=== PATIENT | female | born 1980 | race Caucasian/White ===

== ENCOUNTER 2019-07-30 16:52 | Emergency (ER) | payer OTHER ==
[2019-07-30 17:37] LABS: Absolute Lymphocytes (CBC) 3.1 K/uL (0.7-4.9); Basophils % 0.4 % (0-1.3); Hematocrit 35.2 % (36.0-45.0); Lymphocytes % 35.2 % (15.3-44.8); MPV 8.1 fL (7.6-11.3); RBC Red Blood Cell Count 4.26 M/uL (3.86-4.86)
[2019-07-30 17:54] LABS: Urine Blood TRACE (NEG); Urine Glucose 2+ (NEG); Urine Protein 2+ (NEG); Urine pH 5.5 (5.0-7.0)
[2019-07-30 17:55] LABS: ALT/SGPT 33 U/L (12-78); AST/SGOT 18 U/L (15-37); Albumin 3.7 g/dL (3.4-5.0); Alkaline Phosphatase 77 U/L (45-117); BUN Blood Urea Nitrogen 13 mg/dL (7-18); Bicarbonate 23 mmol/L (21-32); Bilirubin Direct < 0.1 mg/dL (0-0.2); Bilirubin Total 0.3 mg/dL (0.2-1.0); Glucose Level 399 mg/dL (74-106); Lipase 158 U/L (73-393); Potassium 3.6 mmol/L (3.5-5.1); Protein, Total 7.9 g/dL (6.4-8.2); Sodium Level 132 mmol/L (136-145)
[2019-07-30 18:00] LABS: Urine Bacteria <20 /HPF (<20); Urine Culture Reflex Order NOT NEEDED; Urine RBC NONE SEEN /HPF (NONE SEEN)
[2019-07-30] MEDS ORDERED: INSULIN -REGULAR HUMAN 50 UNIT/0.5 ML ML ONE (18:39)
[2019-07-30] MEDS ORDERED: NA CHLORIDE 0.9% 1,000 ML ONE (18:40)
--- NOTE | 2019-07-30 20:05 | EDPHYS ---
Physician Documentation [facility] Name: Lana Solo Age: 38 yrs Sex: Female : 1980 Arrival Date: 07/30/2019 Time: 16:58 Bed 5 Private MD: ED Physician Kings Alba HPI: 07/30 17:15 This 38 yrs old Female presents to ER via Ambulatory with complaints of High cp Blood Sugar. 17:15 The patient or guardian reports hyperglycemia. cp 17:15 Onset: The symptoms/episode began/occurred gradually, and became worse yesterday. cp Associated signs and symptoms: Pertinent negatives: chest pain. Current symptoms: In the emergency department the patient's symptoms are unchanged from the initial presentation. Patient reports her PCP told her to go to ED for evaluation due to elevated blood sugar that was over 600 yesterday. Patient admits to stopping metformin medication due to decrease of appetite and nausea/vomiting. Patient reports she is not taking any medications for diabetes for past 2-3 weeks. Historical: - Allergies: 17:02 No Known Allergies; aa5 - PMHx: 17:02 Diabetes - NIDDM; Hypertension; Thyroid problem; Polycystic Kidney; Rheumatoid aa5 Arthritis; Psoriatric arthritis; - PSHx: 17:02 ; ankle; aa5 - Immunization history:: Adult Immunizations up to date. - Ebola Screening: : No symptoms or risks identified at this time. - Social history:: Smoking status: Patient/guardian denies using tobacco, Patient/guardian denies using alcohol, street drugs. ROS: 17:20 Constitutional: Negative for body aches, chills, fever, poor PO intake. cp 17:20 Eyes: Negative for injury, pain, redness, and discharge. cp 17:20 ENT: Negative for drainage from ear(s), ear pain, sore throat, difficulty swallowing, difficulty handling secretions. 17:20 Cardiovascular: Negative for chest pain, edema, palpitations. 17:20 Respiratory: Negative for cough, shortness of breath, wheezing. 17:20 Abdomen/GI: Negative for abdominal pain, nausea, vomiting, and diarrhea, constipation, black/tarry stool, rectal bleeding. 17:20 Back: Negative for pain at rest, pain with movement. 17:20 : Negative for urinary symptoms, vaginal bleeding, vaginal discharge. 17:20 Skin: Negative for cellulitis, rash. 17:20 Neuro: Negative for altered mental status, dizziness, headache, numbness, syncope, weakness. 17:20 All other systems are negative. Exam: 17:25 Constitutional: The patient appears in no acute distress, alert, awake, cp non-diaphoretic, non-toxic, well developed, well nourished, obese. 17:25 Head/Face: Normocephalic, atraumatic. cp 17:25 Eyes: Periorbital structures: appear normal, Pupils: equal, round, and reactive to light and accomodation, Extraocular movements: intact throughout, Conjunctiva: normal, no exudate, no injection, Sclera: no appreciated abnormality, Lids and lashes: appear normal, bilaterally. 17:25 ENT: External ear(s): are unremarkable, Nose: is normal, Mouth: Lips: moist, Oral mucosa: pink and intact, moist, Posterior pharynx: is normal, airway is patent, no erythema, no exudate. 17:25 Neck: ROM/movement: is normal, is supple, without pain, no range of motions limitations, no nuchal rigidity. 17:25 Chest/axilla: Inspection: normal, Palpation: is normal, no crepitus, no tenderness. 17:25 Cardiovascular: Rate: tachycardic, Rhythm: regular, Edema: is not appreciated, JVD: is not appreciated. 17:25 Respiratory: the patient does not display signs of respiratory distress, Respirations: normal, no use of accessory muscles, no retractions, no splinting, no tachypnea, labored breathing, is not present, Breath sounds: are clear throughout, no decreased breath sounds, no stridor, no wheezing. 17:25 Abdomen/GI: Inspection: abdomen appears normal, Bowel sounds: active, all quadrants, Palpation: abdomen is soft and non-tender, in all quadrants. 17:25 Back: pain, is absent, ROM is normal. 17:25 Skin: no rash present. 17:25 Neuro: Orientation: to person, place \T\ time. Mentation: is normal, Cerebellar function: is grossly normal, Motor: moves all fours, strength is normal, Sensation: is normal, Gait: is steady. Vital Signs: 17:01 BP 160 / 97; Pulse 110; Resp 18 S; Temp 98.5(O); Pulse Ox 97% on R/A; Weight 98.88 kg aa5 (R); Height 5 ft. 3 in. (160.02 cm) (R); 18:17 BP 146 / 78; Pulse 113; Resp 17; Temp 98.4; Pulse Ox 98% on R/A; Pain 0/10; ch 19:15 BP 143 / 77; Pulse 104; Resp 17 S; Temp 98.5(O); Pulse Ox 100% on R/A; Pain 0/10; cc3 20:10 BP 139 / 75; Pulse 101; Resp 18 S; Pulse Ox 100% on R/A; Pain 0/10; cc3 17:01 Body Mass Index 38.62 (98.88 kg, 160.02 cm) aa5 MDM: 17:[address] [facility] 07/30 17:15 Order name: Basic Metabolic Panel; Complete Time: 18:26 07/30 18:26 Interpretation: Normal except: NA 132; GLUC 399; GFR 53. 07/30 17:15 Order name: CBC with Diff; Complete Time: 17:52 07/30 17:52 Interpretation: Normal except: HGB 11.9; HCT 35.2. 07/30 17:15 Order name: Creatinine for Radiology; Complete Time: 18:26 07/30 17:15 Order name: Hepatic Function; Complete Time: 18:26 07/30 19:20 Interpretation: Normal except: GLOB 4.2; A/G 0.9. 07/30 17:15 Order name: Lipase; Complete Time: 18:26 07/30 17:15 Order name: Urine Microscopic Only; Complete Time: 18:26 07/30 17:02 Order name: Accucheck Blood Glucose; Complete Time: 17:19 cp 07/30 17:15 Order name: IV Saline Lock; Complete Time: 18:16 07/30 17:15 Order name: Labs collected and sent; Complete Time: 18:16 cp 07/30 17:15 Order name: Urine Dipstick-Ancillary (obtain specimen); Complete Time: 18:16 cp 07/30 17:46 Order name: Urine Dipstick--Ancillary (enter results); Complete Time: 18:26 ia 07/30 17:46 Order name: Urine --Ancillary (enter results); Complete Time: 18:26 ms 07/30 19:20 Order name: Accucheck Blood Glucose; Complete Time: 19:38 cp Administered Medications: 18:40 Drug: NS 0.9% 1000 ml Route: IV; Rate: 1 bolus; Site: right forearm; 19:40 Follow up: Response: No adverse reaction; IV Status: Completed infusion; IV Intake: cc3 1000ml 18:45 Drug: Insulin Regular Human 10 units {Co-Signature: osmar1 (Aide Mayfield RN).} Route: IVP; Site: right forearm; 19:37 Follow up: Response: No adverse reaction; Blood sugar is lowered cc3 Point of Care Testing: Blood Glucose: 17:01 Blood Glucose: 405 mg/dL; ss 19:37 Blood Glucose: 242 mg/dL; cc3 Ranges: Critical Glucose Levels:Adult <50 mg/dl or >400 mg/dl <40 mg/dl or >180 mg/dl Disposition: 07/30/19 20:04 Discharged to Home. Impression: Diabetes mellitus due to underlying condition with hyperglycemia. - Condition is Stable. - Discharge Instructions: Form - Daily Diabetes Record, Blood Glucose Monitoring, Adult, Diabetes Mellitus and Food. - Prescriptions for Metformin 500 mg Oral Tablet - take 1 tablet by ORAL route 2 times per day Then take 1 tablet with morning meals AND evening meals; 60 tablet. - Medication Reconciliation Form, Thank You Letter, Antibiotic Education, Prescription Opioid Use form. - Follow up: Private Physician; When: 1 - 2 days; Reason: Recheck today's complaints. - Problem is chronic. - Symptoms have improved. Addendum: 08/01/2019 08:40 Co-signature as Attending Physician, Kings Alba MD I agree with the assessment and c weiss plan of care. Signatures: Dispatcher [employer] Sharita Brock RN Kings Nayak ch, MD MD cha Calderon, Audri, RN RN aa5 Kings Vera PA PA cp Cordel, Charlene cc3 Aide Mayfield RN lp1 Corrections: (The following items were deleted from the chart) 07/30 20:24 20:04 07/30/2019 20:04 Discharged to Home. Impression: Diabetes mellitus due to cc3 underlying condition with hyperglycemia. Condition is Stable. Forms are Medication Reconciliation Form, Thank You Letter, Antibiotic Education, Prescription Opioid Use. Follow up: Private Physician; When: 1 - 2 days; Reason: Recheck today's complaints. Problem is chronic. Symptoms have improved. cp
--- NOTE | 2019-07-30 20:05 | ER ---
Nurse's Notes [facility] [place], [place] Name: Lana Solo Age: 38 yrs Sex: Female : 1980 Arrival Date: 07/30/2019 Time: 16:58 Bed 5 Private MD: Diagnosis: Diabetes mellitus due to underlying condition with hyperglycemia Presentation: 07/30 17:00 Presenting complaint: Patient states: "my doctor said that my sugar was 600 yesterday aa5 and today I checked it and it was 474 but I haven't been taking the metformin for the last 2 or 3 weeks because I found out it was giving me stomach problems for the last 2 years". Pt denies nausea/vomiting, denies any symptoms. Pt reports she also has not been taking her antihypertensive medication. 17:00 Transition of care: patient was not received from another setting of care. Onset of aa5 symptoms was July 2019. Risk Assessment: Do you want to hurt yourself or someone else? Patient reports no desire to harm self or others. Initial Sepsis Screen: Does the patient meet any 2 criteria? HR > 90 bpm. Does the patient have a suspected source of infection? No. Patient's initial sepsis screen is negative. Care prior to arrival: None. 17:00 Method Of Arrival: Ambulatory aa5 17:00 Acuity: BRODY 3 aa5 Triage Assessment: 19:15 General: Appears in no apparent distress. comfortable, Behavior is calm, cooperative, cc3 appropriate for age. Historical: - Allergies: 17:02 No Known Allergies; aa5 - PMHx: 17:02 Diabetes - NIDDM; Hypertension; Thyroid problem; Polycystic Kidney; Rheumatoid aa5 Arthritis; Psoriatric arthritis; - PSHx: 17:02 ; ankle; aa5 - Immunization history:: Adult Immunizations up to date. - Ebola Screening: : No symptoms or risks identified at this time. - Social history:: Smoking status: Patient/guardian denies using tobacco, Patient/guardian denies using alcohol, street drugs. Screenin:15 Abuse screen: Denies threats or abuse. Denies injuries from another. Nutritional ch screening: No deficits noted. Tuberculosis screening: No symptoms or risk factors identified. Fall Risk None identified. Assessment: 17:15 Reassessment: Patient appears in no apparent distress at this time. Patient and/or ch family updated on plan of care and expected duration. Pain level reassessed. Patient is alert, oriented x 3, equal unlabored respirations, skin warm/dry/pink. Pain: Denies pain. Neuro: No deficits noted. Level of Consciousness is awake, alert, obeys commands, Oriented to person, place, time, situation, Senior Underwriting Assistant are equal bilaterally. Cardiovascular: No deficits noted. Respiratory: Airway is patent Respiratory effort is even, unlabored. GI: Abdomen is round obese, Bowel sounds present X 4 quads. Derm: Skin is pink, warm \\T\\ dry. 19:15 Reassessment: Patient appears in no apparent distress at this time. Patient and/or cc3 family updated on plan of care and expected duration. Pain level reassessed. Patient is alert, oriented x 3, equal unlabored respirations, skin warm/dry/pink. Received this female patient from morning shift as a case of hyperglycemia, with IV cannula gauge 20 at the right ACV with ongoing IVF bolus of NS infusing well Patient denies pain at this time. Patient states feeling better. Patient states symptoms have improved. General: Appears in no apparent distress. comfortable, Behavior is calm, cooperative, appropriate for age. Pain: Denies pain. Neuro: Level of Consciousness is awake, alert, obeys commands, Oriented to person, place, time, situation, Appropriate for age. Cardiovascular: Denies chest pain, Heart tones S1 S2 present Capillary refill < 3 seconds in bilateral fingers Patient's skin is warm and dry. Respiratory: Airway is patent Respiratory effort is even, unlabored, Respiratory pattern is regular, symmetrical. GI: Abdomen is round obese. : No signs and/or symptoms were reported regarding the genitourinary system. EENT: No signs and/or symptoms were reported regarding the EENT system. Derm: Skin is intact, is healthy with good turgor, Skin is pink, warm \\T\\ dry. normal. Musculoskeletal: Circulation, motion, and sensation intact. Range of motion: intact in all extremities. 20:25 Reassessment: Patient appears in no apparent distress at this time. Patient and/or cc3 family updated on plan of care and expected duration. Pain level reassessed. Patient is alert, oriented x 3, equal unlabored respirations, skin warm/dry/pink. PA Page discharged the patient home with prescription given. IV cannula removed and patient left ER vitally stable and ambulatory with her family. No valuables left in the patient's room. Patient denies pain at this time. Patient states feeling better. Patient states symptoms have improved. Vital Signs: 17:01 BP 160 / 97; Pulse 110; Resp 18 S; Temp 98.5(O); Pulse Ox 97% on R/A; Weight 98.88 kg aa5 (R); Height 5 ft. 3 in. (160.02 cm) (R); 18:17 BP 146 / 78; Pulse 113; Resp 17; Temp 98.4; Pulse Ox 98% on R/A; Pain 0/10; ch 19:15 BP 143 / 77; Pulse 104; Resp 17 S; Temp 98.5(O); Pulse Ox 100% on R/A; Pain 0/10; cc3 20:10 BP 139 / 75; Pulse 101; Resp 18 S; Pulse Ox 100% on R/A; Pain 0/10; cc3 17:01 Body Mass Index 38.62 (98.88 kg, 160.02 cm) aa5 ED Course: 16:58 Patient arrived in ED. mr 17:00 Arm band placed on Patient placed in an exam room, on a stretcher. aa5 17:01 Kings Vera PA is PHCP. cp 17:01 Kings Alba MD is Attending Physician. cp 17:15 Patient has correct armband on for positive identification. Placed in gown. Bed in low ch position. Call light in reach. Side rails up X 1. Pulse ox on. NIBP on. 17:20 Sharita Garcia, TANIA is Primary Nurse. ch 17:20 Triage completed. aa5 17:30 No apparent distress. Resting quietly. ch 17:30 No provider procedures requiring assistance completed. Inserted saline lock: 20 gauge ch in right forearm, using aseptic technique. Blood collected. 19:04 Primary Nurse role handed off by Sharita Garcia, TANIA 19:06 Alma Rosa Sumner is Primary Nurse. cc3 20:24 IV discontinued, intact, bleeding controlled, No redness/swelling at site. Pressure cc3 dressing applied. Administered Medications: 18:40 Drug: NS 0.9% 1000 ml Route: IV; Rate: 1 bolus; Site: right forearm; ch 19:40 Follow up: Response: No adverse reaction; IV Status: Completed infusion; IV Intake: cc3 1000ml 18:45 Drug: Insulin Regular Human 10 units {Co-Signature: lp1 (Aide Mayfield RN).} Route: IVP; Site: right forearm; 19:37 Follow up: Response: No adverse reaction; Blood sugar is lowered cc3 Point of Care Testing: Blood Glucose: 17:01 Blood Glucose: 405 mg/dL; ss 19:37 Blood Glucose: 242 mg/dL; cc3 Ranges: Intake: 19:40 IV: 1000ml; Total: 1000ml. cc3 Outcome: 20:04 Discharge ordered by MD. cp 20:24 Patient left the ED. cc3 20:24 Discharged to home ambulatory, with family. cc3 20:24 Condition: stable 20:24 Discharge instructions given to patient, Instructed on discharge instructions, follow up and referral plans. medication usage, Demonstrated understanding of instructions, follow-up care, medications, Prescriptions given X 1. Signatures: Sharita Garcia, RN TANIA June Clare DavisSamantha, RN RN aa5 Zuleyka Egan RN RN ss Page, Corey, Alma Rosa Kong cp cc3 Aide Mayfield RN lp1
[2019-07-30 20:30] VITALS: BP 146/78; TEMP 98.4; O2SAT 98
== END 2019-07-30 20:24 | disposition home or self-care (01) ==
LOC: ER 16:52
DX: E11.65 Type 2 diabetes mellitus with hyperglycemia (principal)
CPT/HCPCS: 96361; 85025; 80048; 36415; 81025; 82962 ×2; 80076; 83690; 96374; 99284; J7030; 81003; 81015

== ENCOUNTER 2020-11-23 18:11 | Emergency (ER) | payer OTHER ==
--- OUTSIDE RECORDS SUMMARY | 2020-11-23 18:13 | XMS REPORT | Summary of Care ---
:1980 Author Organization [facility] Address [address] [place] [id number] Care Team Providers Name Role Phone Pcp, Does Not Have A Primary Care Provider Reason for Referral Radiology Services (Routine) Status Reason Specialty Diagnoses / Referred By Referred To Procedures Contact Contact Authorized Diagnostic Diagnoses Mammogram abnormal Yovany Parknda Radiology Procedures BI ULTRASOUND BREAST COMPLETE LEFT R, CANDY BAR ATTENDANT [address] [id number] Reason for Visit Radiology Services (Routine) Status Reason Specialty Diagnoses / Referred By Referred To Procedures Contact Contact Authorized Diagnostic Diagnoses Mammogram abnormal Park, Yovanynda Radiology Procedures BI ULTRASOUND BREAST COMPLETE LEFT R, CANDY BAR ATTENDANT [address] [id number] Encounter Details Date Type Department Care Team Description 10/02/2020 Hospital Encounter [facility] [place] Angy led (RAD EXAM [facility] R, CANDY BAR ATTENDANT CANCELLED PER Ultrasound [address] [facility] RADIOLOGIST) [address] [place] [id number] [phone] Allergies No Known Allergiesdocumented as of this encounter (statuses as of 10/03/2020) Medications Medication Sig Dispensed Refills Start Date End Date Status insulin degludec inject 50 Units 0 Active (TRESIBA U-100 INSULIN under the skin. SC) icosapent ethyL Take 1 g by 0 Ac tive (VASCEPA) 1 gram capsule mouth daily. sulfaSALAzine 500 mg Take 500 mg by 0 Active tablet mouth 4 (four) times daily. allopurinoL 100 mg Take 100 mg by 0 Active tablet mouth daily. atorvastatin 40 mg Take 40 mg by 0 Active tablet mouth at bedtime. insulin aspart RAPID inject 8 Units 0 Active (NOVOLOG U-100 INSULIN under the skin 3 ASPART) 100 unit/mL (three) times injection daily with meals. OMEPRAZOLE ORAL Take 40 mg by 0 Active mouth 2 (two) times daily. MELOXICAM Take 15 mg by 0 Active ORALIndications: as mouth. needed Indications: as needed levothyroxine 200 mcg Take 200 mcg by 0 Active Cap mouth. traZODone 50 mg tablet Take 50 mg by 0 Active mouth at bedtime. losartan-hydrochlorothia Take 1 tablet by 0 Active zide 100-12.5 mg per mouth daily. tablet documented as of this encounter (statuses as of 10/03/2020) Active Problems Problem Noted Date Anxiety in , antepartum 03/16/2018 Maternal rheumatoid arthritis complicating 0 03/16/2018 Psoriasis 03/16/2018 documented as of this encounter (statuses as of 10/03/2020) Resolved Problems Problem Noted Date Resolved Date 39 weeks gestation of 10/06/2018 06/20/20 20 Intrauterine growth restriction (IUGR) affecting care of 03/201806/20/2020 mother, third trimester, single gestation Liveborn by 10/06/2018 06/20/2020 38 weeks gestation of 09/30/2018 06/20/20 20 Obesity affecting in third trimester 09/30/2018 06/20/2020 33 weeks gestation of 08/26/2018 06/20/20 20 Obesity (BMI 30-39.9) 08/26/2018 06/20/2020 Anemia affecting 03/17/2018 06/20/2020 AMA (advanced maternal age) multigravida 35+ 03/16/2018 06/20/2020 Hypertension in , pre-existing, antepartum 03/16/20 18 06/20/2020 Hypothyroid in , antepartum 03/16/2018 Diabetes mellitus complicating , antepartum 018 06/20/2020 Overview: a1c 8.3 Depression affecting 03/16/2018 0 Tobacco smoking affecting 03/16/201806/02 Obesity affecting 10/02/2016 06/20/2020 Well woman exam 04/02/2016 03/16/2018 Morbid obesity 04/02/2016 03/16/2018 Contraceptive management 04/02/2016 03/16/2018 Type 2 diabetes mellitus without complication 04/02/2016 03/16/2018 Essential hypertension, benign 04/02/2016 8 Tobacco use disorder 04/02/2016 03/16/2018 Hypothyroidism 04/02/2016 03/16/2018 documented as of this encounter (statuses as of 10/03/2020) Immunizations Name Administration Dates Next Due TDAP 07/03/2017 documented as of this encounter Social History Tobacco Use Types Packs/Day Years Used Date Heavy Tobacco Smoker Cigarettes 0.5 15 Started : 03/16/1998 Smokeless Tobacco: Never Used Comments: 1 pack every 3 days Alcohol Use Drinks/Week oz/Week Comments No 0 Standard drinks or equivalent 0.0 Sex Assigned at Date Recorded Not on file COVID-19 Exposure Response Date Recorded In the last month, have you been in contact with No / Unsure 10/02/2020 10:54 AM CAR GREASER someone who was confirmed or suspected to have Coronavirus / COVID-19? documented as of this encounter Last Filed Vital Signs Not on filedocumented in this encounter Plan of Treatment Name Type Priority Associated Diagnoses Order S chedule BI ULTRASOUND BREAST IMAGING Routine Mammogram abnormal O NCE for 1 Occurrences COMPLETE LEFT starting 10/02 until 0 Health Maintenance Due Date Last Done Comments PNEUMOCOCCAL 0-64 YEARS 1988 COMBINED SERIES (1 of 1 - PPSV23) EYE EXAM 1992 FOOT EXAM 2000 INFLUENZA VACCINE (#1) 2020 PAP SMEAR 03/16/2021 03/16/2018, 04/02/2016, 08/11/2005, Additional history exists CREATININE (SERUM) 06/20/2021 10/10/2018, 08/26/2018, Postp oned from 06/07/2018, Additional 9 (Alternative history exists Guidelines) Depression Screening 06/20/2021 06/20/2020, 06/20/2020 HgA1C 06/20/2021 03/16/2018 Postponed from 09/16/2018 ([place] Guidelines) LDL-C 06/20/2021 Postponed from 1992 ([place]te [place] Guidelines) URINE MICROALBUMIN 06/20/2021 Postponed fro m 1992 ([place]te [place] Guidelines) DTaP,Tdap,and Td Vaccines 07/03/2027 07/03/2017 (2 - Td) documented as of this encounter Results Not on filedocumented in this encounter Visit Diagnoses Diagnosis Mammogram abnormal Abnormal mammogram, unspecified documented in this encounter Insurance Payer Benefit Plan / Subscriber ID Effective Dates Phone Addre ss Type Group MEDICARE MEDICARE PART [id number] 2016-Rachel [phone] Medicare A & B t 2 [id number] [place] [address] [facility] MEDICAID OF [id number] 2016-Rachel [phone] Medicaid [place] t 0 [id number] [place] [address] documented as of this encounter Advance Directives Name Relationship Healthcare Agent Communication Relationship Shantelle Solo Mother Health Care Agent Sharita Arnold Friend [facility] [phone] Agent (Mobile)
--- OUTSIDE RECORDS SUMMARY | 2020-11-23 18:13 | XMS REPORT | Continuity of Care Document ---
:1980 Author Organization [facility] t Address [address] [place] [address] Care Team Providers Name Role Phone Luanne Comer Attending Clinician Problems This patient has no known problems. Allergies, Adverse Reactions, Alerts This patient has no known allergies or adverse reactions. Medications This patient has no known medications. Procedures This patient has no known procedures. Encounters Start End Encounter Admission Attending Care Care Encounter Source Date/Time Date/Time Type Type Clinicians Facility Department ID 2020-10-02 2020-10-02 [facility] [id number] 10:57:08 23:59:00 Encounter Beverly Hinkle [id number] [place] [id number] [place] [id number] 2020-08-16 2020-08-16 Telephone [facility] [id number] 00:00:00 00:00:00 Beverly Stroud REGISTERED SAFETY ENGINEER [id number] [employer] [id number] MATERNAL [id number] & CHILD [address] [place] [address] Results This patient has no known results.
[2020-11-23 19:28] LABS: Urine Blood 2+ (NEG); Urine Glucose TRACE (NEG); Urine Protein 3+ (NEG); Urine Specific Gravity >1.030 (1.005-1.030); Urine pH 5.5 (5.0-7.0)
[2020-11-23] MEDS ORDERED: ONDANSETRON 4 MG/2 ML VIAL ONE (21:15)
[2020-11-23] MEDS ORDERED: MORPHINE 4 MG/ML SYR ONE (21:15)
[2020-11-23] MEDS ORDERED: NA CHLORIDE 0.9% 1,000 ML ONE ×2 (21:15→22:31)
[2020-11-23 21:16] LABS: Basophils % 1.3 % (0-1.3); Hematocrit 36.8 % (36.0-45.0); Lymphocytes % 37.7 % (15.3-44.8); MPV 8.8 fL (7.6-11.3); RBC Red Blood Cell Count 4.69 M/uL (3.86-4.86)
[2020-11-23] MEDS ORDERED: FAMOTIDINE 20 MG/2 ML VIAL IV ONE (21:16)
[2020-11-23 21:39] LABS: ALT/SGPT 39 U/L (12-78); Albumin 3.2 g/dL (3.4-5.0); Alkaline Phosphatase 78 U/L (45-117); BUN Blood Urea Nitrogen 15 mg/dL (7-18); Bicarbonate 25 mmol/L (21-32); Bilirubin Direct < 0.1 mg/dL (0-0.2); Bilirubin Total 0.2 mg/dL (0.2-1.0); Glucose Level 249 mg/dL (74-106); Lipase 173 U/L (73-393); Protein, Total 7.6 g/dL (6.4-8.2); Sodium Level 135 mmol/L (136-145)
[2020-11-23 21:48] LABS: AST/SGOT 25 U/L (15-37); Potassium 3.7 mmol/L (3.5-5.1)
[2020-11-23] MEDS ORDERED: PROMETHAZINE INJ 25 MG/ML AMP ONE (22:32)
--- NOTE | 2020-11-24 00:07 | ER ---
Nurse's Notes [facility] Name: Lana Solo Age: 39 yrs Sex: Female : 1980 Arrival Date: 11/23/2020 Time: 18:12 Bed 19 Private MD: Diagnosis: Upper abdominal pain, unspecified Presentation: 11/23 18:33 Chief complaint: Patient states: RUQ pain sometimes radiating to the back since ca1 yesterday morning. Reports nausea. Denies fever. Coronavirus screen: Client denies travel out of the [place] in the last 14 days. nausea, Client presents with at least one sign or symptom that may indicate coronavirus-19. Standard/surgical mask placed on the client. Provider contacted for isolation considerations. Ebola Screen: Patient negative for fever greater than or equal to 101.5 degrees Fahrenheit, and additional compatible Ebola Virus Disease symptoms Patient denies exposure to infectious person. Patient denies travel to an Ebola-affected area in the 21 days before illness onset. No symptoms or risks identified at this time. Initial Sepsis Screen: Does the patient meet any 2 criteria? No. Patient's initial sepsis screen is negative. Does the patient have a suspected source of infection? No. Patient's initial sepsis screen is negative. Risk Assessment: Do you want to hurt yourself or someone else? Patient reports no desire to harm self or others. Onset of symptoms was November 23, 2020. 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 - Social history:: Smoking status: Patient reports the use of cigarette tobacco products, smokes one-half pack cigarettes per day. Screenin:08 Abuse screen: Denies threats or abuse. Denies injuries from another. Nutritional mg2 screening: No deficits noted. Tuberculosis screening: No symptoms or risk factors identified. Fall Risk IV access (20 points). Assessment: 21:07 General: Appears in no apparent distress. comfortable, Behavior is calm, cooperative. mg2 Pain: Complains of pain in right upper quadrant Pain radiates to back Pain currently is 8 out of 10 on a pain scale. Neuro: Level of Consciousness is awake, alert, obeys commands, Oriented to person, place, time, situation. Cardiovascular: Capillary refill < 3 seconds Patient's skin is warm and dry. Respiratory: Airway is patent Respiratory effort is even, unlabored, Respiratory pattern is regular, symmetrical. GI: Bowel sounds present X 4 quads. Abd is soft Reports upper abdominal pain, nausea. : No signs and/or symptoms were reported regarding the genitourinary system. EENT: No signs and/or symptoms were reported regarding the EENT system. Derm: Skin is intact, is healthy with good turgor, Skin is pink, warm \T\ dry. normal. Musculoskeletal: Circulation, motion, and sensation intact. Capillary refill < 3 seconds. 23:00 Reassessment: Patient appears in no apparent distress at this time. Patient and/or mg2 family updated on plan of care and expected duration. Pain level reassessed. Patient is alert, oriented x 3, equal unlabored respirations, skin warm/dry/pink. 11/24 00:12 Reassessment: Patient denies pain at this time. Patient states feeling better. Patient mg2 states symptoms have improved. Vital Signs: 11/23 18:33 BP 161 / 101; Pulse 109; Resp 15 S; Temp 97.6(TE); Pulse Ox 99% on R/A; Weight 101.6 kg ca1 (R); Height 5 ft. 3 in. (160.02 cm) (R); Pain 8/10; 21:08 Pulse 91; Resp 18; Pulse Ox 96% on R/A; mg2 21:10 BP 153 / 93; mg2 11/24 00:03 Pulse 90; Resp 18; Pulse Ox 99% on R/A; Pain 0/10; mg2 00:12 BP 145 / 87; mg2 11/23 18:33 Body Mass Index 39.68 (101.60 kg, 160.02 cm) ca1 ED Course: 11/23 18:12 Patient arrived in ED. as 18:34 Triage completed. ca1 18:35 Arm band placed on right wrist. ca1 20:31 Elton Redding MD is Attending Physician. mh7 20:33 Gardose, Adria, RN is Primary Nurse. mg2 21:00 Inserted saline lock: 20 gauge in right forearm, using aseptic technique. Blood mg2 collected. 21:08 Patient has correct armband on for positive identification. mg2 21:08 No provider procedures requiring assistance completed. mg2 22:20 CT Abd/Pelvis - IV Contrast Only In Process Unspecified. EDMS 11/24 00:12 IV discontinued, intact, bleeding controlled, No redness/swelling at site. Pressure mg2 dressing applied. Administered Medications: 11/23 21:05 Drug: Zofran (Ondansetron) 4 mg Route: IVP; Site: right forearm; mg2 11/24 00:11 Follow up: Response: No adverse reaction mg2 11/23 21:05 Drug: Pepcid 20 mg Route: IVP; Site: right forearm; mg2 11/24 00:11 Follow up: Response: No adverse reaction mg2 11/23 21:06 Drug: NS 0.9% 1000 ml Route: IV; Rate: 1000 ml; Site: right forearm; mg2 11/24 00:12 Follow up: Response: No adverse reaction; IV Status: Completed infusion; IV Intake: mg2 1000ml 11/23 21:06 Drug: morphine 4 mg Route: IVP; Site: right forearm; mg2 11/24 00:11 Follow up: Response: No adverse reaction mg2 11/23 22:33 Drug: NS 0.9% 1000 ml Route: IV; Rate: 1000 ml; Site: right forearm; mg2 11/24 00:11 Follow up: Response: No adverse reaction; IV Status: Completed infusion; IV Intake: mg2 1000ml 11/23 22:33 Drug: Phenergan 12.5 mg Route: IVP; Site: right forearm; mg2 11/24 00:10 Follow up: Response: No adverse reaction mg2 Intake: 00:11 IV: 1000ml; Total: 1000ml. mg2 00:12 IV: 1000ml; Total: 2000ml. mg2 Outcome: 00:07 Discharge ordered by MD. ramsay 00:12 Discharged to home ambulatory. mg2 00:12 Condition: stable 00:12 Discharge instructions given to patient, Instructed on discharge instructions, follow up and referral plans. medication usage, Demonstrated understanding of instructions, follow-up care, medications, Prescriptions given X 3. 00:16 Patient left the ED. mg2 Signatures: Dispatcher [employer] [facility] CurtisAnna Michele, RN RN mg2 Jody Song RN RN ca1 Elton Redding MD MD mh7 Corrections: (The following items were deleted from the chart) 11/23 18:35 18:33 Chief complaint: Patient states: RUQ pain since yesterday morning. Reports ca1 nausea. Denies fever ca1
--- NOTE | 2020-11-24 00:08 | EDPHYS ---
Physician Documentation [facility] Name: Lana Solo Age: 39 yrs Sex: Female : 1980 Arrival Date: 11/23/2020 Time: 18:12 Bed 19 Private MD: ED Physician Elton Redding HPI: 11/23 20:58 This 39 yrs old Female presents to ER via Ambulatory with complaints of mh7 Abdominal Pain. 20:58 The patient presents with abdominal pain in the right upper quadrant. Onset: The mh7 symptoms/episode began/occurred yesterday. The symptoms radiate to back. Associated signs and symptoms: Pertinent positives: nausea, Pertinent negatives: anorexia, blood in stools, chest pain, constipation, diarrhea, dysuria, fever, headache, hematuria, palpitations, shortness of breath, vaginal discharge, vomiting, vomiting blood. The symptoms are described as intermittent, vague, waxing/waning. Modifying factors: The symptoms are alleviated by nothing, the symptoms are aggravated by nothing. Severity of pain: At its worst the pain was moderate yesterday, in the emergency department the pain is unchanged. 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 - Social history:: Smoking status: Patient reports the use of cigarette tobacco products, smokes one-half pack cigarettes per day. ROS: 20:58 Constitutional: Negative for fever, chills, and weight loss, Eyes: Negative for injury, mh7 pain, redness, and discharge, ENT: Negative for injury, pain, and discharge, Neck: Negative for injury, pain, and swelling, Cardiovascular: Negative for chest pain, palpitations, and edema, Respiratory: Negative for shortness of breath, cough, wheezing, and pleuritic chest pain, : Negative for injury, bleeding, discharge, and swelling, MS/Extremity: Negative for injury and deformity, Skin: Negative for injury, rash, and discoloration, Neuro: Negative for headache, weakness, numbness, tingling, and seizure, Psych: Negative for depression, anxiety, suicide ideation, homicidal ideation, and hallucinations, Allergy/Immunology: Negative for hives, rash, and allergies, Endocrine: Negative for neck swelling, polydipsia, polyuria, polyphagia, and marked weight changes, Hematologic/Lymphatic: Negative for swollen nodes, abnormal bleeding, and unusual bruising. Exam: 20:58 Constitutional: This is a well developed, well nourished patient who is awake, alert, mh7 and in no acute distress. Head/Face: Normocephalic, atraumatic. Eyes: Pupils equal round and reactive to light, extra-ocular motions intact. Lids and lashes normal. Conjunctiva and sclera are non-icteric and not injected. Cornea within normal limits. Periorbital areas with no swelling, redness, or edema. Neck: Trachea midline, no thyromegaly or masses palpated, and no cervical lymphadenopathy. Supple, full range of motion without nuchal rigidity, or vertebral point tenderness. No Meningismus. Chest/axilla: Normal chest wall appearance and motion. Nontender with no deformity. No lesions are appreciated. Cardiovascular: Regular rate and rhythm with a normal S1 and S2. No gallops, murmurs, or rubs. Normal PMI, no JVD. No pulse deficits. Respiratory: Lungs have equal breath sounds bilaterally, clear to auscultation and percussion. No rales, rhonchi or wheezes noted. No increased work of breathing, no retractions or nasal flaring. 20:58 Back: No spinal tenderness. No costovertebral tenderness. Full range of motion. Skin: Warm, dry with normal turgor. Normal color with no rashes, no lesions, and no evidence of cellulitis. MS/ Extremity: Pulses equal, no cyanosis. Neurovascular intact. Full, normal range of motion. Neuro: Awake and alert, GCS 15, oriented to person, place, time, and situation. Cranial nerves II-XII grossly intact. Motor strength 5/5 in all extremities. Sensory grossly intact. Cerebellar exam normal. Normal gait. Psych: Awake, alert, with orientation to person, place and time. Behavior, mood, and affect are within normal limits. 20:58 Abdomen/GI: Inspection: abdomen appears normal, obese Bowel sounds: normal, in all quadrants, Palpation: moderate abdominal tenderness, in the epigastric area and right upper quadrant, Rectal exam: the exam is deferred, because of patient request, Indicators: McBurney's point is not tender, Prasad's sign is negative, Rovsing's sign is negative, Obturator sign is negative, Psoas sign is negative, Liver: no appreciated palpable abnormalities, Hernia: not appreciated. Vital Signs: 18:33 BP 161 / 101; Pulse 109; Resp 15 S; Temp 97.6(TE); Pulse Ox 99% on R/A; Weight 101.6 kg ca1 (R); Height 5 ft. 3 in. (160.02 cm) (R); Pain 8/10; 21:08 Pulse 91; Resp 18; Pulse Ox 96% on R/A; mg2 21:10 BP 153 / 93; mg2 11/24 00:03 Pulse 90; Resp 18; Pulse Ox 99% on R/A; Pain 0/10; mg2 00:12 BP 145 / 87; mg2 11/23 18:33 Body Mass Index 39.68 (101.60 kg, 160.02 cm) ca1 MDM: 00:04 Differential diagnosis: appendicitis, bowel obstruction, cholecystitis, Cholelithiasis, mh7 diverticulitis, gastritis, gastroesophageal reflux disease, non-specific abd pain, pancreatitis, Peptic Ulcer Disease, urinary tract infection. Data reviewed: vital signs, nurses notes, lab test result(s), amylase and lipase, CBC, electrolytes, urinalysis, EKG, radiologic studies, CT scan. Data interpreted: Pulse oximetry: on room air is 99 %. Interpretation: normal. Counseling: I had a detailed discussion with the patient and/or guardian regarding: the historical points, exam findings, and any diagnostic results supporting the discharge/admit diagnosis, the presence of at least one elevated blood pressure reading (>120/80) during this emergency department visit, lab results, radiology results, the need for outpatient follow up, to return to the emergency department if symptoms worsen or persist or if there are any questions or concerns that arise at home. Response to treatment: the patient's symptoms have resolved after treatment, the patient's blood pressure is in an acceptable range, mental status has returned to baseline, the patient no longer shows bradycardia, the patient is not short of breath, the patient is not tachycardic, the patient's pain is gone, the patient's temperature has normalized. 00:[address] [facility] 11/23 19:08 Order name: Urine --Ancillary (enter results); Complete Time: 20:51 tt3 11/23 19:08 Order name: Urine Dipstick--Ancillary (enter results) tt3 11/23 20:34 Order name: Basic Metabolic Panel [facility] 11/23 20:34 Order name: CBC with Diff [facility] 11/23 20:34 Order name: Hepatic Function [facility] 11/23 20:34 Order name: Lipase [facility] 11/23 20:34 Order name: Basic Metabolic Panel; Complete Time: 21:59 EDMS 11/23 20:34 Order name: CBC with Automated Diff; Complete Time: 21:32 EDMS 11/23 20:35 Order name: Liver (Hepatic) Function; Complete Time: 21:59 EDMS 11/23 20:35 Order name: Lipase; Complete Time: 21:59 EDMS 11/23 21:19 Order name: CT Abd/Pelvis - IV Contrast Only [facility] 11/23 21:25 Order name: Troponin (emerg Dept Use Only); Complete Time: 22:57 [facility] 11/23 19:08 Order name: Urine Dipstick-Ancillary (obtain specimen); Complete Time: 19:08 3 11/23 19:08 Order name: Urine Test (obtain specimen); Complete Time: 19:08 [facility] 11/23 20:34 Order name: IV Saline Lock; Complete Time: 21:06 [facility] 11/23 20:34 Order name: Labs collected and sent; Complete Time: 21:06 [facility] 11/23 20:51 Order name: EKG - Nurse/Tech; Complete Time: 21:19 [facility] Administered Medications: 11/23 21:05 Drug: Zofran (Ondansetron) 4 mg Route: IVP; Site: right forearm; mg2 11/24 00:11 Follow up: Response: No adverse reaction [facility] 11/23 21:05 Drug: Pepcid 20 mg Route: IVP; Site: right forearm; mg2 11/24 00:11 Follow up: Response: No adverse reaction [facility] 11/23 21:06 Drug: NS 0.9% 1000 ml Route: IV; Rate: 1000 ml; Site: right forearm; mg2 11/24 00:12 Follow up: Response: No adverse reaction; IV Status: Completed infusion; IV Intake: mg2 1000ml 11/23 21:06 Drug: morphine 4 mg Route: IVP; Site: right forearm; mg2 11/24 00:11 Follow up: Response: No adverse reaction mg2 11/23 22:33 Drug: NS 0.9% 1000 ml Route: IV; Rate: 1000 ml; Site: right forearm; mg2 11/24 00:11 Follow up: Response: No adverse reaction; IV Status: Completed infusion; IV Intake: mg2 1000ml 11/23 22:33 Drug: Phenergan 12.5 mg Route: IVP; Site: right forearm; mg2 11/24 00:10 Follow up: Response: No adverse reaction mg2 Disposition: 11/24/20 00:07 Discharged to Home. Impression: Upper abdominal pain, unspecified. - Condition is Stable. - Discharge Instructions: Abdominal Pain, Adult, [id number], Nausea, Adult, [id number]. - Prescriptions for Zofran ODT 4 mg Oral tablet,disintegrating - place 1 tablet by TRANSLINGUAL route every 8 hours As needed; 10 tablet. Bentyl 20 mg Oral Tablet - take 1 tablet by ORAL route every 6 hours As needed; 20 tablet. Pepcid 20 mg Oral Tablet - take 1 tablet by ORAL route every 12 hours for 5 days; 10 tablet. - Medication Reconciliation Form, Thank You Letter, Antibiotic Education, Prescription Opioid Use form. - Follow up: Private Physician; When: 1 - 2 days; Reason: Worsening of condition, Recheck today's complaints, Continuance of care, Re-evaluation by your physician. - Problem is new. - Symptoms have improved. Signatures: Dispatcher [employer] EDOK Adria Ferrari RN RN mg2 Jody Song RN RN ca1 Elton Redding MD MD 7 Rosa, Farooq tt3 Corrections: (The following items were deleted from the chart) 00:16 00:07 11/24/2020 00:07 Discharged to Home. Impression: Upper abdominal pain, mg2 unspecified. Condition is Stable. Forms are Medication Reconciliation Form, Thank You Letter, Antibiotic Education, Prescription Opioid Use. Follow up: Private Physician; When: 1 - 2 days; Reason: Worsening of condition, Recheck today's complaints, Continuance of care, Re-evaluation by your physician. Problem is new. Symptoms have improved. 7
[2020-11-24 01:31] VITALS: TEMP 97.6
[2020-11-24 01:34] VITALS: O2SAT 99
[2020-11-24 01:35] VITALS: BP 145/87
--- NOTE | 2020-11-24 21:07 | RAD REPORT ---
EXAM DESCRIPTION: CT - Abdomen Pelvis W Contrast - 11/24/2020 7:15 am CLINICAL HISTORY: ABD PAIN COMPARISON: None Available. TECHNIQUE: CT of the abdomen and pelvis performed following IV administration of iodinated contras t. FINDINGS: Lung Bases: The visualized lung bases are clear. Right lower lobe calcified granuloma. Bones: Multilevel degenerative endplate spondylosis and facet arthropathy. Mild bilateral hip joint s pace narrowing and marginal osteophytosis. Abdomen: Liver: Hepatomegaly and diffusely decreased hepatic density. Gallbladder: No calcified gallstones. Spleen, Pancreas, and Adrenal Glands: The spleen, pancreas, and adrenal glands are unremarkable. Kidneys: No hydronephrosis or obstructing calculus. Extensive cystic change in the kidneys bilate rally. No obstructing calculus or hydronephrosis. Vasculature: Aortoiliac atherosclerosis. IVC is unremarkable. The portal vein is patent. The proxim al visceral and renal arteries are patent. Stomach: The stomach and duodenum have normal course. Other: No free intraperitoneal air. No free fluid or lymphadenopathy. Tiny fat-containing umbilic al hernia. Pelvis: Bladder: Urinary bladder is unremarkable. Bowel: No dilated loops of large or small bowel. Appendix: Normal appendix. Pelvis: Uterus is not enlarged. IMPRESSION: 1. No acute inflammatory or obstructive process identified. 2. Hepatomegaly and hepatic steatosis. 3. Polycystic kidney disease. This exam was performed according to our departmental dose-optimization program, which includes autom ated exposure control, adjustment of the mA and/or kV according to patient size and/or use of iterati ve reconstruction technique. Electronically signed by: Chase Tse 11/23/2020 10:31 PM INVENTORY ASSISTANT Due to temporary technical issues with the PACS/Fluency reporting system, reports are being signed by the in house radiologists without review as a courtesy to insure prompt reporting. The interpreting radiologist is fully responsible for the content of the report.
== END 2020-11-24 00:16 | disposition home or self-care (01) ==
LOC: ER 18:11
DX: R10.11 Right upper quadrant pain (principal); I10 Essential (primary) hypertension; F17.210 Nicotine dependence, cigarettes, uncomplicated
CPT/HCPCS: 96361; 85025; 80048; 36415; 81025; 80076; 81003; 84484; 83690; 74177; 96375; 96374; 99284; Q9967; J2550; J7030 ×2; J2405; 93005

== ENCOUNTER 2021-01-13 18:52 | Emergency (ER) | payer OTHER ==
--- OUTSIDE RECORDS SUMMARY | 2021-01-13 18:54 | XMS REPORT | Continuity of Care Document ---
:[address] [facility] t Address [address] [place] [address] Care Team Providers Name Role Phone Princess CANCINO Attending Clinician Doctor Unassigned, Name Attending Clinician Unavailable Luanne Comer Attending Clinician Problems This patient has no known problems. Allergies, Adverse Reactions, Alerts This patient has no known allergies or adverse reactions. Medications This patient has no known medications. Procedures This patient has no known procedures. Encounters Start End Encounter Admission Attending Care Care Encounter Source Date/Time Date/Time Type Type Clinicians Facility Department ID 2021-01-11 2021-01-11 Emergency [facility] [id number] 13:03:00 14:33:00 Mickey Hinkle [id number] [place] [id number] [place] [id number] 2021-01-11 2021-01-11 Orders Doctor MARTINE [id number] 00:00:00 00:00:00 Only UnassCEFERINO he [id number] [place] [facility] [id number] 2020-10-02 2020-10-02 [facility] [id number] 10:57:08 23:59:00 Encounter Beverly Hinkle [id number] [place] [id number] [place] [id number] 2020-08-16 2020-08-16 [place] [facility] [id number] 00:00:00 00:00:00 Margaritamorrisvinay Stroud THREADING 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
--- NOTE | 2021-01-13 19:23 | ER ---
Nurse's Notes [facility] Name: Lana Solo Age: 40 yrs Sex: Female : 1980 Arrival Date: 01/13/2021 Time: 18:58 Bed Waiting Private MD: Diagnosis: Laceration without foreign body of right forearm Presentation: 01/13 19:09 Chief complaint: Patient states: Laceration to R FA was sutured Thursday at [place]. ll1 States one suture came out and the wound is starting to open up. No drainage. Crushed by truck [place] Thursday. Coronavirus screen: Client denies travel out of the [place] in the last 14 days. At this time, the client does not indicate any symptoms associated with coronavirus-19. Ebola Screen: Patient denies travel to an Ebola-affected area in the 21 days before illness onset. Initial Sepsis Screen: Does the patient meet any 2 criteria? No. Patient's initial sepsis screen is negative. Does the patient have a suspected source of infection? Yes: Skin breakdown/wound. Risk Assessment: Do you want to hurt yourself or someone else? Patient reports no desire to harm self or others. Onset of symptoms was January 11, 2021. 19:09 Method Of Arrival: Ambulatory ll1 19:09 Acuity: BRODY 4 ll1 Triage Assessment: 19:16 General: Appears uncomfortable, Behavior is calm, cooperative, appropriate for age. ll1 Pain: Complains of pain in R FA Quality of pain is described as aching. Neuro: No deficits noted. Cardiovascular: No deficits noted. Respiratory: No deficits noted. Derm: 1 suture popped open. Slight dehiscence. 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 - Social history:: Smoking status: Patient reports the use of cigarette tobacco products, smokes one-half pack cigarettes per day. Screenin:21 Abuse screen: Denies threats or abuse. Nutritional screening: No deficits noted. ll1 Tuberculosis screening: No symptoms or risk factors identified. Fall Risk None identified. Total Arriola Fall Scale indicates No Risk (0-24 pts). Vital Signs: 19:09 BP 161 / 91; Pulse 100; Resp 18; Temp 98.0; Pulse Ox 99% ; Weight 97.07 kg; Height 5 ll1 ft. 3 in. (160.02 cm); Pain 7/10; 19:09 Body Mass Index 37.91 (97.07 kg, 160.02 cm) ll1 ED Course: 18:58 Patient arrived in ED. mr 19:12 Triage completed. ll1 19:15 Arm band placed on. ll1 19:21 No provider procedures requiring assistance completed. Patient did not have IV access ll1 during this emergency room visit. 19:22 Karla Adam [facility]-C is [facility] kb 19:22 Raymond Sykes MD is Attending Physician. kb 19:22 Patient has correct armband on for positive identification. Bed in low position. Call ll1 light in reach. Side rails up X 1. Cardiac monitoring not applicable on this patient. 19:47 Maximo Gao, RN is Primary Nurse. jb4 Administered Medications: No medications were administered Outcome: 19:22 Discharged to home ambulatory. ll1 19:22 Condition: stable 19:22 Discharge instructions given to patient, Instructed on discharge instructions, follow up and referral plans. Demonstrated understanding of instructions, follow-up care, wound care. 19:22 Discharge ordered by MD. kb 20:02 Patient left the ED. ll1 Signatures: Karla Adam FNP-C FNP-Luther Clare June mr Maximo Gao, RN RN jb4 Vidal Cespedes RN RN ll1
--- NOTE | 2021-01-13 19:23 | EDPHYS ---
Physician Documentation [facility] Name: Lana Solo Age: 40 yrs Sex: Female : 1980 Arrival Date: 01/13/2021 Time: 18:58 Bed Waiting Private MD: ED Physician Raymond Sykes HPI: 01/13 19:39 This 40 yrs old Female presents to ER via Ambulatory with complaints of Wound kb Recheck. 19:39 Patient presents to ED for recheck of: laceration. The affected area is on the dorsal kb aspect of right forearm. Previous treatment: The patient was initially treated 4 day(s) ago, the care was rendered at another emergency department, [facility], Treatment type: The patient's original treatment included sutures. Progress: The patient reports sutures came undone and now laceration is opening back up. The patient has not experienced similar symptoms in the past. The patient has not recently seen a physician. [employer]: 19:22 LMP N/A - control method ll1 Historical: - Allergies: 19:14 Simponi; ll1 19:14 Bydureon; ll1 19:14 Metformin HCl; ll1 - PMHx: 19:14 Diabetes - NIDDM; Hypertension; polycystic kidney; Psoriatric arthritis; Rheumatoid ll1 Arthritis; Thyroid problem; - PSHx: 19:14 ; ankle; ll1 - Immunization history:: Flu vaccine is not up to date. - Social history:: Smoking status: Patient reports the use of cigarette tobacco products, smokes one-half pack cigarettes per day. ROS: 19:37 Constitutional: Negative for fever, chills, and weight loss, MS/Extremity: Negative for kb injury and deformity, Neuro: Negative for headache, weakness, numbness, tingling, and seizure. 19:37 Skin: Positive for laceration(s), of the dorsal aspect of right forearm. Exam: 19:38 Constitutional: This is a well developed, well nourished patient who is awake, alert, kb and in no acute distress. Head/Face: Normocephalic, atraumatic. MS/ Extremity: Pulses equal, no cyanosis. Neurovascular intact. Full, normal range of motion. Neuro: Awake and alert, GCS 15, oriented to person, place, time, and situation. Cranial nerves II-XII grossly intact. Moves all extremities. Sensory grossly intact. Cerebellar exam normal. Normal gait. 19:38 Respiratory: the patient does not display signs of respiratory distress, Respirations: normal. 19:38 Skin: Wound recheck: Suture laceration closure: no drainage, no erythema, no swelling, mild dehiscence. Vital Signs: 19:09 BP 161 / 91; Pulse 100; Resp 18; Temp 98.0; Pulse Ox 99% ; Weight 97.07 kg; Height 5 ll1 ft. 3 in. (160.02 cm); Pain 7/10; 19:09 Body Mass Index 37.91 (97.07 kg, 160.02 cm) ll1 MDM: 19:22 Patient medically screened. kb 19:23 Data reviewed: vital signs, nurses notes. Data interpreted: Pulse oximetry: on room air kb is 99 %. Interpretation: normal. Counseling: I had a detailed discussion with the patient and/or guardian regarding: the historical points, exam findings, and any diagnostic results supporting the discharge/admit diagnosis, the need for outpatient follow up, a family practitioner, to return to the emergency department if symptoms worsen or persist or if there are any questions or concerns that arise at home. ED course: steristrips placed across laceration to keep wound approximated. Administered Medications: No medications were administered Disposition: 01/14 05:28 Co-signature as Attending Physician, Raymond Sykes MD I agree with the assessment and tw4 plan of care. Disposition: 01/13/21 19:22 Discharged to Home. Impression: Laceration without foreign body of right forearm. - Condition is Stable. - Discharge Instructions: Nonsutured Laceration Care, Laceration Care, Adult, [id number]. - Medication Reconciliation Form, Thank You Letter, Antibiotic Education, Prescription Opioid Use form. - Follow up: Emergency Department; When: As needed; Reason: Worsening of condition. Follow up: Private Physician; When: 2 - 3 days; Reason: Recheck today's complaints, Continuance of care, Re-evaluation by your physician. Signatures: Karla Adam, Raymond Altman MD MD 4 Vidal Cespedes RN RN ll1 Corrections: (The following items were deleted from the chart) 01/13 20:02 19:22 01/13/2021 19:22 Discharged to Home. Impression: Laceration without foreign body ll1 of right forearm. Condition is Stable. Forms are Medication Reconciliation Form, Thank You Letter, Antibiotic Education, Prescription Opioid Use. Follow up: Emergency Department; When: As needed; Reason: Worsening of condition. Follow up: Private Physician; When: 2 - 3 days; Reason: Recheck today's complaints, Continuance of care, Re-evaluation by your physician. kb
[2021-01-14 16:20] VITALS: BP 161/91; TEMP 98; O2SAT 99
== END 2021-01-13 20:02 | disposition home or self-care (01) ==
LOC: ER 18:52
DX: S51.811D Laceration without foreign body of right forearm, subsequent encounter (principal); F17.210 Nicotine dependence, cigarettes, uncomplicated; Z88.8 Allergy status to other drugs, medicaments and biological substances
CPT/HCPCS: 99281

== ENCOUNTER 2022-07-29 21:36 | Emergency (ER) | payer OTHER ==
--- OUTSIDE RECORDS SUMMARY | 2022-07-29 21:44 | XMS REPORT | Continuity of Care Document ---
:1980 Author Organization [facility] t Address [address] [place] [address] Care Team Providers Name Role Phone Saba Huff Primary Care Physician RONEN MOLINA Attending Clinician Unavailable Hadley Matute DO Attending Clinician Mickey Arevalo Attending Clinician Doctor Unassigned, [place] Attending Clinician Unavailable Beverly Comer Attending Clinician BEVERLY PARK Attending Clinician Unavailable Payers Payer Name Policy Type Policy Number Effective Date Expiration Date Eulogio thompson MEDICARE PART A [id number] 2016 \T\ B 00:00:00 MEDICAID [facility] [id number] 2016 00:00:00 [employer] MEDICARE [id number] 2021 ADVANTAGE HMO 00:00:00 Problems Condition Condition Condition Status Onset Resolution Last Treating Co mments Source Name Details Category Date Date Treatment Clinician Date Lateral Lateral Disease Active [facility] epicondyli epicondyli 8-30 He alth tis of tis of 00:00: right right 00 elbow elbow 39 weeks 39 weeks Disease Active 2017-11 Unive rs gestation gestation 2-05 ity of of of 00:00: [place] 00 Medi lasha Branch Intrauteri Intrauteri Disease Active 2017-11 U nivers ne growth ne growth 2-05 it[place] of restrictio [place] (IUGR[place] (IUGR) 00 Medica l affecting affecting Bran ch care of care of mother, mother, third third trimester, trimester, single single gestation gestation Liveborn Liveborn Disease Active 2017-11 Un[facility] rs by by 2-05 [place] [facility] [place] 38 weeks 38 weeks Disease Active 2017-11 Unive rs gestation gestation 1-29 ity of of of 00:00: [place] 00 [facility] Obesity Obesity Disease Active 2017-11 Univers affecting affecting 1-29 [place] in third in third 00 Medica l trimester trimester Bran ch 33 weeks 33 weeks Disease Active 2017-11 Unive rs gestation gestation 0-25 ity of of of 00:00: [place] 00 [facility] Obesity Obesity Disease Active 2017-11 Univers (BMI (BMI 0-25 ity of 30-39.9) 30-39.9) 00:00: [place] 00 [facility] Anemia Anemia Disease Active Univers affecting affecting 5-16 [place] of [place] [facility] Anxiety in Anxiety in Disease Active U nivers , , 5-15 it y of antepartum antepartum 00:[place] [facility] AMA AMA Disease Active Univers (advanced (advanced 5-15 ity of maternal maternal 00:00: [place] age) age) 00 Medical multigravi multigravi Br anch da 35+ da 35+ Hypertensi Hypertensi Disease Active U nivers on in on in 5-15 ity of , , 00:[place] pre-existi pre-existi 00 Ct dical ng, ng, Branch antepartum antepartum Hypothyroi Hypothyroi Disease Active U nivers d in d in 5-15 ity of , , 00:[place] antepartum antepartum 00 Ct dical Branch Diabetes Diabetes Disease Active Overview: Un [facility] mellitus mellitus 5-15 a1c 8.3 ity o f complicati complicati 00:00: [place] ng ng 00 Medical , , Br anch antepartum antepartum Anxiety in Anxiety in Disease Active U nivers , , 5-15 it y of antepartum antepartum 00:[place] Depression Depression Disease Active U nivers affecting affecting 5-15 [place] of [place] [facility] Tobacco Tobacco Disease Active Univers smoking smoking 5-15 ity of affecting affecting 00:[place] [facility] Maternal Maternal Disease Active Unive rs rheumatoid rheumatoid 5-15 it y of arthritis arthritis 00:[place] complic[place] complicati 00 Me dical ng ng Branch Psoriasis Psoriasis Disease Active Uni vers 5-15 ity of 00:00: [place] [facility] Obesity Obesity Disease Active 2015-11 Univers affecting affecting 2-01 [place] of [place] [facility] Allergies, Adverse Reactions, Alerts Allergy Allergy Status Severity Reaction(s) Onset Inactive Treating Comm ents Source Name Type Date Date Clinician Exenatid Propensi Active Unknown - Uni vers e ty to See comments 3-12 ity of Microsph adverse 00:00: [place] eres reaction 00 Medical Branch Metformi Propensi Active Unknown - Uni vers n ty to See comments 3-12 ity of adverse 00:00: [place] reaction 00 [facility] Branch Golimuma Propensi Active Unknown - Uni vers b ty to See comments 3-12 ity of adverse 00:00: [place] reaction 00 [facility] GOLIMUMA DRUG Active Unknown-Cmnt 0 Un mercy B INGREDI 3-12 ity of 00:00: [place] 00 Medical Branch EXENATID DRUG Active Unknown-Cmnt 0 Un mercy E INGREDI 3-12 ity of MICROSPH 00:00: [place] ERES 00 Medical Branch METFORMI DRUG Active Unknown-Cmnt 0 Un [facility] N INGREDI 3-12 ity of 00:00: [place] 00 Medical [place] NO KNOWN Drug Active Univers ALLERGIE Class ity of S [facility] [place] [facility] Social History Social Habit Start Date Stop Date Quantity Comments Source History of tobacco Cigarette Smoker [facility] use Exposure to Not sure [facility] SARS-CoV-2 (event) Cigarettes smoked 2021-01-11 2021-01-11 Univers ity of current (pack per 00:00:00 00:00:00 [facility] ed) - Reported Branch Cigarette 2021-01-11 2021-01-11 University of pack-years 00:00:00 00:00:00 [facility] [place] [facility] Tobacco use and 2021-01-11 2021-01-11 Never used Universit y of exposure 00:00:00 00:00:00 [facility] [place] [facility] Alcohol intake 2021-01-11 2021-01-11 Current University of 00:00:00 00:00:00 non-drinker of [facility] alcohol Branch (finding) Tobacco Comment 2018-10-06 2018-10-06 1 pack every 3 Unive rsity of 00:00:00 00:00:00 days [facility] [place] [facility] Sex Assigned At [birth year] [facility] y of 00:00:00 00:00:00 [facility] [place] [facility] Smoking Status Start Date Stop Date Source Smokes tobacco daily 2021-07-01 00[facility]00:00 [facility] Heavy tobacco smoker 2021-01-11 00:00:00 Univers ity of [facility] [place] [facility] Medications Ordered Filled Start Stop Current Ordering Indication Dosage Frequency Signature Comments Components Source Medication Medication Date Date Medication? Clinician (SIG) Name Name dionisio 2020-11- No [id number] 2{tbl} Q6H Take 2 UT en-codeine 0-12 10-18 9107 tablets by He aida (Tylenol w/ 00:00: 04:59 mouth Codeine #3) 00 :00 every 6 300-30 MG (six) tablet hours if needed for severe pain for up to 5 days. insulin Yes 8U Inject 8 UT aspart 8-30 Units Health (NovoLOG) 14:09: under the 100 UNIT/ML 32 skin. injection sulfaSALAzi Yes 500mg Take 500 U T ne 8-30 mg by Health (Azulfidine 14:09: mouth. ) 500 MG 32 tablet insulin Yes 8U Inject 8 UT aspart 8-30 Units Health (NovoLOG) 14:09: under the 100 UNIT/ML 32 skin. injection sulfaSALAzi Yes 500mg Take 500 U T ne 8-30 mg by Health (Azulfidine 14:09: mouth. ) 500 MG 32 tablet allopurinol Yes 100mg Take 100 U T (Zyloprim) 8-30 mg by Health 100 MG 14:09: mouth. tablet 31 atorvastati 1-0 Yes 40mg Take 40 mg UT n (Lipitor) 8-30 by mouth. Hea lth 40 MG 14:09: tablet 31 esomeprazol 1-0 Yes 40mg Take 40 mg UT e (NexIUM) 8-30 by mouth. Heal th [address] 14:09: capsule 31 allopurinol 2020-0 Yes 100mg Take 100 U T (Zyloprim) 8-30 mg by Health 100 MG 14:09: mouth. tablet 31 atorvastati 1-0 Yes 40mg Take 40 mg UT n (Lipitor) 8-30 by mouth. Hea lth 40 MG 14:09: tablet 31 esomeprazol 1-0 Yes 40mg Take 40 mg UT e (NexIUM) 8-30 by mouth. Heal th [address] 14:09: capsule 31 insulin 2020-0 Yes 8U Inject 8 UT aspart 8-30 Units Health (NovoLOG) 09:09: under the 100 UNIT/ML 32 skin. injection sulfaSALAzi 2020-0 Yes 500mg Take 500 U T ne 8-30 mg by Health (Azulfidine 09:09: mouth. ) 500 MG 32 tablet insulin 2020-0 Yes 8U Inject 8 UT aspart 8-30 Units Health (NovoLOG) 09:09: under the 100 UNIT/ML 32 skin. injection sulfaSALAzi 1-0 Yes 500mg Take 500 U T ne 8-30 mg by Health (Azulfidine 09:09: mouth. ) 500 MG 32 tablet allopurinol 2020-0 Yes 100mg Take 100 U T (Zyloprim) 8-30 mg by Health 100 MG 09:09: mouth. tablet 31 atorvastati 1-0 Yes 40mg Take 40 mg UT n (Lipitor) 8-30 by mouth. Hea lth 40 MG 09:09: tablet 31 esomeprazol 1-0 Yes 40mg Take 40 mg UT e (NexIUM) 8-30 by mouth. Heal th [address] 09:09: capsule 31 allopurinol 2021-0 Yes 100mg Take 100 U T (Zyloprim) 8-30 mg by Health 100 MG 09:09: mouth. tablet 31 atorvastati 2021-0 Yes 40mg Take 40 mg UT n (Lipitor) 8-30 by mouth. Hea lth 40 MG 09:09: tablet 31 esomeprazol 2020-0 Yes 40mg Take 40 mg UT e (NexIUM) 8-30 by mouth. Heal th [address] 09:09: capsule 31 acetaminoph 2020- No [id number] 2{tbl} Q6H Take 2 UT en-codeine 07-01 9107 tablets by Yann alth (Tylenol w/ 00:00: 04:59 mouth Codeine #3) 00 :00 every 6 300-30 MG (six) tablet hours if needed for severe pain for up to 5 days. acetaminoph 2020- No [id number] 2{tbl} Q6H Take 2 UT en-codeine 07-01 9107 tablets by Yann alth (Tylenol w/ 00:00: 04:59 mouth Codeine #3) 00 :00 every 6 300-30 MG (six) tablet hours if needed for severe pain for up to 5 days. Tremfya 100 2020-0 Yes UT MG/ML 7-12 Health solution 00:00: pen-injecto 00 r Tremfya 100 2020-0 Yes UT MG/ML 7-12 Health solution 00:00: pen-injecto 00 r Tremfya 100 2020-0 Yes UT MG/ML 7-12 Health solution 00:00: pen-injecto 00 r Tremfya 100 2020-0 Yes UT MG/ML 7-12 Health solution 00:00: pen-injecto 00 r Soliqua 2020-0 Yes UT 100-33 6-21 Health UNT-MCG/ML 00:00: solution 00 pen-injecto r Soliqua 2020-0 Yes UT 100-33 6-21 Health UNT-MCG/ML 00:00: solution 00 pen-injecto r Soliqua 2020-0 Yes UT 100-33 6-21 Health UNT-MCG/ML 00:00: solution 00 pen-injecto r Soliqua 2020-0 Yes UT 100-33 6-21 Health UNT-MCG/ML 00:00: solution 00 pen-injecto r buPROPion 2020-0 Yes 150mg Take 150 UT XL 4-01 mg by Health (Wellbutrin 00:00: mouth 1 XL) 150 MG 00 (one) time 24 hr each day tablet in the morning. buPROPion 2020-0 Yes 150mg Take 150 UT XL 4-01 mg by Health (Wellbutrin 00:00: mouth 1 XL) 150 MG 00 (one) time 24 hr each day tablet in the morning. buPROPion 2020-0 Yes 150mg Take 150 UT XL 4-01 mg by Health (Wellbutrin 00:00: mouth 1 XL) 150 MG 00 (one) time 24 hr each day tablet in the morning. buPROPion 2020-0 Yes 150mg Take 150 UT XL 4-01 mg by Health (Wellbutrin 00:00: mouth 1 XL) 150 MG 00 (one) time 24 hr each day tablet in the morning. Vascepa 1 g 0 Yes UT capsule 3-29 Health 00:00: 00 Droplet Pen 2020-0 Yes [facility] [place] 32G 3-29 Health X 4 MM misc 00:00: 00 levothyroxi 2020-0 Yes UT ne 3-29 Health (Synthroid, 00:00: Levoxyl) 00 200 MCG tablet losartan 0 Yes UT (Cozaar) 3-29 Health 100 MG 00:00: tablet 00 Vascepa 1 g 0 Yes UT capsule 3-29 Health 00:00: 00 Droplet Pen 2020-0 Yes [facility] [place] 32G 3-29 Health X 4 MM misc 00:00: 00 levothyroxi 2020-0 Yes UT ne 3-29 Health (Synthroid, 00:00: Levoxyl) 00 200 MCG tablet losartan 0 Yes UT (Cozaar) 3-29 Health 100 MG 00:00: tablet 00 Vascepa 1 g 0 Yes UT capsule 3-29 Health 00:00: 00 Droplet Pen 2020-0 Yes [facility] [place] 32G 3-29 Health X 4 MM misc 00:00: 00 levothyroxi 2020-0 Yes UT ne 3-29 Health (Synthroid, 00:00: Levoxyl) 00 200 MCG tablet losartan 0 Yes UT (Cozaar) 3-29 Health 100 MG 00:00: tablet 00 Vascepa 1 g 0 Yes UT capsule 3-29 Health 00:00: 00 Droplet Pen Yes [facility] [place] 32G 01-28 Health X 4 MM misc 00:00: 00 levothyroxi Yes UT ne 01-28 Health (Synthroid, 00:00: Levoxyl) 00 200 MCG tablet losartan Yes UT (Cozaar) 01-28 Health 100 MG 00:00: tablet 00 ibuprofen 2020- No 600mg 600 mg, Uni vers (IBU) 01-11 Oral, ity of tablet 600 20:30: 19:29 ONCE, 1 Liban as mg 00 :00 dose, Fri Medical 01/11/21 at Branch 1430, [place] HYDROcodone 2020- No 2{tbl} 2 tablet, Univers -acetaminop 01-11 Oral, ity of hen (NORCO 20:15: 19:29 ONCE, 1 Liban as 5) 5-325 mg 00 :00 dose, Fri Med ical tablet 2 01/11/[address] [facility] h tablet 1415, [place] ibuprofen Yes [id number] 600mg Take 1 Univers (IBU) 600 01-11 [id number] tablet by ity of mg tablet 00:00: mouth [place] 00 every 6 Medical (six) Branch hours as needed for Pain (scale 4-6). ibuprofen Yes [id number] 600mg Take 1 Univers (IBU) 600 -12 [id number] tablet by ity of mg tablet 00:00: mouth [place] 00 every 6 Medical (six) Branch hours as needed for Pain (scale 4-6). cephALEXin 2020- No [id number] 500mg Take 1 Univers (KEFLEX) 01-11 [id number] capsule by it y of 500 mg 00:00: 04:59 mouth 4 [place] capsule 00 :00 (four) Medical times Branch daily for 7 days. traMADoL 50 2020- No [id number] 50mg Take 1 Uni vers mg tablet 01-11 tablet by ity of 00:00: 04:59 mouth [place] 00 :00 every 6 Medical (six) Branch hours as needed for Pain (scale 7-10) for up to 7 days. Indication s: acute pain methocarbam 2019-11 Yes [id number] 500mg Take 1 Univers oL 2-08 tablet by ity of (ROBAXIN) 00:00: mouth [place] 500 mg 00 every 6 Medical tablet (six) Branch hours as needed (MUSCLE SPASM). naproxen 2020- Yes [id number] 550mg Take 1 U nivers sodium 550 2-08 tablet by ity of mg tablet 00:00: mouth 2 [place] 00 (two) Medical times Branch daily with meals. methocarbam 2020- Yes [id number] 500mg Take 1 Univers oL 2-08 tablet by ity of (ROBAXIN) 00:00: mouth [place] 500 mg 00 every 6 Medical tablet (six) Branch hours as needed (MUSCLE SPASM). naproxen 2019-11 Yes [id number] 550mg Take 1 U nivers sodium 550 2-08 tablet by ity of mg tablet 00:00: mouth 2 [place] 00 (two) Medical times Branch daily with meals. methocarbam 2019-11 Yes [id number] 500mg Take 1 Univers oL 2-08 tablet by ity of (ROBAXIN) 00:00: mouth [place] 500 mg 00 every 6 Medical tablet (six) Branch hours as needed (MUSCLE SPASM). naproxen 2019-11 Yes [id number] 550mg Take 1 U nivers sodium 550 2-08 tablet by ity of mg tablet 00:00: mouth 2 00 (two) Medical times Branch daily with meals. leflunomide 2019-11 Yes 10mg QD Take 10 mg UT (Arava) 10 0-21 by mouth 1 Hea lth MG tablet 00:00: (one) time 00 each day. leflunomide 2019-11 Yes 10mg QD Take 10 mg UT (Arava) 10 0-21 by mouth 1 Hea lth MG tablet 00:00: (one) time 00 each day. leflunomide 2019-11 Yes 10mg QD Take 10 mg UT (Arava) 10 0-21 by mouth 1 Hea lth MG tablet 00:00: (one) time 00 each day. leflunomide 2019- Yes 10mg QD Take 10 mg UT (Arava) 10 0-21 by mouth 1 Hea lth MG tablet 00:00: (one) time 00 each day. Accu-Chek 2019- Yes Q.[id number] 3 (three) UT Guide test 0-02 [id number] times a Health strip 00:00: 3D day. 00 Accu-Chek 2020-1 Yes Q.74352507 3 (three) UT Guide test 0- [id number] times a Health strip 00:00: 3D day. 00 Accu-Chek 2020-1 Yes Q.25983862 3 (three) UT Guide test 0- [id number] times a Health strip 00:00: 3D day. 00 Accu-Chek 2020-1 Yes Q.74012443 3 (three) UT Guide test 0- [id number] times a Health strip 00:00: 3D day. 00 montelukast 2019- 2020- No 10mg Take 10 mg Univers 10 mg 8- 08-19 by mouth. ity of tablet 19:23: 00:00 [place] 30 :00 [facility] montelukast 2019- 2020- No 10mg Take 10 mg Univers 10 mg - 08-19 by mouth. ity of tablet 19:23: 00:00 [place] 30 :00 [facility] montelukast 2019-2019- No 10mg Take 10 mg Univers 10 mg -20 06-19 by mouth. ity of tablet 19:23: 00:00 [place] 30 :00 [facility] esomeprazol 2019- 2020- No 40mg Take 40 mg Univers e (NEXIUM) 8- 08-19 by mouth ity of 40 mg 19:23: 00:00 daily with [place] capsule 18 :00 breakfast. [facility] esomeprazol 2019- 2020- No 40mg Take 40 mg Univers e (NEXIUM) 8- 08-19 by mouth ity of 40 mg 19:23: 00:00 daily with [place] capsule 18 :00 breakfast. [facility] esomeprazol 2020- No 40mg Take 40 mg Univers e (NEXIUM) 8- 08-19 by mouth ity of 40 mg 19:23: 00:00 daily with [place] capsule 18 :00 breakfast. [facility] buPROPion 2019-0 2020- No 300mg Take 300 Un mercy (WELLBUTRIN 8- 08-19 mg by ity of ) 100 mg 19:23: 00:00 mouth [place] tablet 15 :00 daily. [facility] buPROPion 2019-0 2020- No 300mg Take 300 Un mercy (WELLBUTRIN 8-19 08-19 mg by ity of ) 100 mg 19:23: 00:00 mouth [place] tablet 15 :00 daily. Medical Branch buPROPion 2020-0 2020- No 300mg Take 300 Un mercy (WELLBUTRIN 8-19 08-19 mg by ity of ) 100 mg 19:23: 00:00 mouth [place] tablet 15 :00 daily. Medical Branch traZODone 2020-0 Yes 50mg Take 50 mg Un mercy 50 mg 8-19 by mouth ity of tablet 19:11: at [place] 04 bedtime. Medical Branch losartan-hy 2020-0 Yes 1{tbl} Take 1 Un mercy drochloroth 8-19 tablet by ity of iazide 19:11: mouth [place] 100-12.5 mg 04 daily. Medica l per tablet Branch insulin 2019-0 Yes 50U inject 50 Unive rs degludec 8-19 Units ity of (TRESIBA 19:11: under the [place] U-100 04 skin. Medical INSULIN SC) Branch icosapent 2019-0 Yes 1g Take 1 g Univ ers ethyL 8-19 by mouth ity of (VASCEPA) 1 19:11: daily. [place] gram 04 Medical capsule Branch sulfaSALAzi 2019-0 Yes 500mg Take 500 U nivers ne 500 mg 8-19 mg by ity of tablet 19:11: mouth 4 [place] 04 (four) Medical times Branch daily. allopurinoL 2020-0 Yes 100mg Take 100 U nivers 100 mg 8-19 mg by ity of tablet 19:11: mouth [place] 04 daily. Medical Branch atorvastati 2019-0 Yes 40mg Take 40 mg Univers n 40 mg 8-19 by mouth ity of tablet 19:11: at [place] 04 bedtime. Medical Branch insulin 2020-0 Yes 8U inject 8 Univer s aspart 8-19 Units ity of RAPID 19:11: under the [place] (NOVOLOG 04 skin 3 Medical U-100 (three) Branch INSULIN times ASPART) 100 daily with unit/mL meals. injection OMEPRAZOLE 2020-0 Yes 40mg Take 40 mg U nivers ORAL 8-19 by mouth 2 ity of 19:11: (two) [place] 04 times Medical daily. Branch MELOXICAM 2019-0 Yes 15mg Take 15 mg Un mercy ORAL 8-19 by mouth. ity of 19:11: Indication [place] 04 s: as Medical needed Branch levothyroxi 2020-0 Yes 200ug Take 200 U nivers ne 200 mcg 8-19 mcg by ity of Cap 19:11: mouth. 04 Medical Branch traZODone 2020-0 Yes 50mg Take 50 mg Un mercy 50 mg 8-19 by mouth ity of tablet 19:11: at [place] 04 bedtime. Medical Branch losartan-hy 2020-0 Yes 1{tbl} Take 1 Un mercy drochloroth 8-19 tablet by ity of iazide 19:11: mouth [place] 100-12.5 mg 04 daily. Medica l per tablet Branch insulin 2020-0 Yes 50U inject 50 Unive rs degludec 8-19 Units ity of (TRESIBA 19:11: under the [place] U-100 04 skin. Medical INSULIN SC) Branch icosapent 2020-0 Yes 1g Take 1 g Univ ers ethyL 8-19 by mouth ity of (VASCEPA) 1 19:11: daily. [place] gram 04 Medical capsule Branch sulfaSALAzi 2020-0 Yes 500mg Take 500 U nivers ne 500 mg 8-19 mg by ity of tablet 19:11: mouth 4 [place] 04 (four) Medical times Branch daily. allopurinoL 2020-0 Yes 100mg Take 100 U nivers 100 mg 8-19 mg by ity of tablet 19:11: mouth [place] 04 daily. Medical Branch atorvastati 2020-0 Yes 40mg Take 40 mg Univers n 40 mg 8-19 by mouth ity of tablet 19:11: at [place] 04 bedtime. Medical Branch insulin 2020-0 Yes 8U inject 8 Univer s aspart 8-19 Units ity of RAPID 19:11: under the [place] (NOVOLOG 04 skin 3 Medical U-100 (three) Branch INSULIN times ASPART) 100 daily with unit/mL meals. injection OMEPRAZOLE 2020-0 Yes 40mg Take 40 mg U nivers ORAL 8-19 by mouth 2 ity of 19:11: (two) [place] 04 times Medical daily. Branch MELOXICAM 2020-0 Yes 15mg Take 15 mg Un mercy ORAL 8-19 by mouth. ity of 19:11: Indication s: as Medical needed Branch levothyroxi 2020-0 Yes 200ug Take 200 U nivers ne 200 mcg 8-19 mcg by ity of Cap 19:11: mouth. Medical Branch traZODone 2020-0 Yes 50mg Take 50 mg Un mercy 50 mg 8-19 by mouth ity of tablet 19:11: at [place] [address] bedtime. Medical Branch losartan-hy 2020-0 Yes 1{tbl} Take 1 Un mercy drochloroth 8-19 tablet by ity of iazide 19:11: mouth [place] 100-12.5 mg 04 daily. Medica l per tablet Branch insulin 2019-0 Yes 50U inject 50 Unive rs degludec 8-19 Units ity of (TRESIBA 19:11: under the [place] U-100 04 skin. Medical INSULIN SC) Branch icosapent 2020-0 Yes 1g Take 1 g Univ ers ethyL 8-19 by mouth ity of (VASCEPA) 1 19:11: daily. [place] gram 04 Medical capsule Branch sulfaSALAzi 2019-0 Yes 500mg Take 500 U nivers ne 500 mg 8-19 mg by ity of tablet 19:11: mouth 4 (four) Medical times Branch daily. allopurinoL 2020-0 Yes 100mg Take 100 U nivers 100 mg 8-19 mg by ity of tablet 19:11: mouth [place] 04 daily. Medical Branch atorvastati 2019-0 Yes 40mg Take 40 mg Univers n 40 mg 8-19 by mouth ity of tablet 19:11: at [place] [address] bedtime. Medical Branch insulin 2019-0 Yes 8U inject 8 Univer s aspart 8-19 Units ity of RAPID 19:11: under the [place] (NOVOLOG 04 skin 3 Medical U-100 (three) Branch INSULIN times ASPART) 100 daily with unit/mL meals. injection OMEPRAZOLE 2020-0 Yes 40mg Take 40 mg U nivers ORAL 8-19 by mouth 2 ity of 19:11: (two) [place] 04 times Medical daily. Branch MELOXICAM 2020-0 Yes 15mg Take 15 mg Un mercy ORAL 8-19 by mouth. ity of 19:11: Indication 04 s: as Medical needed Branch levothyroxi 2020-0 Yes 200ug Take 200 U nivers ne 200 mcg 8-19 mcg by ity of Cap 19:11: mouth. Medical Branch traZODone 2020-0 Yes 50mg Take 50 mg Un mercy 50 mg 8-19 by mouth ity of tablet 19:11: at [place] 04 bedtime. Medical Branch losartan-hy 2020-0 Yes 1{tbl} Take 1 Un mercy drochloroth 8-19 tablet by ity of iazide 19:11: mouth [place] 100-12.5 mg 04 daily. Medica l per tablet Branch insulin 2020-0 Yes 50U inject 50 Unive rs degludec 8-19 Units ity of (TRESIBA 19:11: under the [place] U-100 04 skin. Medical INSULIN SC) Branch icosapent 2020-0 Yes 1g Take 1 g Univ ers ethyL 8-19 by mouth ity of (VASCEPA) 1 19:11: daily. [place] gram 04 Medical capsule Branch sulfaSALAzi 2020-0 Yes 500mg Take 500 U nivers ne 500 mg 8-19 mg by ity of tablet 19:11: mouth 4 [place] 04 (four) Medical times Branch daily. allopurinoL 2020-0 Yes 100mg Take 100 U nivers 100 mg 8-19 mg by ity of tablet 19:11: mouth [place] 04 daily. Medical Branch atorvastati 2020-0 Yes 40mg Take 40 mg Univers n 40 mg 8-19 by mouth ity of tablet 19:11: at [place] 04 bedtime. Medical Branch insulin 2020-0 Yes 8U inject 8 Univer s aspart 8-19 Units ity of RAPID 19:11: under the [place] (NOVOLOG 04 skin 3 Medical U-100 (three) Branch INSULIN times ASPART) 100 daily with unit/mL meals. injection OMEPRAZOLE 2020-0 Yes 40mg Take 40 mg U nivers ORAL 8-19 by mouth 2 ity of 19:11: (two) [place] 04 times Medical daily. Branch MELOXICAM 2020-0 Yes 15mg Take 15 mg Un mercy ORAL 8-19 by mouth. ity of 19:11: Indication 04 s: as Medical needed Branch levothyroxi 2020-0 Yes 200ug Take 200 U nivers ne 200 mcg 8-19 mcg by ity of Cap 19:11: mouth. 04 Medical Branch traZODone 2020-0 Yes 50mg Take 50 mg Un mercy 50 mg 8-19 by mouth ity of tablet 19:11: at [place] [address] bedtime. Medical Branch losartan-hy 2020-0 Yes 1{tbl} Take 1 Un mercy drochloroth 8-19 tablet by ity of iazide 19:11: mouth [place] 100-12.5 mg 04 daily. Medica l per tablet Branch insulin 2020-0 Yes 50U inject 50 Unive rs degludec 8-19 Units ity of (TRESIBA 19:11: under the [place] U-100 04 skin. Medical INSULIN SC) Branch icosapent 2020-0 Yes 1g Take 1 g Univ ers ethyL 8-19 by mouth ity of (VASCEPA) 1 19:11: daily. [place] gram 04 Medical capsule Branch sulfaSALAzi 2019-0 Yes 500mg Take 500 U nivers ne 500 mg 8-19 mg by ity of tablet 19:11: mouth 4 [place] 04 (four) Medical times Branch daily. allopurinoL 2020-0 Yes 100mg Take 100 U nivers 100 mg 8-19 mg by ity of tablet 19:11: mouth [place] 04 daily. Medical Branch atorvastati 2019-0 Yes 40mg Take 40 mg Univers n 40 mg 8-19 by mouth ity of tablet 19:11: at [place] [address] bedtime. Medical Branch insulin 2019-0 Yes 8U inject 8 Univer s aspart 8-19 Units ity of RAPID 19:11: under the [place] (NOVOLOG 04 skin 3 Medical U-100 (three) Branch INSULIN times ASPART) 100 daily with unit/mL meals. injection OMEPRAZOLE 2019-0 Yes 40mg Take 40 mg U nivers ORAL 8-19 by mouth 2 ity of 19:11: (two) [place] 04 times Medical daily. Branch MELOXICAM 2019-0 Yes 15mg Take 15 mg Un mercy ORAL 8-19 by mouth. ity of 19:11: Indication 04 s: as Medical needed Branch levothyroxi 2019-0 Yes 200ug Take 200 U nivers ne 200 mcg 8-19 mcg by ity of Cap 19:11: mouth. Medical Branch traZODone 2019-0 Yes 50mg Take 50 mg Un mercy 50 mg 8-19 by mouth ity of tablet 19:11: at [place] 04 bedtime. Medical Branch losartan-hy 2019-0 Yes 1{tbl} Take 1 Un mercy drochloroth 8-19 tablet by ity of iazide 19:11: mouth [place] 100-12.5 mg 04 daily. Medica l per tablet Branch insulin 2020-0 Yes 50U inject 50 Unive rs degludec 8-19 Units ity of (TRESIBA 19:11: under the [place] U-100 04 skin. Medical INSULIN SC) Branch icosapent 2020-0 Yes 1g Take 1 g Univ ers ethyL 8-19 by mouth ity of (VASCEPA) 1 19:11: daily. [place] gram 04 Medical capsule Branch sulfaSALAzi 2020-0 Yes 500mg Take 500 U nivers ne 500 mg 8-19 mg by ity of tablet 19:11: mouth 4 [place] 04 (four) Medical times Branch daily. allopurinoL 2020-0 Yes 100mg Take 100 [facility] 100 mg 8-19 mg by ity of tablet 19:11: mouth [place] 04 daily. Medical Branch atorvastati 2020-0 Yes 40mg Take 40 mg [facility] 40 mg 8-19 by mouth ity of tablet 19:11: at [place] 04 bedtime. Medical Branch insulin 2020-0 Yes 8U inject 8 [facility] aspart 8-19 Units ity of RAPID 19:11: under the [place] (NOVOLOG 04 skin 3 Medical U-100 (three) Branch INSULIN times ASPART) 100 daily with unit/mL meals. injection OMEPRAZOLE 2020-0 Yes 40mg Take 40 mg [facility] ORAL 8-19 by mouth 2 ity of 19:11: (two) [place] 04 times Medical daily. Branch MELOXICAM 2020-0 Yes 15mg Take 15 mg [facility] ORAL 8-19 by mouth. ity of 19:11: Indication 04 s: as Medical needed Branch levothyroxi 2020-0 Yes 200ug Take 200 [facility] ne 200 mcg 8-19 mcg by ity of Cap 19:11: mouth. [place] 04 Medical Branch traZODone 2020-0 Yes 50mg Take 50 mg [facility] 50 mg 8-19 by mouth ity of tablet 19:11: at [place] 04 bedtime. Medical Branch losartan-hy 2020-0 Yes 1{tbl} Take 1 [facility] drochloroth 8-19 tablet by ity of iazide 19:11: mouth [place] 100-12.5 mg 04 daily. Medica l per tablet Branch insulin 2020-0 Yes 50U inject 50 [facility] rs degludec 8-19 Units ity of (TRESIBA 19:11: under the [place] U-100 04 skin. Medical INSULIN SC) Branch icosapent 2020-0 Yes 1g Take 1 g [facility] ethyL 8-19 by mouth ity of (VASCEPA) 1 19:11: daily. [place] gram 04 Medical capsule Branch sulfaSALAzi 2020-0 Yes 500mg Take 500 [facility] ne 500 mg 8-19 mg by ity of tablet 19:11: mouth 4 [place] 04 (four) Medical times Branch daily. allopurinoL 2020-0 Yes 100mg Take 100 [facility] 100 mg 8-19 mg by ity of tablet 19:11: mouth [place] 04 daily. Medical Branch atorvastati 2020-0 Yes 40mg Take 40 mg [facility] 40 mg 8-19 by mouth ity of tablet 19:11: at [place] 04 bedtime. Medical Branch insulin 2020-0 Yes 8U inject 8 [facility] aspart 8-19 Units ity of RAPID 19:11: under the [place] (NOVOLOG 04 skin 3 Medical U-100 (three) Branch INSULIN times ASPART) 100 daily with unit/mL meals. injection OMEPRAZOLE 2020-0 Yes 40mg Take 40 mg [facility] ORAL 8-19 by mouth 2 ity of 19:11: (two) [place] 04 times Medical daily. Branch MELOXICAM 2020-0 Yes 15mg Take 15 mg [facility] ORAL 8-19 by mouth. ity of 19:11: Indication s: as Medical needed Branch levothyroxi 2020-0 Yes 200ug Take 200 [facility] ne 200 mcg 8-19 mcg by ity of Cap 19:11: mouth. Medical Branch traZODone 2020-0 Yes 50mg Take 50 mg [facility] 50 mg 8-19 by mouth ity of tablet 19:11: at [place] 04 bedtime. Medical Branch losartan-hy 2020-0 Yes 1{tbl} Take 1 [facility] drochloroth 8-19 tablet by ity of iazide 19:11: mouth [place] 100-12.5 mg 04 daily. Medica l per tablet Branch insulin 2020-0 Yes 50U inject 50 [facility] rs degludec 8-19 Units ity of (TRESIBA 19:11: under the [place] U-100 04 skin. Medical INSULIN SC) Branch icosapent 2020-0 Yes 1g Take 1 g [facility] ethyL 8-19 by mouth ity of (VASCEPA) 1 19:11: daily. [place] gram 04 Medical capsule Branch sulfaSALAzi 2020-0 Yes 500mg Take 500 [facility] ne 500 mg 8-19 mg by ity of tablet 19:11: mouth 4 [place] 04 (four) Medical times Branch daily. allopurinoL 2020-0 Yes 100mg Take 100 [facility] 100 mg 8-19 mg by ity of tablet 19:11: mouth [place] 04 daily. Medical Branch atorvastati 2020-0 Yes 40mg Take 40 mg [facility] 40 mg 8-19 by mouth ity of tablet 19:11: at [place] [address] bedtime. Medical Branch insulin 2019-0 Yes 8U inject 8 [facility] aspart 8-19 Units ity of RAPID 19:11: under the [place] (NOVOLOG 04 skin 3 Medical U-100 (three) Branch INSULIN times ASPART) 100 daily with unit/mL meals. injection OMEPRAZOLE 2019-0 Yes 40mg Take 40 mg [facility] ORAL 8-19 by mouth 2 ity of 19:11: (two) [place] 04 times Medical daily. Branch MELOXICAM 2019-0 Yes 15mg Take 15 mg [facility] ORAL 8-19 by mouth. ity of 19:11: Indication s: as Medical needed Branch levothyroxi 2019-0 Yes 200ug Take 200 [facility] ne 200 mcg 8-19 mcg by ity of Cap 19:11: mouth. Medical Branch traZODone 2019-0 Yes 50mg Take 50 mg [facility] 50 mg 8-19 by mouth ity of tablet 19:11: at [place] [address] bedtime. Medical Branch losartan-hy 2019-0 Yes 1{tbl} Take 1 [facility] drochloroth 8-19 tablet by ity of iazide 19:11: mouth [place] 100-12.5 mg 04 daily. Medica l per tablet Branch insulin 2019-0 Yes 50U inject 50 [facility] rs degludec 8-19 Units ity of (TRESIBA 19:11: under the [place] U-100 04 skin. Medical INSULIN SC) Branch icosapent 2019-0 Yes 1g Take 1 g [facility] ethyL 8-19 by mouth ity of (VASCEPA) 1 19:11: daily. [place] gram 04 Medical capsule Branch sulfaSALAzi 2020-0 Yes 500mg Take 500 [facility] ne 500 mg 8-19 mg by ity of tablet 19:11: mouth 4 [place] 04 (four) Medical times Branch daily. allopurinoL 2020-0 Yes 100mg Take 100 [facility] 100 mg 8-19 mg by ity of tablet 19:11: mouth [place] 04 daily. Medical Branch atorvastati 2020-0 Yes 40mg Take 40 mg [facility] 40 mg 8-19 by mouth ity of tablet 19:11: at [place] [address] bedtime. Medical Branch insulin 2020-0 Yes 8U inject 8 [facility] aspart 8-19 Units ity of RAPID 19:11: under the [place] (NOVOLOG 04 skin 3 Medical U-100 (three) Branch INSULIN times ASPART) 100 daily with unit/mL meals. injection OMEPRAZOLE 2020-0 Yes 40mg Take 40 mg [facility] ORAL 8-19 by mouth 2 ity of 19:11: (two) [place] [id number] times Medical daily. Branch MELOXICAM 2019-0 Yes 15mg Take 15 mg [facility] ORAL 8-19 by mouth. ity of 19:11: Indication s: as Medical needed Branch levothyroxi 2020-0 Yes 200ug Take 200 [facility] ne 200 mcg 8-19 mcg by ity of Cap 19:11: mouth. [place] [facility] traZODone 2019-0 Yes 50mg Take 50 mg [facility] 50 mg 8-19 by mouth ity of tablet 19:11: at [place] [address] bedtime. Medical Branch losartan-hy 2020-0 Yes 1{tbl} Take 1 [facility] drochloroth 8-19 tablet by ity of iazide 19:11: mouth [place] 100-12.5 mg 04 daily. Medica l per tablet Branch insulin 2020-0 Yes 50U inject 50 [facility] rs degludec 8-19 Units ity of (TRESIBA 19:11: under the [place] U-100 04 skin. Medical INSULIN SC) Branch icosapent 2020-0 Yes 1g Take 1 g [facility] ethyL 8-19 by mouth ity of (VASCEPA) 1 19:11: daily. [place] gram 04 Medical capsule Branch sulfaSALAzi 2020-0 Yes 500mg Take 500 [facility] ne 500 mg 8-19 mg by ity of tablet 19:11: mouth 4 [place] 04 (four) Medical times Branch daily. allopurinoL 2020-0 Yes 100mg Take 100 [facility] 100 mg 8-19 mg by ity of tablet 19:11: mouth [place] 04 daily. Medical Branch atorvastati 2020-0 Yes 40mg Take 40 mg [facility] 40 mg 8-19 by mouth ity of tablet 19:11: at [place] 04 bedtime. Medical Branch insulin 2020-0 Yes 8U inject 8 [facility] aspart 8-19 Units ity of RAPID 19:11: under the [place] (NOVOLOG 04 skin 3 Medical U-100 (three) Branch INSULIN times ASPART) 100 daily with unit/mL meals. injection OMEPRAZOLE 2020-0 Yes 40mg Take 40 mg [facility] ORAL 8-19 by mouth 2 ity of 19:11: (two) [place] 04 times Medical daily. Branch MELOXICAM 2019-0 Yes 15mg Take 15 mg [facility] ORAL 8-19 by mouth. ity of 19:11: Indication s: as Medical needed Branch levothyroxi 2019-0 Yes 200ug Take 200 [facility] ne 200 mcg 8-19 mcg by ity of Cap 19:11: mouth. Medical Branch traZODone 2019-0 Yes 50mg Take 50 mg [facility] 50 mg 8-19 by mouth ity of tablet 19:11: at [place] [address] bedtime. Medical Branch losartan-hy 2019-0 Yes 1{tbl} Take 1 [facility] drochloroth 8-19 tablet by ity of iazide 19:11: mouth [place] 100-12.5 mg 04 daily. Medica l per tablet Branch insulin 2019-0 Yes 50U inject 50 [facility] rs degludec 8-19 Units ity of (TRESIBA 19:11: under the [place] U-100 04 skin. Medical INSULIN SC) Branch icosapent 2019-0 Yes 1g Take 1 g [facility] ethyL 8-19 by mouth ity of (VASCEPA) 1 19:11: daily. [place] gram 04 Medical capsule Branch sulfaSALAzi 2019-0 Yes 500mg Take 500 [facility] n[facility] ne 500 mg 8-19 mg by ity of tablet 19:11: mouth 4 04 (four) Medical times Branch daily. allopurinoL 2020-0 Yes 100mg Take 100 [facility] 100 mg 8-19 mg by ity of tablet 19:11: mouth [place] 04 daily. Medical Branch atorvastati 2020-0 Yes 40mg Take 40 mg [facility] 40 mg 8-19 by mouth ity of tablet 19:11: at [place] 04 bedtime. Medical Branch insulin 2020-0 Yes 8U inject 8 [facility] aspart 8-19 Units ity of RAPID 19:11: under the [place] (NOVOLOG 04 skin 3 Medical U-100 (three) Branch INSULIN times ASPART) 100 daily with unit/mL meals. injection OMEPRAZOLE 2020-0 Yes 40mg Take 40 mg [facility] ORAL 8-19 by mouth 2 ity of 19:11: (two) [place] 04 times Medical daily. Branch MELOXICAM 2020-0 Yes 15mg Take 15 mg [facility] ORAL 8-19 by mouth. ity of 19:11: Indication 04 s: as Medical needed Branch levothyroxi 2020-0 Yes 200ug Take 200 [facility] n[facility] ne 200 mcg 8-19 mcg by ity of Cap 19:11: mouth. Medical Branch traZODone 2020-0 Yes 50mg Take 50 mg [facility] 50 mg 8-19 by mouth ity of tablet 19:11: at [place] 04 bedtime. Medical Branch losartan-hy 2020-0 Yes 1{tbl} Take 1 [facility] drochloroth 8-19 tablet by ity of iazide 19:11: mouth [place] 100-12.5 mg 04 daily. Medica l per tablet Branch insulin 2019-0 Yes 50U inject 50 [facility] rs degludec 8-19 Units ity of (TRESIBA 19:11: under the [place] U-100 04 skin. Medical INSULIN SC) Branch icosapent 2020-0 Yes 1g Take 1 g [facility] ethyL 8-19 by mouth ity of (VASCEPA) 1 19:11: daily. [place] gram 04 Medical capsule Branch sulfaSALAzi 2020-0 Yes 500mg Take 500 [facility] n[facility] ne 500 mg 8-19 mg by ity of tablet 19:11: mouth 4 [place] 04 (four) Medical times Branch daily. allopurinoL 2020-0 Yes 100mg Take 100 [facility] 100 mg 8-19 mg by ity of tablet 19:11: mouth [place] 04 daily. Medical Branch atorvastati 2020-0 Yes 40mg Take 40 mg [facility] 40 mg 8-19 by mouth ity of tablet 19:11: at [place] 04 bedtime. Medical Branch insulin 2020-0 Yes 8U inject 8 [facility] aspart 8-19 Units ity of RAPID 19:11: under the [place] (NOVOLOG 04 skin 3 Medical U-100 (three) Branch INSULIN times ASPART) 100 daily with unit/mL meals. injection OMEPRAZOLE 2020-0 Yes 40mg Take 40 mg [facility] ORAL 8-19 by mouth 2 ity of 19:11: (two) [place] 04 times Medical daily. Branch MELOXICAM 2020-0 Yes 15mg Take 15 mg [facility] ORAL 8-19 by mouth. ity of 19:11: Indication 04 s: as Medical needed Branch levothyroxi 2020-0 Yes 200ug Take 200 [facility] ne 200 mcg 8-19 mcg by ity of Cap 19:11: mouth. Medical Branch traZODone 2020-0 Yes 50mg Take 50 mg [facility] 50 mg 8-19 by mouth ity of tablet 19:11: at [place] 04 bedtime. Medical Branch losartan-hy 2020-0 Yes 1{tbl} Take 1 [facility] drochloroth 8-19 tablet by ity of iazide 19:11: mouth [place] 100-12.5 mg 04 daily. Medica l per tablet Branch insulin 2020-0 Yes 50U inject 50 [facility] rs degludec 8-19 Units ity of (TRESIBA 19:11: under the [place] U-100 04 skin. Medical INSULIN SC) Branch icosapent 2020-0 Yes 1g Take 1 g [facility] ethyL 8-19 by mouth ity of (VASCEPA) 1 19:11: daily. [place] gram 04 Medical capsule Branch sulfaSALAzi 2020-0 Yes 500mg Take 500 U n[facility] ne 500 mg 8-19 mg by ity of tablet 19:11: mouth 4 [place] 04 (four) Medical times Branch daily. allopurinoL 2020-0 Yes 100mg Take 100 [facility] 100 mg 8-19 mg by ity of tablet 19:11: mouth [place] 04 daily. Medical Branch atorvastati 2020-0 Yes 40mg Take 40 mg [facility] 40 mg 8-19 by mouth ity of tablet 19:11: at [place] 04 bedtime. Medical Branch insulin 2020-0 Yes 8U inject 8 [facility] aspart 8-19 Units ity of RAPID 19:11: under the [place] (NOVOLOG 04 skin 3 Medical U-100 (three) Branch INSULIN times ASPART) 100 daily with unit/mL meals. injection OMEPRAZOLE 2020-0 Yes 40mg Take 40 mg [facility] ORAL 8-19 by mouth 2 ity of 19:11: (two) [place] 04 times Medical daily. Branch MELOXICAM 2020-0 Yes 15mg Take 15 mg [facility] ORAL 8-19 by mouth. ity of 19:11: Indication [place] 04 s: as Medical needed Branch levothyroxi 2020-0 Yes 200ug Take 200 U n[facility] ne 200 mcg 8-19 mcg by ity of Cap 19:11: mouth. Medical Branch traZODone 2020-0 Yes 50mg Take 50 mg [facility] 50 mg 8-19 by mouth ity of tablet 19:11: at [place] 04 bedtime. Medical Branch losartan-hy 2020-0 Yes 1{tbl} Take 1 [facility] drochloroth 8-19 tablet by ity of iazide 19:11: mouth [place] 100-12.5 mg 04 daily. Medica l per tablet Branch insulin 2020-0 Yes 50U inject 50 [facility] rs degludec 8-19 Units ity of (TRESIBA 19:11: under the [place] U-100 04 skin. Medical INSULIN SC) Branch icosapent 2020-0 Yes 1g Take 1 g [facility] ethyL 8-19 by mouth ity of (VASCEPA) 1 19:11: daily. [place] gram 04 Medical capsule Branch sulfaSALAzi 2020-0 Yes 500mg Take 500 U [facility] ne 500 mg 8-19 mg by ity of tablet 19:11: mouth 4 [place] 04 (four) Medical times Branch daily. allopurinoL 2020-0 Yes 100mg Take 100 [facility] 100 mg 8-19 mg by ity of tablet 19:11: mouth [place] 04 daily. Medical Branch atorvastati 2020-0 Yes 40mg Take 40 mg [facility] 40 mg 8-19 by mouth ity of tablet 19:11: at [place] 04 bedtime. Medical Branch insulin 2020-0 Yes 8U inject 8 [facility] aspart 8-19 Units ity of RAPID 19:11: under the [place] (NOVOLOG 04 skin 3 Medical U-100 (three) Branch INSULIN times ASPART) 100 daily with unit/mL meals. injection OMEPRAZOLE 2020-0 Yes 40mg Take 40 mg [facility] ORAL 8-19 by mouth 2 ity of 19:11: (two) [place] 04 times Medical daily. Branch MELOXICAM 2020-0 Yes 15mg Take 15 mg [facility] ORAL 8-19 by mouth. ity of 19:11: Indication 04 s: as Medical needed Branch levothyroxi 2020-0 Yes 200ug Take 200 U n[facility] ne 200 mcg 8-19 mcg by ity of Cap 19:11: mouth. 04 Medical Branch traZODone 2020-0 Yes 50mg Take 50 mg [facility] 50 mg 8-19 by mouth ity of tablet 19:11: at [place] 04 bedtime. Medical Branch losartan-hy 2020-0 Yes 1{tbl} Take 1 [facility] drochloroth 8-19 tablet by ity of iazide 19:11: mouth [place] 100-12.5 mg 04 daily. Medica l per tablet Branch insulin 2020-0 Yes 50U inject 50 [facility] rs degludec 8-19 Units ity of (TRESIBA 19:11: under the [place] U-100 04 skin. Medical INSULIN SC) Branch icosapent 2020-0 Yes 1g Take 1 g [facility] ers ethyL 8-19 by mouth ity of (VASCEPA) 1 19:11: daily. [place] gram 04 Medical capsule Branch sulfaSALAzi 2020-0 Yes 500mg Take 500 U [facility] ne 500 mg 8-19 mg by ity of tablet 19:11: mouth 4 [place] 04 (four) Medical times Branch daily. allopurinoL 2020-0 Yes 100mg Take 100 [facility] 100 mg 8-19 mg by ity of tablet 19:11: mouth [place] 04 daily. Medical Branch atorvastati 2020-0 Yes 40mg Take 40 mg [facility] 40 mg 8-19 by mouth ity of tablet 19:11: at [place] 04 bedtime. Medical Branch insulin 2020-0 Yes 8U inject 8 [facility] aspart 8-19 Units ity of RAPID 19:11: under the [place] (NOVOLOG 04 skin 3 Medical U-100 (three) Branch INSULIN times ASPART) 100 daily with unit/mL meals. injection OMEPRAZOLE 2020-0 Yes 40mg Take 40 mg [facility] ORAL 8-19 by mouth 2 ity of 19:11: (two) [place] 04 times Medical daily. Branch MELOXICAM 2020-0 Yes 15mg Take 15 mg [facility] ORAL 8-19 by mouth. ity of 19:11: Indication 04 s: as Medical needed Branch levothyroxi 2020-0 Yes 200ug Take 200 U n[facility] ne 200 mcg 8-19 mcg by ity of Cap 19:11: mouth. 04 Medical Branch traZODone 2020-0 Yes 50mg Take 50 mg [facility] 50 mg 8-19 by mouth ity of tablet 19:11: at [place] 04 bedtime. Medical Branch losartan-hy 2020-0 Yes 1{tbl} Take 1 [facility] drochloroth 8-19 tablet by ity of iazide 19:11: mouth [place] 100-12.5 mg 04 daily. Medica l per tablet Branch insulin 2019-0 Yes 50U inject 50 [facility] rs degludec 8-19 Units ity of (TRESIBA 19:11: under the [place] U-100 04 skin. Medical INSULIN SC) Branch icosapent 2019-0 Yes 1g Take 1 g [facility] ers ethyL 8-19 by mouth ity of (VASCEPA) 1 19:11: daily. [place] gram 04 Medical capsule Branch sulfaSALAzi 2019-0 Yes 500mg Take 500 U n[facility] ne 500 mg 8-19 mg by ity of tablet 19:11: mouth 4 [place] 04 (four) Medical times Branch daily. allopurinoL 2020-0 Yes 100mg Take 100 [facility] 100 mg 8-19 mg by ity of tablet 19:11: mouth [place] 04 daily. Medical Branch atorvastati 2019-0 Yes 40mg Take 40 mg [facility] 40 mg 8-19 by mouth ity of tablet 19:11: at [place] 04 bedtime. Medical Branch insulin 2020-0 Yes 8U inject 8 [facility] aspart 8-19 Units ity of RAPID 19:11: under the [place] (NOVOLOG 04 skin 3 Medical U-100 (three) Branch INSULIN times ASPART) 100 daily with unit/mL meals. injection OMEPRAZOLE 2020-0 Yes 40mg Take 40 mg [facility] ORAL 8-19 by mouth 2 ity of 19:11: (two) [place] 04 times Medical daily. Branch MELOXICAM 2019-0 Yes 15mg Take 15 mg [facility] ORAL 8-19 by mouth. ity of 19:11: Indication s: as Medical needed Branch levothyroxi 2019-0 Yes 200ug Take 200 [facility] n[facility] ne 200 mcg 8-19 mcg by ity of Cap 19:11: mouth. Medical Branch traZODone 2020-0 Yes 50mg Take 50 mg [facility] 50 mg 8-19 by mouth ity of tablet 19:11: at [place] 04 bedtime. Medical Branch losartan-hy 2020-0 Yes 1{tbl} Take 1 [facility] drochloroth 8-19 tablet by ity of iazide 19:11: mouth [place] 100-12.5 mg 04 daily. Medica l per tablet Branch insulin 2019-0 Yes 50U inject 50 Un[facility] rs degludec 8-19 Units ity of (TRESIBA 19:11: under the [place] U-100 04 skin. Medical INSULIN SC) Branch icosapent 2020-0 Yes 1g Take 1 g [facility] ers ethyL 8-19 by mouth ity of (VASCEPA) 1 19:11: daily. [place] gram 04 Medical capsule Branch sulfaSALAzi 2019-0 Yes 500mg Take 500 U n[facility] ne 500 mg 8-19 mg by ity of tablet 19:11: mouth 4 04 (four) Medical times Branch daily. allopurinoL 2020-0 Yes 100mg Take 100 [facility] 100 mg 8-19 mg by ity of tablet 19:11: mouth [place] 04 daily. Medical Branch atorvastati 2019-0 Yes 40mg Take 40 mg [facility] 40 mg 8-19 by mouth ity of tablet 19:11: at [place] 04 bedtime. Medical Branch insulin 2020-0 Yes 8U inject 8 [facility] aspart 8-19 Units ity of RAPID 19:11: under the [place] (NOVOLOG 04 skin 3 Medical U-100 (three) Branch INSULIN times ASPART) 100 daily with unit/mL meals. injection OMEPRAZOLE 2020-0 Yes 40mg Take 40 mg [facility] ORAL 8-19 by mouth 2 ity of 19:11: (two) [place] 04 times Medical daily. Branch MELOXICAM 2020-0 Yes 15mg Take 15 mg [facility] ORAL 8-19 by mouth. ity of 19:11: Indication 04 s: as Medical needed Branch levothyroxi 2020-0 Yes 200ug Take 200 U n[facility] ne 200 mcg 8-19 mcg by ity of Cap 19:11: mouth. Medical Branch traZODone 2020-0 Yes 50mg Take 50 mg [facility] 50 mg 8-19 by mouth ity of tablet 19:11: at [place] 04 bedtime. Medical Branch losartan-hy 2019-0 Yes 1{tbl} Take 1 [facility] drochloroth 8-19 tablet by ity of iazide 19:11: mouth [place] 100-12.5 mg 04 daily. Medica l per tablet Branch insulin 2019-0 Yes 50U inject 50 Un[facility] rs degludec 8-19 Units ity of (TRESIBA 19:11: under the [place] U-100 04 skin. Medical INSULIN SC) Branch icosapent 2019-0 Yes 1g Take 1 g [facility] ers ethyL 8-19 by mouth ity of (VASCEPA) 1 19:11: daily. [place] gram 04 Medical capsule Branch sulfaSALAzi Yes 500mg Take 500 [facility] n[facility] ne 500 mg 8-19 mg by ity of tablet 19:11: mouth 4 [place] 04 (four) Medical times Branch daily. allopurinoL 2019-0 Yes 100mg Take 100 [facility] 100 mg 8-19 mg by ity of tablet 19:11: mouth [place] 04 daily. Medical Branch atorvastati Yes 40mg Take 40 mg [facility] 40 mg 8-19 by mouth ity of tablet 19:11: at [place] 04 bedtime. Medical Branch insulin 0 Yes 8U inject 8 [facility] aspart 8-19 Units ity of RAPID 19:11: under the [place] (NOVOLOG 04 skin 3 Medical U-100 (three) Branch INSULIN times ASPART) 100 daily with unit/mL meals. injection OMEPRAZOLE 2019- Yes 40mg Take 40 mg [facility] ORAL 8-19 by mouth 2 ity of 19:11: (two) [place] 04 times Medical daily. Branch MELOXICAM Yes 15mg Take 15 mg [facility] ORAL 8-19 by mouth. ity of 19:11: Indication 04 s: as Medical needed Branch levothyroxi Yes 200ug Take 200 U n[facility] ne 200 mcg 8-19 mcg by ity of Cap 19:11: mouth. 04 Medical Branch buPROPion 2017-11 Yes 300mg Take 300 Uni vers (WELLBUTRIN 2-09 mg by ity of ) 100 mg 22:35: mouth [place] tablet 30 daily. Medical Branch esomeprazol 2017-11 Yes 40mg Take 40 mg [facility] e (NEXIUM) 2-09 by mouth ity o f 40 mg 22:35: daily with [place] capsule 30 breakfast. Medica l Branch montelukast 2017-11 Yes 10mg Take 10 mg [facility] 10 mg 2-09 by mouth. ity of tablet 22:35: [place] 30 Medical Branch amLODIPine 2017-11 Yes 10mg Take 1 [facility] rs 10 mg 2-07 tablet by ity of tablet 00:00: mouth [place] 00 daily. Medical Branch indapamide 2017-11 Yes 2.5mg Take 1 [facility] ers 2.5 mg 2-07 tablet by ity of tablet 00:00: mouth [place] 00 daily. Medical Branch HYDROcodone 2017-11 Yes 1{tbl} Take 1 [facility] -acetaminop 2-07 tablet by ity of hen (NORCO) 00:00: mouth [place] 10-325 mg 00 every 6 Medical tablet (six) Branch hours as needed for Pain (scale 1-3), Pain (scale 4-6) or Pain (scale 7-10). promethazin 2017-11 Yes 12.5mg Take 10 mL [facility] e 6.25 mg/5 2- by mouth ity of mL solution 00:00: every 4 [place] as 00 (four) Medical hours as Branch needed for Nausea and Vomiting (N/V). amLODIPine 2017-11- No 10mg Take 1 [facility] ers 10 mg -05 09- tablet by ity of tablet 00:00: 00:00 mouth [place] 00 :00 daily. Medical Branch indapamide 2017-11 2020- No 2.5mg Take 1 [facility] 2.5 mg -05 09-19 tablet by ity of tablet 00:00: 00:00 mouth [place] 00 :00 daily. Medical Branch HYDROcodone 2017-11 2020- No 1{tbl} Take 1 [facility] -acetaminop 2-05 09-19 tablet by it y of hen (NORCO) 00:00: 00:00 mouth [place] 10-325 mg 00 :00 every 6 Medical tablet (six) Branch hours as needed for Pain (scale 1-3), Pain (scale 4-6) or Pain (scale 7-10). promethazin 2017-11- No 12.5mg Take 10 mL [facility] 6.25 mg/5 2-05 09-19 by mouth ity of mL solution 00:00: 00:00 every 4 [place] 00 :00 (four) Medical hours as Branch needed for Nausea and Vomiting (N/V). amLODIPine 2017-11 2020- No 10mg Take 1 [facility] ers 10 mg 12-09 tablet by ity of tablet 00:00: 00:00 mouth [place] 00 :00 daily. Medical Branch indapamide 2017-11 2020- No 2.5mg Take 1 [facility] 2.5 mg 12-09 tablet by ity of tablet 00:00: 00:00 mouth [place] 00 :00 daily. Medical Branch HYDROcodone 2017-11- No 1{tbl} Take 1 [facility] -acetaminop 12-09 tablet by it y of hen (NORCO) 00:00: 00:00 mouth [place] 10-325 mg 00 :00 every 6 Medical tablet (six) Branch hours as needed for Pain (scale 1-3), Pain (scale 4-6) or Pain (scale 7-10). promethazin 2017-11- No 12.5mg Take 10 mL [facility] e 6.25 mg/5 12-09 by mouth ity of mL solution 00:00: 00:00 every 4 [place] 00 :00 (four) Medical hours as Branch needed for Nausea and Vomiting (N/V). amLODIPine 2017-11- No 10mg Take 1 [facility] ers 10 mg 12-09 tablet by ity of tablet 00:00: 00:00 mouth [place] 00 :00 daily. Medical Branch indapamide 2017-11 2020- No 2.5mg Take 1 [facility] 2.5 mg 12-09 tablet by ity of tablet 00:00: 00:00 mouth [place] 00 :00 daily. Medical Branch HYDROcodone 2017-11- No 1{tbl} Take 1 [facility] -acetaminop 12-09 tablet by it y of hen (NORCO) 00:00: 00:00 mouth [place] 10-325 mg 00 :00 every 6 Medical tablet (six) Branch hours as needed for Pain (scale 1-3), Pain (scale 4-6) or Pain (scale 7-10). promethazin 2017-11- No 12.5mg Take 10 mL [facility] 6.25 mg/5 12-09 by mouth ity of mL solution 00:00: 00:00 every 4 [place] 00 :00 (four) Medical hours as Branch needed for Nausea and Vomiting (N/V). Syringe, Yes [id number] Use as [facility] Disposable, 03-25 directed ity of Syrg 00:00: [place] 00 Medical Branch Syringe, 2019- No [id number] Use as [facility] Disposable, 03-25 directed ity of Syrg 00:00: 00:00 [place] 00 :00 Medical Branch Syringe, 2019- No [id number] Use as [facility] Disposable, 03-25 directed ity of Syrg 00:00: 00:00 [place] 00 :00 Medical Branch Syringe, 2019- No [id number] Use as [facility] Disposable, 03-25 directed ity of Syrg 00:00: 00:00 [place] 00 :00 Medical Branch ferrous Yes [id number] 325mg Take 1 [facility] sulfate 325 5-16 tablet by ity of mg (65 mg 00:00: mouth 2 [place] iron) 00 (two) Medical tablet times Branch daily. ascorbic Yes [id number] 500mg Take 1 [facility] acid, 5-16 tablet by it[facility] of vitamin C, 00:00: mouth 3 [place] 500 mg 00 (three) Medical tablet times Branch daily. ferrous 2020- No [id number] 325mg Take 1 [facility] sulfate 325 -17 06-19 tablet by it y of mg (65 mg 00:00: 00:00 mouth 2 [place] iron) 00 :00 (two) Medical tablet times Branch daily. ascorbic 2020- No [id number] 500mg Take 1 [facility] acid, 5-16 08-19 tablet by ity of vitamin C, 00:00: 00:00 mouth 3 [place] 500 mg 00 :00 (three) Medical tablet times Branch daily. ferrous 2020- No [id number] 325mg Take 1 [facility] sulfate 325 5-16 -19 tablet by it y of mg (65 mg 00:00: 00:00 mouth 2 [place] iron) 00 :00 (two) Medical tablet times Branch daily. ascorbic 2020- No [id number] 500mg Take 1 [facility] acid, -17 06-19 tablet by ity of vitamin C, 00:00: 00:00 mouth 3 [place] as 500 mg 00 :00 (three) Medical tablet times Branch daily. ferrous 2019- No [id number] 325mg Take 1 [facility] sulfate 325 03-17- tablet by it y of mg (65 mg 00:00: 00:00 mouth 2 [place] iron) 00 :00 (two) Medical tablet times Branch daily. ascorbic 2019- No [id number] 500mg Take 1 [facility] acid, 03-17- tablet by ity of vitamin C, 00:00: 00:00 mouth 3 [place] as 500 mg 00 :00 (three) Medical tablet times Branch daily. PNV 67-iron Yes [id number] 1{each} Take 1 Univers ps-folate 5-15 Each by ity of no.1-dha 00:00: mouth [place] (VITAFOL 00 daily. Medical ULTRA) 29 Branch mg iron- 1 mg-200 mg Cap PNV 67-iron 2019- No [id number] 1{each} Take 1 Univers ps-folate 5-15 08-19 Each by ity of no.1-dha 00:00: 00:00 mouth [place] (VITAFOL 00 :00 daily. Medical ULTRA) 29 Branch mg iron- 1 mg-200 mg Cap PNV 67-iron 2020- No [id number] 1{each} Take 1 Univers ps-folate 5-15 08-19 Each by ity of no.1-dha 00:00: 00:00 mouth [place] (VITAFOL 00 :00 daily. Medical ULTRA) 29 Branch mg iron- 1 mg-200 mg Cap PNV 67-iron 2020- No [id number] 1{each} Take 1 Univers ps-folate 5-15 08-19 Each by ity of no.1-dha 00:00: 00:00 mouth [place] (VITAFOL 00 :00 daily. Medical ULTRA) 29 Branch mg iron- 1 mg-200 mg Cap Yes 1{tbl} Take 1 Unive rs multivitami 5-08 tablet by ity of n ( 00:00: mouth [place] VITAMIN) 00 daily. Medical tablet Branch 2020- No 1{tbl} Take 1 Univ ers multivitami 5-08 08-19 tablet by it y of n ( 00:00: 00:[place] VITAMIN[place] 00 :00 daily. Medical tablet Branch 2020- No 1{tbl} Take 1 Univ ers multivitami -06 09-19 tablet by it y of n ( 00:00: 00:[place] VITAMIN[place] 00 :00 daily. Medical tablet Branch 2020- No 1{tbl} Take 1 Univ ers multivitami -06 09- tablet by it y of n ( 00:00: 00:00 [place] VITAMIN) 00 :00 daily. Medical tablet Branch hydrocortis Yes Apply to Un mercy one - affected ity of (HYTONE) 00:00: area(s) 2 [place] 2.5 % cream 00 (two) Medical times Branch daily. hydrocortis 2020- No Apply to U nivers one -15 06- affected ity of (HYTONE) 00:00: 00:00 area(s) 2 [place] as 2.5 % cream 00 :00 (two) Medical times Branch daily. hydrocortis 2020- No Apply to U nivers one -15 06- affected ity of (HYTONE) 00:00: 00:00 area(s) 2 [place] as 2.5 % cream 00 :00 (two) Medical times Branch daily. hydrocortis 2020- No Apply to U nivers one -15 06- affected ity of (HYTONE) 00:00: 00:00 area(s) 2 [place] 2.5 % cream 00 :00 (two) Medical times Branch daily. diphenhydrA Yes 25mg Take 1 Univ ers MINE 5-10 capsule by ity of (BENADRYL) 00:00: mouth [place] 25 mg 00 every 6 Medical capsule (six) Branch hours as needed for Allergies. diphenhydrA 2020- No 25mg Take 1 Uni vers MINE 5-10 08-19 capsule by ity of (BENADRYL) 00:00: 00:00 mouth [place] 25 mg 00 :00 every 6 Medical capsule (six) Branch hours as needed for Allergies. diphenhydrA 2016-0 2020- No 25mg Take 1 Uni vers MINE 03-11 capsule by ity of (BENADRYL) 00:00: 00:00 mouth [place] 25 mg 00 :00 every 6 Medical capsule (six) Branch hours as needed for Allergies. diphenhydrA 2020- No 25mg Take 1 Uni vers MINE 03-11 capsule by ity of (BENADRYL) 00:00: 00:00 mouth [place] 25 mg 00 :00 every 6 Medical capsule (six) Branch hours as needed for Allergies. Immunizations Ordered Filled Immunization Date Status Comments [facility] e Immunization Name Name [facility] 2017-07-03 Completed University of 00:00:00 [facility] 2017-07-03 Completed University of 00:00:00 [facility] 2017-07-03 Completed University of 00:00:00 [facility] 2017-07-03 Completed University of 00:00:00 [facility] 2017-07-03 Completed University of 00:00:00 [facility] 2017-07-03 Completed University of 00:00:00 [facility] 2017-07-03 Completed University of 00:00:00 [facility] 2017-07-03 Completed University of 00:00:00 [facility] 2017-07-03 Completed University of 00:00:00 [facility] 2017-07-03 Completed University of 00:00:00 [facility] 2017-07-03 Completed University of 00:00:00 [facility] 2017-07-03 Completed University of 00:00:00 [facility] 2017-07-03 Completed University of 00:00:00 [facility] 2017-07-03 Completed University of 00:00:00 [facility] 2017-07-03 Completed University of 00:00:00 [facility] 2017-07-03 Completed University of 00:00:00 [facility] [place] [facility] Vital Signs Vital Name Observation Time Observation Value Comments Source Body height 2021-07-01 14:00:00 [facility] Body weight 2021-07-01 14:00:00 [facility]338 [facility] BMI 2021-07-01 14:00:00 38.79 [facility] Sy[facility] blood 2021-01-11 19:00:00 141 mm[Hg] Univer sity of pressure [place] [facility] Diastolic blood 2021-01-11 19:00:00 102 mm[Hg] Unive rsity of pressure [place] [facility] Heart rate 2021-01-11 19:00:00 135 /min [facility]i [facility] [place] [facility] Body temperature 2021-01-11 19:00:00 36.83 Nina Univ ersity [facility] [place] [facility] Respiratory rate 2021-01-11 19:00:00 18 /min Univ ers[facility] [place] [facility] Body weight 2021-01-11 19:00:00 103.42 kg [facility] [place] [facility] BMI 2021-01-11 19:00:00 40.39 kg/m2 [facility] [place] [facility] Oxygen saturation in 2021-01-11 19:00:00 97 /min University of Arterial blood by [facility] lasha Pulse oximetry Branch Systolic blood 2021-01-11 19:00:00 141 mm[Hg] Univer sity of pressure [place] [facility] Diastolic blood 2021-01-11 19:00:00 102 mm[Hg] Unive rsity of pressure [place] [facility] Heart rate 2021-01-11 19:00:00 135 /min [facility] [place] [facility] Body temperature 2021-01-11 19:00:00 36.83 Nina [facility] [place] [facility] Respiratory rate 2021-01-11 19:00:00 18 /min [facility] [place] [facility] Body weight 2021-01-11 19:00:00 103.42 kg [facility] [place] [facility] BMI 2021-01-11 19:00:00 40.39 kg/m2 [facility] [place] [facility] Oxygen saturation in 2021-01-11 19:00:00 97 /min University of Arterial blood by [facility] lasha Pulse oximetry Branch Systolic blood 2020-06-20 18:51:00 119 mm[Hg] Univer sity of pressure [place] [facility] Diastolic blood 2020-06-20 18:51:00 72 mm[Hg] Unive rsity of pressure [place] [facility] Heart rate 2020-06-20 18:51:00 82 /min [facility] [place] [facility] Body temperature 2020-06-20 18:51:00 36.56 Nina [facility] [place] [facility] Respiratory rate 2020-06-20 18:51:00 16 /min [facility] Body height 2020-06-20 18:51:00 160 cm [facility] Body weight 2020-06-20 18:51:00 103.103 kg [facility] BMI 2020-06-20 18:51:00 40.26 kg/m2 [facility] Procedures Procedure Date / Time Performed Performing Clinician Sour e XR ELBOW 3+ VIEWS 2021-07-01 14:22:25 Ronen Molina [facility] RIGHT XR FOREARM 2 VW RIGHT 2021-01-11 19:30:53 [facility] NOTICE OF PRIVACY 2021-01-11 18:48:50 Doctor Unassigned, No [facility] PRACTICES [facility] Medical [place] CONSENT/REFUSAL FOR 2021-01-11 18:48:41 [facility] Medical Branch TREATMENT BI AXILLARY ULTRASOUND 2020-08-07 15:09:04 [place] [facility] Branch BI DIAGNOSTIC 2020-08-07 14:52:13 [place] [facility] MAMMOGRAM BILATERAL Medical Bran ch ASSIGNMENT OF BENEFITS 2020-08-07 13:53:47 Doctor Unassigned, No [facility] EXTERNAL PROVIDER 2020-07-13 05:01:00 Doctor Unassigned, No [facility] RECORDS [facility] Medical [place] ASSIGNMENT OF BENEFITS 2020-06-20 18:34:58 Doctor Unassigned, No [facility] Encounters Start End Encounter Admission Attending Care Care Encounter Source Date/Time Date/Time Type Type Clinicians Facility Department ID 2021-09-01 Emergency [facility] [id number] Univers 05:37:10 ity of [facility] [place] [facility] 2021-08-31 Emergency [facility] [id number] Univers 10:03:46 ity of [facility] [place] [facility] 2021-08-26 Outpatient RONEN MOLINA [facility] [id number] [place] 11:49:08 Health 2021-07-19 Outpatient RONEN MOLINA [facility] [id number] [place] 16:54:19 Health 2021-07-01 Outpatient [facility] [id number] [place] 09:13:23 Health 2021-08-26 2021-08-26 Office Ronen Molina [facility] [id number] [place] 10:48:54 11:49:39 Visit ORTHO AND [id number] Health SP[place] [id number] MEDICAL [id number] EXETER 2 2021-08-13 2021-08-13 Orders Ronen Molina [facility] [id number] [id number] [place] 00:00:00 00:00:[address] [id number] Health [id number] [id number] 3 2021-07-01 2021-07-01 Office Ronen Molina [facility] [id number] [place] 08:53:31 09:50:49 Visit ORTHO AND [id number] Health SPINE [id number] MEDICAL [id number] EXETER 2 2021-01-21 2021-01-21 Patient Giovani [facility] [id number] Univers 00:00:00 00:00:00 Outreach Hadley [facility] [id number] i ty of [facility] [id number] [facility] [place] [facility] [id number] Ct dical 388 Branch 2021-01-11 2021-01-11 Emergency [facility] 1.2.840.114 [id number] 13:03:00 14:33:00 Mickey Hinkle [id number] [place] 4.2.7.2.686 [place] [id number] [facility] 2021-01-11 2021-01-11 Emergency [facility] [id number] [facility] 13:03:00 14:33:00 Mickey Hinkle [id number] i ty of [place] 4.2.7.2.686 [facility] s [place] [id number] [facility] 084 Branch 2021-01-11 2021-01-11 Orders Doctor FARLEY 1.2.840.114 [id number] Univers 00:00:00 00:00:00 Only Unassigned, CEFERINO [id number] ity of [place] [place] [facility] 4.2.7.2.686 [facility] [id number] [facility] 009 Branch 2021-01-11 2021-01-11 Orders Doctor MARTINE 1.2.840.114 [id number] 00:00:00 00:00:00 Only Unassigned, CEFERINO 350.1.13.10 [place] [facility] 4.2.7.2.686 [id number] 2020-10-02 2020-10-02 [facility] 1.2.840.114 [id number] [facility] 10:57:08 23:59:00 Encounter Beverly Hinkle [id number] ity of [place] 4.2.7.2.686 [facility] [id number] [facility] 806 Branch 2020-10-02 2020-10-02 [facility] 1.2.840.114 [id number] 10:57:08 23:59:00 Encounter Beverly Hinkle [id number] [place] 4.2.7.2.686 [place] [id number] 2020-10-02 2020-10-02 Outpatient Luanne PARK [facility] [id number] Univers 00:00:00 00:00:00 BEVERLY mikayla o [facility] 2020-10-02 2020-10-02 Outpatient Luanne PARK [facility] [id number] Univers 00:00:00 00:00:00 BEVERLY degroot o [facility] 2020-09-18 2020-09-18 Outpatient Luanne PARK [facility] [id number] Univers 00:00:00 00:00:00 BEVERLY [id number] mikayla o [facility] 2020-09-18 2020-09-18 Outpatient Luanne PARK [facility] [id number] Univers 00:00:00 00:00:00 BEVERLY degroot o [facility] 2020-09-05 2020-09-05 Outpatient Luanne PARK [facility] [id number] Univers 00:00:00 00:00:00 BEVERLY mikayla o [facility] 2020-08-21 2020-08-21 [facility] [id number] Univers 08:00:00 08:00:00 BEVERLY ity o f [facility] [place] [facility] 2020-08-16 2020-08-16 [facility] [id number] Univers 00:00:00 00:00:00 Beverly Luanne 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 [id number] [place] as MATERNAL [id number] Med ical & CHILD [address] [place] [address] 2020-08-16 2020-08-[address] [facility] [id number] 00:00:00 00:00:00 [place] Luanne INDUSTRIAL MAINTENANCE MECHANIC [id number] REGIONAL [id number] MATERNAL [id number] & CHILD [address] [place] [address] 2020-08-07 2020-08-07 [facility] 1.2.840.114 [id number] Univers 09:13:49 23:59:00 Encounter [place] Luanne Manan [id number] ity of [place] 4.2.7.2.686 [place] [id number] [facility] 800 [place] 2020-08-07 2020-08-07 [facility] 1.2.840.114 [id number] Univers 08:57:24 09:12:00 Encounter Beverly Hinkle [id number] ity of [place] 4.2.7.2.686 [place] [id number] [facility] 806 [place] 2020-08-07 2020-08-07 Outpatient [facility] [id number] Univers 09:00:00 09:00:00 TAHIRANDJeanette ity o f [facility] [place] [facility] 2020-08-07 2020-08-07 Outpatient [facility] [id number] Univers 00:00:00 00:00:00 TAHIRANDA ity o f [facility] [place] [facility] 2020-08-07 2020-08-07 Orders Doctor FARLEY 1.2.840.114 [id number] Univers 00:00:00 00:00:00 Only Unassigned, CEFERINO [id number] ity of [place] [facility] 4.2.7.2.686 [place] as [id number] [address] 2020-08-07 2020-08-07 [facility] [id number] Univers 00:00:00 00:00:00 Rosmorrisnda R INDUSTRIAL MAINTENANCE MECHANIC [id number] ity of REGIONAL [id number] [place] MATERNAL [id number] [facility] & CHILD [address] [place] [address] 2020-07-13 2020-07-13 Orders Doctor MARTINE 1.2.840.114 [id number] Univers 00:00:00 00:00:00 Only Unassigned, CEFERINO 350.1.13.10 ity of [place] [facility] 4.2.7.2.686 [place] [id number] [address] 2020-06-22 2020-06-[address] [facility] [id number] Univers 00:00:00 00:00:00 Tahiranda R INDUSTRIAL MAINTENANCE MECHANIC [id number] ity of REGIONAL [id number] [place] MATERNAL [id number] [address] 2020-06-20 2020-06-20 [facility] 1.2.840.114 [id number] Univers 13:37:39 14:55:54 Visit Margaritajuan f R 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 [id number] [place] MATERNAL [id number] [address] 2020-06-20 2020-06-20 Outpatient [facility] [id number] Univers 13:15:00 13:15:00 BEVERLY [id number] ity o f [facility] 2020-06-20 2020-06-20 [facility] [id number] Univers 13:15:00 13:15:00 BEVERLY degroot o f [facility] 2020-06-20 2020-06-20 Orders Doctor FARLEY 1.2.840.114 [id number] Univers 00:00:00 00:00:00 Only Unassigned, CEFERINO 350.1.13.10 ity of [place] [facility] [id number] [place] [id number] [address] 2020-06-18 2020-06-18 Outpatient R DEAN [facility] [id number] Univers 13:30:00 13:30:00 MARGARITAJUAN F [id number] ity o f [facility] 2020-06-18 2020-06-18 Outpatient R DEAN [facility] [id number] Univers 13:30:00 13:30:00 MARGARITAJUAN F ity o girish [facility] Results Test Test Test Results Result Source Description Time Comments Comments XR elbow 2021-06- Interpretation: Multiple [place] [facility] views right 30 radiographic views are 14:39:31 within normal limits for the patients stated age. There are no signs of fracture, dislocation, or articular injury. The alignment and joint spaces are within normal limits. No signs of a bony lesion or soft tissue swelling. ? XR elbow 2021-06- Interpretation: Multiple [place] [facility] views right 30 radiographic views are 14:39:31 within normal limits for the patients stated age. There are no signs of fracture, dislocation, or articular injury. The alignment and joint spaces are within normal limits. No signs of a bony lesion or soft tissue swelling. ? XR FOREARM 2 VW 2020-12- Forearm soft tissue University of RIGHT 12 contusion. No acute bony [facility] 19:33:31 abnormality is present. B ranch EXAM: XR FOREARM 2 VW RIGHT HISTORY: eval for fracture COMPARISON: None FINDINGS: Imaging of the forearm demonstrates marked swelling over the mid to distalforearm, most notable along the dorsally and laterally. Alignment of theelbow and wrist is anatomic. No radiopaque foreign body, fracture orerosion is seen. [facility], Radiant Results Inft User - 01/11/2021 1:34 PM CSTEXAM:XR FOREARM 2 VW RIGHTHISTORY:eval for fracture COMPARISON:NoneFINDINGS: Imaging of the forearm demonstrates marked swelling over the mid to distalforearm, most notable along the dorsally and laterally. Alignment of theelbow and wrist is anatomic. No radiopaque foreign body, fracture orerosion is seen.IMPRESSIONForearm soft tissue contusion.No acute bony abnormality is present. BI DIAGNOSTIC 2020-08- Examination:BI DIAGNOSTIC University of MAMMOGRAM 06 MAMMOGRAM BILATERAL [place] [facility] BILATERAL 15:54:22 History:Patient is 39 year Branch old and is seen for: ?Left axillary mass. Computer-aided detection (CAD) utilized. Comparisons : None available Findings:The breasts are almost entirely fatty. LeftThere is no evidence of suspicious masses, calcifications, or other abnormal findings in the left breast. RightThere is no evidence of suspicious masses, calcifications, or other abnormal findings in the right breast. Impression:No signs of malignancy. However, we will need to proceed with ultrasound study because of c/o palpable mass in Left axillary region. Recommendation:Ultrasound - LeftAnnual mammographic follow-up - Right BI-RADS Category: Left: 0 - Incomplete: Needs Additional Imaging EvaluationRight: 1 - NegativeOverall: 0 - Incomplete: Needs Additional Imaging Evaluation BI AXILLARY 2020-08- HISTORY: Palpable mass in University of ULTRASOUND LEFT 06 left axilla. TECHNIQUE: [facility] 15:12:17 Left axillary region was [place] evaluated inradial/antiradial/sagitt al/coronal planes both by the technologist and byme. Female technologist was present in the room during all imagingevaluations. FINDINGS: A discrete hypoechoic oval-shaped mass approximately 5.8 x 1.5 cmsize mass confirmed. Mass is slightly hypoechoic relative to surroundingsubcutaneous tissue but appears to be well encapsulated and showed noappreciable vascularity. CONCLUSIONS: 5.8 cm mass in the left axillary region with features ofbenign lipoma. ACR classification: Category II. [facility], Radiant Results Inft User - 08/07/2020 10:13 AM CDTHISTORY: Palpable mass in left axilla.TECHNIQUE: Left axillary region was evaluated inradial/antiradial/sagitt al/coronal planes both by the technologist and byme. Female technologist was present in the room during all imagingevaluations.FINDING S: A discrete hypoechoic oval-shaped mass approximately 5.8 x 1.5 cmsize mass confirmed. Mass is slightly hypoechoic relative to surroundingsubcutaneous tissue but appears to be well encapsulated and showed noappreciable vascularity.CONCLUSIONS: 5.8 cm mass in the left axillary region with features ofbenign lipoma.ACR classification: Category II.
[2022-07-29] MEDS ORDERED: HYDROMORPHONE HCL 1 MG/ML INJ ONE (22:55)
[2022-07-29] MEDS ORDERED: AMPICILLIN/SULBACTAM 3GM/VIAL ONE (22:55)
[2022-07-29] MEDS ORDERED: ONDANSETRON 4 MG/2 ML VIAL ONE (22:56)
[2022-07-29] MEDS ORDERED: NA CHLORIDE 0.9% 100 ML ONE (22:56)
--- NOTE | 2022-07-29 23:05 | ER ---
Nurse's Notes [facility] Name: Lana Solo Age: 41 yrs Sex: Female : 1980 Arrival Date: 07/29/2022 Time: 21:39 Bed 19 Private MD: Diagnosis: Dental caries, unspecified;DENTAL ABSCESS Presentation: 07/29 21:52 Chief complaint: Chief complaint: Severe right lower molar pain that radiates to right hb neck, right ear, and right sided of head. Pt reports she sent to dentist today for extractions, were unable to do procedure due to high blood pressure so they sent to clinic, pt was given unknown medication to bring down blood pressure and referred to oral surgeon. Coronavirus screen: At this time, the client does not indicate any symptoms associated with coronavirus-19. Ebola Screen: No symptoms or risks identified at this time. Risk Assessment: Do you want to hurt yourself or someone else? Patient reports no desire to harm self or others. Onset of symptoms was July 29, 2022. 21:52 Method Of Arrival: Ambulatory hb 21:52 Acuity: BRODY 3 hb 07/30 00:11 Initial Sepsis Screen: Does the patient meet any 2 criteria? No. Patient's initial kl sepsis screen is negative. Does the patient have a suspected source of infection? Yes: Other: tooth ache. 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 - Social history:: Smoking status: Patient reports the use of cigarette tobacco products, smokes one-half pack cigarettes per day. Screenin:50 Abuse screen: Denies threats or abuse. Nutritional screening: No deficits noted. Tuberculosis screening: No symptoms or risk factors identified. Fall Risk None identified. Assessment: 22:45 General: Appears in no apparent distress. comfortable, Behavior is calm, cooperative. kl Pain: Complains of pain in jaw Pain currently is 8 out of 10 on a pain scale. Neuro: No deficits noted. Cardiovascular: No deficits noted. Respiratory: No deficits noted. GI: No deficits noted. : No deficits noted. EENT: Reports tooth pain. Vital Signs: 21:52 BP 198 / 111; Pulse 82; Resp 16; Temp 98.1; Pulse Ox 100% on R/A; Weight 99.79 kg; hb Height 5 ft. 3 in. (160.02 cm); Pain 10/10; 23:00 BP 135 / 78; Pulse 80; Resp 16; Pulse Ox 99% ; kl 23:30 BP 148 / 80; Pulse 72; Pulse Ox 98% on R/A; kl 23:58 BP 152 / 82; Pulse 80; Resp 18; Pulse Ox 99% on R/A; kl 21:52 Body Mass Index 38.97 (99.79 kg, 160.02 cm) hb ED Course: 21:39 Patient arrived in ED. bp1 21:57 Triage completed. hb 21:57 Arm band placed on. hb 22:05 Uli Carpio MD is Attending Physician. sp3 22:50 Inserted saline lock: 20 gauge in right forearm, using aseptic technique. kl 07/30 00:11 No provider procedures requiring assistance completed. IV discontinued, intact, kl bleeding controlled, No redness/swelling at site. Pressure dressing applied. 00:12 Patient has correct armband on for positive identification. kl Administered Medications: 07/29 23:06 Drug: Dilaudid (HYDROmorphone) 1 mg Route: IVP; Site: right forearm; kl 23:06 Drug: Zofran (Ondansetron) 4 mg Route: IVP; Site: right forearm; kl 23:55 Follow up: Response: No adverse reaction; Marked relief of symptoms kl 23:56 Follow up: Response: No adverse reaction; Marked relief of symptoms kl 23:07 Drug: Unasyn (ampicillin-sulbactam) 3 grams Route: IVPB; Infused Over: 30 mins; Site: right forearm; 23:55 Follow up: IV Status: Completed infusion; IV Intake: 100ml kl Medication: 07/30 00:12 VIS not applicable for this client. kl Intake: 07/29 23:55 IV: 100ml; Total: 100ml. Outcome: 23:04 Discharge ordered by . sp3 07/30 00:11 Discharged to home ambulatory. kl Condition: stable Discharge instructions given to patient, Instructed on discharge instructions, follow up and referral plans. medication usage, Demonstrated understanding of instructions, follow-up care, medications, Prescriptions given X 1. 00:12 Patient left the ED. kl Signatures: Nettie Cespedes RN RN kl Baxter, Heather, RN RN hb Pania[place], Brittany bp1 Patel, Setul, MD MD sp3
--- NOTE | 2022-07-29 23:05 | EDPHYS ---
Physician Documentation [facility] Name: Lana Solo Age: 41 yrs Sex: Female : 1980 Arrival Date: 07/29/2022 Time: 21:39 Bed 19 Private MD: ED Physician Uil Carpio HPI: 07/29 22:59 This 41 yrs old Female presents to ER via Ambulatory with complaints of High Blood sp3 Pressure, Wound Infection. 22:59 41-year-old female with a history of hypertension, diabetes presents with left jaw pain sp3 secondary to dental abscess. Patient is seen 2 different dentists in the last when she saw was not able to extract her teeth secondary to high blood pressure. Initial blood pressure was elevated here in the ED but has subsequently resolved. Patient has been on amoxicillin and clindamycin which have not significantly altered her infectious course. I she has been on 800 mg of ibuprofen which has mildly helped. Currently she is here for pain control and further guidance on dental care. Review of systems is negative for headache, neck pain, fever, chest pain, shortness of breath, back pain, rash, any other symptoms at this time.. 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 - Social history:: Smoking status: Patient reports the use of cigarette tobacco products, smokes one-half pack cigarettes per day. ROS: 23:00 Constitutional: Negative for fever, chills, and weight loss, Eyes: Negative for injury, sp3 pain, redness, and discharge, Neck: Negative for injury, pain, and swelling, Cardiovascular: Negative for chest pain, palpitations, and edema, Respiratory: Negative for shortness of breath, cough, wheezing, and pleuritic chest pain, Abdomen/GI: Negative for abdominal pain, nausea, vomiting, diarrhea, and constipation, Back: Negative for injury and pain, MS/Extremity: Negative for injury and deformity, Skin: Negative for injury, rash, and discoloration, Neuro: Negative for headache, weakness, numbness, tingling, and seizure, Psych: Negative for depression, anxiety, suicide ideation, homicidal ideation, and hallucinations, Allergy/Immunology: Negative for hives, rash, and allergies, Endocrine: Negative for neck swelling, polydipsia, polyuria, polyphagia, and marked weight changes, Hematologic/Lymphatic: Negative for swollen nodes, abnormal bleeding, and unusual bruising. 23:00 All other systems are negative. Exam: 23:00 Constitutional: This is a well developed, well nourished patient who is awake, alert, sp3 and in no acute distress. Head/Face: Normocephalic, atraumatic. Eyes: Pupils equal round and reactive to light, extra-ocular motions intact. Lids and lashes normal. Conjunctiva and sclera are non-icteric and not injected. Cornea within normal limits. Periorbital areas with no swelling, redness, or edema. Chest/axilla: Normal chest wall appearance and motion. Nontender with no deformity. No lesions are appreciated. Cardiovascular: Regular rate and rhythm with a normal S1 and S2. No gallops, murmurs, or rubs. Normal PMI, no JVD. No pulse deficits. Respiratory: Lungs have equal breath sounds bilaterally, clear to auscultation and percussion. No rales, rhonchi or wheezes noted. No increased work of breathing, no retractions or nasal flaring. Abdomen/GI: Soft, non-tender, with normal bowel sounds. No distension or tympany. No guarding or rebound. No evidence of tenderness throughout. MS/ Extremity: Pulses equal, no cyanosis. Neurovascular intact. Full, normal range of motion. Neuro: Awake and alert, GCS 15, oriented to person, place, time, and situation. Cranial nerves II-XII grossly intact. Motor strength 5/5 in all extremities. Sensory grossly intact. Cerebellar exam normal. Normal gait. Psych: Awake, alert, with orientation to person, place and time. Behavior, mood, and affect are within normal limits. 23:00 ENT: Patient has dental pain on the lower right mandibular molars. Gums are inflamed. No purulence noted.. Vital Signs: 21:52 BP 198 / 111; Pulse 82; Resp 16; Temp 98.1; Pulse Ox 100% on R/A; Weight 99.79 kg; hb Height 5 ft. 3 in. (160.02 cm); Pain 10/10; 23:00 BP 135 / 78; Pulse 80; Resp 16; Pulse Ox 99% ; kl 23:30 BP 148 / 80; Pulse 72; Pulse Ox 98% on R/A; kl 23:58 BP 152 / 82; Pulse 80; Resp 18; Pulse Ox 99% on R/A; kl 21:52 Body Mass Index 38.97 (99.79 kg, 160.02 cm) hb MDM: 22:33 Patient medically screened. sp3 23:02 Data reviewed: vital signs, nurses notes. ED course: Pressure has resolved on its own sp3 and is currently 150/90. Will administer Dilaudid and Zofran IV along with Unasyn 3 g 1 dose. Patient will be discharged on Augmentin with return follow-up to oral surgery and dentistry as per her existing relationships. There are no signs of sepsis, DKA, or any other critical findings at this time.. 07/29 22:34 Order name: IV Saline Lock; Complete Time: 22:49 sp3 Administered Medications: 23:06 Drug: Dilaudid (HYDROmorphone) 1 mg Route: IVP; Site: right forearm; kl 23:06 Drug: Zofran (Ondansetron) 4 mg Route: IVP; Site: right forearm; kl 23:55 Follow up: Response: No adverse reaction; Marked relief of symptoms kl 23:56 Follow up: Response: No adverse reaction; Marked relief of symptoms kl 23:07 Drug: Unasyn (ampicillin-sulbactam) 3 grams Route: IVPB; Infused Over: 30 mins; Site: right forearm; 23:55 Follow up: IV Status: Completed infusion; IV Intake: 100ml kl Disposition Summary: 07/29/22 23:04 Discharge Ordered Location: Home sp3 Condition: Stable sp3 Diagnosis - Dental caries, unspecified sp3 - DENTAL ABSCESS sp3 Followup: sp3 - With: Private Physician - When: Upon discharge from the Emergency Department - Reason: Recheck today's complaints Discharge Instructions: - Discharge Summary Sheet sp3 - Dental Caries, Adult sp3 Forms: - Medication Reconciliation Form sp3 - Thank You Letter sp3 - Antibiotic Education sp3 - Prescription Opioid Use sp3 Prescriptions: - Augmentin 875-125 mg Oral Tablet - take 1 tablet by ORAL route every 12 hours for 10 days; 20 tablet; Refills: 0, sp3 Product Selection Permitted Signatures: Nettie Cespedes RN RN kl Baxter, Heather, RN RN Uli Dixon MD MD sp3
[2022-08-01 03:13] VITALS: TEMP 98.1
[2022-08-01 03:16] VITALS: BP 152/82; O2SAT 99
== END 2022-07-30 00:12 | disposition home or self-care (01) ==
LOC: ER 21:36
DX: K04.7 Periapical abscess without sinus (principal); K02.9 Dental caries, unspecified; I10 Essential (primary) hypertension; F17.210 Nicotine dependence, cigarettes, uncomplicated; Z88.8 Allergy status to other drugs, medicaments and biological substances
CPT/HCPCS: 96365; 96375; 99283; J1170; J0295; J2405

== ENCOUNTER 2022-09-28 19:08 | Emergency (ER) | payer OTHER ==
--- OUTSIDE RECORDS SUMMARY | 2022-09-28 19:15 | XMS REPORT | Continuity of Care Document ---
:1980 Author Organization [facility] t Address [address] [place] [address] Care Team Providers Name Role Phone Saba Huff Primary Care Physician RONEN MOLINA Attending Clinician Unavailable Hadley Matute DO Attending Clinician Mickey Arevalo Attending Clinician Doctor Unassigned, [place] Attending Clinician Unavailable Beverly Comer Attending Clinician BEVERLY MORAN Attending Clinician Unavailable Payers Payer Name Policy Type Policy Number Effective Date Expiration Date Eulogio thompson MEDICARE PART A [id number] 2016 \T\ B 00:00:00 [facility] [id number] 2016 00:00:00 [employer] MEDICARE [id number] 2021 ADVANTAGE HMO 00:00:00 Problems Condition Condition [...] gestation 1-29 ity of of of 00:00: [place] 00 [facility] Obesity Obesity Disease Active 2017-11 Univers affecting affecting 1-29 [place] in third in third 00 Medica l trimester trimester Bran ch 33 weeks 33 weeks Disease Active 2017-11 Unive rs gestation gestation 0-25 ity of of of 00:00: [place] [address] [facility] Obesity Obesity Disease Active 2017-11 Univers (BMI (BMI 0-25 ity of 30-39.9) 30-39.9) 00:00: [place] 00 [facility] Anemia Anemia Disease Active Univers affecting affecting 5-16 [place] of [place] [facility] Anxiety in Anxiety in Disease Active U nivers , , 5-15 it y of ante[place] [facility] AMA AMA Disease Active Univers (advanced (advanced 5-15 ity of maternal maternal 00:00: [place] age) age) 00 Medical multigravi multigravi Br anch da 35+ da 35+ Hypertensi Hypertensi Disease Active U nivers on in on in 5-15 ity of , , [place] pre-existi pre-existi 00 Pr dical ng, ng, Branch antepartum antepartum Hypothyroi Hypothyroi Disease Active U nivers d in d in 5-15 [place] of , , [place] antepartum antepartum 00 Pr dical Branch Diabetes Diabetes Disease Active Overview: [...] affecting 5-15 [place] of 00[place] [facility] Tobacco Tobacco Disease Active Univers smoking smoking 5-15 ity of affecting affecting 00:[place] 00 [place] Branch Maternal Maternal Disease Active Unive rs rheumatoid rheumatoid 5-15 it y of arthritis arthritis 00:[place] complic[place] complicati 00 Me dical ng ng Branch Psoriasis Psoriasis Disease Active Uni vers 5-15 ity of 00:00: [place] [facility] Obesity Obesity Disease Active 2015-11 Univers affecting affecting 2-01 [place] of [place] [facility] Allergies, Adverse Reactions, Alerts Allergy Allergy Status [...] ity of adverse 00:00: [place] reaction 00 [facility] Branch Golimuma Propensi Active Unknown - Uni vers b ty to See comments 3-12 ity of adverse 00:00: [place] reaction 00 [facility] GOLIMUMA DRUG Active Unknown-Cmnt 0 Un mercy B INGREDI 3-12 ity of 00:00: [place] 00 Medical Branch EXENATID DRUG Active Unknown-Cmnt 0 Un mercy E INGREDI 3-12 ity of MICROSPH 00:00: [place] ERES 00 Medical Branch METFORMI DRUG Active Unknown-Cmnt 0 Un mercy N INGREDI 3-12 ity of 00:00: [place] 00 Medical Mcdonald NO KNOWN Drug Active Univers ALLERGIE Class ity of S [facility] Social History Social Habit Start Date Stop Date Quantity Comments Source History of tobacco Cigarette Smoker [facility] use Exposure to Not sure [facility] SARS-CoV-2 (event) Cigarettes smoked 2021-01-11 2021-01-11 Univers ity of current (pack per 00:00:00 00:00:00 [facility] ed) - Reported Branch Cigarette 2021-01-11 2021-01-11 University of pack-years 00:00:00 00:00:00 [facility] Tobacco use and 2021-01-11 2021-01-11 Never used Universit y of exposure 00:00:00 00:00:00 [facility] Alcohol intake 2021-01-11 2021-01-11 Current University of 00:00:00 00:00:00 non-drinker of [facility] alcohol Branch (finding) Tobacco Comment 2018-10-06 2018-10-06 1 pack every 3 Unive rsity of 00:00:00 00:00:00 days [facility] Sex Ass[birth year] At [birth year] [facility] y of 00:00:00 00:00:00 [facility] Smoking Status Start Date Stop Date Source Smokes tobacco daily 2021-07-01 00:00:00 [facility] Heavy tobacco smoker 2021-01-11 00:00:00 Univers ity of [facility] Medications Ordered Filled Start Stop Current Ordering Indication Dosage Frequency Signature Comments Components Source Medication Medication Date Date Medication? Clinician (SIG) Name Name dionisio 2020-11- No [id number] 2{tbl} Q6H Take 2 UT en-codeine 0-12 [...] DR 09:09: capsule 31 acetaminoph 2020- No [id number] 2{tbl} Q6H Take 2 UT en-codeine 07-01 9107 tablets by Yann alth (Tylenol w/ 00:00: 04:59 mouth Codeine #3) 00 :00 every 6 300-30 MG (six) tablet hours if needed for severe pain for up to 5 days. acetaminoph 2020- No [id number] 2{tbl} Q6H Take 2 [facility] en-codeine 07-01 [...] 00:00: 00 Droplet Pen 2020-0 Yes [facility] [place] 32G 3-29 Health X 4 MM misc 00:00: 00 levothyroxi 2020-0 Yes UT ne 3-29 Health (Synthroid, 00:00: Levoxyl) 00 200 MCG tablet losartan 0 Yes UT (Cozaar) 3-29 Health 100 MG 00:00: tablet 00 Vascepa 1 g 0 Yes UT capsule 3-29 Health 00:00: 00 Droplet Pen 2020-0 Yes [facility] [place] 32G 3-29 Health X 4 MM misc 00:00: 00 levothyroxi 2020-0 Yes UT ne 3-29 Health (Synthroid, 00:00: Levoxyl) 00 200 MCG tablet losartan 0 Yes UT (Cozaar) 3-29 Health 100 MG 00:00: tablet 00 Vascepa 1 g 0 Yes UT capsule 3-29 Health 00:00: 00 Droplet Pen 2020-0 Yes [facility] [place] 32G 3-29 Health X 4 MM misc 00:00: 00 levothyroxi 2020-0 Yes UT ne 3-29 Health (Synthroid, 00:00: Levoxyl) 00 200 MCG tablet losartan 0 Yes UT (Cozaar) 3-29 Health 100 MG 00:00: tablet 00 Vascepa 1 g 0 Yes UT capsule 3-29 Health 00:00: 00 Droplet Pen Yes [facility] [place] 32G 01-28 Health X 4 MM misc [...] Fri Med ical tablet 2 01/11/21 at [facility] h tablet 1415, ADINA ibuprofen Yes [id number] 600mg Take 1 Univers (IBU) 600 01-11 [id number] tablet by ity of mg tablet 00:00: mouth [place] 00 every 6 Medical (six) Branch hours as needed for Pain (scale 4-6). ibuprofen Yes [id number] 600mg Take 1 Univers (IBU) 600 -12 [id number] tablet by ity of mg tablet 00:00: mouth [place] 00 every 6 Medical (six) Branch hours as needed for Pain (scale 4-6). cephALEXin 2020- No [id number] 500mg Take 1 Univers (KEFLEX) 01-11 [id number] capsule by it y of 500 mg [...] Indication s: acute pain methocarbam 2019-11 Yes [id number] 500mg Take 1 Univers oL 2-08 tablet by ity of (ROBAXIN) 00:00: mouth [place] 500 mg 00 every 6 Medical tablet (six) Branch hours as needed (MUSCLE SPASM). naproxen 2020- Yes [id number] 550mg Take 1 U nivers sodium 550 2-08 tablet by ity of mg tablet 00:00: mouth 2 [place] 00 (two) Medical times Branch daily with meals. methocarbam 2020- Yes [id number] 500mg Take 1 Univers oL 2-08 tablet by ity of (ROBAXIN) 00:00: mouth [place] 500 mg 00 every 6 Medical tablet (six) Branch hours as needed (MUSCLE SPASM). naproxen 2019-11 Yes [id number] 550mg Take 1 U nivers sodium 550 2-08 tablet by ity of mg tablet 00:00: mouth 2 [place] 00 (two) Medical times Branch daily with meals. methocarbam 2019-11 Yes [id number] 500mg Take 1 Univers oL 2-08 tablet by ity of (ROBAXIN) 00:00: mouth [place] 500 mg 00 every 6 Medical tablet (six) Branch hours as needed (MUSCLE SPASM). naproxen 2019-11 Yes [id number] 550mg Take 1 U nivers sodium 550 [...] time 00 each day. Accu-Chek 2019- Yes Q.17134587 3 (three) [facility] test 0-02 [id number] times a Health strip 00:00: 3D day. 00 Accu-Chek 2020-1 Yes Q.72337149 3 (three) [facility] test 0- [id number] times a Health strip 00:00: 3D day. 00 Accu-Chek 2020-1 Yes Q.65094662 3 (three) [facility] test 0- [id number] times a Health strip 00:00: 3D day. 00 Accu-Chek 2020-1 Yes Q.77035018 3 (three) [facility] test 0- [id number] times a Health strip 00:00: 3D day. 00 montelukast 2019- 2020- No 10mg Take 10 mg Univers 10 mg 8- 08-19 by mouth. ity of tablet 19:23: 00:00 [place] 30 :00 [facility] montelukast 2019- 2020- No 10mg Take 10 mg Univers 10 mg - 08-19 by mouth. ity of tablet 19:23: 00:00 [place] 30 :00 [facility] montelukast 2019-2019- No 10mg Take 10 mg Univers 10 mg -20 06-19 by mouth. ity of tablet 19:23: 00:00 [place] 30 :00 [facility] esomeprazol 2019- 2020- No 40mg Take 40 mg Univers e (NEXIUM) 8- 08-19 by mouth ity of 40 mg 19:23: 00:00 daily with [place] capsule 18 :00 breakfast. [facility] esomeprazol 2019- 2020- No 40mg Take 40 mg Univers e (NEXIUM) 8- 08-19 by mouth ity of 40 mg 19:23: 00:00 daily with [place] capsule 18 :00 breakfast. [facility] esomeprazol 2020- No 40mg Take 40 mg Univers e (NEXIUM) 8- 08-19 by mouth ity of 40 mg 19:23: 00:00 daily with [place] capsule 18 :00 breakfast. [facility] buPROPion 2019-0 2020- No 300mg Take 300 Un mercy (WELLBUTRIN 8- 08-19 mg by ity of ) 100 mg 19:23: 00:00 mouth [place] tablet 15 :00 daily. [facility] buPROPion 2019-0 2020- No 300mg Take 300 [...] by mouth ity of tablet 19:11: at [place] 04 bedtime. Medical Branch insulin 2020-0 Yes [...] by mouth ity of tablet 19:11: at [place] [address] bedtime. Medical Branch losartan-hy 2020-0 Yes 1{tbl} [...] by mouth ity of tablet 19:11: at [place] [address] bedtime. Medical Branch insulin 2019-0 Yes 8U [...] by mouth ity of tablet 19:11: at [place] 04 bedtime. Medical Branch losartan-hy 2020-0 Yes [...] by mouth ity of tablet 19:11: at [place] 04 bedtime. Medical Branch insulin 2020-0 Yes 8U inject 8 Univer s aspart 8-19 Units ity of RAPID 19:11: under the [place] (NOVOLOG 04 skin 3 Medical U-100 (three) [...] by mouth ity of tablet 19:11: at [place] [address] bedtime. Medical Branch losartan-hy 2020-0 Yes 1{tbl} [...] by mouth ity of tablet 19:11: at [place] [address] bedtime. Medical Branch insulin 2019-0 Yes 8U [...] by mouth ity of tablet 19:11: at [place] 04 bedtime. Medical Branch losartan-hy 2019-0 Yes [...] by mouth ity of tablet 19:11: at [place] 04 bedtime. Medical Branch insulin 2020-0 Yes [...] by mouth ity of tablet 19:11: at [place] [address] bedtime. Medical Branch insulin 2019-0 Yes 8U inject 8 Univer s aspart 8-19 Units ity of RAPID 19:11: under the [place] (NOVOLOG 04 skin 3 Medical U-100 (three) Branch INSULIN times ASPART) 100 daily with unit/mL meals. injection OMEPRAZOLE 2019-0 Yes 40mg Take 40 mg U nivers ORAL 8-19 by mouth 2 ity of 19:11: (two) [place] 04 times Medical daily. Branch MELOXICAM 2019-0 [...] by mouth ity of tablet 19:11: at [place] [address] bedtime. Medical Branch losartan-hy 2019-0 Yes 1{tbl} [...] by ity of tablet 19:11: mouth 4 [place] 04 (four) Medical times Branch daily. allopurinoL 2020-0 Yes 100mg Take 100 U nivers 100 mg 8-19 mg by ity of tablet 19:11: mouth [place] 04 daily. Medical Branch atorvastati 2020-0 Yes 40mg Take 40 mg Univers n 40 mg 8-19 by mouth ity of tablet 19:11: at [place] [address] bedtime. Medical Branch insulin 2020-0 Yes 8U inject 8 Univer s aspart 8-19 Units ity of RAPID 19:11: under the [place] (NOVOLOG 04 skin 3 Medical U-100 (three) Branch INSULIN times ASPART) 100 daily with unit/mL meals. injection OMEPRAZOLE 2020-0 Yes 40mg Take 40 mg U nivers ORAL 8-19 by mouth 2 ity of 19:11: (two) [place] [address] times Medical daily. Branch MELOXICAM 2019-0 Yes 15mg Take 15 mg Un mercy ORAL 8-19 by mouth. ity of 19:11: Indication s: as Medical needed Branch levothyroxi 2020-0 Yes 200ug Take 200 U nivers ne 200 mcg 8-19 mcg by ity of Cap 19:11: mouth. [place] Medical Branch traZODone 2019-0 Yes 50mg Take 50 mg Un mercy 50 mg 8-19 by mouth ity of tablet 19:11: at [place] [address] bedtime. Medical Branch losartan-hy 2020-0 Yes 1{tbl} [...] by ity of tablet 19:11: mouth 4 [place] 04 (four) Medical times Branch daily. allopurinoL 2020-0 Yes 100mg Take 100 U nivers 100 mg 8-19 mg by ity of tablet 19:11: mouth [place] 04 daily. Medical Branch atorvastati 2020-0 Yes 40mg Take 40 mg Univers n 40 mg 8-19 by mouth ity of tablet 19:11: at [place] 04 bedtime. Medical Branch insulin 2020-0 Yes [...] by mouth ity of tablet 19:11: at [place] [address] bedtime. Medical Branch losartan-hy 2019-0 Yes 1{tbl} [...] by mouth ity of tablet 19:11: at [place] 04 bedtime. Medical Branch insulin 2020-0 Yes [...] by mouth ity of tablet 19:11: at [place] 04 bedtime. Medical Branch losartan-hy 2020-0 Yes [...] by mouth ity of tablet 19:11: at [place] 04 bedtime. Medical Branch losartan-hy 2020-0 Yes [...] by mouth ity of tablet 19:11: at [place] 04 bedtime. Medical Branch insulin 2020-0 Yes [...] by mouth ity of tablet 19:11: at [place] 04 bedtime. Medical Branch losartan-hy 2020-0 Yes [...] by mouth ity of tablet 19:11: at [place] 04 bedtime. Medical Branch insulin 2020-0 Yes 8U inject 8 Univer s aspart 8-19 Units ity of RAPID 19:11: under the [place] (NOVOLOG 04 skin 3 Medical U-100 (three) [...] for Nausea and Vomiting (N/V). Syringe, Yes [id number] Use as Un mercy Disposable, 03-25 directed ity of Syrg 00:00: [place] 00 Medical Branch Syringe, 2019- No [id number] Use as U nivers Disposable, 03-25 directed ity of Syrg 00:00: 00:00 [place] 00 :00 Medical Branch Syringe, 2019- No [id number] Use as U nivers Disposable, 03-25 directed ity of Syrg 00:00: 00:00 [place] 00 :00 Medical Branch Syringe, 2019- No [id number] Use as U nivers Disposable, 03-25 directed ity of Syrg 00:00: 00:00 [place] 00 :00 Medical Branch ferrous Yes [id number] 325mg Take 1 Un mercy sulfate 325 5-16 tablet by ity of mg (65 mg 00:00: mouth 2 [place] iron) 00 (two) Medical tablet times Branch daily. ascorbic Yes [id number] 500mg Take 1 U nivers acid, 5-16 tablet by ity of vitamin C, 00:00: mouth 3 [place] 500 mg 00 (three) Medical tablet times Branch daily. ferrous 2020- No [id number] 325mg Take 1 U nivers sulfate 325 -17 06-19 tablet by it y of mg (65 mg 00:00: 00:00 mouth 2 [place] iron) 00 :00 (two) Medical tablet times Branch daily. ascorbic 2020- No [id number] 500mg Take 1 Univers acid, 5-16 08-19 tablet by ity of vitamin C, 00:00: 00:00 mouth 3 [place] 500 mg 00 :00 (three) Medical tablet times Branch daily. ferrous 2020- No [id number] 325mg Take 1 U nivers sulfate 325 5-16 -19 tablet by it y of mg (65 mg 00:00: 00:00 [place] 2 [place] iron) 00 :00 (two) Medical tablet times Branch daily. ascorbic 2020- No [id number] 500mg Take 1 Univers acid, -17 06-19 tablet by ity of vitamin C, 00:00: 00:00 mouth 3 [place] 500 mg 00 :00 (three) Medical tablet times Branch daily. ferrous 2019- No [id number] 325mg Take 1 U nivers sulfate 325 03-17- tablet by it y of mg (65 mg 00:00: 00:00 mouth 2 [place] iron) 00 :00 (two) Medical tablet times Branch daily. ascorbic 2019- No [id number] 500mg Take 1 Univers acid, 03-17- tablet by ity of vitamin C, 00:00: 00:00 mouth 3 [place] 500 mg 00 :00 (three) Medical tablet times Branch daily. PNV 67-iron Yes [id number] 1{each} Take 1 Univers ps-folate 5-15 Each by ity of no.1-dha 00:00: mouth [place] (VITAFOL 00 daily. Medical ULTRA) 29 Branch mg iron- 1 mg-200 mg Cap PNV 67-iron 2019- No [id number] 1{each} Take 1 Univers ps-folate 5-15 08-19 Each by ity of no.1-dha 00:00: 00:00 mouth [place] (VITAFOL 00 :00 daily. Medical ULTRA) 29 Branch mg iron- 1 mg-200 mg Cap PNV 67-iron 2020- No [id number] 1{each} Take 1 Univers ps-folate 5-15 08-19 Each by ity of no.1-dha 00:00: 00:00 mouth [place] (VITAFOL 00 :00 daily. Medical ULTRA) 29 Branch mg iron- 1 mg-200 mg Cap PNV 67-iron 2020- No [id number] 1{each} Take 1 Univers ps-folate 5-15 08-19 [...] Immunizations Ordered Filled Immunization Date Status Comments [facility] e Immunization Name Name [facility] 2017-07-03 Completed University of 00:00:00 [facility] [place] [facility] 2017-07-03 Completed University of 00:00:00 [facility] [place] [facility] 2017-07-03 Completed University of 00:00:00 [facility] [place] [facility] 2017-07-03 Completed University of 00:00:00 [facility] [place] [facility] 2017-07-03 Completed University of 00:00:00 [facility] [place] [facility] 2017-07-03 Completed University of 00:00:00 [facility] [place] [facility] 2017-07-03 Completed University of 00:00:00 [facility] [place] [facility] 2017-07-03 Completed University of 00:00:00 [facility] [place] [facility] 2017-07-03 Completed University of 00:00:00 [facility] [place] [facility] 2017-07-03 Completed University of 00:00:00 [facility] [place] [facility] 2017-07-03 Completed University of 00:00:00 [facility] [place] [facility] 2017-07-03 Completed University of 00:00:00 [facility] [place] [facility] 2017-07-03 Completed University of 00:00:00 [facility] [place] [facility] 2017-07-03 Completed University of 00:00:00 [facility] [place] [facility] 2017-07-03 Completed University of 00:00:00 [facility] [place] [facility] 2017-07-03 Completed University of 00:00:00 [facility] Vital Signs Vital Name Observation Time Observation Value Comments Source Body height 2021-07-01 14:00:00 [facility] 2021-07-01 14:00:00 [facility]338 [facility] BMI 2021-07-01 14:00:00 [facility] 2021-01-11 19:00:00 141 mm[Hg] [...] 2021-01-11 19:00:00 40.39 kg/m2 Universi ty of [place] [facility] Oxygen saturation in 2021-01-11 19:00:00 97 /min University of Arterial blood by [facility] lasha Pulse oximetry Branch Systolic blood 2021-01-11 19:00:00 141 mm[Hg] Univer sity of pressure [place] [facility] Diastolic blood 2021-01-11 19:00:00 102 mm[Hg] Unive rsity of pressure [place] [facility] Heart rate 2021-01-11 19:00:00 135 /min [facility]i ty [facility] [place] [facility] Body temperature 2021-01-11 19:00:00 36.83 Nina Univ ersity of [place] [facility] Respiratory rate 2021-01-11 19:00:00 18 /min Univ ersity of [place] [facility] Body weight 2021-01-11 19:00:00 103.42 kg Universi ty of [place] [facility] BMI 2021-01-11 19:00:00 40.39 kg/m2 Universi ty of [place] [facility] Oxygen saturation in 2021-01-11 19:00:00 97 /min University of Arterial blood by [facility] lasha Pulse oximetry Branch Systolic blood 2020-06-20 18:51:00 119 mm[Hg] Univer sity of pressure [place] [facility] Diastolic blood 2020-06-20 18:51:00 72 mm[Hg] Unive rsity of pressure [place] [facility] Heart rate 2020-06-20 18:51:00 82 /min Universi ty of [place] [facility] Body temperature 2020-06-20 18:51:00 36.56 Nina Univ ersity of [place] [facility] Respiratory rate 2020-06-20 18:51:00 16 /min [facility] Body height 2020-06-20 18:51:00 160 cm [facility] Body weight 2020-06-20 18:51:00 103.103 kg [facility] BMI 2020-06-20 18:51:00 40.26 kg/m2 [facility] Procedures Procedure Date / Time Performed Performing Clinician Sour e XR ELBOW 3+ VIEWS 2021-07-01 14:22:[address] [facility] [place] [place] RIGHT XR FOREARM 2 VW RIGHT 2021-01-11 19:30:53 Mickey Sánchez [facility] NOTICE OF PRIVACY 2021-01-11 18:48:50 Doctor Unassigned, No [facility] PRACTICES [facility] Medical [place]cdonald CONSENT/REFUSAL FOR 2021-01-11 18:48:41 [facility] Medical Branch TREATMENT BI AXILLARY ULTRASOUND 2020-08-07 15:09:04 [facility] BI DIAGNOSTIC 2020-08-07 14:52:13 Beverly Moran [facility] MAMMOGRAM BILATERAL Medical Bran ch ASSIGNMENT OF BENEFITS 2020-08-07 13:53:47 Doctor Unassigned, No [facility] EXTERNAL PROVIDER 2020-07-13 05:01:00 Doctor Unassigned, No [facility] RECORDS [facility] Medical [place] ASSIGNMENT OF BENEFITS 2020-06-20 18:34:58 Doctor Unassigned, No [facility] Encounters Start End Encounter Admission Attending Care Care Encounter Source Date/Time Date/Time Type Type Clinicians Facility Department ID 2021-09-01 Emergency [facility] [id number] Univers 05:37:10 ity of [facility] 2021-08-31 Emergency [facility] [id number] Univers 10:03:46 ity of [facility] 2021-08-26 Outpatient RONEN MOLINA [facility] [id number] [place] 11:49:08 Health 2021-07-19 Outpatient RONEN MOLINA [facility] [id number] [place] 16:54:19 Health 2021-07-01 Outpatient [facility] [id number] [place] 09:13:23 Health 2021-08-26 2021-08-26 Office Ronen Molina [facility] [id number] [place] 10:48:54 11:49:39 Visit ORTHO AND [id number] Health [place] [id number] MEDICAL [id number] [place] 2 2021-08-13 2021-08-13 Orders Ronen Molina [facility] 6400 1.2.840.114 [id number] [place] 00:00:00 00:00:[address] [id number] Health [id number] [id number] 2021-07-01 2021-07-01 Office Ronen Molina [facility] 1.2.840.114 [id number] [place] 08:53:31 09:50:49 Visit ORTHO AND [id number] Health SP[place] [id number] MEDICAL [id number] [place] 2 2021-01-21 2021-01-21 Patient Giovani [facility] [id number] Univers 00:00:00 00:00:00 Outreach [place] [facility] [id number] i ty of [facility] [id number] [facility] [id number] Pr dical 388 Branch 2021-01-11 2021-01-11 Emergency [facility] [id number] 13:03:00 14:33:00 Mickey Hinkle [id number] [place] [id number] [place] [id number] [employer] 2021-01-11 2021-01-11 Emergency [facility] [place] 1.2.840.114 [id number] [facility] 13:03:00 14:33:00 Mickey Hinkle [id number] i ty of [place] [id number] [facility] s [place] [id number] [facility] 084 Branch 2021-01-11 2021-01-11 Orders Doctor FARLEY 1.2.840.114 [id number] Univers 00:00:00 00:00:00 Only Unassigned, CEFERINO [id number] ity of [place] [facility] 4.2.7.2.686 [place] [id number] [facility] 009 Branch 2021-01-11 2021-01-11 Orders Doctor MARTINE 1.2.840.114 [id number] 00:00:00 00:00:00 Only Unassigned, CEFERINO [id number] [place] [id number] [id number] 2020-10-02 2020-10-02 [facility] 1.2.840.114 [id number] [facility] 10:57:08 23:59:00 Encounter Beverly Hinkle [id number] ity of [place] [id number] [facility] [place] [facility] [id number] [facility] 806 Mcdonald 2020-10-02 2020-10-02 [facility] 1.2.840.114 [id number] 10:57:08 23:59:00 Encounter Beverly Hinkle [id number] [place] [id number] [place] [id number] 2020-10-02 2020-10-02 Outpatient R [facility] [id number] Univers 00:00:00 00:00:00 BEVERLY garcia [facility] 2020-09-18 2020-09-18 Outpatient R [facility] [id number] Univers 00:00:00 00:00:00 BEVERLY garcia [facility] 2020-08-16 2020-08-16 Telephone [facility] [id number] Univers 00:00:00 00:00:00 Yovanynda R FIRESETTER [id number] ity of REGIONAL [id number] [place] MATERNAL [id number] Med ical & CHILD [address] [place] [address] 2020-08-16 2020-08-16 Telephone [facility] [id number] 00:00:00 00:00:00 Roshunda R FIRESETTER [id number] REGIONAL [id number] MATERNAL [id number] & CHILD 107 [facility] 2020-08-07 2020-08-07 [facility] 1.2.840.114 [id number] Univers 09:13:49 23:59:00 Encounter Beverly Hinkle [id number] ity of [place] [id number] [facility] [phone] [facility] [address] 2020-08-07 2020-08-07 [facility] [id number] Univers 08:57:24 09:12:00 Encounter Beverly Hinkle [id number] ity of [place] [id number] [facility] [id number] [facility] [address] 2020-08-07 2020-08-07 Outpatient R [facility] [id number] Univers 00:00:00 00:00:00 BEVERLY lopezy o f [facility] 2020-08-07 2020-08-07 Orders Doctor MARTINE [id number] Univers 00:00:00 00:00:00 Only Unassigned, CEFERINO [id number] [facility]y of [place] [facility] [id number] Lib[place] as [phone] [facility] [address] 2020-08-07 2020-08-07 Telephone [facility] [id number] Univers 00:00:00 00:00:00 Beverly Stroud FIRESETTER [id number] ity of [facility] [id number] [place] as MATERNAL [id number] Med ical & CHILD 107 [facility] 2020-07-13 2020-07-13 Orders Doctor MARTINE [id number] Univers 00:00:00 00:00:00 Only Unassigned, CEFERINO [id number] [facility] [place] [facility] [id number] Liban as [phone] [facility] [address] 2020-06-22 2020-06-22 Telephone [facility] [id number] Univers 00:00:00 00:00:00 Beverly Stroud FIRESETTER [id number] ity of [facility] [id number] [place] as MATERNAL [id number] [address] 2020-06-20 2020-06-20 Office Dean RIPIO [id number] Univers 13:37:39 14:55:54 Visit Beverly Stroud FIRESETTER [id number] ity of [facility] [id number] [place] as MATERNAL [id number] [address] 2020-06-20 2020-06-20 Outpatient R [facility] [id number] Univers 13:15:00 13:15:00 BEVERLY degroot o girish [facility] 2020-06-20 2020-06-20 Orders Doctor MARTINE [id number] Univers 00:00:00 00:00:00 Only Unassigned, CEFERINO [id number] ity of [place] [facility] [id number] Liban as [phone] [address] 2020-06-18 2020-06-18 [facility] [id number] Univers 13:30:00 13:30:00 BEVERLY degroot o girish [facility] Results Test Test Test Results Result Source Description Time Comments Comments XR elbow 2021-06- Interpretation: Multiple [facility] views right 30 radiographic views are 14:39:31 within normal limits for the patients stated age. There are no signs of fracture, dislocation, or articular injury. The alignment and joint spaces are within normal limits. No signs of a bony lesion or soft tissue swelling. ? XR elbow 2021-06- Interpretation: Multiple [facility] views right 30 radiographic views are 14:39:31 within normal limits for the patients stated age. There are no signs of fracture, dislocation, or articular injury. The alignment and joint spaces are within normal limits. No signs of a bony lesion or soft tissue swelling. ? XR FOREARM 2 VW 2020-12- Forearm soft tissue University of RIGHT 12 contusion. No acute bony [facility] 19:33:31 abnormality is present. [facility] EXAM: XR FOREARM 2 VW RIGHT HISTORY: eval for fracture COMPARISON: None FINDINGS: Imaging of the forearm demonstrates marked swelling over the mid to distalforearm, most notable along the dorsally and laterally. Alignment of theelbow and wrist is anatomic. No radiopaque foreign body, fracture orerosion is seen. [facility], Radiant Results Inft User - 01/11/2021 1:34 PM CSTEXAM:XR FOREARM 2 VW RIGHTHISTORY:eval for fracture COMPARISON:NoneFINDINGS: Imaging of the forearm demonstrates marked swelling over the mid to distalforearm, most notable along the dorsally and laterally. Alignment of theelbow and wrist is anatomic. No radiopaque foreign body, fracture orerosion is seen.IMPRESSIONForearm soft tissue contusion.No acute bony abnormality is present. DIAGNOSTIC 2020-08- Examination: DIAGNOSTIC [place] of MAMMOGRAM 06 MAMMOGRAM BILATERAL [facility] BILATERAL 15:54:22 History:Patient is 39 year Branch [...] 0 - Incomplete: Needs Additional Imaging Evaluation AXILLARY 2020-08- HISTORY: Palpable mass in University of ULTRASOUND LEFT 06 left axilla. TECHNIQUE: [facility] 15:12:17 Left axillary region was Branch evaluated [...]
[2022-09-28 20:05] LABS: Urine Blood 2+ (Negative); Urine Glucose 2+ (Negative); Urine Protein 3+ (Negative); Urine Specific Gravity 1.025 (1.005-1.030)
[2022-09-28 20:16] LABS: Urine Specific Gravity/Preg 1.025 (1.005-1.030)
[2022-09-28] MEDS ORDERED: NA CHLORIDE 0.9% 1,000 ML ONE (20:22)
[2022-09-28] MEDS ORDERED: MORPHINE 4 MG/ML SYR ONE (20:22)
[2022-09-28] MEDS ORDERED: ONDANSETRON 4 MG/2 ML VIAL ONE (20:22)
--- NOTE | 2022-09-28 20:46 | RAD REPORT ---
EXAM DESCRIPTION: CT - Stone Protocol - 09/28/2022 8:30 pm CLINICAL HISTORY: Abdominal pain. Right flank pain COMPARISON: 2020 TECHNIQUE: Computed axial tomography of the abdomen pelvis was obtained without oral or IV contrast. Lack of IV and oral contrast limits evaluation of solid organs, appendix, bowel, and vessels. Aj l reformatted images were obtained and reviewed. All CT scans are performed using dose optimization technique as appropriate and may include automated exposure control or mA/KV adjustment according to patient size. FINDINGS: Polycystic kidneys. No evidence of a significant bleed within a cyst. No hydronephrosis. Multiple, tiny renal calculi. A ureteral calculus is not seen. No bladder calculus. Hepatomegaly. Spleen, pancreas and adrenals grossly normal. There is no evidence of diverticulitis. The appendix appears normal No adnexal mass. Small to moderate umbilical hernia Calcified right lower lobe granuloma IMPRESSION: Polycystic kidneys Tiny nonobstructing renal calculi Hepatomegaly
[2022-09-28 21:09] LABS: Absolute Lymphocytes (CBC) 2.6 K/uL (0.7-4.9); Lymphocytes % 29.4 % (15.3-44.8); MCV 80.1 fL (80-100); MPV 7.8 fL (7.6-11.3); RBC Red Blood Cell Count 4.49 M/uL (3.86-4.86)
[2022-09-28 21:19] LABS: Albumin 3.2 g/dL (3.4-5.0); Bilirubin Total 0.2 mg/dL (0.2-1.0); Protein, Total 7.8 g/dL (6.4-8.2)
[2022-09-28 21:21] LABS: Potassium 3.5 mmol/L (3.5-5.1)
--- NOTE | 2022-09-28 22:04 | ER ---
Nurse's Notes [facility] Name: Lana Solo Age: 41 yrs Sex: Female : 1980 Arrival Date: 09/28/2022 Time: 19:12 Bed 11 Private MD: Diagnosis: Flank Pain Presentation: 09/28 19:31 Chief complaint: Patient states: right flank pain with associated nausea since last kb3 night. Reports urinary frequency. Denies dysuria,fever. Coronavirus screen: Vaccine status: Patient reports receiving the 2nd dose of the covid vaccine. Client denies travel out of the [place] in the last 14 days. Ebola Screen: Patient negative for fever greater than or equal to 101.5 degrees Fahrenheit, and additional compatible Ebola Virus Disease symptoms Patient denies exposure to infectious person. Patient denies travel to an Ebola-affected area in the 21 days before illness onset. Initial Sepsis Screen: Does the patient meet any 2 criteria? No. Patient's initial sepsis screen is negative. Does the patient have a suspected source of infection? No. Patient's initial sepsis screen is negative. Risk Assessment: Do you want to hurt yourself or someone else? Patient reports no desire to harm self or others. Onset of symptoms was September 27, 2022. 19:31 Method Of Arrival: Ambulatory kb3 19:31 Acuity: BRODY 3 kb3 Triage Assessment: 19:32 General: Appears in no apparent distress. Behavior is calm, cooperative. Pain: kb3 Complains of pain in right low back Pain does not radiate. Pain currently is 10 out of 10 on a pain scale. Quality of pain is described as sharp, Pain began 1 day ago. GI: Reports nausea. 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 - Social history:: Smoking status: Patient reports the use of cigarette tobacco products, smokes one-half pack cigarettes per day. Screenin:26 Abuse screen: Denies threats or abuse. Denies injuries from another. Nutritional hb screening: No deficits noted. Tuberculosis screening: No symptoms or risk factors identified. Fall Risk None identified. Assessment: 20:26 General: Appears in no apparent distress. Behavior is calm, cooperative. Neuro: Level hb of Consciousness is awake, alert, obeys commands, Oriented to person, place, time, situation. Cardiovascular: Patient's skin is warm and dry. Respiratory: Respiratory effort is even, unlabored, Respiratory pattern is regular, symmetrical. GI: Reports nausea. : No signs and/or symptoms were reported regarding the genitourinary system. EENT: No signs and/or symptoms were reported regarding the EENT system. Derm: Skin is pink, warm \T\ dry. Musculoskeletal: Reports low back pain. 22:02 Reassessment: Patient appears in no apparent distress at this time. Patient and/or hb family updated on plan of care and expected duration. Pain level reassessed. Patient is alert, oriented x 3, equal unlabored respirations, skin warm/dry/pink. Vital Signs: 19:31 BP 156 / 91; Pulse 101; Resp 20; Temp 99.5; Pulse Ox 99% ; Weight 94.35 kg; Height 5 kb3 ft. 3 in. (160.02 cm); Pain 10/10; 22:20 BP 151 / 88; Pulse 89; Resp 15; Pulse Ox 99% on R/A; hb 19:31 Body Mass Index 36.85 (94.35 kg, 160.02 cm) kb3 ED Course: 19:12 Patient arrived in ED. jl7 19:19 James Redmond PA is PHCP. jmm 19:19 Deandre Zuniga MD is Attending Physician. jmm 19:32 Triage completed. kb3 19:33 Arm band placed on right wrist. kb3 20:02 Asia Cowart, RN is Primary Nurse. hb 20:20 Asia Cowart RN is Primary Nurse. hb 20:26 Patient has correct armband on for positive identification. hb 20:32 Stone Protocol In Process Unspecified. EDMS 20:40 Inserted saline lock: 22 gauge in right antecubital area, using aseptic technique. hb Blood collected. 22:04 Kacie Horne MD is Referral Physician. jmm 22:20 No provider procedures requiring assistance completed. IV discontinued, intact, hb bleeding controlled, No redness/swelling at site. Administered Medications: 20:42 Drug: NS 0.9% 1000 ml Route: IV; Rate: 1 bolus; Site: right antecubital; hb 22:00 Follow up: Response: No adverse reaction; IV Status: Completed infusion; IV Intake: hb 1000ml 20:42 Drug: Zofran (Ondansetron) 4 mg Route: IVP; Site: right antecubital; hb 21:22 Follow up: Response: No adverse reaction hb 20:42 Drug: morphine 4 mg Route: IVP; Infused Over: 4 mins; Site: right antecubital; hb 21:22 Follow up: Response: No adverse reaction hb Medication: 20:27 VIS not applicable for this client. hb Intake: 22:00 IV: 1000ml; Total: 1000ml. hb Outcome: 22:04 Discharge ordered by . [facility] 22:20 Patient left the ED. hb Signatures: Dispatcher [employer] EDMS James Redmond PA PA jmm Baxter, Heather, RN RN hb Karo Heard RN RN jl7 Marissa Cary, RN RN kb3
--- NOTE | 2022-09-28 22:05 | EDPHYS ---
Physician Documentation [facility] Name: Lana Solo Age: 41 yrs Sex: Female : 1980 Arrival Date: 09/28/2022 Time: 19:12 Bed 11 Private MD: ED Physician Deandre Zuniga HPI: 09/28 19:35 This 41 yrs old Female presents to ER via Ambulatory with complaints of General jmm Weakness, Low Back Pain, Nausea. 19:35 The symptoms are located in the right flank. The pain radiates. Onset: The jmm symptoms/episode began/occurred gradually, 2 day(s) ago. Modifying factors: The patient symptoms are alleviated by nothing, the patient symptoms are aggravated by. This is a 41-year-old female with history of diabetes mellitus, hypertension, polycystic kidneys psoriatic arthritis the presents emerged from with complaints of flank pain possibly 2 days ago along with some nausea. Patient states not vomiting or having diarrhea. Denies fever, denies sore throat. Denies cough.. 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 - Social history:: Smoking status: Patient reports the use of cigarette tobacco products, smokes one-half pack cigarettes per day. ROS: 19:35 Cardiovascular: Negative for chest pain, palpitations, and edema, Respiratory: Negative jmm for shortness of breath, cough, wheezing, and pleuritic chest pain. 19:35 Constitutional: Positive for body aches. 19:35 Abdomen/GI: Positive for abdominal pain. 19:35 All other systems are negative. Exam: 19:35 Constitutional: This is a well developed, well nourished patient who is awake, alert, jmm and in no acute distress. Head/Face: atraumatic. Eyes: EOMI, no conjunctival erythema appreciated ENT: Moist Mucus Membranes Neck: Trachea midline, Supple Chest/axilla: Normal chest wall appearance and motion. Cardiovascular: Regular rate and rhythm. No edema appreciated Respiratory: Normal respirations, no respiratory distress appreciated 19:35 Skin: General appearance color normal MS/ Extremity: Moves all extremities, no obvious deformities appreciated, no edema noted to the lower extremities Neuro: Awake and alert Psych: Behavior is normal, Mood is normal, Patient is cooperative and pleasant 19:35 Abdomen/GI: Inspection: abdomen appears normal, Bowel sounds: normal. 19:35 Back: CVA tenderness, that is moderate, is noted on the right. Vital Signs: 19:31 BP 156 / 91; Pulse 101; Resp 20; Temp 99.5; Pulse Ox 99% ; Weight 94.35 kg; Height 5 kb3 ft. 3 in. (160.02 cm); Pain 10/10; 22:20 BP 151 / 88; Pulse 89; Resp 15; Pulse Ox 99% on R/A; hb 19:31 Body Mass Index 36.85 (94.35 kg, 160.02 cm) kb3 MDM: 19:35 Patient medically [facility]. [facility] 22:03 Data reviewed: vital signs, nurses notes. Counseling: I had a detailed discussion with alex the patient and/or guardian regarding: the historical points, exam findings, and any diagnostic results supporting the discharge/admit diagnosis, radiology results, the need for outpatient follow up, to return to the emergency department if symptoms worsen or persist or if there are any questions or concerns that arise at home. 09/28 19:35 Order name: CBC with Diff; Complete Time: 21:13 [facility] 09/28 19:35 Order name: CMP; Complete Time: 21:24 [facility] 09/28 19:35 Order name: Lipase; Complete Time: 21:24 [facility] 09/28 20:05 Order name: Urine Dipstick-Ancillary; Complete Time: 20:05 [facility]AR 09/28 20:09 Order name: Test Urine - POC; Complete Time: 20:20 09/28 19:35 Order name: IV Saline Lock; Complete Time: 20:42 [facility] 09/28 19:35 Order name: Labs collected and sent; Complete Time: 20:42 [facility] 09/28 19:36 Order name: Urine Dipstick-Ancillary (obtain specimen); Complete Time: 20:05 [facility] 09/28 20:09 Order name: Stone Protocol; Complete Time: 21:05 EDMS Administered Medications: 20:42 Drug: NS 0.9% 1000 ml Route: IV; Rate: 1 bolus; Site: right antecubital; hb 22:00 Follow up: Response: No adverse reaction; IV Status: Completed infusion; IV Intake: hb 1000ml 20:42 Drug: Zofran (Ondansetron) 4 mg Route: IVP; Site: right antecubital; hb 21:22 Follow up: Response: No adverse reaction hb 20:42 Drug: morphine 4 mg Route: IVP; Infused Over: 4 mins; Site: right antecubital; hb 21:22 Follow up: Response: No adverse reaction hb Disposition: 22:42 Co-signature as Attending Physician, Deandre Zuniga MD I agree with the assessment and rt plan of care. Disposition Summary: 09/28/22 22:04 Discharge Ordered Location: [facility] Condition: Stable [facility] Diagnosis - Flank Pain [facility]up: [facility] - With: Kacie Horne MD - When: 2 - 3 days - Reason: Recheck today's complaints, Continuance of care, Re-evaluation by your physician Discharge Instructions: - Discharge Summary Sheet [facility] - Flank Pain, Adult [facility] Forms: - Medication Reconciliation Form [facility] - Thank You Letter [facility] - Antibiotic Education [facility] - Prescription Opioid Use [facility] Prescriptions: - orphenadrine citrate 100 mg Oral Tablet Sustained Release - take 1 tablet by ORAL route 2 times per day As needed; 20 tablet; Refills: 0, [facility] Product Selection Permitted - ondansetron 4 mg Oral tablet,disintegrating - take 1 tablet by ORAL route every 4-6 hours As needed; 20 tablet; Refills: 0, [facility] Product Selection Permitted Signatures: Dispatcher [employer] EDMS James Redmond PA PA Asia Sierra RN RN Marissa Rose RN RN kb3 Deandre Zuniga MD MD rt
[2022-09-28 22:53] VITALS: TEMP 99.5; O2SAT 99
[2022-09-28 22:54] VITALS: BP 151/88
== END 2022-09-28 22:20 | disposition home or self-care (01) ==
LOC: ER 19:08
DX: R10.9 Unspecified abdominal pain (principal); R11.0 Nausea; I10 Essential (primary) hypertension; F17.210 Nicotine dependence, cigarettes, uncomplicated; Z88.8 Allergy status to other drugs, medicaments and biological substances
CPT/HCPCS: 96361; 85025; 36415; 81025; 81003; 83690; 80053; 76377; 74176; 96375; 96374; 99284; J7030; J2405

== ENCOUNTER 2022-09-30 20:39 | Emergency (ER) | payer OTHER ==
--- OUTSIDE RECORDS SUMMARY | 2022-09-30 20:46 | XMS REPORT | Continuity of Care Document ---
:1980 Author Organization [facility] t Address [address] [place] [address] Care Team Providers Name Role Phone Saba Huff Primary Care Physician RONEN MOLINA Attending Clinician Unavailable Hadley Matute DO Attending Clinician Mickey Arevalo Attending Clinician Doctor Unassigned, [place] Attending Clinician Unavailable Beverly Comer Attending Clinician BEVERLY MORAN Attending Clinician Unavailable Payers Payer Name Policy Type Policy Number Effective Date Expiration Date Eulogio thompson MEDICARE PART A [id number] 2016 \T\ B 00:00:00 MEDICAID [facility] [id number] 2016 00:00:00 [employer] MEDICARE [id number] 2021 ADVANTAGE HMO 00:00:00 Problems Condition Condition [...] gestation 1-29 ity of of of 00:00: [place] 00 [facility] Obesity Obesity Disease Active 2017-11 Univers affecting affecting 1-29 [place] in third in third 00 Medica l trimester trimester Bran ch 33 weeks 33 weeks Disease Active 2017-11 Unive rs gestation gestation 0-25 ity of of of 00:00: [place] 00 [facility] Obesity Obesity Disease Active 2017-11 Univers (BMI (BMI 0-25 ity of 30-39.9) 30-39.9) 00:00: [place] 00 [facility] Anemia Anemia Disease Active Univers affecting affecting 5-16 [place] of [place] [facility] Anxiety in Anxiety in Disease Active U nivers , , 5-15 it [place] of ante[place] [facility] AMA AMA Disease Active Univers (advanced (advanced 5-15 ity of maternal maternal 00:00: [place] age) age) 00 Medical multigravi multigravi Br anch da 35+ da 35+ Hypertensi Hypertensi Disease Active U nivers on in on in 5-15 ity of , , [place] pre-existi pre-existi 00 Nv dical ng, ng, Branch antepartum antepartum Hypothyroi Hypothyroi Disease Active U nivers d in d in 5-15 ity of , , [place] antepartum antepartum 00 Nv dical Branch Diabetes Diabetes Disease Active Overview: [...] affecting 5-15 [place] of [place] [facility] Tobacco Tobacco Disease Active Univers smoking smoking 5-15 ity of affecting affecting [place] Branch Maternal Maternal Disease Active Unive rs rheumatoid rheumatoid 5-15 it y of arthritis arthritis 00:[place] complic[place] complicati 00 Me dical ng ng Branch Psoriasis Psoriasis Disease Active Uni vers 5-15 ity of 00:00: [place] [facility] Obesity Obesity Disease Active 2015-11 Univers affecting affecting 2-01 [place] of [place] [facility] Allergies, Adverse Reactions, Alerts Allergy Allergy Status [...] ity of adverse 00:00: [place] reaction 00 [facility] Branch Golimuma Propensi Active Unknown - Uni vers b ty to See comments 3-12 ity of adverse 00:00: [place] reaction 00 [facility] GOLIMUMA DRUG Active Unknown-Cmnt 0 Un mercy B INGREDI 3-12 ity of 00:00: [place] 00 Medical Branch EXENATID DRUG Active Unknown-Cmnt 0 Un mercy E INGREDI 3-12 ity of MICROSPH 00:00: [place] ERES 00 Medical Branch METFORMI DRUG Active Unknown-Cmnt 0 Un mercy N INGREDI 3-12 ity of 00:00: [place] 00 Medical [place] NO KNOWN Drug Active Univers ALLERGIE Class ity of S [facility] Social History Social Habit Start Date Stop Date Quantity Comments Source History of tobacco Cigarette Smoker [facility] use Exposure to Not sure [facility] SARS-CoV-2 (event) Cigarettes smoked 2021-01-11 2021-01-11 Univers ity of current (pack per 00:00:00 00:00:00 [facility] ed) - Reported Branch Cigarette 2021-01-11 2021-01-11 University of pack-years 00:00:00 00:00:00 [facility] Tobacco use and 2021-01-11 2021-01-11 Never used Universit y of exposure 00:00:00 00:00:00 [facility] Alcohol intake 2021-01-11 2021-01-11 Current University of 00:00:00 00:00:00 non-drinker of [facility] alcohol Branch (finding) Tobacco Comment 2018-10-06 2018-10-06 1 pack every 3 Unive rsity of 00:00:00 00:00:00 days [facility] Sex Ass[birth year] At [birth year] [facility] y of 00:00:00 00:00:00 [facility] Smoking Status Start Date Stop Date Source Smokes tobacco daily 2021-07-01 00:00:00 [facility] Heavy tobacco smoker 2021-01-11 00:00:00 Univers ity of [facility] Medications Ordered Filled Start Stop Current Ordering Indication Dosage Frequency Signature Comments Components Source Medication Medication Date Date Medication? Clinician (SIG) Name Name dionisio 2020-11- No [id number] 2{tbl} Q6H Take 2 [facility] en-codeine 0-12 [...] DR 09:09: capsule 31 acetaminoph 2020- No [id number] 2{tbl} Q6H Take 2 UT en-codeine 07-01 9107 tablets by Yann alth (Tylenol w/ 00:00: 04:59 mouth Codeine #3) 00 :00 every 6 300-30 MG (six) tablet hours if needed for severe pain for up to 5 days. acetaminoph 2020- No [id number] 2{tbl} Q6H Take 2 [facility] en-codeine 07-01 [...] 00:00: 00 Droplet Pen 2020-0 Yes [facility] [place] 32G 3-29 Health X 4 MM misc 00:00: 00 levothyroxi 2020-0 Yes UT ne 3-29 Health (Synthroid, 00:00: Levoxyl) 00 200 MCG tablet losartan 0 Yes UT (Cozaar) 3-29 Health 100 MG 00:00: tablet 00 Vascepa 1 g 0 Yes UT capsule 3-29 Health 00:00: 00 Droplet Pen 2020-0 Yes [facility] [place] 32G 3-29 Health X 4 MM misc 00:00: 00 levothyroxi 2020-0 Yes UT ne 3-29 Health (Synthroid, 00:00: Levoxyl) 00 200 MCG tablet losartan 0 Yes UT (Cozaar) 3-29 Health 100 MG 00:00: tablet 00 Vascepa 1 g 0 Yes UT capsule 3-29 Health 00:00: 00 Droplet Pen 2020-0 Yes [facility] [place] 32G 3-29 Health X 4 MM misc 00:00: 00 levothyroxi 2020-0 Yes UT ne 3-29 Health (Synthroid, 00:00: Levoxyl) 00 200 MCG tablet losartan 0 Yes UT (Cozaar) 3-29 Health 100 MG 00:00: tablet 00 Vascepa 1 g 0 Yes UT capsule 3-29 Health 00:00: 00 Droplet Pen Yes [facility] [place] 32G 01-28 Health X 4 MM misc [...] Center h tablet 1415, ADINA ibuprofen Yes [id number] 600mg Take 1 Univers (IBU) 600 01-11 [id number] tablet by ity of mg tablet 00:00: mouth [place] 00 every 6 Medical (six) Branch hours as needed for Pain (scale 4-6). ibuprofen Yes [id number] 600mg Take 1 Univers (IBU) 600 -12 [id number] tablet by ity of mg tablet 00:00: mouth [place] 00 every 6 Medical (six) Branch hours as needed for Pain (scale 4-6). cephALEXin 2020- No [id number] 500mg Take 1 Univers (KEFLEX) 01-11 [id number] capsule by it y of 500 mg [...] Indication s: acute pain methocarbam 2019-11 Yes [id number] 500mg Take 1 Univers oL 2-08 tablet by ity of (ROBAXIN) 00:00: mouth [place] 500 mg 00 every 6 Medical tablet (six) Branch hours as needed (MUSCLE SPASM). naproxen 2020- Yes [id number] 550mg Take 1 U nivers sodium 550 2-08 tablet by ity of mg tablet 00:00: mouth 2 [place] 00 (two) Medical times Branch daily with meals. methocarbam 2020- Yes [id number] 500mg Take 1 Univers oL 2-08 tablet by ity of (ROBAXIN) 00:00: mouth [place] 500 mg 00 every 6 Medical tablet (six) Branch hours as needed (MUSCLE SPASM). naproxen 2019-11 Yes [id number] 550mg Take 1 U nivers sodium 550 2-08 tablet by ity of mg tablet 00:00: mouth 2 [place] 00 (two) Medical times Branch daily with meals. methocarbam 2019-11 Yes [id number] 500mg Take 1 Univers oL 2-08 tablet by ity of (ROBAXIN) 00:00: mouth [place] 500 mg 00 every 6 Medical tablet (six) Branch hours as needed (MUSCLE SPASM). naproxen 2019-11 Yes [id number] 550mg Take 1 U nivers sodium 550 [...] time 00 each day. Accu-Chek 2019- Yes Q.92474040 3 (three) [facility] test 0-02 [id number] times a Health strip 00:00: 3D day. 00 Accu-Chek 2020-1 Yes Q.26894909 3 (three) [facility] test 0- [id number] times a Health strip 00:00: 3D day. 00 Accu-Chek 2020-1 Yes Q.03572395 3 (three) [facility] test 0- [id number] times a Health strip 00:00: 3D day. 00 Accu-Chek 2020-1 Yes Q.55531312 3 (three) [facility] test 0- [id number] times a Health strip 00:00: 3D day. 00 montelukast 2019- 2020- No 10mg Take 10 mg Univers 10 mg 8- 08-19 by mouth. ity of tablet 19:23: 00:00 [place] 30 :00 [facility] montelukast 2019- 2020- No 10mg Take 10 mg Univers 10 mg - 08-19 by mouth. ity of tablet 19:23: 00:00 [place] 30 :00 [facility] montelukast 2019-2019- No 10mg Take 10 mg Univers 10 mg -20 06-19 by mouth. ity of tablet 19:23: 00:00 [place] 30 :00 [facility] esomeprazol 2019- 2020- No 40mg Take 40 mg Univers e (NEXIUM) 8- 08-19 by mouth ity of 40 mg 19:23: 00:00 daily with [place] capsule 18 :00 breakfast. [facility] esomeprazol 2019- 2020- No 40mg Take 40 mg Univers e (NEXIUM) 8- 08-19 by mouth ity of 40 mg 19:23: 00:00 daily with [place] capsule 18 :00 breakfast. [facility] esomeprazol 2020- No 40mg Take 40 mg Univers e (NEXIUM) 8- 08-19 by mouth ity of 40 mg 19:23: 00:00 daily with [place] capsule 18 :00 breakfast. [facility] buPROPion 2019-0 2020- No 300mg Take 300 Un mercy (WELLBUTRIN 8- 08-19 mg by ity of ) 100 mg 19:23: 00:00 mouth [place] tablet 15 :00 daily. [facility] buPROPion 2019-0 2020- No 300mg Take 300 [...] by mouth ity of tablet 19:11: at [place] 04 bedtime. Medical Branch insulin 2020-0 Yes [...] by mouth ity of tablet 19:11: at [place] [address] bedtime. Medical Branch losartan-hy 2020-0 Yes 1{tbl} [...] by mouth ity of tablet 19:11: at [place] [address] bedtime. Medical Branch insulin 2019-0 Yes 8U [...] by mouth ity of tablet 19:11: at [place] 04 bedtime. Medical Branch losartan-hy 2020-0 Yes [...] by mouth ity of tablet 19:11: at [place] 04 bedtime. Medical Branch insulin 2020-0 Yes 8U inject 8 Univer s aspart 8-19 Units ity of RAPID 19:11: under the [place] (NOVOLOG 04 skin 3 Medical U-100 (three) [...] by mouth ity of tablet 19:11: at [place] [address] bedtime. Medical Branch losartan-hy 2020-0 Yes 1{tbl} [...] by mouth ity of tablet 19:11: at [place] [address] bedtime. Medical Branch insulin 2019-0 Yes 8U [...] by mouth ity of tablet 19:11: at [place] 04 bedtime. Medical Branch losartan-hy 2019-0 Yes [...] by mouth ity of tablet 19:11: at [place] 04 bedtime. Medical Branch insulin 2020-0 Yes [...] by mouth ity of tablet 19:11: at [place] [address] bedtime. Medical Branch insulin 2019-0 Yes 8U inject 8 Univer s aspart 8-19 Units ity of RAPID 19:11: under the [place] (NOVOLOG 04 skin 3 Medical U-100 (three) Branch INSULIN times ASPART) 100 daily with unit/mL meals. injection OMEPRAZOLE 2019-0 Yes 40mg Take 40 mg U nivers ORAL 8-19 by mouth 2 ity of 19:11: (two) [place] 04 times Medical daily. Branch MELOXICAM 2019-0 [...] by mouth ity of tablet 19:11: at [place] [address] bedtime. Medical Branch losartan-hy 2019-0 Yes 1{tbl} [...] by ity of tablet 19:11: mouth 4 [place] 04 (four) Medical times Branch daily. allopurinoL 2020-0 Yes 100mg Take 100 U nivers 100 mg 8-19 mg by ity of tablet 19:11: mouth [place] 04 daily. Medical Branch atorvastati 2020-0 Yes 40mg Take 40 mg Univers n 40 mg 8-19 by mouth ity of tablet 19:11: at [place] [address] bedtime. Medical Branch insulin 2020-0 Yes 8U inject 8 Univer s aspart 8-19 Units ity of RAPID 19:11: under the [place] (NOVOLOG 04 skin 3 Medical U-100 (three) Branch INSULIN times ASPART) 100 daily with unit/mL meals. injection OMEPRAZOLE 2020-0 Yes 40mg Take 40 mg U nivers ORAL 8-19 by mouth 2 ity of 19:11: (two) [place] [address] times Medical daily. Branch MELOXICAM 2019-0 Yes 15mg Take 15 mg Un mercy ORAL 8-19 by mouth. ity of 19:11: Indication s: as Medical needed Branch levothyroxi 2020-0 Yes 200ug Take 200 U nivers ne 200 mcg 8-19 mcg by ity of Cap 19:11: mouth. [place] Medical Branch traZODone 2019-0 Yes 50mg Take 50 mg Un mercy 50 mg 8-19 by mouth ity of tablet 19:11: at [place] [address] bedtime. Medical Branch losartan-hy 2020-0 Yes 1{tbl} [...] by ity of tablet 19:11: mouth 4 [place] 04 (four) Medical times Branch daily. allopurinoL 2020-0 Yes 100mg Take 100 U nivers 100 mg 8-19 mg by ity of tablet 19:11: mouth [place] 04 daily. Medical Branch atorvastati 2020-0 Yes 40mg Take 40 mg Univers n 40 mg 8-19 by mouth ity of tablet 19:11: at [place] 04 bedtime. Medical Branch insulin 2020-0 Yes [...] by mouth ity of tablet 19:11: at [place] [address] bedtime. Medical Branch losartan-hy 2019-0 Yes 1{tbl} [...] by mouth ity of tablet 19:11: at [place] 04 bedtime. Medical Branch insulin 2020-0 Yes [...] by mouth ity of tablet 19:11: at [place] 04 bedtime. Medical Branch losartan-hy 2020-0 Yes [...] by mouth ity of tablet 19:11: at [place] 04 bedtime. Medical Branch losartan-hy 2020-0 Yes [...] by mouth ity of tablet 19:11: at [place] 04 bedtime. Medical Branch insulin 2020-0 Yes [...] by mouth ity of tablet 19:11: at [place] 04 bedtime. Medical Branch losartan-hy 2020-0 Yes [...] by mouth ity of tablet 19:11: at [place] 04 bedtime. Medical Branch insulin 2020-0 Yes 8U inject 8 Univer s aspart 8-19 Units ity of RAPID 19:11: under the [place] (NOVOLOG 04 skin 3 Medical U-100 (three) [...] for Nausea and Vomiting (N/V). Syringe, Yes [id number] Use as Un mercy Disposable, 03-25 directed ity of Syrg 00:00: [place] 00 Medical Branch Syringe, 2019- No [id number] Use as U nivers Disposable, 03-25 directed ity of Syrg 00:00: 00:00 [place] 00 :00 Medical Branch Syringe, 2019- No [id number] Use as U nivers Disposable, 03-25 directed ity of Syrg 00:00: 00:00 [place] 00 :00 Medical Branch Syringe, 2019- No [id number] Use as U nivers Disposable, 03-25 directed ity of Syrg 00:00: 00:00 [place] 00 :00 Medical Branch ferrous Yes [id number] 325mg Take 1 Un mercy sulfate 325 5-16 tablet by ity of mg (65 mg 00:00: mouth 2 [place] iron) 00 (two) Medical tablet times Branch daily. ascorbic Yes [id number] 500mg Take 1 U nivers acid, 5-16 tablet by ity of vitamin C, 00:00: mouth 3 [place] 500 mg 00 (three) Medical tablet times Branch daily. ferrous 2020- No [id number] 325mg Take 1 U nivers sulfate 325 -17 06-19 tablet by it y of mg (65 mg 00:00: 00:00 mouth 2 [place] iron) 00 :00 (two) Medical tablet times Branch daily. ascorbic 2020- No [id number] 500mg Take 1 Univers acid, 5-16 08-19 tablet by ity of vitamin C, 00:00: 00:00 mouth 3 [place] 500 mg 00 :00 (three) Medical tablet times Branch daily. ferrous 2020- No [id number] 325mg Take 1 U nivers sulfate 325 5-16 -19 tablet by it y of mg (65 mg 00:00: 00:00 [place] 2 [place] iron) 00 :00 (two) Medical tablet times Branch daily. ascorbic 2020- No [id number] 500mg Take 1 Univers acid, -17 06-19 tablet by ity of vitamin C, 00:00: 00:00 mouth 3 [place] 500 mg 00 :00 (three) Medical tablet times Branch daily. ferrous 2019- No [id number] 325mg Take 1 U nivers sulfate 325 03-17- tablet by it y of mg (65 mg 00:00: 00:00 mouth 2 [place] iron) 00 :00 (two) Medical tablet times Branch daily. ascorbic 2019- No [id number] 500mg Take 1 Univers acid, 03-17- tablet by ity of vitamin C, 00:00: 00:00 mouth 3 [place] 500 mg 00 :00 (three) Medical tablet times Branch daily. PNV 67-iron Yes [id number] 1{each} Take 1 Univers ps-folate 5-15 Each by ity of no.1-dha 00:00: mouth [place] (VITAFOL 00 daily. Medical ULTRA) 29 Branch mg iron- 1 mg-200 mg Cap PNV 67-iron 2019- No [id number] 1{each} Take 1 Univers ps-folate 5-15 08-19 Each by ity of no.1-dha 00:00: 00:00 mouth [place] (VITAFOL 00 :00 daily. Medical ULTRA) 29 Branch mg iron- 1 mg-200 mg Cap PNV 67-iron 2020- No [id number] 1{each} Take 1 Univers ps-folate 5-15 08-19 Each by ity of no.1-dha 00:00: 00:00 mouth [place] (VITAFOL 00 :00 daily. Medical ULTRA) 29 Branch mg iron- 1 mg-200 mg Cap PNV 67-iron 2020- No [id number] 1{each} Take 1 Univers ps-folate 5-15 08-19 [...] Immunizations Ordered Filled Immunization Date Status Comments [facility] Immunization Name Name [facility] 2017-07-03 Completed University of 00:00:00 [facility] 2017-07-03 Completed University of 00:00:00 [facility] 2017-07-03 Completed University of 00:00:00 [facility] 2017-07-03 Completed University of 00:00:00 [facility] 2017-07-03 Completed University of 00:00:00 [facility] 2017-07-03 Completed University of 00:00:00 [facility] 2017-07-03 Completed University of 00:00:00 [facility] 2017-07-03 Completed University of 00:00:00 [facility] 2017-07-03 Completed University of 00:00:00 [facility] 2017-07-03 Completed University of 00:00:00 [facility] 2017-07-03 Completed University of 00:00:00 [facility] 2017-07-03 Completed University of 00:00:00 [facility] 2017-07-03 Completed University of 00:00:00 [facility] 2017-07-03 Completed University of 00:00:00 [facility] 2017-07-03 Completed University of 00:00:00 [facility] 2017-07-03 Completed University of 00:00:00 [facility] Vital Signs Vital Name Observation Time Observation Value Comments Source Body height 2021-07-01 14:00:00 [facility] weight 2021-07-01 14:00:00 [facility]338 [facility] 2021-07-01 14:00[facility] 2021-01-11 19:00:00 141 [...] 2021-01-11 19:00:00 40.39 kg/m2 Universi ty of [place] [facility] Oxygen saturation in 2021-01-11 19:00:00 97 /min University of Arterial blood by [facility] lasha Pulse oximetry Branch Systolic blood 2021-01-11 19:00:00 141 mm[Hg] Univer sity of pressure [place] [facility] Diastolic blood 2021-01-11 19:00:00 102 mm[Hg] Unive rsity of pressure [place] [facility] Heart rate 2021-01-11 19:00:00 135 /min Universi ty of [place] [facility] Body temperature 2021-01-11 19:00:00 36.83 Nina Univ ersity of [place] [facility] Respiratory rate 2021-01-11 19:00:00 18 /min Univ ersity of [place] [facility] Body weight 2021-01-11 19:00:00 103.42 kg Universi ty of [place] [facility] BMI 2021-01-11 19:00:00 40.39 kg/m2 Universi ty of [place] [facility] Oxygen saturation in 2021-01-11 19:00:00 97 /min University of Arterial blood by [facility] lasha Pulse oximetry Branch Systolic blood 2020-06-20 18:51:00 119 mm[Hg] Univer sity of pressure [place] [facility] Diastolic blood 2020-06-20 18:51:00 72 mm[Hg] Unive rsity of pressure [place] [facility] Heart rate 2020-06-20 18:51:00 82 /min Universi ty of [place] [facility] Body temperature 2020-06-20 18:51:00 36.56 Nina Univ ersity of [place] [facility] Respiratory rate 2020-06-20 18:51:00 16 /min [facility] Body height 2020-06-20 18:51:00 160 cm [facility] Body weight 2020-06-20 18:51:00 103.103 kg [facility] BMI 2020-06-20 18:51:00 40.26 kg/m2 [facility] Procedures Procedure Date / Time Performed Performing Clinician Sour e XR ELBOW 3+ VIEWS 2021-07-01 14:22:25 Ronen Molian [facility] RIGHT XR FOREARM 2 VW RIGHT 2021-01-11 19:30:53 Mickey Sánchez [facility] NOTICE OF PRIVACY 2021-01-11 18:48:50 Doctor Unassigned, No [facility] PRACTICES [facility] [place] CONSENT/REFUSAL FOR 2021-01-11 18:48:41 [facility]igned, [facility] Branch TREATMENT BI AXILLARY ULTRASOUND 2020-08-07 15:09:04 [facility] BI DIAGNOSTIC 2020-08-07 14:52:13 Beverly Moran [facility] MAMMOGRAM BILATERAL Medical Bran ch ASSIGNMENT OF BENEFITS 2020-08-07 13:53:47 Doctor Unassigned, No [facility] EXTERNAL PROVIDER 2020-07-13 05:01:00 Doctor Unassigned, No [facility] RECORDS [facility] [place] ASSIGNMENT OF BENEFITS 2020-06-20 18:34:58 Doctor Unassigned, No [facility] Encounters Start End Encounter Admission Attending Care Care Encounter Source Date/Time Date/Time Type Type Clinicians Facility Department ID 2021-09-01 Emergency [facility] [id number] Univers 05:37:10 ity of [facility] 2021-08-31 Emergency [facility] [id number] Univers 10:03:46 ity of [facility] 2021-08-26 Outpatient RONEN MOLINA [facility] [id number] [place] 11:49:08 Health 2021-07-19 Outpatient RONEN MOLINA [facility] [id number] [place] 16:54:19 Health 2021-07-01 Outpatient [facility] [id number] [place] 09:13:23 Health 2021-08-26 2021-08-[address] [facility] [id number] [place] 10:48:54 11:49:39 Visit ORTHO AND [id number] Health SP[place] [id number] MEDICAL [id number] [place] 2 2021-08-13 2021-08-13 Orders Ronen Molnia [facility] 6400 [id number] [place] 00:00:00 00:00:[address] [id number] Health [id number] [id number] 2021-07-01 2021-07-[address] [facility] [id number] [place] 08:53:31 09:50:49 Visit ORTHO AND [id number] Health SPINE [id number] MEDICAL [id number] [place] 2 2021-01-21 2021-01-21 Patient Giovani [facility] [id number] Univers 00:00:00 00:00:00 Outreach Hadley [facility] [id number] i ty of [facility] [id number] [facility] [id number] Nv dical 388 Branch 2021-01-11 2021-01-[address] [facility] [id number] 13:03:00 14:33:00 Mickey Hinkle [id number] [place] [id number] [place] [id number] [facility] 2021-01-11 2021-01-[address] [facility] [id number] [facility] [place] 13:03:00 14:33:00 Mickey Hinkle [id number] i ty of [place] 4.2.7.2.686 [facility] s [place] [id number] [facility] 084 Branch 2021-01-11 2021-01-11 Orders Doctor FARLEY [id number] Univers 00:00:00 00:00:00 Only Unassigned, CEFERINO [id number] ity of [place] [facility] [id number] [place] [id number] [facility] 009 Branch 2021-01-11 2021-01-11 Orders Doctor MARTINE 1.2.840.114 [id number] 00:00:00 00:00:00 Only Unassigned, CEFERINO [id number] [place] [facility] 4.2.7.2.686 [id number] 2020-10-02 2020-10-02 [facility] [id number] [facility] [place] 10:57:08 23:59:00 Encounter Beverly Hinkle [id number] ity of [place] [id number] [facility] [id number] [facility] 806 [place] 2020-10-02 2020-10-02 [facility] [id number] 10:57:08 23:59:00 Encounter Beverly Hinkle [id number] [place] [id number] [place] [id number] 2020-10-02 2020-10-02 Outpatient R [facility] [id number] Univers 00:00:00 00:00:00 BEVERLY garcia [facility] 2020-09-18 2020-09-18 Outpatient R [facility] [id number] Univers 00:00:00 00:00:00 BEVERLY garcia [facility] 2020-08-16 2020-08-16 Telephone [facility] [id number] Univers 00:00:00 00:00:00 Yovanynda R MILL WORKER [id number] ity of REGIONAL [id number] [place] MATERNAL [id number] Med ical & CHILD [address] [place] [address] 2020-08-16 2020-08-16 Telephone [facility] [id number] 00:00:00 00:00:00 Roshunda R MILL WORKER [id number] REGIONAL [id number] MATERNAL [id number] & CHILD 107 [facility] 2020-08-07 2020-08-07 [facility] [id number] Univers 09:13:49 23:59:00 Encounter Beverly Hinkle [id number] ity of [place] [id number] [facility] [id number] [facility] [address] [place] 2020-08-07 2020-08-07 [facility] [id number] Univers 08:57:24 09:12:00 Encounter Beverly Hinkle [id number] ity of [place] [id number] [facility] [id number] [facility] [address] [place] 2020-08-07 2020-08-07 Outpatient R [facility] [id number] Univers 00:00:00 00:00:00 BEVERLY lopezy o f [facility] 2020-08-07 2020-08-07 Orders Doctor MARTINE 1.2.840.114 [id number] Univers 00:00:00 00:00:00 Only Unassigned, CEFERINO [id number] ity of [facility] [id number] Lib[place] as [phone] [facility] [address] 2020-08-07 2020-08-07 Telephone [facility] [id number] Univers 00:00:00 00:00:00 Beverly Stroud MILL WORKER [id number] ity of [facility] [id number] [place] as MATERNAL [phone] Med ical & CHILD 107 [facility] 2020-07-13 2020-07-13 Orders Doctor MARTINE [id number] Univers 00:00:00 00:00:00 Only Unassigned, CEFERINO [id number] ity of [facility] [id number] Liban as [phone] [facility] [address] 2020-06-22 2020-06-22 Telephone [facility] [id number] Univers 00:00:00 00:00:00 Beverly Stroud MILL WORKER [id number] ity of [facility] [id number] Liban as MATERNAL [phone] [address] 2020-06-20 2020-06-20 Office Dean MIPIO [id number] Univers 13:37:39 14:55:54 Visit Beverly Stroud MILL WORKER [id number] ity of [facility] [id number] Liban as MATERNAL [phone] [address] 2020-06-20 2020-06-20 Outpatient R DEAN [facility] [id number] Univers 13:15:00 13:15:00 BEVERLY degroot o girish [facility] 2020-06-20 2020-06-20 Orders Doctor MARTINE [id number] Univers 00:00:00 00:00:00 Only Unassigned, CEFERINO [id number] ity of [facility] [id number] Liban as [phone] [address] 2020-06-18 2020-06-18 [facility] [id number] Univers 13:30:00 13:30:00 BEVERLY degroot o girish [facility] Results Test Test Test Results Result Source Description Time Comments Comments XR elbow 2021-06- Interpretation: Multiple [facility] views right 30 radiographic views are 14:39:31 within normal limits for the patients stated age. There are no signs of fracture, dislocation, or articular injury. The alignment and joint spaces are within normal limits. No signs of a bony lesion or soft tissue swelling. ? XR elbow 2021-06- Interpretation: Multiple [facility] views right 30 radiographic views are 14:39:31 within normal limits for the patients stated age. There are no signs of fracture, dislocation, or articular injury. The alignment and joint spaces are within normal limits. No signs of a bony lesion or soft tissue swelling. ? XR FOREARM 2 VW 2020-12- Forearm soft tissue [facility] of RIGHT 12 contusion. No acute bony [facility] 19:33:31 abnormality is present. B ranch EXAM: [...] abnormality is present. DIAGNOSTIC 2020-08- Examination: DIAGNOSTIC [place] of MAMMOGRAM 06 MAMMOGRAM BILATERAL [facility] BILATERAL 15:54:22 History:Patient is 39 year Branch [...] of ULTRASOUND LEFT 06 left axilla. TECHNIQUE: [facility] 15:12:17 Left axillary region was Branch evaluated [...]
[2022-09-30 22:23] LABS: Urine Blood 1+ (Negative); Urine Glucose 2+ (Negative); Urine Protein 3+ (Negative); Urine Specific Gravity 1.025 (1.005-1.030)
[2022-09-30 22:24] LABS: Urine Specific Gravity/Preg 1.025 (1.005-1.030)
[2022-09-30] MEDS ORDERED: ONDANSETRON 4 MG/2 ML VIAL ONE (22:59)
[2022-09-30] MEDS ORDERED: MORPHINE 4 MG/ML SYR ONE (22:59)
--- NOTE | 2022-09-30 23:09 | RAD REPORT ---
EXAM DESCRIPTION: RAD - Chest Single View - 09/30/2022 10:59 pm CLINICAL HISTORY: COUGH Chest pain. COMPARISON: No comparisons FINDINGS: Portable technique limits examination quality. The lungs are grossly clear. The heart is normal in size. No displaced fractures. IMPRESSION: No acute intrathoracic process suspected.
[2022-09-30 23:40] LABS: Absolute Lymphocytes (CBC) 2.9 K/uL (0.7-4.9); Hematocrit 35.1 % (36.0-45.0); Lymphocytes % 36.2 % (15.3-44.8); MCV 80.5 fL (80-100); MPV 7.6 fL (7.6-11.3); RBC Red Blood Cell Count 4.36 M/uL (3.86-4.86)
[2022-09-30 23:49] LABS: Bilirubin Total 0.3 mg/dL (0.2-1.0); Potassium 3.7 mmol/L (3.5-5.1); Protein, Total 7.9 g/dL (6.4-8.2)
[2022-10-01] MEDS ORDERED: KETOROLAC 30 MG/ML INJ ONE (00:31)
[2022-10-01 00:36] LABS: SARS-COV-2 RT PCR NEGATIVE (NEGATIVE)
--- NOTE | 2022-10-01 02:35 | EDPHYS ---
Physician Documentation [facility] Name: Lana Solo Age: 41 yrs Sex: Female : 1980 Arrival Date: 09/30/2022 Time: 20:40 Bed 8 Private MD: ED Physician Kings Alba HPI: 09/30 22:30 This 41 yrs old Female presents to ER via Ambulatory with complaints of Flank Pain, cp Nausea. 22:30 The patient complains of pain in the right flank. The pain radiates to the right side cp of abdomen. Onset: The symptoms/episode began/occurred 3 day(s) ago. Associated signs and symptoms: Pertinent negatives: diarrhea, dysuria, fever, headache, hematuria, pain radiating to the lower extremities, vomiting. Severity of pain: in the emergency department the pain is actually worse moderately. The patient has been recently seen at the [facility] Emergency Department, this week, for similar complaints labs were performed, CT scan was performed. 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 - Social history:: Smoking status: Patient reports the use of cigarette tobacco products, smokes one-half pack cigarettes per day. ROS: 22:35 Constitutional: Negative for body aches, chills, fever, poor PO intake. cp 22:35 Eyes: Negative for injury, pain, redness, and discharge. cp 22:35 ENT: Negative for drainage from ear(s), ear pain, sore throat, difficulty swallowing, difficulty handling secretions. 22:35 Cardiovascular: Positive for chest pain, of the right lower lateral and posterior chest, Negative for palpitations. 22:35 Respiratory: Positive for shortness of breath, Negative for cough, wheezing. 22:35 Abdomen/GI: Negative for vomiting, diarrhea, constipation, black/tarry stool, rectal bleeding. 22:35 Back: Positive for flank pain, on the right, Negative for injury or acute deformity, decreased range of motion. 22:35 : Positive for right flank pain, Negative for hematuria. 22:35 Skin: Negative for rash. 22:35 Neuro: Negative for altered mental status, headache, numbness, tingling, weakness. 22:35 All other systems are negative. Exam: 22:40 Constitutional: The patient appears in no acute distress, alert, awake, cp non-diaphoretic, non-toxic, well developed, well nourished, uncomfortable. 22:40 Head/Face: Normocephalic, atraumatic. cp 22:40 Eyes: Periorbital structures: appear normal, Conjunctiva: normal, no exudate, no injection, Sclera: no appreciated abnormality, Lids and lashes: appear normal, bilaterally. 22:40 ENT: External ear(s): are unremarkable, Nose: is normal, Mouth: Lips: moist, Oral mucosa: moist, Posterior pharynx: Airway: no evidence of obstruction, patent. 22:40 Neck: ROM/movement: is normal, is supple, without pain, no range of motions limitations, no nuchal rigidity. 22:40 Chest/axilla: Inspection: normal, Palpation: crepitus, is not appreciated, tenderness, that is moderate, of the right lower posterior and lateral chest wall, that partially reproduces the patient's complaints. 22:40 Cardiovascular: Rate: normal, Rhythm: regular, Edema: is not appreciated, JVD: is not appreciated. 22:40 Respiratory: the patient does not display signs of respiratory distress, Respirations: normal, no use of accessory muscles, no retractions, labored breathing, is not present, Breath sounds: are clear throughout, no decreased breath sounds, no stridor, no wheezing. 22:40 Abdomen/GI: Inspection: abdomen appears normal, Bowel sounds: active, all quadrants, Palpation: soft, in all quadrants, moderate abdominal tenderness, in the posterior aspect of right lateral abdomen, anterior aspect of right lateral abdomen and right upper quadrant, rebound tenderness, is not appreciated, involuntary guarding, is not appreciated. 22:40 Skin: cellulitis, is not appreciated, no rash present. 22:40 Neuro: Orientation: to person, place \T\ time. Mentation: appropriate for stated age, Motor: moves all fours, strength is normal, Sensation: is normal, Gait: is steady, at a normal pace, without difficulty. Vital Signs: 21:33 BP 161 / 92; Pulse 98; Resp 18; Temp 98.9; Pulse Ox 97% on R/A; Weight 94.8 kg; Height tw5 5 ft. 3 in. (160.02 cm); Pain 10/10; 22:26 BP 157 / 100; Pulse 94; Resp 18 S; Pulse Ox 100% on R/A; as6 23:23 BP 151 / 85; Pulse 98; Resp 18 S; Pulse Ox 99% on R/A; as6 10/01 00:32 BP 155 / 82; Pulse 89; Resp 16 S; Pulse Ox 98% on R/A; as6 02:01 BP 142 / 84; Pulse 88; Resp 16 S; Temp 98.8(O); Pulse Ox 97% on R/A; as6 02:51 BP 134 / 70; Pulse 86; Resp 18 S; Pulse Ox 99% on R/A; as6 09/30 21:33 Body Mass Index 37.02 (94.80 kg, 160.02 cm) tw5 MDM: 09/30 21:39 Patient medically screened. cp 23:00 Differential diagnosis: nephrolithiasis, pyelonephritis, UTI, pulmonary embolism, cp sepsis, musculoskeletal pain. 10/01 02:34 Data reviewed: vital signs, nurses notes, lab test result(s), radiologic studies, CT cp scan, plain films. 02:34 Test interpretation: by ED physician or midlevel provider: plain radiologic studies. cp Counseling: I had a detailed discussion with the patient and/or guardian regarding: the historical points, exam findings, and any diagnostic results supporting the discharge/admit diagnosis, lab results, radiology results, the need for outpatient follow up, a family practitioner, to return to the emergency department if symptoms worsen or persist or if there are any questions or concerns that arise at home. Response to treatment: the patient's symptoms have markedly improved after treatment, VSS. Pain improved with meds. Will discharge to home with RX for oral antibiotics and to continue to monitor symptoms. 09/30 22:22 Order name: Urine --Ancillary (enter results) mw2 09/30 22:23 Order name: Urine Dipstick-Ancillary; Complete Time: 22:45 EDMS 09/30 22:25 Order name: Urine --Ancillary; Complete Time: 22:45 EDMS 09/30 22:36 Order name: CBC with Diff; Complete Time: 23:49 09/30 23:49 Interpretation: Normal except: HGB 11.5; HCT 35.1; MCH 26.4. 09/30 22:36 Order name: CMP; Complete Time: 01:39 10/01 01:40 Interpretation: Normal except: NA 133; GLUC 250; GFR 66; ALB 3.0; GLOB 4.9; A/G 0.6. 09/30 22:36 Order name: Lipase; Complete Time: 01:39 09/30 22:45 Order name: XRAY Chest (1 view); Complete Time: 23:16 09/30 23:17 Interpretation: Report review. 09/30 22:45 Order name: D-Dimer; Complete Time: 23:49 09/30 22:47 Order name: COVID-19/FLU A+B; Complete Time: 01:39 09/30 23:52 Order name: CT Chest For PE Angio 09/30 23:52 Order name: CT Abd/Pelvis - IV Contrast Only 10/01 02:41 Order name: Urine Microscopic Only 10/01 02:41 Order name: Urine Culture 09/30 22:23 Order name: Urine Test (obtain specimen); Complete Time: 22:23 [facility] 09/30 22:23 Order name: Urine Dipstick-Ancillary (obtain specimen); Complete Time: 22:23 [facility] 09/30 22:36 Order name: IV Saline Lock; Complete Time: 23:22 09/30 22:36 Order name: Labs collected and sent; Complete Time: 23:22 10/01 02:34 Order name: PO challenge; Complete Time: 02:41 cp Administered Medications: 09/30 23:22 Drug: morphine 4 mg Route: IVP; Infused Over: 4 mins; Site: left antecubital; as6 10/01 02:52 Follow up: Response: No adverse reaction as6 09/30 23:22 Drug: Zofran (Ondansetron) 4 mg Route: IVP; Site: left antecubital; as6 10/01 02:52 Follow up: Response: No adverse reaction as6 00:32 Drug: Ketorolac 15 mg Route: IVP; Site: left antecubital; as6 02:52 Follow up: Response: No adverse reaction as6 02:45 Drug: Rocephin (cefTRIAXone) 1 grams Route: IV; Rate: calculated rate; Site: left as6 antecubital; 02:52 Follow up: Response: No adverse reaction; IV Status: Completed infusion; IV Intake: [id number] Disposition Summary: 10/01/22 02:35 Discharge Ordered Location: Home cp Problem: new cp Symptoms: have improved cp Condition: Stable cp Diagnosis - Pyelonephritis acute - right cp Followup: cp - With: Private Physician - When: 2 - 3 days - Reason: Recheck today's complaints Discharge Instructions: - Discharge Summary Sheet cp - Pyelonephritis, Adult cp Forms: - Medication Reconciliation Form cp - Thank You Letter cp - Antibiotic Education cp - Prescription Opioid Use cp Prescriptions: - Ibuprofen 800 mg Oral Tablet - take 1 tablet by ORAL route every 8 hours As needed take with food; 30 tablet; cp Refills: 0, Product Selection Permitted - Zofran 4 mg Oral Tablet - take 1 tablet by ORAL route every 12 hours As needed; 20 tablet; Refills: 0, cp Product Selection Permitted - cefpodoxime 200 mg Oral Tablet - take 1 tablet by ORAL route every 12 hours for 10 days with food; 20 tablet; cp Refills: 0, Product Selection Permitted Addendum: 10/05/2022 07:50 Co-signature as Attending Physician, Kings Alba MD I agree with the assessment and c weiss plan of care. Signatures: Dispatcher [employer] Kings Rose MD MD cha Page, Corey, PA PA Eleazar Franco mw2 Ana Lilia Stallworth tw5 Jordan Graff RN RN as6 Corrections: (The following items were deleted from the chart) 10/01 23:01 09/30 22:30 The patient has been recently seen at the [facility] cp Emergency Department, this week, for similar complaints labs were performed, CT scan was performed, the patient was told to return for a recheck, cp
--- NOTE | 2022-10-01 02:35 | ER ---
Nurse's Notes [facility] Name: Lana Solo Age: 41 yrs Sex: Female : 1980 Arrival Date: 09/30/2022 Time: 20:40 Bed 8 Private MD: Diagnosis: Pyelonephritis acute-right Presentation: 09/30 21:33 Chief complaint: Patient states: "I have been feeling this side pain since Thursday tw5 morning. I came her on Thursday but they didn't find nothing. I have polycystic kidney disorder, but I am also concerned it may be an appendicitis. The pain has only gotten worse.". Coronavirus screen: Vaccine status: Patient reports receiving the 2nd dose of the covid vaccine. Moderna. Ebola Screen: Patient negative for fever greater than or equal to 101.5 degrees Fahrenheit, and additional compatible Ebola Virus Disease symptoms Patient denies exposure to infectious person. Patient denies travel to an Ebola-affected area in the 21 days before illness onset. Initial Sepsis Screen: Does the patient meet any 2 criteria? No. Patient's initial sepsis screen is negative. Does the patient have a suspected source of infection? Yes: Acute abdominal pain. Risk Assessment: Do you want to hurt yourself or someone else? Patient reports no desire to harm self or others. Onset of symptoms is unknown. 21:33 Method Of Arrival: Ambulatory tw5 21:33 Acuity: BRODY 3 tw5 Triage Assessment: 21:34 General: Appears uncomfortable, obese, Behavior is calm, cooperative, appropriate for tw5 age. Pain: Complains of pain in posterior aspect of right lateral abdomen and right lower quadrant Pain currently is 10 out of 10 on a pain scale. GI: Reports nausea. 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 - Social history:: Smoking status: Patient reports the use of cigarette tobacco products, smokes one-half pack cigarettes per day. Screenin:35 Abuse screen: Denies threats or abuse. Denies injuries from another. Nutritional tw5 screening: No deficits noted. Tuberculosis screening: No symptoms or risk factors identified. Fall Risk None identified. Assessment: 22:26 General: Appears uncomfortable, Behavior is calm, cooperative. Pain: Complains of pain as6 in right lower quadrant and posterior aspect of right lateral abdomen Quality of pain is described as crampy, dull, stabbing. Neuro: Level of Consciousness is awake, alert, obeys commands. Respiratory: Respiratory effort is even, unlabored. GI: Reports lower abdominal pain, nausea, vomiting. 23:23 GI: Pt is actively vomiting undigested food. as6 10/01 00:33 Reassessment: Patient and/or family updated on plan of care and expected duration. Pain as6 level reassessed. Patient is alert, oriented x 3, equal unlabored respirations, skin warm/dry/pink. Patient states feeling better. 02:01 Reassessment: Patient appears in no apparent distress at this time. Patient states as6 symptoms have improved. Vital Signs: 09/30 21:33 BP 161 / 92; Pulse 98; Resp 18; Temp 98.9; Pulse Ox 97% on R/A; Weight 94.8 kg; Height tw5 5 ft. 3 in. (160.02 cm); Pain 10/10; 22:26 BP 157 / 100; Pulse 94; Resp 18 S; Pulse Ox 100% on R/A; as6 23:23 BP 151 / 85; Pulse 98; Resp 18 S; Pulse Ox 99% on R/A; as6 10/01 00:32 BP 155 / 82; Pulse 89; Resp 16 S; Pulse Ox 98% on R/A; as6 02:01 BP 142 / 84; Pulse 88; Resp 16 S; Temp 98.8(O); Pulse Ox 97% on R/A; as6 02:51 BP 134 / 70; Pulse 86; Resp 18 S; Pulse Ox 99% on R/A; as6 09/30 21:33 Body Mass Index 37.02 (94.80 kg, 160.02 cm) tw5 ED Course: 09/30 20:40 Patient arrived in ED. ja2 21:05 Kings Vera PA is PHCP. cp 21:05 Kings Alba MD is Attending Physician. cp 21:34 Triage completed. tw5 21:34 Arm band placed on. tw5 21:57 Jordan Graff, RN is Primary Nurse. as6 22:27 Placed in gown. Bed in low position. Call light in reach. Side rails up X 1. as6 22:30 Urine --Ancillary (enter results) Sent. aa9 23:01 XRAY Chest (1 view) In Process Unspecified. EDMS 23:20 Inserted saline lock: 20 gauge in left antecubital area, using aseptic technique. Blood as6 collected. 23:22 COVID-19/FLU A+B Sent. as6 23:22 D-Dimer Sent. as6 23:22 CBC with Diff Sent. as6 23:22 CMP Sent. as6 23:22 Lipase Sent. as6 10/01 00:32 CT Chest For PE Angio In Process Unspecified. EDMS 00:32 CT Abd/Pelvis - IV Contrast Only In Process Unspecified. EDMS 02:51 No provider procedures requiring assistance completed. IV discontinued, intact, as6 bleeding controlled, No redness/swelling at site. Pressure dressing applied. Administered Medications: 09/30 23:22 Drug: morphine 4 mg Route: IVP; Infused Over: 4 mins; Site: left antecubital; as6 10/01 02:52 Follow up: Response: No adverse reaction as6 09/30 23:22 Drug: Zofran (Ondansetron) 4 mg Route: IVP; Site: left antecubital; as6 10/01 02:52 Follow up: Response: No adverse reaction as6 00:32 Drug: Ketorolac 15 mg Route: IVP; Site: left antecubital; as6 02:52 Follow up: Response: No adverse reaction as6 02:45 Drug: Rocephin (cefTRIAXone) 1 grams Route: IV; Rate: calculated rate; Site: left as6 antecubital; 02:52 Follow up: Response: No adverse reaction; IV Status: Completed infusion; IV Intake: [id number] Medication: 02:01 VIS not applicable for this client. as6 Intake: 02:52 IV: 50ml; Total: 50ml. as6 Outcome: 02:35 Discharge ordered by MD. cp 02:51 Discharged to home ambulatory. as6 02:51 Condition: stable 02:51 Discharge instructions given to patient, Instructed on discharge instructions, follow up and referral plans. medication usage, Demonstrated understanding of instructions, follow-up care, medications, Prescriptions given X 3. 02:54 Patient left the ED. as6 Signatures: Dispatcher [employer] EDMS Kings Vera PA PA cp Alexander, Jessica ja2 Wood, Tiffany tw5 Jordan Graff RN RN as6 Leonor Brown RN RN aa9
[2022-10-01] MEDS ORDERED: NA CHLORIDE 0.9% 50 ML IV ONE (02:42)
[2022-10-01] MEDS ORDERED: CEFTRIAXONE 1000 MG/VIAL ONE (02:42)
[2022-10-01 03:03] VITALS: TEMP 98.8
[2022-10-01 03:04] VITALS: BP 134/70; O2SAT 99
[2022-10-01 03:54] LABS: Urine Mucus Slight /HPF (None Seen); Urine RBC 21-50 /HPF (None Seen)
--- NOTE | 2022-10-01 14:37 | RAD REPORT ---
EXAM DESCRIPTION: CT - Chest For Pe Angio - 10/01/2022 6:45 am CLINICAL HISTORY: 41 years Female right lateral chest/flank pain COMPARISON: None TECHNIQUE: Images were obtained in axial, sagittal, and coronal planes. Intravenous contrast was adm inistered. 3-D MIP imaging was performed. This exam was performed according to our departmental dose-optimization program which includes use of Automated Exposure Control, adjustment of the mA and/or kV according to patient size and/or use of iterative reconstruction technique. FINDINGS: No filling defects pulmonary arteries bilaterally. No aortic dissection or dilatation. No right heart strain. No pericardial or pleural effusions bilaterally. No adenopathy. 7 mm calcified nodule peripheral right lower lobe likely granuloma. Mild airspace attenuation medial right lower lobe likely atelectatic change. No abnormal airspace opacity on left. No pneumothorax. No acute osseous abnormality. Multiple renal cysts superior right kidney. IMPRESSION: No evidence for pulmonary embolus. No aortic dissection or dilatation. Suspected atelect atic change right lower lobe. No definite infiltrates seen. Electronically signed by: Tavia Saucedo MD 10/01/2022 1:16 AM CONSTRUCTION ENGINEER Due to temporary technical issues with the PACS/Fluency reporting system, reports are being signed by the in house radiologists without review as a courtesy to insure prompt reporting. The interpreting radiologist is fully responsible for the content of the report.
--- NOTE | 2022-10-01 15:00 | RAD REPORT ---
EXAM DESCRIPTION: CT - Abdomen Pelvis W Contrast - 10/01/2022 6:44 am CLINICAL HISTORY: ABD PAIN COMPARISON: None Available. TECHNIQUE: CT of the abdomen and pelvis performed following IV administration of iodinated contras t. FINDINGS: Lung Bases: The visualized lung bases are clear. Right lower lobe calcified granuloma. Bones: Multilevel degenerative endplate spondylosis and facet arthropathy. Mild bilateral hip joint s pace narrowing and marginal osteophytosis. Abdomen: Liver: Hepatomegaly and diffusely decreased hepatic density. Gallbladder: No calcified gallstones. Spleen, Pancreas, and Adrenal Glands: The spleen, pancreas, and adrenal glands are unremarkable. Kidneys: No hydronephrosis or obstructing calculus. Extensive cystic change in the kidneys bilate rally. No obstructing calculus or hydronephrosis. Vasculature: Aortoiliac atherosclerosis. IVC is unremarkable. The portal vein is patent. The proxim al visceral and renal arteries are patent. Stomach: The stomach and duodenum have normal course. Other: No free intraperitoneal air. No free fluid or lymphadenopathy. Tiny fat-containing umbilic al hernia. Pelvis: Bladder: Urinary bladder is unremarkable. Bowel: No dilated loops of large or small bowel. Appendix: Normal appendix. Pelvis: Uterus is not enlarged. IMPRESSION: 1. No acute inflammatory or obstructive process identified. 2. Hepatomegaly and hepatic steatosis. 3. Polycystic kidney disease. This exam was performed according to our departmental dose-optimization program, which includes autom ated exposure control, adjustment of the mA and/or kV according to patient size and/or use of iterati ve reconstruction technique. Electronically signed by: Chase Tse 11/23/2020 10:31 PM RESEARCH AND DEVELOPMENT SPECIALIST Due to temporary technical issues with the PACS/Fluency reporting system, reports are being signed by the in house radiologists without review as a courtesy to insure prompt reporting. The interpreting radiologist is fully responsible for the content of the report.
== END 2022-10-01 02:54 | disposition home or self-care (01) ==
LOC: ER 20:39
DX: N10 Acute pyelonephritis (principal); F17.210 Nicotine dependence, cigarettes, uncomplicated; Z20.822 Contact with and (suspected) exposure to COVID-19
CPT/HCPCS: 87088; 85025; 87086; 36415; 81025; 85379; 81003; 81015; 83690; 80053; 0240U; 71275; 74177; 71045; 96375; 96374; 99284; Q9967; J2405

== ENCOUNTER 2023-08-09 15:31 | Emergency (ER) | payer OTHER ==
--- OUTSIDE RECORDS SUMMARY | 2023-08-09 15:37 | XMS REPORT | Continuity of Care Document ---
:1980 Author Organization [facility] t Address [address] [place] [address] Care Team Providers Name Role Phone Balaji Alexis Lee Primary Care Physician [phone] RONEN MOLINA Attending Clinician Unavailable JARET JAVIER Attending Clinician Unavailable JARET JAVIER Attending Clinician Unavailable JOSE NARANJO Attending Clinician Unavailable Jose Naranjo MD Attending Clinician RADIOLOGY Attending Clinician Unavailable Radiology Attending Clinician Unavailable 2, [facility] Attending Clinician Unavailable Doctor Unassigned, [place] Attending Clinician Unavailable Hadley Matute DO Attending Clinician Mickey Arevalo Attending Clinician Beverly Comer Attending Clinician BEVERLY MORAN Attending Clinician Unavailable JARET JAVIER Admitting Clinician Unavailable Payers Payer Name Policy Type Policy Number Effective Date Expiration Date S [facility] MEDICARE [id number] 2021 ADVANTAGE HMO 00:00:00 MEDICARE PART A [id number] 2016 \\T\\ B 00:00:00 MEDICAID OF [place] [id number] 2016 00:00:00 KATY ZUNIGA PLS [id number] 2021 HMO 00:00:00 Problems Condition Condition Condition Status Onset Resolution Last Treating Co mments Source Name Details Category Date Date Treatment Clinician Date Menorrhagi Menorrhagi Disease Active U naomi [place] with a with 9- [place] irregular [place] [facility] Abnormal Abnormal Disease Active Unive rs thyroid thyroid 07-28 ity of function function 00:00: [place] test test 00 Medical Branch Medial Medial Disease Active UT epicondyli epicondyli 5-08 He alth tis of tis of 00:00: left elbow left elbow 00 Lateral Lateral Disease Active UT epicondyli epicondyli 8-30 He alth tis of tis of 00:00: right right 00 elbow elbow 39 weeks 39 weeks Disease Active 2017-11 Unive rs gestation gestation 2-05 ity of of of 00:00: [place] 00 [facility] Intrauteri Intrauteri Disease Active 2017-11 U naomi ne growth ne growth 2-05 ity of restrictio restrictio [place] (IUGR) n (IUGR) 00 Medica l affecting affecting Bran ch care of care of mother, mother, third third trimester, trimester, single single gestation gestation Liveborn Liveborn Disease Active 2017-11 Unive rs by by 2-05 [place] of 00:[place] 00 [facility] 38 weeks 38 weeks Disease Active 2017-11 Unive rs gestation gestation 1-29 ity of of of 00:00: [place] 00 [facility] Obesity Obesity Disease Active 2017-11 Univers affecting affecting 1-29 it[place] of 00:[place] in third in third 00 Medica l trimester trimester Bran ch 33 weeks 33 weeks Disease Active 2017-11 Unive rs gestation gestation 0-25 ity of of of 00:00: [place] 00 [facility] Obesity Obesity Disease Active 2017-11 Univers (BMI (BMI 0-25 ity of 30-39.9) 30-39.9) 00:00: [place] 00 Medical Branch Anemia Anemia Disease Active Univers affecting affecting 5-16 it[place] of 00:[place] Anxiety in Anxiety in Disease Active U nivers , , 5-15 it y of antepartum antepartum 00:00[place] AMA AMA Disease Active Univers (advanced (advanced 5-15 ity of maternal maternal 00:00: [place] age) age) 00 Medical multigravi multigravi Br anch da 35+ da 35+ Hypertensi Hypertensi Disease Active U nivers on in on in 5-15 ity of , , 00:[place] pre-existi pre-existi 00 Pr jenni leon, Branch antepartum antepartum Hypothyroi Hypothyroi Disease Active [...] affecting 5-15 ity of 00:[place] [facility] Tobacco Tobacco Disease Active Univers smoking smoking 5-15 it[place] of affecting affecting 00:[place] [facility] Maternal Maternal Disease Active Unive rs rheumatoid rheumatoid 5-15 it y of arthritis arthritis 00:00[place] complic[place] complicati 00 Pr dical ng ng Branch Psoriasis Psoriasis Disease Active Uni vers 5-15 ity of 00:00: [place] [facility] Branch Obesity Obesity Disease Active 2015-11 Univers affecting affecting 2-01 ity of 00:[place] [facility] [place] Smoker Smoker Disease Active Univers 6-01 ity of 00:00: [place] 00 Medical Branch Allergies, Adverse Reactions, Alerts Allergy Allergy Status Severity Reaction(s) Onset Inactive Treating Comm ents Source Name Type Date Date Clinician Exenatid Propensi Active Unknown - Uni vers e ty to See comments 3-12 ity of Microsph adverse 00:00: [place] eres reaction 00 Medical s Branch Metformi Propensi Active Unknown - Uni vers n ty to See comments 3-12 ity of adverse 00:00: [place] reaction 00 Medical s Branch Golimuma Propensi Active Unknown - Uni vers b ty to See comments 3-12 ity of adverse 00:00: [place] reaction 00 Medical s Branch GOLIMUMA DRUG Active Unknown-Cmnt Un mercy B INGREDI 3-12 ity of 00:00: [place] 00 Medical Branch EXENATID DRUG Active Unknown-Cmnt Un mercy E INGREDI 3-12 ity of MICROSPH 00:00: [place] ERES 00 Medical Branch METFORMI DRUG Active Unknown-Cmnt Un [facility] N INGREDI 3-12 ity of 00:00: [place] 00 Medical Branch NO KNOWN Drug Active Univers ALLERGIE Class ity of S [facility] Social History Social Habit Start Date Stop Date Quantity Comments Source History of tobacco 1998-03-16 Cigarette Smoker University of use 00:00:00 [facility] Gender identity Universit y of [facility] Sexual orientation Univer sity of [facility] Alcohol intake 2023-08-08 2023-08-08 Current University of 00:00:00 00:00:00 non-drinker of [facility] alcohol Branch (finding) Cigarettes smoked 2023-06-22 2023-06-22 Univers ity of current (pack per 00:00:00 00:00:00 [facility] ) - Reported Branch Cigarette 2023-06-22 2023-06-22 University of pack-years 00:00:00 00:00:00 [facility] Tobacco use and 2023-06-22 2023-06-22 Smokeless Universit y of exposure 00:00:00 00:00:00 tobacco non-user [facility] Tobacco Comment 2023-06-22 2023-06-22 1 pack every 3 Unive rsity of 00:00:00 00:00:00 days [facility] Exposure to 2023-02-27 2023-03-09 Not sure [facility] SARS-CoV-2 (event) 00:00:00 10:44:00 History of Social 2020-06-20 2020-06-20 Univers ity of function 00:00:00 00:00:00 [facility] Sex [birth year] Universit y of 00:00:00 00:00:00 [facility] Smoking Status Start Date Stop Date Source Smokes tobacco daily 2023-06-22 00:00:00 Univers ity [facility] Heavy tobacco smoker 2018-10-06 00:00:00 Univers ity [facility] Medications Ordered Filled Start Stop Current Ordering Indication Dosage Frequency Signature Comments Components Source Medication Medication Date Date Medication? Clinician (SIG) Name Name iopamidol 2022-11 No [id number] 90mL 90 mL, Univers (ISOVUE 0- 10-07 Intravenou ity o f 370-500 mL) 11:30: 11:30 s, ONCE, 1 [place] injection 00 :00 dose, On Medica l 90 mL Sat Branch 08/08/23 at 0630, Routine morpHINE (2022-11- No 4mg 4 mg, Slow Univers mg/mL) 0-07 10-07 IV Push, ity of injection 4 11:15: 11:28 ONCE, 1 [place] mg 00 :00 dose, On Medical Sat Branch 08/08/23 at 0615, STAT ondansetron 2022-11- No 4mg 4 mg, Slow Univers (ZOFRAN 0-07 10-07 IV Push, ity of (PF)) 10:00: 10:04 ONCE, 1 [place] injection 4 00 :00 dose, On Medi lasha mg Sat Branch 08/08/23 at 0500, ADINA morpHINE (4 2022-11- No 4mg 4 mg, Slow Univers mg/mL) 0-07 10-07 IV Push, ity of injection 4 10:00: 10:04 ONCE, 1 [place] mg 00 :00 dose, On Medical Sat Branch 08/08/23 at 0500, STAT ketorolac 2022-11 Yes [id number] 10mg Take 1 U nivers 10 mg 0-07 tablet by ity of tablet 00:00: mouth [place] 00 every 6 Medical (six) Branch hours as needed for Pain (scale 7-10). dicyclomine 2022-11 Yes [id number] 20mg Take 1 Univers 20 mg 0-07 tablet by ity of tablet 00:00: mouth [place] 00 every 6 Medical (six) Branch hours as needed for Abdominal pain. ondansetron 2022-11 Yes [id number] 4mg Take 1 Univers (ZOFRAN) 4 0-07 tablet by ity of mg tablet 00:00: mouth [place] 00 every 8 Medical (eight) Branch hours as needed for Nausea and Vomiting (N/V). MOUNJARO 5 Yes INJECT Unive rs mg/0.5 mL 9-11 5MG/0.5 ML ity of PnIj 00:00: [facility] 00 ONCE A Medical WEEK 30 Branch DAYS MOUNJARO 5 Yes INJECT Unive rs mg/0.5 mL 9-11 5MG/0.5 ML ity of PnIj 00:00: [facility] 00 ONCE A Medical WEEK 30 Branch DAYS MOUNJARO 5 Yes INJECT Unive rs mg/0.5 mL 9-11 5MG/0.5 ML ity of PnIj 00:00: [facility] 00 ONCE A Medical WEEK 30 Branch DAYS MOUNJARO 5 0 Yes INJECT Unive rs mg/0.5 mL 9-11 5MG/0.5 ML ity of PnIj 00:00: [facility] 00 ONCE A Medical WEEK 30 Branch DAYS traZODone 0 2022- No 50mg Take 50 mg U nivers 50 mg 06-22 by mouth ity of tablet 15:30: 00:00 at [place] 45 :00 bedtime. Medical Branch traZODone 0 2022- No 50mg Take 50 mg U nivers 50 mg 06-22 by mouth ity of tablet 15:30: 00:00 at [place] 45 :00 bedtime. Medical Branch MELOXICAM 2022-0 2022- No 15mg Take 15 mg U nivers ORAL 06-22 by mouth. ity of 15:30: 00:00 Indication [place] 27 :00 s: as Medical needed Branch MELOXICAM 2022-0 2022- No 15mg Take 15 mg U nivers ORAL 06-22 by mouth. ity of 15:30: 00:00 Indication [place] 27 :00 s: as Medical needed Branch losartan-hy 2022- No 1{tbl} Take 1 U nivers drochloroth 06-22 tablet by it y of iazide 15:30: 00:00 mouth [place] 100-12.5 mg 24 :00 daily. Medica l per tablet Branch losartan-hy 2022- No 1{tbl} Take 1 U nivers drochloroth 06-22 tablet by it y of iazide 15:30: 00:00 mouth [place] 100-12.5 mg 24 :00 daily. Medica l per tablet Branch acetaminoph 2020-11- No [id number] 2{tbl} Q6H Take 2 UT en-codeine 0-12 18 9107 tablets by He alth (Tylenol w/ 00:00: 04:59 mouth Codeine [...] 100 MG 14:09: mouth. tablet 31 atorvastati 0 Yes 40mg Take 40 mg UT n (Lipitor) 8-30 by mouth. Hea lth 40 MG 14:09: tablet 31 esomeprazol Yes 40mg Take 40 mg UT e (NexIUM) 8-30 by mouth. Heal th [address] 14:09: capsule 31 allopurinol 2021-0 Yes 100mg Take [...] mouth. ) 500 MG 32 tablet allopurinol 1-0 Yes 100mg Take 100 U T (Zyloprim) [...] lth 40 MG 09:09: tablet 31 esomeprazol 2021-0 Yes 40mg Take 40 mg UT e (NexIUM) 8-30 by mouth. Heal th [address] 09:09: capsule 31 allopurinol 2021-0 Yes 100mg Take 100 U T (Zyloprim) 8-30 mg by Health 100 MG 09:09: mouth. tablet 31 atorvastati 2021-0 Yes 40mg Take 40 mg UT n (Lipitor) 8-30 by mouth. Hea lth 40 MG 09:09: tablet 31 esomeprazol 2021-0 Yes 40mg Take 40 mg UT e (NexIUM) 8-30 by mouth. Heal th [address] 09:09: capsule 31 allopurinol 2021-0 Yes 100mg Take 100 U T (Zyloprim) 8-30 mg by Health 100 MG 09:09: mouth. tablet 31 atorvastati 2021-0 Yes 40mg Take 40 mg UT n (Lipitor) 8-30 by mouth. Hea lth 40 MG 09:09: tablet 31 esomeprazol 2021-0 Yes 40mg Take 40 mg UT e (NexIUM) 8-30 by mouth. Heal th [address] 09:09: capsule 31 acetaminoph 2020-0 2020- No [id number] 2{tbl} Q6H Take 2 UT en-codeine 07-01 9107 tablets by Yann parra (Tylenol w/ 00:00: 04:59 mouth Codeine #3) 00 :00 every 6 300-30 MG (six) tablet hours if needed for severe pain for up to 5 days. acetaminoph 2020-0 2020- No [id number] 2{tbl} Q6H Take 2 UT en-codeine 8-07-07 9107 tablets by Yann parra (Tylenol w/ 00:00: 04:59 mouth Codeine #3) [...] UNT-MCG/ML 00:00: solution 00 pen-injecto r Soliqua 1-0 Yes UT 100-33 6-21 Health UNT-MCG/ML 00:00: [...] hr each day tablet in the morning. levothyroxi 2020-0 Yes UT ne 3-29 Health (Synthroid, 00:00: Levoxyl) 00 200 MCG tablet losartan 0 Yes UT (Cozaar) 3-29 Health 100 MG 00:00: tablet 00 Vascepa 1 g 0 Yes UT capsule 3-29 Health 00:00: 00 Droplet Pen 2020-0 Yes [facility] [place] 32G 3-29 Health X 4 MM misc 00:00: 00 levothyroxi 2020-0 Yes UT ne 3-29 Health (Synthroid, 00:00: Levoxyl) 00 200 MCG tablet losartan 2020-0 Yes UT (Cozaar) 3-29 Health 100 MG 00:00: tablet 00 Vascepa 1 g 2020-0 Yes UT capsule 3-29 Health 00:00: 00 Droplet Pen 2020-0 Yes [facility] [place] 32G 3-29 Health X 4 MM misc 00:00: 00 levothyroxi 2020-0 Yes UT ne 3-29 Health (Synthroid, 00:00: Levoxyl) 00 200 MCG tablet losartan 2020-0 Yes UT (Cozaar) 3-29 Health 100 MG 00:00: tablet 00 Vascepa 1 g 2020-0 Yes UT capsule 3-29 Health 00:00: 00 Droplet Pen 2020-0 Yes [facility] [place] 32G 3-29 Health X 4 MM misc 00:00: 00 levothyroxi 2020-0 Yes UT ne 3-29 Health (Synthroid, 00:00: Levoxyl) 00 200 MCG tablet losartan 2020-0 Yes UT (Cozaar) 3-29 Health 100 MG 00:00: tablet 00 Vascepa 1 g 0 Yes UT capsule 3-29 Health 00:00: 00 Droplet Pen 2020-0 Yes [facility] [place] 32G 3-29 Health X 4 MM misc 00:00: 00 levothyroxi 2020-0 Yes UT ne 3-29 Health (Synthroid, 00:00: Levoxyl) 00 200 MCG tablet losartan 0 Yes UT (Cozaar) 3-29 Health 100 MG 00:00: tablet 00 Vascepa 1 g 0 Yes UT capsule 3-29 Health 00:00: 00 Droplet Pen 0 Yes [facility] [place] 32G 3-29 Health X 4 MM misc 00:00: 00 levothyroxi 0 Yes UT ne 3-29 Health (Synthroid, 00:00: Levoxyl) 00 200 MCG tablet losartan 0 Yes UT (Cozaar) 3-29 Health 100 MG 00:00: tablet 00 Vascepa 1 g Yes UT capsule 3- Health 00:00: 00 Droplet Pen 0 Yes [facility] [place] 32G 3-29 Health X 4 MM misc 00:00: 00 ibuprofen 2020-0 2020- No 600mg 600 mg, Uni vers (IBU) 01-11 Oral, ity of tablet 600 20:30: 19:29 ONCE, 1 [place] mg 00 :00 dose, Fri Medical 01/11/21 at Branch 1430, ADINA HYDROcodone 0 2020- No 2{tbl} 2 tablet, Univers -acetaminop 01-11 Oral, ity of hen (NORCO 20:15: 19:29 ONCE, 1 [place] as 5) 5-325 mg 00 :00 dose, Fri Med ical tablet 2 01/11/21 at [facility] h tablet 1415, ADINA ibuprofen 2020-0 Yes [id number] 600mg Take 1 Univers (IBU) 600 - [id number] tablet by ity of mg tablet 00:00: mouth [place] 00 every 6 Medical (six) Branch hours as needed for Pain (scale 4-6). ibuprofen 0 Yes [id number] 600mg Take 1 Univers (IBU) 600 - [id number] tablet by ity of mg tablet 00:00: mouth [place] 00 every 6 Medical (six) Branch hours as needed for Pain (scale 4-6). ibuprofen 2020-0 Yes [id number] 600mg Take 1 Univers (IBU) 600 3-12 [id number] tablet by ity of mg tablet 00:00: mouth [place] 00 every 6 Medical (six) Branch hours as needed for Pain (scale 4-6). ibuprofen 2020-0 Yes [id number] 600mg Take 1 Univers (IBU) 600 3-12 [id number] tablet by ity of mg tablet 00:00: mouth [place] 00 every 6 Medical (six) Branch hours as needed for Pain (scale 4-6). ibuprofen 2020-0 Yes [id number] 600mg Take 1 Univers (IBU) 600 3-12 [id number] tablet by ity of mg tablet 00:00: mouth [place] 00 every 6 Medical (six) Branch hours as needed for Pain (scale 4-6). ibuprofen 2020-0 Yes [id number] 600mg Take 1 Univers (IBU) 600 3-12 [id number] tablet by ity of mg tablet 00:00: mouth [place] 00 every 6 Medical (six) Branch hours as needed for Pain (scale 4-6). ibuprofen 2020-0 Yes [id number] 600mg Take 1 Univers (IBU) 600 3-12 [id number] tablet by ity of mg tablet 00:00: mouth [place] 00 every 6 Medical (six) Branch hours as needed for Pain (scale 4-6). ibuprofen 2020-0 Yes [id number] 600mg Take 1 Univers (IBU) 600 3-12 [id number] tablet by ity of mg tablet 00:00: mouth [place] 00 every 6 Medical (six) Branch hours as needed for Pain (scale 4-6). ibuprofen 2020-0 Yes [id number] 600mg Take 1 Univers (IBU) 600 3-12 [id number] tablet by ity of mg tablet 00:00: mouth [place] 00 every 6 Medical (six) Branch hours as needed for Pain (scale 4-6). ibuprofen 2020-0 Yes [id number] 600mg Take 1 Univers (IBU) 600 3-12 [id number] tablet by ity of mg tablet 00:00: mouth [place] 00 every 6 Medical (six) Branch hours as needed for Pain (scale 4-6). ibuprofen 2020-0 Yes [id number] 600mg Take 1 Univers (IBU) 600 3-12 [id number] tablet by ity of mg tablet 00:00: mouth [place] 00 every 6 Medical (six) Branch hours as needed for Pain (scale 4-6). ibuprofen Yes [id number] 600mg Take 1 Univers (IBU) 600 3-12 [id number] tablet by ity of mg tablet 00:00: mouth [place] 00 every 6 Medical (six) Branch hours as needed for Pain (scale 4-6). ibuprofen Yes [id number] 600mg Take 1 Univers (IBU) 600 3-12 [id number] tablet by ity of mg tablet 00:00: mouth [place] 00 every 6 Medical (six) Branch hours as needed for Pain (scale 4-6). cephALEXin 2020- No [id number] 500mg Take 1 Univers (KEFLEX) 3-12 -20 [id number] capsule by it y of 500 mg 00:00: 04:59 mouth 4 [place] capsule 00 :00 (four) Medical times Branch daily for 7 days. traMADoL 50 2020- No [id number] 50mg Take 1 Uni vers mg tablet 01-11-20 tablet by ity of 00:00: 04:59 mouth [place] 00 :00 every 6 Medical (six) Branch hours as needed for Pain (scale 7-10) for up to 7 days. Indication s: acute pain methocarbam 2019-11 Yes [id number] 500mg Take 1 Univers oL 2-08 tablet by ity of (ROBAXIN) 00:00: mouth [place] 500 mg 00 every 6 Medical tablet (six) Branch hours as needed (MUSCLE SPASM). naproxen 2019-11 Yes [id number] 550mg Take 1 U nivers sodium 550 2-08 tablet by ity of mg tablet 00:00: mouth 2 [place] 00 (two) Medical times Branch daily with meals. methocarbam 2019-11 Yes [id number] 500mg Take 1 Univers oL 2-08 tablet by ity of (ROBAXIN) 00:00: mouth [place] 500 mg 00 every 6 Medical tablet (six) Branch hours as needed (MUSCLE SPASM). naproxen 2019-11 Yes [id number] 550mg Take 1 U nivers sodium 550 2-08 tablet by ity of mg tablet 00:00: mouth 2 [place] 00 (two) Medical times Branch daily with meals. methocarbam 2020-1 Yes [id number] 500mg Take 1 Univers oL 2-08 tablet by ity of (ROBAXIN) 00:00: mouth [place] 500 mg 00 every 6 Medical tablet (six) Branch hours as needed (MUSCLE SPASM). naproxen 2019- Yes [id number] 550mg Take 1 U nivers sodium 550 2-08 tablet by ity of mg tablet 00:00: mouth 2 [place] 00 (two) Medical times Branch daily with meals. methocarbam 2020- Yes [id number] 500mg Take 1 Univers oL 2-08 tablet by ity of (ROBAXIN) 00:00: mouth [place] 500 mg 00 every 6 Medical tablet (six) Branch hours as needed (MUSCLE SPASM). naproxen 2019- Yes [id number] 550mg Take 1 U nivers sodium 550 2-08 tablet by ity of mg tablet 00:00: mouth 2 [place] 00 (two) Medical times Branch daily with meals. methocarbam 2019- Yes [id number] 500mg Take 1 Univers oL 2-08 tablet by ity of (ROBAXIN) 00:00: mouth [place] 500 mg 00 every 6 Medical tablet (six) Branch hours as needed (MUSCLE SPASM). naproxen 2019- Yes [id number] 550mg Take 1 U nivers sodium 550 2-08 tablet by ity of mg tablet 00:00: mouth 2 (two) Medical times Branch daily with meals. methocarbam 2019- Yes [id number] 500mg Take 1 Univers oL 2-08 tablet by ity of (ROBAXIN) 00:00: mouth [place] 500 mg 00 every 6 Medical tablet (six) Branch hours as needed (MUSCLE SPASM). naproxen 2019- Yes [id number] 550mg Take 1 U nivers sodium 550 2-08 tablet by ity of mg tablet 00:00: mouth 2 00 (two) Medical times Branch daily with meals. methocarbam 2019- Yes [id number] 500mg Take 1 Univers oL 2-08 tablet by ity of (ROBAXIN) 00:00: mouth [place] 500 mg 00 every 6 Medical tablet (six) Branch hours as needed (MUSCLE SPASM). naproxen 2019- Yes [id number] 550mg Take 1 U nivers sodium 550 2-08 tablet by ity of mg tablet 00:00: mouth 2 (two) Medical times Branch daily with meals. methocarbam 2019-11 No [id number] 500mg Take 1 Univers oL 2-08 08-21 tablet by ity of (ROBAXIN) 00:00: 00:00 mouth [place] 500 mg 00 :00 every 6 Medical tablet (six) Branch hours as needed (MUSCLE SPASM). naproxen 2019-11- No [id number] 550mg Take 1 Univers sodium 550 2- 08-21 tablet by ity of mg tablet 00:00: 00:00 mouth 2 [place] 00 :00 (two) Medical times Branch daily with meals. methocarbam 2019-11- No [id number] 500mg Take 1 Univers oL 2-08 08-21 tablet by ity of (ROBAXIN) 00:00: 00:00 mouth [place] 500 mg 00 :00 every 6 Medical tablet (six) Branch hours as needed (MUSCLE SPASM). naproxen 2019-11 No [id number] 550mg Take 1 Univers sodium 550 2-06 09-21 tablet by ity of mg tablet 00:00: 00:00 mouth 2 [place] 00 :00 (two) Medical times Branch daily with meals. [...] 00:00: (one) time 00 each day. leflunomide 2020- Yes 10mg QD Take 10 mg UT (Arava) 10 0-21 by mouth 1 Hea lth MG tablet 00:00: (one) time 00 each day. leflunomide 2019- Yes 10mg QD Take 10 mg UT (Arava) 10 0-21 by mouth 1 Hea lth MG tablet 00:00: (one) time 00 each day. Accu-Chek 2020-1 Yes Q.[id number] 3 (three) [facility] Guide test 0-02 [id number] times a Health strip 00:00: 3D day. 00 Accu-Chek 2020-1 Yes Q.80002220 3 (three) [facility] Guide test 0-02 [id number] times a Health strip 00:00: 3D day. 00 Accu-Chek 2020-1 Yes Q.[id number] 3 (three) [facility] Guide test 0-02 [id number] times a Health strip 00:00: 3D day. 00 Accu-Chek 2020-1 Yes Q.[id number] 3 (three) [facility] Guide test 0-02 [id number] times a Health strip 00:00: 3D day. 00 Accu-Chek 2020-1 Yes Q.50775343 3 (three) [facility] Guide test 0-02 [id number] times a Health strip 00:00: 3D day. 00 Accu-Chek 2020-1 Yes Q.66720437 3 (three) [facility] Guide test 0-02 [id number] times a Health strip 00:00: 3D day. 00 montelukast 2019- 2020- No 10mg Take 10 mg Univers 10 mg 8- 08-19 by mouth. ity of tablet 19:23: 00:00 [place] 30 :00 [facility] montelukast 2019- 2020- No 10mg Take 10 mg Univers 10 mg 8- 08-19 by mouth. ity of tablet 19:23: 00:00 [place] 30 :00 [facility] montelukast 2019-0 2020- No 10mg Take 10 mg Univers 10 mg 8- 08-19 by mouth. ity of tablet 19:23: 00:00 [place] 30 :00 [facility] esomeprazol 2019-2019- No 40mg Take 40 mg Univers e (NEXIUM) 8- 08-19 by mouth ity of 40 mg 19:23: 00:00 daily with [place] capsule 18 :00 breakfast. [facility] esomeprazol 2020- No 40mg Take 40 mg Univers e (NEXIUM) 8- 08-19 by mouth ity of 40 mg 19:23: 00:00 daily with [place] capsule 18 :00 breakfast. Medica l Branch esomeprazol 0 2020- No 40mg Take 40 mg Univers e (NEXIUM) 8-19 08-19 by mouth ity of 40 mg 19:23: 00:00 daily with [place] capsule 18 :00 breakfast. Medica l Branch buPROPion 2019- No 300mg Take 300 Un mercy (WELLBUTRIN 8-19 08-19 mg by ity of ) 100 mg 19:23: 00:00 mouth [place] tablet 15 :00 daily. Medical Branch buPROPion 2019-0 2020- No 300mg Take 300 Un mercy (WELLBUTRIN 8-19 08-19 mg by ity of ) 100 mg 19:23: 00:00 mouth [place] tablet 15 :00 daily. Medical Branch buPROPion 2019-0 2020- No 300mg Take 300 Un mercy (WELLBUTRIN 8-19 08-19 mg by ity of ) 100 mg 19:23: 00:00 mouth [place] tablet 15 :00 daily. Medical Branch traZODone 0 Yes 50mg Take 50 mg Un mercy 50 mg 8-19 by mouth ity of tablet 19:11: at [place] 04 bedtime. Medical Branch losartan-hy 2019-0 Yes 1{tbl} Take 1 Un mercy drochloroth 8-19 tablet by ity of iazide 19:11: mouth [place] 100-12.5 mg 04 daily. Medica l per tablet Branch insulin Yes 50U inject 50 Unive rs degludec 8-19 Units ity of (TRESIBA 19:11: under the [place] U-100 04 skin. Medical INSULIN SC) Branch icosapent 0 Yes 1g Take 1 g Univ ers [...] by mouth ity of tablet 19:11: at [place] 04 bedtime. Medical Branch insulin 2020-0 Yes [...] by mouth ity of tablet 19:11: at [place] 04 bedtime. Medical Branch losartan-hy 2019-0 Yes [...] by mouth ity of tablet 19:11: at [place] 04 bedtime. Medical Branch insulin 2020-0 Yes [...] Units ity of RAPID 19:11: under the [place] (NOVOLOG 04 skin 3 Medical U-100 (three) [...] by mouth ity of tablet 19:11: at [place] [address] bedtime. Medical Branch losartan-hy 2020-0 Yes 1{tbl} [...] by mouth ity of tablet 19:11: at [place] 04 bedtime. Medical Branch insulin 2020-0 Yes [...] by mouth ity of tablet 19:11: at [place] 04 bedtime. Medical Branch insulin 2020-0 Yes [...] by mouth ity of tablet 19:11: at [place] [address] bedtime. Medical Branch losartan-hy 2020-0 Yes 1{tbl} [...] by mouth ity of tablet 19:11: at [place] [address] bedtime. Medical Branch insulin 2019-0 Yes 8U [...] by mouth ity of tablet 19:11: at [place] 04 bedtime. Medical Branch losartan-hy 2020-0 Yes [...] by mouth ity of tablet 19:11: at [place] 04 bedtime. Medical Branch insulin 2020-0 Yes 8U inject 8 Univer s aspart 8-19 Units ity of RAPID 19:11: under the [place] (NOVOLOG 04 skin 3 Medical U-100 (three) [...] by mouth ity of tablet 19:11: at [place] [address] bedtime. Medical Branch losartan-hy 2020-0 Yes 1{tbl} [...] by mouth ity of tablet 19:11: at [place] [address] bedtime. Medical Branch insulin 2019-0 Yes 8U [...] by mouth ity of tablet 19:11: at [place] 04 bedtime. Medical Branch losartan-hy 2019-0 Yes [...] by mouth ity of tablet 19:11: at [place] 04 bedtime. Medical Branch insulin 2020-0 Yes [...] by mouth ity of tablet 19:11: at [place] [address] bedtime. Medical Branch insulin 2019-0 Yes 8U inject 8 Univer s aspart 8-19 Units ity of RAPID 19:11: under the [place] (NOVOLOG 04 skin 3 Medical U-100 (three) Branch INSULIN times ASPART) 100 daily with unit/mL meals. injection OMEPRAZOLE 2019-0 Yes 40mg Take 40 mg U nivers ORAL 8-19 by mouth 2 ity of 19:11: (two) [place] 04 times Medical daily. Branch MELOXICAM 2019-0 [...] by mouth ity of tablet 19:11: at [place] [address] bedtime. Medical Branch losartan-hy 2019-0 Yes 1{tbl} [...] by ity of tablet 19:11: mouth 4 [place] 04 (four) Medical times Branch daily. allopurinoL 2020-0 Yes 100mg Take 100 U nivers 100 mg 8-19 mg by ity of tablet 19:11: mouth [place] 04 daily. Medical Branch atorvastati 2020-0 Yes 40mg Take 40 mg [facility] n 40 mg 8-19 by mouth ity of tablet 19:11: at [place] [address] bedtime. Medical Branch insulin 2020-0 Yes 8U inject 8 Univer s aspart 8-19 Units ity of RAPID 19:11: under the [place] (NOVOLOG 04 skin 3 Medical U-100 (three) Branch INSULIN times ASPART) 100 daily with unit/mL meals. injection OMEPRAZOLE 2020-0 Yes 40mg Take 40 mg U nivers ORAL 8-19 by mouth 2 ity of 19:11: (two) [place] [address] times Medical daily. Branch MELOXICAM 2019-0 Yes 15mg Take 15 mg [facility] ORAL 8-19 by mouth. ity of 19:11: Indication s: as Medical needed Branch levothyroxi 2020-0 Yes 200ug Take 200 U nivers ne 200 mcg 8-19 mcg by ity of Cap 19:11: mouth. [place] [facility] traZODone 2019-0 Yes 50mg Take 50 mg [facility] 50 mg 8-19 by mouth ity of tablet 19:11: at [place] [address] bedtime. Medical Branch losartan-hy 2020-0 Yes 1{tbl} [...] by ity of tablet 19:11: mouth 4 [place] 04 (four) Medical times Branch daily. allopurinoL 2020-0 Yes 100mg Take 100 U nivers 100 mg 8-19 mg by ity of tablet 19:11: mouth [place] 04 daily. Medical Branch atorvastati 2020-0 Yes 40mg Take 40 mg [facility] n 40 mg 8-19 by mouth ity of tablet 19:11: at [place] 04 bedtime. Medical Branch insulin 2020-0 Yes [...] by mouth ity of tablet 19:11: at [place] [address] bedtime. Medical Branch losartan-hy 2019-0 Yes 1{tbl} [...] by mouth ity of tablet 19:11: at [place] 04 bedtime. Medical Branch insulin 2020-0 Yes [...] by mouth ity of tablet 19:11: at [place] 04 bedtime. Medical Branch losartan-hy 2020-0 Yes [...] by mouth ity of tablet 19:11: at [place] 04 bedtime. Medical Branch losartan-hy 2020-0 Yes [...] by mouth ity of tablet 19:11: at [place] 04 bedtime. Medical Branch insulin 2020-0 Yes [...] by mouth 2 ity of 19:11: (two) 04 times Medical daily. Branch MELOXICAM 2020-0 Yes 15mg Take 15 mg [facility] ORAL 8-19 by mouth. ity of 19:11: Indication s: as Medical needed Branch levothyroxi 2020-0 Yes 200ug Take 200 U nivers ne 200 mcg 8-19 mcg by ity of Cap 19:11: mouth. Medical Branch insulin 2020-0 Yes 50U inject 50 Unive rs degludec 8-19 Units ity of (TRESIBA 14:11: [place] U-100 04 skin. Medical INSULIN SC) Branch icosapent 2020-0 Yes 1g Take 1 g Univ ers ethyL 8-19 by mouth ity of (VASCEPA) 1 14:11: daily. [place] gram 04 Medical capsule Branch sulfaSALAzi 2020-0 Yes 500mg Take 500 U nivers ne 500 mg 8-19 mg by ity of tablet 14:11: mouth 4 (four) Medical times Branch daily. allopurinoL 2020-0 Yes 100mg Take 100 [facility] 100 mg 8-19 mg by ity of tablet 14:11: mouth daily. Medical Branch atorvastati 2020-0 Yes 40mg Take 40 mg [facility] n 40 mg 8-19 by mouth ity of tablet 14:11: at [place] [address] bedtime. Medical Branch insulin 2020-0 Yes 8U inject 8 [facility] aspart 8-19 Units ity of RAPID 14:11: under the [place] (NOVOLOG 04 skin 3 Medical U-100 (three) Branch INSULIN times ASPART) 100 daily with unit/mL meals. injection OMEPRAZOLE 2020-0 Yes 40mg Take 40 mg [facility] ORAL 8-19 by mouth 2 ity of 14:11: (two) [place] times Medical daily. Branch MELOXICAM 2020-0 Yes 15mg Take 15 mg [facility] ORAL 8-19 by mouth. ity of 14:11: Indication s: as Medical needed Branch levothyroxi 2020-0 Yes 200ug Take 200 U nivers ne 200 mcg 8-19 mcg by ity of Cap 14:11: mouth. Medical Branch traZODone 2020-0 Yes 50mg Take 50 mg [facility] 50 mg 8-19 by mouth ity of tablet 14:11: at [place] 04 bedtime. Medical Branch losartan-hy 2020-0 Yes 1{tbl} Take 1 [facility] drochloroth 8-19 tablet by ity of iazide 14:11: mouth [place] 100-12.5 mg 04 daily. Medica l per tablet Branch insulin 2020-0 Yes 50U inject 50 Unive rs degludec 8-19 Units ity of (TRESIBA 14:11: under the [place] U-100 04 skin. Medical INSULIN SC) Branch icosapent 2020-0 Yes 1g Take 1 g Univ ers ethyL 8-19 by mouth ity of (VASCEPA) 1 14:11: daily. [place] gram 04 Medical capsule Branch sulfaSALAzi 2020-0 Yes 500mg Take 500 U nivers ne 500 mg 8-19 mg by ity of tablet 14:11: mouth 4 [place] 04 (four) Medical times Branch daily. allopurinoL 2020-0 Yes 100mg Take 100 [facility] 100 mg 8-19 mg by ity of tablet 14:11: mouth [place] 04 daily. Medical Branch atorvastati 2020-0 Yes 40mg Take 40 mg [facility] n 40 mg 8-19 by mouth ity of tablet 14:11: at [place] 04 bedtime. Medical Branch insulin 2020-0 Yes 8U inject 8 [facility] aspart 8-19 Units ity of RAPID 14:11: under the [place] (NOVOLOG 04 skin 3 Medical U-100 (three) Branch INSULIN times ASPART) 100 daily with unit/mL meals. injection OMEPRAZOLE 2020-0 Yes 40mg Take 40 mg U [facility] ORAL 8-19 by mouth 2 ity of 14:11: (two) [place] 04 times Medical daily. Branch MELOXICAM 2020-0 Yes 15mg Take 15 mg [facility] ORAL 8-19 by mouth. ity of 14:11: Indication s: as Medical needed Branch levothyroxi 2020-0 Yes 200ug Take 200 U nivers ne 200 mcg 8-19 mcg by ity of Cap 14:11: mouth. 04 Medical Branch traZODone 2020-0 Yes 50mg Take 50 mg [facility] 50 mg 8-19 by mouth ity of tablet 14:11: at [place] 04 bedtime. Medical Branch losartan-hy 2020-0 Yes 1{tbl} Take 1 [facility] drochloroth 8-19 tablet by ity of iazide 14:11: mouth [place] 100-12.5 mg 04 daily. Medica l per tablet Branch insulin 2019-0 Yes 50U inject 50 Unive rs degludec 8-19 Units ity of (TRESIBA 14:11: under the [place] U-100 04 skin. Medical INSULIN SC) Branch icosapent 2019-0 Yes 1g Take 1 g Univ ers ethyL 8-19 by mouth ity of (VASCEPA) 1 14:11: daily. [place] gram 04 Medical capsule Branch sulfaSALAzi 2019-0 Yes 500mg Take 500 U nivers ne 500 mg 8-19 mg by ity of tablet 14:11: mouth 4 [place] 04 (four) Medical times Branch daily. allopurinoL 2019-0 Yes 100mg Take 100 U [facility]ivers 100 mg 8-19 mg by ity of tablet 14:11: mouth [place] 04 daily. Medical Branch atorvastati 2019-0 Yes 40mg Take 40 mg [facility] n 40 mg 8-19 by mouth ity of tablet 14:11: at [place] 04 bedtime. Medical Branch insulin 2019-0 Yes 8U inject 8 [facility] aspart 8-19 Units ity of RAPID 14:11: under the [place] (NOVOLOG 04 skin 3 Medical U-100 (three) Branch INSULIN times ASPART) 100 daily with unit/mL meals. injection OMEPRAZOLE 2019-0 Yes 40mg Take 40 mg [facility] ORAL 8-19 by mouth 2 ity of 14:11: (two) [place] 04 times Medical daily. Branch MELOXICAM 2019-0 Yes 15mg Take 15 mg [facility] ORAL 8-19 by mouth. ity of 14:11: Indication 04 s: as Medical needed Branch levothyroxi 2019-0 Yes 200ug Take 200 U nivers ne 200 mcg 8-19 mcg by ity of Cap 14:11: mouth. 04 Medical Branch traZODone 2019-0 Yes 50mg Take 50 mg [facility] 50 mg 8-19 by mouth ity of tablet 14:11: at [place] 04 bedtime. Medical Branch losartan-hy 2019-0 Yes 1{tbl} Take 1 [facility] drochloroth 8-19 tablet by ity of iazide 14:11: mouth [place] 100-12.5 mg 04 daily. Medica l per tablet Branch insulin 0 Yes 50U inject 50 Unive rs degludec 8-19 Units ity of (TRESIBA 14:11: under the [place] U-100 04 skin. Medical INSULIN SC) Branch icosapent 2020-0 Yes 1g Take 1 g Univ ers ethyL 8-19 by mouth ity of (VASCEPA) 1 14:11: daily. [place] gram 04 Medical capsule Branch sulfaSALAzi 2020-0 Yes 500mg Take 500 U nivers ne 500 mg 8-19 mg by ity of tablet 14:11: mouth 4 [place] 04 (four) Medical times Branch daily. allopurinoL 2020-0 Yes 100mg Take 100 [facility] 100 mg 8-19 mg by ity of tablet 14:11: mouth [place] 04 daily. Medical Branch atorvastati 2020-0 Yes 40mg Take 40 mg [facility] n 40 mg 8-19 by mouth ity of tablet 14:11: at [place] 04 bedtime. Medical Branch insulin 2019-0 Yes 8U inject 8 [facility] aspart 8-19 Units ity of RAPID 14:11: under the [place] (NOVOLOG 04 skin 3 Medical U-100 (three) Branch INSULIN times ASPART) 100 daily with unit/mL meals. injection OMEPRAZOLE 2020-0 Yes 40mg Take 40 mg U nivers ORAL 8-19 by mouth 2 ity of 14:11: (two) [place] 04 times Medical daily. Branch MELOXICAM 2019-0 Yes 15mg Take 15 mg [facility] ORAL 8-19 by mouth. ity of 14:11: Indication s: as Medical needed Branch levothyroxi 2020-0 Yes 200ug Take 200 U nivers ne 200 mcg 8-19 mcg by ity of Cap 14:11: mouth. [place] 04 Medical Branch traZODone 2020-0 Yes 50mg Take 50 mg [facility] 50 mg 8-19 by mouth ity of tablet 14:11: at [place] 04 bedtime. Medical Branch losartan-hy 2020-0 Yes 1{tbl} Take 1 [facility] drochloroth 8-19 tablet by ity of iazide 14:11: mouth [place] 100-12.5 mg 04 daily. Medica l per tablet Branch insulin 2019-0 Yes 50U inject 50 Unive rs degludec 8-19 Units ity of (TRESIBA 14:11: under the [place] U-100 04 skin. Medical INSULIN SC) Branch icosapent 2020-0 Yes 1g Take 1 g [facility] ers ethyL 8-19 by mouth ity of (VASCEPA) 1 14:11: daily. [place] gram 04 Medical capsule Branch sulfaSALAzi 2020-0 Yes 500mg Take 500 U nivers ne 500 mg 8-19 mg by ity of tablet 14:11: mouth 4 (four) Medical times Branch daily. allopurinoL 2020-0 Yes 100mg Take 100 U [facility]ivers 100 mg 8-19 mg by ity of tablet 14:11: mouth [place] 04 daily. Medical Branch atorvastati 2020-0 Yes 40mg Take 40 mg [facility] n 40 mg 8-19 by mouth ity of tablet 14:11: at [place] [address] bedtime. Medical Branch insulin 2020-0 Yes 8U inject 8 [facility] s aspart 8-19 Units ity of RAPID 14:11: under the [place] (NOVOLOG 04 skin 3 Medical U-100 (three) Branch INSULIN times ASPART) 100 daily with unit/mL meals. injection OMEPRAZOLE 2020-0 Yes 40mg Take 40 mg U nivers ORAL 8-19 by mouth 2 ity of 14:11: (two) times Medical daily. Branch levothyroxi 2020-0 Yes 200ug Take 200 U nivers ne 200 mcg 8-19 mcg by ity of Cap 14:11: mouth. Medical Branch insulin 2020-0 Yes 50U inject 50 Unive rs degludec 8-19 Units ity of (TRESIBA 14:11: under the [place] U-100 04 skin. Medical INSULIN SC) Branch icosapent 2020-0 Yes 1g Take 1 g [facility] ers ethyL 8-19 by mouth ity of (VASCEPA) 1 14:11: daily. [place] gram 04 Medical capsule Branch sulfaSALAzi 2020-0 Yes 500mg Take 500 U nivers ne 500 mg 8-19 mg by ity of tablet 14:11: mouth 4 (four) Medical times Branch daily. allopurinoL 2020-0 Yes 100mg Take 100 U nivers 100 mg 8-19 mg by ity of tablet 14:11: mouth 04 daily. Medical Branch atorvastati 2020-0 Yes 40mg Take 40 mg [facility] n 40 mg 8-19 by mouth ity of tablet 14:11: at [place] [address] bedtime. Medical Branch insulin 2020-0 Yes 8U inject 8 Un[facility] s aspart 8-19 Units ity of RAPID 14:11: under the [place] (NOVOLOG 04 skin 3 Medical U-100 (three) Branch INSULIN times ASPART) 100 daily with unit/mL meals. injection OMEPRAZOLE 2020-0 Yes 40mg Take 40 mg U nivers ORAL 8-19 by mouth 2 ity of 14:11: (two) 04 times Medical daily. Branch levothyroxi 2020-0 Yes 200ug Take 200 U nivers ne 200 mcg 8-19 mcg by ity of Cap 14:11: mouth. Medical Branch insulin 2020-0 Yes 50U inject 50 Unive rs degludec 8-19 Units ity of (TRESIBA 14:11: under the [place] U-100 04 skin. Medical INSULIN SC) Branch icosapent 2020-0 Yes 1g Take 1 g [facility] ers ethyL 8-19 by mouth ity of (VASCEPA) 1 14:11: daily. [place] gram 04 Medical capsule Branch sulfaSALAzi 2020-0 Yes 500mg Take 500 U nivers ne 500 mg 8-19 mg by ity of tablet 14:11: mouth 4 (four) Medical times Branch daily. allopurinoL 2020-0 Yes 100mg Take 100 U nivers 100 mg 8-19 mg by ity of tablet 14:11: mouth daily. Medical Branch atorvastati 2020-0 Yes 40mg Take 40 mg [facility] n 40 mg 8-19 by mouth ity of tablet 14:11: at [place] 04 bedtime. Medical Branch insulin 2020-0 Yes 8U inject 8 Univer s aspart 8-19 Units ity of RAPID 14:11: under the [place] (NOVOLOG 04 skin 3 Medical U-100 (three) Branch INSULIN times ASPART) 100 daily with unit/mL meals. injection OMEPRAZOLE 2020-0 Yes 40mg Take 40 mg U nivers ORAL 8-19 by mouth 2 ity of 14:11: (two) times Medical daily. Branch levothyroxi 2020-0 Yes 200ug Take 200 U nivers ne 200 mcg 8-19 mcg by ity of Cap 14:11: mouth. Medical Branch insulin 2020-0 Yes 50U inject 50 Unive rs degludec 8-19 Units ity of (TRESIBA 14:11: under the [place] U-100 04 skin. Medical INSULIN SC) Branch icosapent 2020-0 Yes 1g Take 1 g Univ ers ethyL 8-19 by mouth ity of (VASCEPA) 1 14:11: daily. [place] gram 04 Medical capsule Branch sulfaSALAzi 2020-0 Yes 500mg Take 500 U nivers ne 500 mg 8-19 mg by ity of tablet 14:11: mouth 4 (four) Medical times Branch daily. allopurinoL 2020-0 Yes 100mg Take 100 U nivers 100 mg 8-19 mg by ity of tablet 14:11: mouth [place] 04 daily. Medical Branch atorvastati 2020-0 Yes 40mg Take 40 mg [facility] n 40 mg 8-19 by mouth ity of tablet 14:11: at [place] [address] bedtime. Medical Branch insulin 2020-0 Yes 8U inject 8 Un[facility] s aspart 8-19 Units ity of RAPID 14:11: under the [place] (NOVOLOG 04 skin 3 Medical U-100 (three) Branch INSULIN times ASPART) 100 daily with unit/mL meals. injection OMEPRAZOLE 2020-0 Yes 40mg Take 40 mg U nivers ORAL 8-19 by mouth 2 ity of 14:11: (two) [place] [address] times Medical daily. Branch levothyroxi 2020-0 Yes 200ug Take 200 U nivers ne 200 mcg 8-19 mcg by ity of Cap 14:11: mouth. Medical Branch insulin 2020-0 Yes 50U inject 50 Unive rs degludec 8-19 Units ity of (TRESIBA 14:11: under the [place] U-100 04 skin. Medical INSULIN SC) Branch icosapent 2020-0 Yes 1g Take 1 g Univ ers ethyL 8-19 by mouth ity of (VASCEPA) 1 14:11: daily. [place] gram 04 Medical capsule Branch sulfaSALAzi 2020-0 Yes 500mg Take 500 U nivers ne 500 mg 8-19 mg by ity of tablet 14:11: mouth 4 (four) Medical times Branch daily. allopurinoL 2020-0 Yes 100mg Take 100 U nivers 100 mg 8-19 mg by ity of tablet 14:11: mouth [place] 04 daily. Medical Branch atorvastati 2020-0 Yes 40mg Take 40 mg [facility] n 40 mg 8-19 by mouth ity of tablet 14:11: at [place] [address] bedtime. Medical Branch insulin 2020-0 Yes 8U inject 8 Un[facility] s aspart 8-19 Units ity of RAPID 14:11: under the [place] (NOVOLOG 04 skin 3 Medical U-100 (three) Branch INSULIN times ASPART) 100 daily with unit/mL meals. injection OMEPRAZOLE 2020-0 Yes 40mg Take 40 mg U nivers ORAL 8-19 by mouth 2 ity of 14:11: (two) times Medical daily. Branch levothyroxi 2020-0 Yes 200ug Take 200 U nivers ne 200 mcg 8-19 mcg by ity of Cap 14:11: mouth. Medical Branch insulin 2020-0 Yes 50U inject 50 Un[facility] rs degludec 8-19 Units ity of (TRESIBA 14:11: under the [place] U-100 04 skin. Medical INSULIN SC) Branch icosapent 2020-0 Yes 1g Take 1 g [facility] ers ethyL 8-19 by mouth ity of (VASCEPA) 1 14:11: daily. [place] gram 04 Medical capsule Branch sulfaSALAzi 2020-0 Yes 500mg Take 500 U nivers ne 500 mg 8-19 mg by ity of tablet 14:11: mouth 4 (four) Medical times Branch daily. allopurinoL 2020-0 Yes 100mg Take 100 U [facility]ivers 100 mg 8-19 mg by ity of tablet 14:11: mouth daily. Medical Branch atorvastati 2020-0 Yes 40mg Take 40 mg [facility] n 40 mg 8-19 by mouth ity of tablet 14:11: at [place] [address] bedtime. Medical Branch insulin 2020-0 Yes 8U inject 8 Un[facility] s aspart 8-19 Units ity of RAPID 14:11: under the [place] (NOVOLOG 04 skin 3 Medical U-100 (three) Branch INSULIN times ASPART) 100 daily with unit/mL meals. injection OMEPRAZOLE 2020-0 Yes 40mg Take 40 mg U nivers ORAL 8-19 by mouth 2 ity of 14:11: (two) times Medical daily. Branch levothyroxi 2020-0 Yes 200ug Take 200 U nivers ne 200 mcg 8-19 mcg by ity of Cap 14:11: mouth. Medical Branch insulin 2020-0 Yes 50U inject 50 Un[facility] rs degludec 8-19 Units ity of (TRESIBA 14:11: under the [place] U-100 04 skin. Medical INSULIN SC) Branch icosapent 2020-0 Yes 1g Take 1 g Univ ers ethyL 8-19 by mouth ity of (VASCEPA) 1 14:11: daily. [place] gram 04 Medical capsule Branch sulfaSALAzi 2019-0 Yes 500mg Take 500 U nivers ne 500 mg 8-19 mg by ity of tablet 14:11: mouth 4 [place] 04 (four) Medical times Branch daily. allopurinoL 2019-0 Yes 100mg Take 100 U nivers 100 mg 8-19 mg by ity of tablet 14:11: mouth [place] 04 daily. Medical Branch atorvastati 2019-0 Yes 40mg Take 40 mg [facility] n 40 mg 8-19 by mouth ity of tablet 14:11: at [place] 04 bedtime. Medical Branch insulin 2019-0 Yes 8U inject 8 Un[facility] s aspart 8-19 Units ity of RAPID 14:11: under the [place] (NOVOLOG 04 skin 3 Medical U-100 (three) Branch INSULIN times ASPART) 100 daily with unit/mL meals. injection OMEPRAZOLE Yes 40mg Take 40 mg U nivers ORAL 8-19 by mouth 2 ity of 14:11: (two) [place] 04 times Medical daily. Branch levothyroxi 0 Yes 200ug Take 200 U nivers ne 200 mcg 8-19 mcg by ity of Cap 14:11: mouth. [place] 04 Medical Branch buPROPion 2017-11 Yes 300mg [...] Take 10 mL Univers e 6.25 mg/5 - by mouth ity of mL solution 00:00: every 4 [place] 00 (four) Medical hours as Branch needed for Nausea and Vomiting (N/V). amLODIPine 2017-11- No 10mg Take 1 Univ ers 10 mg 12-09- tablet by ity of tablet 00:00: 00:00 mouth [place] 00 :00 daily. Medical Branch indapamide 2017-11- No 2.5mg Take 1 Uni vers 2.5 mg 12-09- tablet by ity of tablet 00:00: 00:00 mouth [place] 00 :00 daily. Medical Branch HYDROcodone 2017-11 2020- No 1{tbl} Take 1 U nivers -acetaminop -05 09-19 tablet by it y of hen (NORCO) 00:00: 00:00 mouth [place] 10-325 [place] 00 :00 every 6 Medical tablet (six) Branch hours as needed for Pain (scale 1-3), Pain (scale 4-6) or Pain (scale 7-10). promethazin 2017-11- No 12.5mg Take 10 mL [facility] e 6.25 mg/5 12-09- by mouth ity of mL solution 00:00: 00:00 every 4 [place] 00 :00 (four) Medical hours as Branch needed for Nausea and Vomiting (N/V). amLODIPine 2017-11- No 10mg Take 1 Univ ers 10 mg 12-09- tablet by ity of tablet 00:00: 00:00 mouth [place] 00 :00 daily. Medical Branch indapamide 2017-11 2020- No 2.5mg Take 1 Uni vers 2.5 mg 12-09- tablet by ity of tablet 00:00: 00:00 mouth [place] 00 :00 daily. Medical Branch HYDROcodone 2017-11- No 1{tbl} Take 1 U nivers -acetaminop 12-09- tablet by it y of hen (NORCO) [...] [place] 00 :00 daily. Medical Branch indapamide 2017-11- No 2.5mg Take 1 Uni vers 2.5 [...] for Nausea and Vomiting (N/V). Syringe, Yes [id number] Use as [facility] Disposable, 03-25 directed ity of Syrg 00:00: [place] 00 Medical Branch Syringe, 2019- No [id number] Use as U nivers Disposable, 03-25 directed ity of Syrg 00:00: 00:00 [place] 00 :00 Medical Branch Syringe, 2019- No [id number] Use as U nivers Disposable, 03-25 directed ity of Syrg 00:00: 00:00 [place] 00 :00 Medical Branch Syringe, 2020- No [id number] Use as U nivers Disposable, 03-25 directed ity of Syrg 00:00: 00:00 [place] 00 :00 Medical Branch ferrous 2017- Yes [id number] 325mg Take 1 [facility] sulfate 325 5-16 tablet by ity of mg (65 mg 00:00: mouth 2 [place] iron) 00 (two) Medical tablet times Branch daily. ascorbic Yes [id number] 500mg Take 1 U nivers acid, 5-16 tablet by ity of vitamin C, 00:00: mouth 3 [place] 500 mg 00 (three) Medical tablet times Branch daily. ferrous 2019- No [id number] 325mg Take 1 U nivers sulfate 325 03-17 tablet by it y of mg (65 mg 00:00: 00:00 mouth 2 [place] iron) 00 :00 (two) Medical tablet times Branch daily. ascorbic 2019- No [id number] 500mg Take 1 [facility] acid, 03-17 tablet by ity of vitamin C, 00:00: 00:00 mouth 3 [place] 500 mg 00 :00 (three) Medical tablet times Branch daily. ferrous 2019- No [id number] 325mg Take 1 U nivers sulfate 325 03-17 tablet by it y of mg (65 mg 00:00: 00:00 mouth 2 [place] iron) 00 :00 (two) Medical tablet times Branch daily. ascorbic 2019- No [id number] 500mg Take 1 [facility] acid, -16 -19 tablet by ity of vitamin C, 00:00: 00:00 mouth 3 [place] 500 mg 00 :00 (three) Medical tablet times Branch daily. ferrous 2020- No [id number] 325mg Take 1 U nivers sulfate 325 -17 06-19 tablet by it y of mg (65 mg 00:00: 00:00 mouth 2 [place] iron) 00 :00 (two) Medical tablet times Branch daily. ascorbic 2019- No [id number] 500mg Take 1 [facility] acid, -16 -19 tablet by ity of vitamin C, 00:00: 00:00 mouth 3 [place] 500 mg 00 :00 (three) Medical tablet times Branch daily. PNV 67-iron Yes [id number] 1{each} Take 1 Univers ps-folate 5-15 Each by ity of no.1-dha 00:00: mouth [place] (VITAFOL 00 daily. Medical ULTRA) 29 Branch mg iron- 1 mg-200 mg Cap PNV 67-iron 2020- No [id number] 1{each} Take 1 [facility] ps-folate 5-15 08-19 Each by ity of no.1-dha 00:00: 00:00 mouth [place] (VITAFOL 00 :00 daily. Medical ULTRA) 29 Branch mg iron- 1 mg-200 mg Cap PNV 67-iron 2020- No [id number] 1{each} Take 1 [facility] ps-folate 5-15 08-19 Each by ity of no.1-dha 00:00: 00:00 mouth [place] (VITAFOL 00 :00 daily. Medical ULTRA) 29 Branch mg iron- 1 mg-200 mg Cap PNV 67-iron 2020- No [id number] 1{each} Take 1 [facility] ps-folate 5-15 08-19 [...] hydrocortis Yes Apply to [facility] one 04-15 affected ity of (HYTONE) 00:00: area(s[place] 2 [place] 2.5 % cream 00 (two) Medical times Branch daily. hydrocortis 2020- No Apply to U na[facility] one -06-20 affected ity of (HYTONE) 00:00: 00:00 area(s) 2 [place] 2.5 % cream 00 :00 (two) Medical times Branch daily. hydrocortis 2020- No Apply to U naomi one 04-15 affected ity of (HYTONE) 00:00: 00:00 area(s) 2 [place] 2.5 % cream 00 :00 (two) Medical times Branch daily. hydrocortis 2019- No Apply to U naomi one 04-15 affected ity of (HYTONE) 00:00: 00:00 area(s) [...] Branch hours as needed for Allergies. diphenhydrA 2019- No 25mg Take 1 Uni vers MINE [...] as needed for Allergies. Immunizations Ordered Filled Date Status Comments Source Immunization Name Immunization Name SARS-COV-2 COVID-19 2021-02-04 Completed Unive rsity of VACCINE - (MODERNA) 00:00:00 [facility] SARS-COV-2 COVID-19 2021-02-04 Completed Unive rsity of VACCINE - (MODERNA) 00:00:00 [facility] SARS-COV-2 COVID-19 2021-02-04 Completed Unive rsity of VACCINE - (MODERNA) 00:00:00 [facility] SARS-COV-2 COVID-19 2021-02-04 Completed Unive rsity of VACCINE - (MODERNA) 00:00:00 [facility] SARS-COV-2 COVID-19 2021-02-04 Completed Unive rsity of VACCINE - (MODERNA) 00:00:00 [facility] SARS-COV-2 COVID-19 2021-02-04 Completed Unive rsity of VACCINE - (MODERNA) 00:00:00 [facility] SARS-COV-2 COVID-19 2021-01-07 Completed Unive rsity of VACCINE - (MODERNA) 00:00:00 [facility] SARS-COV-2 COVID-19 2021-01-07 Completed Unive rsity of VACCINE - (MODERNA) 00:00:00 [facility] SARS-COV-2 COVID-19 2021-01-07 Completed Unive rsity of VACCINE - (MODERNA) 00:00:00 [facility] SARS-COV-2 COVID-19 2021-01-07 Completed Unive rsity of VACCINE - (MODERNA) 00:00:00 [facility] SARS-COV-2 COVID-19 2021-01-07 Completed Unive rsity of VACCINE - (MODERNA) 00:00:00 [facility] SARS-COV-2 COVID-19 2021-01-07 Completed Unive rsity of VACCINE - (MODERNA) 00:00:00 [facility] TDAP 2017-07-03 Completed University of 00:00:00 [facility] TDAP 2017-07-03 Completed University of 00:00:00 [facility] TDAP 2017-07-03 Completed University of 00:00:00 [facility] TDAP 2017-07-03 Completed University of 00:00:00 [facility] TDAP 2017-07-03 Completed University of 00:00:00 [facility] TDAP 2017-07-03 Completed University of 00:00:00 [facility] TDAP 2017-07-03 Completed University of 00:00:00 [place] [facility] TDAP 2017-07-03 Completed University of 00:00:00 [place] [facility] TDAP 2017-07-03 Completed University of 00:00:00 [place] [facility] TDAP 2017-07-03 Completed University of 00:00:00 [place] [facility] TDAP 2017-07-03 Completed University of 00:00:00 [place] [facility] TDAP 2017-07-03 Completed University of 00:00:00 [place] [facility] TDAP 2017-07-03 Completed University of 00:00:00 [place] [facility] TDAP 2017-07-03 Completed University of 00:00:00 [place] [facility] TDAP 2017-07-03 Completed University of 00:00:00 [place] [facility] TDAP 2017-07-03 Completed University of 00:00:00 [place] [facility] TDAP 2017-07-03 Completed [facility] of 00:00:00 [facility] TDAP 2017-07-03 Completed [facility] 00:00:00 [facility] TDAP 2017-07-03 Completed [facility] 00:00:00 [facility] TDAP 2017-07-03 Completed [facility] 00:00:00 [facility] TDAP 2017-07-03 Completed [facility] 00:00:00 [facility] TDAP 2017-07-03 Completed [facility] 00:00:00 [facility] TDAP 2017-07-03 Completed University of 00:00:00 [facility] TDAP Unknown Completed [facility] SARS-COV-2 COVID-19 Unknown Completed Unive rsity of VACCINE - (MODERNA) [facility] SARS-COV-2 COVID-19 Unknown Completed Unive rsity of VACCINE - (MODERNA) [facility] TDAP Unknown Completed [facility] SARS-COV-2 COVID-19 Unknown Completed Unive rsity of VACCINE - (MODERNA) [facility] SARS-COV-2 COVID-19 Unknown Completed Unive rsity of VACCINE - (MODERNA) [facility] TDAP Unknown Completed [facility] SARS-COV-2 COVID-19 Unknown Completed Unive rsity of VACCINE - (MODERNA) [facility] SARS-COV-2 COVID-19 Unknown Completed Unive rsity of VACCINE - (MODERNA) [facility] TDAP Unknown Completed [facility] SARS-COV-2 COVID-19 Unknown Completed Unive rsity of VACCINE - (MODERNA) [facility] SARS-COV-2 COVID-19 Unknown Completed Unive rsity of VACCINE - (MODERNA) [facility] Vital Signs Vital Name Observation Time Observation Value Comments Source Systolic blood 2023-08-08 11:00:00 161 mm[Hg] Univer sity of pressure [facility] Diastolic blood 2023-08-08 11:00:00 84 mm[Hg] Unive rsity of pressure [facility] Heart rate 2023-08-08 11:00:00 75 /min [facility] [place] [facility] Body temperature 2023-08-08 11:00:00 36.72 Nian Univ ersity of [facility] Respiratory rate 2023-08-08 11:00:00 16 /min Univ ersity of [facility] Oxygen saturation in 2023-08-08 11:00:00 100 /min [facility] Arterial blood by [facility] Pulse oximetry Branch Body height 2023-08-08 08:45:00 160 cm [facility] Body weight 2023-08-08 08:45:00 91.853 kg [facility] BMI 2023-08-08 08:45:00 35.87 kg/m2 [facility] Systolic blood 2023-07-28 18:19:00 152 mm[Hg] Univer sity of pressure [facility] Diastolic blood 2023-07-28 18:19:00 90 mm[Hg] Unive rsity of [facility] Heart rate 2023-07-28 18:19:00 94 /min [facility] Body temperature 2023-07-28 18:19:00 36.78 Nina Univ ersity of [facility] Respiratory rate 2023-07-28 18:19:00 18 /min Univ ersity of [facility] Body height 2023-07-28 18:19:00 160 cm [facility] Body weight 2023-07-28 18:19:00 96.616 kg [facility] BMI 2023-07-28 18:19:00 37.73 kg/m2 [facility] Systolic blood 2023-06-22 19:15:00 134 mm[Hg] Univer sity of [facility] Diastolic blood 2023-06-22 19:15:00 85 mm[Hg] Unive rsity of pressure [facility] Heart rate 2023-06-22 19:15:00 90 /min [facility] Body temperature 2023-06-22 19:15:00 36.67 Nina Univ ersity of [facility] Respiratory rate 2023-06-22 19:15:00 18 /min Univ ersity of [facility] Body height 2023-06-22 19:15:00 160 cm [facility] Body weight 2023-06-22 19:15:00 94.348 kg [facility] BMI 2023-06-22 19:15:00 36.85 kg/m2 [facility] Body height 2021-07-01 14:00:00 [facility] 2021-07-01 14:00:00 [facility]338 [facility] BMI 2021-07-01 14:00:00 38.79 kg[facility]m2 [facility] Systolic blood 2021-01-11 19:00:00 141 mm[Hg] Univer [facility]ity of [facility] Diastolic blood 2021-01-11 19:00:00 102 mm[Hg] Unive rsity of [facility] Heart rate 2021-01-11 19:00:00 135 /min [facility] Body temperature 2021-01-11 19:00:00 36.83 Nina Univ ersity of [facility] Respiratory rate 2021-01-11 19:00:00 18 /min Univ ersity of [facility] Body weight 2021-01-11 19:00:00 103.42 kg [facility] BMI 2021-01-11 19:00:00 40.39 kg/m2 Universi ty of [facility] Oxygen saturation in 2021-01-11 19:00:00 97 /min [facility] Arterial blood by [facility] Pulse oximetry Branch Systolic blood 2021-01-11 19:00:00 141 mm[Hg] Univer sity of pressure [facility] Diastolic blood 2021-01-11 19:00:00 102 mm[Hg] Unive rsity of pressure [facility] Heart rate 2021-01-11 19:00:00 135 /min Universi ty of [facility] Body temperature 2021-01-11 19:00:00 36.83 Nina [facility] Respiratory rate 2021-01-11 19:00:00 18 /min [facility] Body weight 2021-01-11 19:00:00 103.42 kg Universi ty [facility] BMI 2021-01-11 19:00:00 40.39 kg/m2 [facility] Oxygen saturation in 2021-01-11 19:00:00 97 /min [facility] Arterial blood by [facility] Pulse oximetry Branch Systolic blood 2020-06-20 18:51:00 119 mm[Hg] Univer sity of [facility] Diastolic blood 2020-06-20 18:51:00 72 mm[Hg] Unive [facility] Heart rate 2020-06-20 18:51:00 82 /min [facility] Body temperature 2020-06-20 18:51:00 36.56 Nina [facility] Respiratory rate 2020-06-20 18:51:00 16 /min [facility] Body height 2020-06-20 18:51:00 160 cm [facility] Body weight 2020-06-20 18:51:00 103.103 kg [facility] BMI 2020-06-20 18:51:00 40.26 kg/m2 [facility] Procedures Procedure Date / Time Performing Clinician Source Performed CT ABDOMEN PELVIS W 2023-08-08 10:34:50 Jose Naranjo [facility] CONTRAST [facility] POCT TEST 2023-08-08 08:50:00 Jose Naranjo [facility] LIPASE 2023-08-08 08:48:00 Jose Naranjo [facility] COMP. METABOLIC PANEL 2023-08-08 08:48:00 Jose Naranjo [facility] ([id number]) [facility] CBC WITH DIFF 2023-08-08 08:48:00 Jose Naranjo [facility] URINALYSIS 2023-08-08 08:48:00 Jose Naranjo [facility] US PELVIS COMPLETE WITH 2023-07-17 15:25:00 Stephanie Javier [facility] TRANSVAGINAL [facility] THYROID STIMULATING 2023-06-22 20:18:00 [facility] CBC WITH DIFF 2023-06-22 20:18:00 Jaret Javier [facility] GLYCOSYLATED HEMOGLOBIN 2023-06-22 20:18:00 Stephanie Javier [facility] (A1C) Medical Branch REFERRAL- 2023-05-11 05:01:00 Doctor Unassigned, No [facility] REQUEST/RESPONSE [facility] XR ELBOW 3+ VIEWS RIGHT 2021-07-01 14:22:25 [facility] FOREARM 2 VW RIGHT 2021-01-11 19:30:53 Mickey Sánchez [facility] NOTICE OF PRIVACY 2021-01-11 18:48:50 Doctor Unassigned, No [facility] PRACTICES [facility] CONSENT/REFUSAL FOR 2021-01-11 18:48:41 Doctor Unassigned, No [facility]NOS[facility] TREATMENT [facility] BI AXILLARY ULTRASOUND 2020-08-07 15:09:04 Beverly Moran [facility] LEFT [facility] BI DIAGNOSTIC MAMMOGRAM 2020-08-07 14:52:13 Beverly Moran [facility] BILATERAL [facility] ASSIGNMENT OF BENEFITS 2020-08-07 13:53:47 Doctor Unassigned, No [facility] EXTERNAL PROVIDER 2020-07-13 05:01:00 Doctor Unassigned, No [facility] RECORDS [facility] ASSIGNMENT OF BENEFITS 2020-06-20 18:34:58 Doctor Unassigned, No [facility] Encounters Start End Encounter Admission Attending Care Care Encounter Source Date/Time Date/Time Type Type Clinicians Facility Department ID 2023-05-11 Outpatient [facility] [id number] [place] 11:53:38 [id number] [facility] 2023-05-01 Outpatient [facility] [id number] [place] 09:50:22 [id number] [facility] 2023-03-09 Outpatient [facility] [id number] [place] 10:45:44 [id number] [facility] 2023-02-27 Outpatient [facility] [id number] [place] 10:34:00 [id number] [facility] 2021-09-01 Emergency [facility] [id number] Univers 05:37:10 ity of [facility] 2021-08-31 Emergency [facility] [id number] Univers 10:03:46 ity of [facility] 2021-08-26 Outpatient LUIZ, RONEN [facility] [id number] [place] 11:49:08 [facility] 2021-07-19 Outpatient LUIZ, RONEN [facility] [id number] [place] 16:54:19 [facility] 2021-07-01 Outpatient [facility] [id number] [place] 09:13:23 [facility] 2023-08-17 2023-08-17 Outpatient LUIZ, RONEN [facility] [id number] [place] 11:30:00 11:30:00 [facility] 2023-08-08 2023-08-08 Emergency X YARIMA, [facility] ERT [id number] Univers 03:42:00 06:43:00 WAKILI ity [facility] 2023-08-08 2023-08-08 Emergency [facility], [facility] [id number] Univers 03:42:00 06:43:00 Alcharla S [place] 350.1.13.10 ity [facility] 4.2.7.2.686 [facility] [id number] [facility] 084 Branch 2023-08-07 2023-08-07 Outpatient R RADIOLOGY [facility] [id number] Univers 10:35:09 23:59:00 ity of [facility] 2023-08-07 2023-08-07 Hospital Radiology [facility] 1.2.840.114 [id number] Univers 10:35:09 23:59:00 Encounter [place] 350.1.13.10 ity of [place] 4.2.7.2.686 [facility] [id number] [facility] 800 Branch 2023-07-28 2023-07-28 Outpatient R STEPHANIE JAVIERL [facility] U TMB [id number] Univers 13:15:00 13:45:06 BREANA JAVIERSOL ity [facility] 2023-07-28 2023-07-28 Office Joan [facility] 1.2.840.114 [id number] [facility] 13:15:00 13:45:06 Visit Jaret fisher 350.1.13.10 ity [place] [id number] Pr dical NAL [address] [facility] 2023-07-27 2023-07-27 Outpatient R BREANA JAVIERSOL [facility] U TMB [id number] [facility] 13:00:00 13:00:00 BREANA JAVIERSOL ity [facility] 2023-07-17 2023-07-17 Outpatient R BREANA JAVIERSOL [facility] U TMB [id number] [facility] 09:12:11 23:59:00 BREANA JAVIERSOL ity [facility] 2023-07-17 2023-07-17 [facility] 1.2.840.114 [id number] [facility] 09:12:11 23:59:00 Encounter sJaret 350.1.13.10 ity [place] [id number] [facility] 806 Dinosaur 2023-06-22 2023-06-22 Protocol Officer 2, Adc Lab [facility] 1.2.840.114 [id number] [facility] 15:15:00 15:33:34 Visit Jaret Javier 350.1.1 3.10 ity of [facility] 4.[place].7.2.[place] [id number] Pr dical NAL 353 [facility] 2023-06-22 2023-06-22 Outpatient R BREANA JAVIERSOL [facility] U TMB [id number] Univers 14:30:00 14:57:53 AVILA-BREANA BEESOL ity [facility] 2023-06-22 2023-06-22 Office [facility] 1.2.840.114 [id number] [facility] 14:30:00 14:57:53 Visit s, Jaret LUCIANO 350.1.13.10 ity [place] [id number] Pr dical [facility] [address] [facility] 2023-05-11 2023-05-11 Office Ronen Molina [facility] 1.2.840.114 [id number] [place] 11:30:00 11:53:30 Visit ORTHO AND 350.1.13.58 Health [place] 9.2.7.2.686 MEDICAL [id number] [address] 2 2023-05-11 2023-05-11 Orders Doctor FARLEY 1.2.840.[id number] [place] [address] 00:00:00 00:00:00 Only Unassigned, CEFERINO 350.1.13.10 ity of [place] [facility] 4.2.7.2.686 Liban as [id number] [address] 2023-03-09 2023-03-09 Office RONEN MOLINA [facility] 1.2.840.114 [id number] [place] 11:00:00 14:17:25 Visit ORTHO AND 350.1.13.58 Health [place] 9.2.7.2.686 MED[id number] [facility] 2023-03-09 2023-03-09 Outpatient [facility] [id number] [place] 10:50:00 14:17:25 Health 2021-08-26 2021-08-26 Office Ronen Molina [facility] 1.2.840.114 [id number] [place] 10:48:54 11:49:39 Visit ORTHO AND 350.1.13.58 Health [place] 9.2.7.2.686 MEDICAL [id number] PLAZA 2 2021-08-13 2021-08-13 Orders Ronen Molina [facility] 6400 1.2.840.114 [id number] [place] 00:00:00 00:00:[address] 350.1.13.58 Health 9.2.7.2.686 [id number] 3 2021-07-01 2021-07-01 Office Ronen Molina [facility] 1.2.840.114 12 [id number] [place] 08:53:31 09:50:49 Visit ORTHO AND 350.1.13.58 Health [place] 9.2.7.2.686 MEDICAL [id number] PLAZA 2 2021-01-21 2021-01-21 Patient Giovani [facility] 1.2.840.114 [id number] Univers 00:00:00 00:00:00 Outreach [place] PRIMARY 350.1.13.10 i ty of [facility] 4[place]2.7.2.[place] [facility] [id number] Pr dical 388 Branch 2021-01-11 2021-01-11 Emergency [facility] 1.2.840.114 [id number] 13:03:00 14:33:00 Mickey Luciano 350.1.13.10 [place] 4.2.7.2.686 [place] [id number] 2021-01-11 2021-01-11 Emergency [facility] 1.2.840.114 [id number] Univers 13:03:00 14:33:00 Mickey Luciano 350.1.13.10 i ty of [place] 4.2.7.2.686 [facility] [place] [id number] [facility] 084 Branch 2021-01-11 2021-01-11 Orders Doctor MARTINE 1.2.840.114 [id number] Univers 00:00:00 00:00:00 Only Unassigned, CEFERINO 350.1.13.10 ity of [place] [facility] 4.2.7.2.686 [place] as [id number] [facility] 009 Branch 2021-01-11 2021-01-11 Orders Doctor MARTINE 1.2.840.114 [id number] 00:00:00 00:00:00 Only Unassigned, CEFERINO 350.1.13.10 [place] [facility] 4.2.7.2.686 [id number] 009 2020-10-02 2020-10-02 [facility] 1.2.840.114 [id number] Univers 10:57:08 23:59:00 Encounter Beverly Luciano 350.1.13.10 ity of [place] [id number] [facility] 806 Dinosaur 2020-10-02 2020-10-02 [facility] 1.2.840.114 [id number] 10:57:08 23:59:00 Encounter Yovanynda R [place] 350.1.13.10 [place] 4.2.7.2.686 [place] [id number] 2020-10-02 2020-10-02 [facility] [id number] Univers 00:00:00 00:00:00 BEVERLY degroot o girish [facility] 2020-09-18 2020-09-18 Outpatient [facility] [id number] Univers 00:00:00 00:00:00 MARKA mikayla o girish [facility] 2020-08-16 2020-08-16 Telephone [facility] [id number] Univers 00:00:00 00:00:00 Markkalia Stroud REDRAWER 350.1.13.10 ity of [facility] 4.2.7.2.686 [place] MATERNAL [id number] Med ical & CHILD [address] [place] [address] 2020-08-16 2020-08-16 [facility] [id number] 00:00:00 00:00:00 Markkalia Stroud REDRAWER 350.1.13.10 REG[facility] 4.2.7.2.686 MATERNAL [id number] & CHILD [address] [place] [address] 2020-08-07 2020-08-07 [facility] 1.2.840.114 [id number] Univers 09:13:49 23:59:00 Encounter Roshunda R [place] 350.1.13.10 ity of [place] [id number] [facility] 800 Branch 2020-08-07 2020-08-07 [facility] 1.2.840.114 [id number] Univers 08:57:24 09:12:00 Encounter Roshunda R [place] 350.1.13.10 ity of [place] 4[place]2.[place].2.[place] [id number] [facility] [address] [place] [address] 2020-08-07 2020-08-07 Outpatient R [facility] [id number] Univers 00:00:00 00:00:00 ROSHUNDA ity o f [facility] 2020-08-07 2020-08-07 Orders Doctor MARTINE 1.2.840.114 [id number] Univers 00:00:00 00:00:00 Only Unassigned, CEFERINO 350.1.13.10 ity of [place] [facility] 4.2.7.2.686 [place] [id number] [address] 2020-08-07 2020-08-07 Telephone [facility] 1.2.037.198 [id number] Univers 00:00:00 00:00:00 Roshunda R REDRAW[place] 350.1.13.10 ity of [facility] 4.2.7.2.686 [place] MATERNAL [id number] [facility] ical & CHILD [address] [place] [address] 2020-07-13 2020-07-13 Orders Doctor MARTINE 1.2.840.114 [id number] Univers 00:00:00 00:00:00 Only Unassigned, CEFERINO 350.1.13.10 ity of [place] [facility] 4.2.7.2.686 [place] [id number] [address] 2020-06-22 2020-06-22 Telephone [facility] [id number] Univers 00:00:00 00:00:00 Rosmorrisnda R [place]RAW[place] 350.1.13.10 ity of [facility] 4.2.7.2.686 [place] MATERNAL [id number] [facility] & CHILD [address] [place] [address] 2020-06-20 2020-06-20 Office [facility] 1.2.840.114 [id number] Univers 13:37:39 14:55:54 Visit Beverly R REDRAW[place] 350.1.13.10 ity of [facility] 4.2.7.2.686 [place] MATERNAL [id number] [facility] ical & CHILD [address] [place] [address] 2020-06-20 2020-06-20 Outpatient [facility] [id number] Univers 13:15:00 13:15:00 ROSHUNDA ity o f [facility] 2020-06-20 2020-06-20 Orders Doctor MARTINE 1.2.840.114 [id number] Univers 00:00:00 00:00:00 Only Unassigned, CEFERINO 350.1.13.10 ity of [place] [facility] 4.2.7.2.686 [place] [id number] [address] 2020-06-18 2020-06-18 Outpatient Luanne [facility] [id number] [facility] 13:30:00 13:30:00 BEVERLY stout [facility] Results Test Description Test Time Test Comments Results Result Comments Source Complete Metabolic Panel 2023-08-08 10:00:21 Test Item Value Reference Range Interpretation Comme nts NA (test code = 8977290398) 142 mmol/L 135-145 K (test code = 7554842098) 3.5 mmol/L 3.5-5.0 CL (test code = 4598162976) 104 mmol/L 98-108 CO2 TOTAL (test code = 2237856503) 24 mmol/L 23-31 AGAP (test code = 7680038490) 14 2-16 BUN (test code = 4286446218) 13 mg/dL 7-23 GLUCOSE (test code = 8075003599) 188 mg/dL 70-110 H CREATININE (test code = 1.08 mg/dL 0.50-1.04 H 0275453305) TOTAL BILI (test code = 0.2 mg/dL 0.1-1.3 3039979472) CALCIUM (test code = 9100574409) 9.6 mg/dL 8.6-10.6 T PROTEIN (test code = 0389512806) 8.4 g/dL 6.3-8.2 H ALBUMIN (test code = 2442416624) 4.4 g/dL 3.5-5.0 ALK PHOS (test code = 2097518535) 74 U/L 34-122 ALTv (test code = 1742-6) 18 U/L 5-35 AST(SGOT) (test code = 4017359679) 18 U/L 13-40 eGFR (test code = 1063141366) 56.2 mL/min/1.73m2 SAJI (test code = SAJI) Association of Glomerular Filtration Rate (GFR) and Staging of Kidney Disease* + +-------- + ------+| GFR (mL/min/1.73 m2) ?| With Kidney Damage ?| ?Without Kidney Damage+ +-- + +| ?>90 ?| ?Stage one ?| ? Normal ?+ +------- + -------+| ?60-89 ?| ?Stage two ?| ? Decreased GFR ? + +-------- + ------+| ?30-59 ?| ?Stage three ?| ? Stage three ? + +-------- + ------+| ?15-29 ?| ?Stage four ? | ? Stage four ?+ +------- + -------+| ?<15 (or dialysis) ? ?| ?Stage five ? | ? Stage five ?+ +------- + -------+ *Each stage assumes the associated GFR level has been in effect for at least three months. ?Stages 1 to 5, with or without kidney disease, indicate chronic kidney disease. Notes: Determination of stages one and two (with eGFR >59mL/min/1.73 m2) requires estimation of kidney damage for at least three months as defined by structural or functional abnormalities of the kidney, manifested by either:Pathological abnormalities or Markers of kidney damage (including abnormalities in the composition of the blood or urine or abnormalities in imaging tests). Lab Interpretation (test code = Abnormal 64336-1) [facility] [id number] 09:42:09 Test Item Value Reference Range Interpretation Comments LIPASE (test code = 0869834850) 182 U/L 0-220 Lab Interpretation (test code = Normal 99935-7) [facility] with [id number] 09:08:03 Test Item Value Reference Range Interpretation Comments WBC (test code = 11.92 See_Comment H [Automated 4244-2) message] The sy stem which generated this result transmitted reference range : 4.30 - 11.10 10*3/?L. The reference range was not used to interpret this result as normal/abnormal . RBC (test code = 4.77 See_Comment [Automated 805-8) message] The sy stem which generated this result transmitted reference range : 3.93 - 5.25 10*6/?L. The reference range was not used to interpret this result as normal/abnormal . HGB (test code = 12.9 g/dL 11.6-15.0 718-7) HCT (test code = 39.6 % 35.7-45.2 4544-3) MCV (test code = 83.0 fL 80.6-95.5 787-2) MCH (test code = 27.0 pg 25.9-32.8 785-6) MCHC (test code = 32.6 g/dL 31.6-35.1 786-4) RDW-SD (test code = 41.3 fL 39.0-49.9 90340-7) RDW-CV (test code = 13.5 % 12.0-15.5 788-0) PLT (test code = 319 See_Comment [Automated 777-3) message] The sy stem which generated this result transmitted reference range : 166 - 358 10*3/ ?L. The reference r lorenzo was not used to interpret this result as normal/abnormal . MPV (test code = 9.9 fL 9.5-12.9 60319-8) NRBC/100 WBC (test 0.0 See_Comment [Automat ed code = 3395815213) message] The system which generated this result transmitted reference range : 0.0 - 10.0 /100 WBCs. The refer ence range was not u sed to interpret th is result as normal/abnormal . NRBC x10^3 (test code See_Comment [Auto mated = 6375494856) message] The s ystem which generated this result transmitted reference range : 10*3/?L. The reference range was not used to interpret this result as normal/abnormal . GRAN MAT (NEUT) % 63.7 % (test code = 770-8) IMM GRAN % (test code 0.40 % = 3683471401) LYMPH % (test code = 25.8 % 736-9) MONO % (test code = 4.4 % 5905-5) EOS % (test code = 5.0 % 713-8) BASO % (test code = 0.7 % 706-2) GRAN MAT x10^3(ANC) 7.59 10*3/uL 1.88-7.09 H (test code = 0807173449) IMM GRAN x10^3 (test 0.05 10*3/uL 0.00-0.06 code = 9039772376) LYMPH x10^3 (test code 3.07 10*3/uL 1.32-3.29 = 731-0) MONO x10^3 (test code 0.53 10*3/uL 0.33-0.92 = 742-7) EOS x10^3 (test code = 0.60 10*3/uL 0.03-0.39 H 711-2) BASO x10^3 (test code 0.08 10*3/uL 0.01-0.07 H = 704-7) Lab Interpretation Abnormal (test code = 67837-3) [facility] [id number] 08:50:00 Test Item Value Reference Range Interpretation Comments POCT PREG (test code = 1605) Negative On board controls acceptable with C Yes Line (test code = 3574) Lab Interpretation (test code = Normal 93210-9) [facility] [id number] 14:39:31 Interpretation: Multiple radiographic views are within normal limits for the patients stated age. There are no signs of fracture, dislocation, or articular injury. The alignment and joint spaces are within normal limits. No signs of a bony lesion or soft tissue swelling. ?[facility] [id number] 14:39:31Interpretation: Multiple radiographic views are within normal limits for the patients stated age. There are no signs of fracture, dislocation, or articular injury. The alignment and joint spaces are within normal limits. No signs of a bony lesion or soft tissue swelling. ?[facility] 2021-01-11 19:33:31 Forearm soft tissue contusion. No acute bony abnormality is present. EXAM: XR FOREARM 2 VW RIGHT HISTORY: [...] soft tissue contusion.No acute bony abnormality is present.[facility] DIAGNOSTIC MAMMOGRAM [id number] 15:54:22Examination:BI DIAGNOSTIC MAMMOGRAM BILATERAL History:Patient is 39 year old and is seen for: ?Left axillary [...] NegativeOverall: 0 - Incomplete: [facility] [id number] 15:12:17HISTORY: Palpable mass in left axilla. TECHNIQUE: Left axillary region was evaluated inradial/antirad ial/sagittal/coronal planes both by the technologist and byme. Female technologist was present in the room during all imagingevaluations. FINDINGS: A discrete hypoechoic oval-shaped mass approximately 5.8 x 1.5 cmsize mass confirmed. Mass is slightly hypoechoic relative to surroundingsubcutaneous tissu e but appears to be well encapsulated and showed noappreciable vascularity. CONCLUSIONS: 5.8 cm massin the left axillary region with features ofbenign lipoma. ACR classification: Category II. [facility], Radiant Results Inft User - 08/07/2020 10:13 AM CDTHISTORY: Palpable mass in left axilla.TECHNIQUE: Left axillary region was evaluated inradial/antiradial/sagittal/coronal planes both by the technologist and byme. Female technologist was present in the room during all imagingevaluations.FINDINGS: A discrete hypoechoic oval-shaped mass approximately 5.8 x 1.5 cmsize mass confirmed. Mass is slightly hypoechoic relative to surroundingsubcutaneous tissue but appears to be well encapsulated and showed noappreciable vascularity.CONCLUSIONS: 5.8 cm mass in the left axillary region with features ofbenign lipoma.ACR classification: Category II. [facility]"
[2023-08-09] MEDS ORDERED: ONDANSETRON 4 MG/2 ML VIAL ONE (17:10)
[2023-08-09] MEDS ORDERED: NA CHLORIDE 0.9% 1,000 ML ONE (17:10)
[2023-08-09] MEDS ORDERED: MORPHINE 4 MG/ML SYR ONE (17:10)
[2023-08-09 17:15] LABS: Absolute Lymphocytes (CBC) 3.9 K/uL (0.7-4.9); Hematocrit 37.2 % (36.0-45.0); Lymphocytes % 29.7 % (15.3-44.8); MPV 7.8 fL (7.6-11.3); Platelets 304 thou/uL (152-406); RBC Red Blood Cell Count 4.59 M/uL (3.86-4.86)
[2023-08-09 17:23] LABS: Specific Gravity 1.028 (1.005-1.030); Urine Bacteria None Seen /HPF (<20); Urine Bilirubin NEGATIVE (Negative); Urine Blood 2+ (Negative); Urine Clarity Extremely Turbid (Clear); Urine Color Yellow (Yellow); Urine Glucose NEGATIVE (Negative); Urine Mucus Slight /HPF (None Seen); Urine Protein 3+ (Negative); Urine Urobilinogen Normal (Normal); Urine pH 5.5 (5.0-7.0)
[2023-08-09 17:25] LABS: Potassium 3.6 mEq/L (3.5-5.1)
[2023-08-09 17:26] LABS: Albumin 3.4 g/dL (3.4-5.0); Bilirubin Total 0.3 mg/dL (0.2-1.0); Protein, Total 7.9 g/dL (6.4-8.2)
--- NOTE | 2023-08-09 17:55 | RAD REPORT ---
EXAM DESCRIPTION: CTAbdomen Pelvis W Contrast - 08/09/2023 5:45 pm CLINICAL HISTORY: ABD PAIN COMPARISON: Abdomen Pelvis W Contrast dated 02/09/2023; Abdomen Pelvis W Contrast dated 2; Abdomen Pelvis W Contrast dated 11/23/2020 TECHNIQUE: CT of the abdomen and pelvis was performed. All CT scans are performed using dose optimization technique as appropriate and may include automated exposure control or mA/KV adjustment according to patient size. FINDINGS: Lower chest: Calcified right lower lobe nodule. Mild circumferential thickened distal esop hagus which may reflect esophagitis. Liver: No acute abnormality or suspicious lesions. Biliary: Sludge versus noncalcified stones in the gallbladder. Stomach: No significant focal abnormality. Duodenum: No significant focal abnormality. Pancreas: No significant abnormality. Spleen: No significant abnormality. Adrenal: No suspicious lesions. Kidney/ureter: No hydronephrosis. No renal calculi. Innumerable cysts of varying complexity bilateral ly. This is consistent with polycystic kidney disease. Retroperitoneum: No retroperitoneal adenopathy. Vascular: No aneurysm. Bowel: No significant focal abnormality. Normal appendix. Peritoneum: Trace pelvic free fluid. Small fat containing umbilical hernia. Bladder: Grossly unremarkable. Reproductive: Enlarging complex cystic lesion in the right adnexa measuring 6.1 x 5.9 cm. Bones: No acute fracture. Other: n/a IMPRESSION: New versus enlarging complex cystic lesion in the right adnexa could represent a hemorrh agic cyst. Consider pelvic ultrasound for further evaluation. If no pelvic ultrasound is performed at this time, a 4-6 week follow-up pelvic ultrasound is recommended, however to ensure resolution.
--- NOTE | 2023-08-09 19:08 | RAD REPORT ---
EXAM DESCRIPTION: US - Transvaginal Study Probe - 08/09/2023 6:53 pm CLINICAL HISTORY: ABD PAIN Pelvic pain. COMPARISON: PELVIS dated 09/04/2015 FINDINGS: The uterus is normal in size, shape and echotexture. The uterus measures 8.2 x 3.3 x 2.7 c m The endometrial stripe measures 8 mm. The left ovary measures 3.9 x 2.6 x 2.2 cm volume 11.5 cc. The right ovary is enlarged measuring 7.2 x 5.9 x 5.6 cm with volume of 125 cc. No discrete mass identified. Bilateral ovarian blood flow is pr esent. Normal Doppler blood flow was demonstrated to both ovaries. Free fluid is present cul-de-sac. IMPRESSION: Bilateral ovarian blood flow. Enlarged right ovary which may be due to an underlying isoechoic lesion, perhaps a hemorrhagic cyst g iven the time course of development since 02/09/2023. Free fluid is present in the pelvis which is pr esumably physiologic. Recommend 4-6 week follow-up pelvic ultrasound.
[2023-08-09 19:38] LABS: Hematocrit 34.3 % (36.0-45.0); MCV 81.7 fL (80-100); MPV 7.7 fL (7.6-11.3); Platelets 275 thou/uL (152-406); RBC Red Blood Cell Count 4.19 M/uL (3.86-4.86)
--- NOTE | 2023-08-09 19:51 | EDPHYS ---
Physician Documentation [facility] Name: Lana Solo Age: 42 yrs Sex: Female : 1980 Arrival Date: 08/09/2023 Time: 15:31 Bed 13 Private MD: ED Physician Tejas Becker HPI: 08/09 16:05 This 42 yrs old Female presents to ER via Ambulatory with complaints of Abdominal Pain, sb4 Back Pain. 16:05 The patient presents with abdominal pain right lower quadrant. Onset: The sb4 symptoms/episode began/occurred 2 day(s) ago. The symptoms radiate to the right flank. Associated signs and symptoms: Pertinent positives: dysuria, fever, nausea. Modifying factors: The symptoms are alleviated by nothing, the symptoms are aggravated by nothing. The patient has experienced similar episodes in the past, several times. The patient has not recently seen a physician. Historical: - Allergies: 15:36 Bydureon; hb 15:36 Metformin HCl; hb 15:36 Simponi; hb - PMHx: 15:36 Diabetes - NIDDM; Hypertension; polycystic kidney; Psoriatric arthritis; Rheumatoid hb Arthritis; Thyroid problem; - PSHx: 15:36 section; hb - Immunization history:: Adult Immunizations up to date. - Social history:: Smoking status: Patient reports the use of cigarette tobacco products. ROS: 16:05 Respiratory: Negative for shortness of breath, cough, wheezing, and pleuritic chest sb4 pain, Abdomen/GI: Negative for abdominal pain, nausea, vomiting, diarrhea, and constipation, 16:05 Constitutional: Positive for chills, fever, 16:05 Abdomen/GI: Positive for abdominal pain, nausea, 16:05 Back: Positive for flank pain, 16:05 : Positive for urinary symptoms, 16:05 All other systems are negative, Exam: 16:05 Constitutional: This is a well developed, well nourished patient who is awake, alert, sb4 and in no acute distress. Head/Face: Normocephalic, atraumatic. Eyes: Extra-ocular motions intact. Periorbital areas with no swelling, redness, or edema. ENT: Mucous membranes moist. Cardiovascular: Regular rate and rhythm with a normal S1 and S2. Respiratory: Lungs have equal breath sounds bilaterally, clear to auscultation and percussion. No rales, rhonchi or wheezes noted. No increased work of breathing, no retractions or nasal flaring. Abdomen/GI: Soft, non-tender, no distension. Back: No spinal tenderness. No costovertebral tenderness. Full range of motion. Skin: Warm, dry with normal turgor. Normal color with no rashes, no lesions, and no evidence of cellulitis. MS/ Extremity: Pulses equal, no cyanosis. Neurovascular intact. Full, normal range of motion. Vital Signs: 15:35 BP 128 / 82; Pulse 102; Resp 19; Temp 98.8(TE); Pulse Ox 100% on R/A; Weight 92.08 kg; hb Height 5 ft. 3 in. ; Pain 10/10; 17:15 BP 131 / 83; Pulse 94; Resp 18; Pulse Ox 100% on R/A; eh3 18:15 BP 139 / 79; Pulse 86; Resp 16; Pulse Ox 97% on R/A; eh3 19:15 BP 132 / 89; Pulse 89; Resp 16; Pulse Ox 99% ; eh3 15:35 Body Mass Index 35.96 (92.08 kg, 160.02 cm) hb 15:35 Pain Scale: Adult hb MDM: 15:42 Patient medically screened. sb4 16:08 Differential diagnosis: appendicitis, non-specific abd pain, Pyelonephritis, sb4 Ureterolithiasis, urinary tract infection. 19:49 Data reviewed: vital signs, nurses notes, lab test result(s), radiologic studies, I sb4 have discussed the patient's presentation/case with the attending Emergency Department Physician; and as a result, I will discharge patient. Consideration of Admission/Observation Escalation of care including admission/observation considered. Care significantly affected by the following chronic conditions: Diabetes, Hypertension, Chronic Kidney Disease. Counseling: I had a detailed discussion with the patient and/or guardian regarding the historical points, exam findings, and any diagnostic results supporting the discharge/admit diagnosis, the presence of at least one elevated blood pressure reading (>120/80) during this emergency department visit, lab results, radiology results, the need for outpatient follow up, an OB/Gyne specialist, to return to the emergency department if symptoms worsen or persist or if there are any questions or concerns that arise at home. 08/09 15:59 Order name: UAM; Complete Time: 17:24 sb4 08/09 15:59 Order name: CBC with Diff; Complete Time: 17:18 sb4 08/09 15:59 Order name: CMP; Complete Time: 17:27 sb4 08/09 15:59 Order name: Lipase; Complete Time: 17:27 sb4 08/09 15:59 Order name: Lactate w/ 2H reflex if indic.; Complete Time: 17:32 sb4 08/09 15:59 Order name: Blood Culture Adult (2) sb4 08/09 15:59 Order name: Test, Urine; Complete Time: 17:23 sb4 08/09 19:10 Order name: CBC w/o diff; Complete Time: 19:45 sb4 08/09 15:59 Order name: CT Abd/Pelvis - IV Contrast Only; Complete Time: 18:07 sb4 08/09 18:07 Order name: Transvaginal Study (probe); Complete Time: 19:09 sb4 08/09 15:59 Order name: IV Saline Lock; Complete Time: 17:09 sb4 08/09 15:59 Order name: Labs collected and sent; Complete Time: 17:09 sb4 Administered Medications: 16:52 Drug: NS 0.9% IV 1000 ml IV at 1 bolus Per protocol; 1000 mL bolus Route: IV; Rate: 1 eh3 bolus; Site: left antecubital; 18:00 Follow up: IV Status: Completed infusion; IV Intake: 1000ml eh3 16:52 Drug: Ondansetron IVP 4 mg IVP once; over 2 minutes Route: IVP; Site: left antecubital; 3 18:00 Follow up: Response: No adverse reaction eh3 16:52 Drug: morphine IVP or IV 4 mg IVP once over 4 mins Route: IVP; Infused Over: 4 mins; eh3 Site: left antecubital; 18:00 Follow up: Response: No adverse reaction; Pain is decreased eh3 Disposition: 08/10 08:45 Co-signature as Attending Physician, Tejas Becker MD I reviewed the patient's care rn provided by the Advanced Practice Provider and agree with the diagnosis and treatment plan. Disposition Summary: 08/09/23 19:50 Discharge Ordered Notes: Location: Home sb4 Problem: new sb4 Symptoms: have improved sb4 Condition: Stable sb4 Diagnosis - Hemorrhagic Ovarian Cyst, Right sb4 Followup: sb4 - With: Lena Sue MD - When: 4-6 weeks - Reason: Further diagnostic work-up, Recheck today's complaints, Re-evaluation by your physician Discharge Instructions: - Discharge Summary Sheet sb4 - Ovarian Cyst, [id number] sb4 Forms: - Medication Reconciliation Form sb4 - Thank You Letter sb4 - Antibiotic Education sb4 - Prescription Opioid Use sb4 - Patient Portal Instructions sb4 - Leadership Thank You Letter sb4 Prescriptions: - Tramadol 50 mg Oral Tablet - take 1 tablet ORAL route every 8 hours as needed; 12 tablet; Refills: 0, sb4 Product Selection Permitted Signatures: Dispatcher [employer] Tejas Holt MD MD rn Baxter, Heather, RN RN Maryellen Shoemaker RN RN [facility] Joanne Chavez, PALeo PALeo sb4
--- NOTE | 2023-08-09 19:51 | ER ---
Nurse's Notes [facility] Name: Lana Solo Age: 42 yrs Sex: Female : 1980 Arrival Date: 08/09/2023 Time: 15:31 Bed 13 Private MD: Diagnosis: Hemorrhagic Ovarian Cyst, Right Presentation: 08/09 15:35 Chief complaint: Lower abdominal pain that radiates to right flank and low back x x 3 hb days. Also c/o nausea. Coronavirus screen: At this time, the client does not indicate any symptoms associated with coronavirus-19. Ebola Screen: No symptoms or risks identified at this time. Initial Sepsis Screen: Does the patient meet any 2 criteria? No. Patient's initial sepsis screen is negative. Does the patient have a suspected source of infection? No. Patient's initial sepsis screen is negative. Risk Assessment: Do you want to hurt yourself or someone else? Patient reports no desire to harm self or others. Onset of symptoms was August 07, 2023. 15:35 Method Of Arrival: Ambulatory hb 15:35 Acuity: BRODY 3 hb Historical: - Allergies: 15:36 Bydureon; hb 15:36 Metformin HCl; hb 15:36 Simponi; hb - PMHx: 15:36 Diabetes - NIDDM; Hypertension; polycystic kidney; Psoriatric arthritis; Rheumatoid hb Arthritis; Thyroid problem; - PSHx: 15:36 section; hb - Immunization history:: Adult Immunizations up to date. - Social history:: Smoking status: Patient reports the use of cigarette tobacco products. Screenin:15 [facility] ED Fall Risk Assessment (Adult) Score/Fall Risk Level 0 - 2 = Low Risk. Abuse eh3 screen: Denies threats or abuse. Denies injuries from another. Nutritional screening: No deficits noted. Tuberculosis screening: No symptoms or risk factors identified. Assessment: 16:15 General: Appears in no apparent distress. uncomfortable, Behavior is calm, cooperative, eh3 appropriate for age. Pain: Complains of pain in right flank. Neuro: Level of Consciousness is awake, alert, obeys commands, Oriented to person, place, time, situation. Cardiovascular: Capillary refill < 3 seconds Patient's skin is warm and dry. Respiratory: Airway is patent Respiratory effort is even, unlabored, Respiratory pattern is regular, symmetrical. GI: Abdomen is round non-distended, Bowel sounds present X 4 quads. Abd is soft X 4 quads Abdomen is tender to palpation X 4 quads. Reports lower abdominal pain, intolerance of fluids, intolerance of food, nausea, vomiting. Derm: Skin is pink, warm \T\ dry. Musculoskeletal: Circulation, motion, and sensation intact. 17:15 Reassessment: Patient appears in no apparent distress at this time. Patient and/or 3 family updated on plan of care and expected duration. Pain level reassessed. Patient is alert, oriented x 3, equal unlabored respirations, skin warm/dry/pink. 18:15 Reassessment: Patient appears in no apparent distress at this time. Patient and/or 3 family updated on plan of care and expected duration. Pain level reassessed. Patient is alert, oriented x 3, equal unlabored respirations, skin warm/dry/pink. 19:15 Reassessment: Patient appears in no apparent distress at this time. Patient and/or 3 family updated on plan of care and expected duration. Pain level reassessed. Patient is alert, oriented x 3, equal unlabored respirations, skin warm/dry/pink. Vital Signs: 15:35 BP 128 / 82; Pulse 102; Resp 19; Temp 98.8(TE); Pulse Ox 100% on R/A; Weight 92.08 kg; hb Height 5 ft. 3 in. ; Pain 10/10; 17:15 BP 131 / 83; Pulse 94; Resp 18; Pulse Ox 100% on R/A; eh3 18:15 BP 139 / 79; Pulse 86; Resp 16; Pulse Ox 97% on R/A; eh3 19:15 BP 132 / 89; Pulse 89; Resp 16; Pulse Ox 99% ; eh3 15:35 Body Mass Index 35.96 (92.08 kg, 160.02 cm) hb 15:35 Pain Scale: Adult hb ED Course: 15:33 Patient arrived in ED. rg4 15:33 Joanne Chavez PA-C is PHCP. sb4 15:33 Tejas Becker MD is Attending Physician. sb4 15:36 Triage completed. hb 15:36 Arm band placed on. hb 16:15 Patient has correct armband on for positive identification. Bed in low position. Call 3 light in reach. Side rails up X2. Provided Education on: Use of call tavrea. Pulse ox on. NIBP on. 16:17 Patient placed in an exam room, on a stretcher. ll1 16:21 Maryellen Shoemaker, RN is Primary Nurse. eh3 16:33 Inserted saline lock: 22 gauge in left antecubital area, using aseptic technique. Blood eh3 collected. 17:06 Radiology exam delayed due to test not completed at this time. eh4 17:47 CT Abd/Pelvis - IV Contrast Only In Process Unspecified. EDMS 18:54 Transvaginal Study (probe) In Process Unspecified. EDMS 19:50 Lena Sue MD is Referral Physician. sb4 20:20 No provider procedures requiring assistance completed. IV discontinued, intact, eh3 bleeding controlled, No redness/swelling at site. Pressure dressing applied. Administered Medications: 16:52 Drug: NS 0.9% IV 1000 ml IV at 1 bolus Per protocol; 1000 mL bolus Route: IV; Rate: 1 eh3 bolus; Site: left antecubital; 18:00 Follow up: IV Status: Completed infusion; IV Intake: 1000ml eh3 16:52 Drug: Ondansetron IVP 4 mg IVP once; over 2 minutes Route: IVP; Site: left antecubital; eh3 18:00 Follow up: Response: No adverse reaction eh3 16:52 Drug: morphine IVP or IV 4 mg IVP once over 4 mins Route: IVP; Infused Over: 4 mins; eh3 Site: left antecubital; 18:00 Follow up: Response: No adverse reaction; Pain is decreased eh3 Medication: 20:20 VIS not applicable for this client. eh3 Intake: 18:00 IV: 1000ml; Total: 1000ml. eh3 Outcome: 19:50 Discharge ordered by . sb4 20:20 Discharged to home ambulatory, with family, eh3 20:20 Condition: stable 20:20 Discharge instructions given to patient, Instructed on discharge instructions, follow up and referral plans. no driving heavy equipment, medication usage, Demonstrated understanding of instructions, follow-up care, medications, Prescriptions given X 1, 20:21 Patient left the ED. eh3 Signatures: Dispatcher [employer] EDCO Asia Cowart RN RN hb Garcia, Rubi 4 Vidal Cespedes RN RN 1 Maryellen Shoemaker, RN RN 3 David Shoemaker eh4 Joanne Chavez, PADavidC PADavidC sb4
[2023-08-09 21:51] VITALS: TEMP 98.8
[2023-08-09 22:11] VITALS: BP 132/89; O2SAT 99
== END 2023-08-09 20:21 | disposition home or self-care (01) ==
LOC: ER 15:31
DX: N83.201 Unspecified ovarian cyst, right side (principal); E11.9 Type 2 diabetes mellitus without complications; I10 Essential (primary) hypertension; Z88.8 Allergy status to other drugs, medicaments and biological substances
CPT/HCPCS: 96361; 87040 ×2; 85025; 81001; 36415; 81025; 83605; 85027; 83690; 80053; 74177; 76830; 96375; 96374; 99284; Q9967; J2405; J7030

== ENCOUNTER 2023-10-09 07:13 | Day surgery (SDC) | payer OTHER ==
[2023-10-09] MEDS ORDERED: NA CHLORIDE 0.9% 1,000 ML ONE ×2 (07:31→09:48)
[2023-10-09 10:54] VITALS: O2SAT 100
[2023-10-09 10:57] VITALS: BP 135/74; TEMP 97
--- NOTE | 2023-10-13 14:08 | EKG ---
Test Date: 2023-10-07 Test Time: 12:20:55 Intercell Connector Placer: YI MEASUREMENT RESULTS: Intervals: Rate: 83 ME: 158 QRSD: 86 QT: 380 QTc: 446 [place]: P: 37 ME: 158 QRS: 11 T: 54 INTERPRETIVE STATEMENTS: Normal sinus rhythm Normal ECG Compared to ECG 11/23/2020 21:17:34 Left ventricular hypertrophy no longer present Myocardial infarct finding no longer present Electronically Signed On 10-13-23 13:47:41 TABLEAU DEVELOPER by Gustavo Samayoa
== END 2023-10-09 10:45 | disposition home or self-care (01) ==
LOC: OR 07:13
PROVIDERS: ATTEND Surgery
PROC: 0DBN8ZX Excision of Sigmoid Colon, Via Natural or Artificial Opening Endoscopic, Diagnostic (ICD-10-PCS; 2023-10-09)
PROC: 0DBH8ZX Excision of Cecum, Via Natural or Artificial Opening Endoscopic, Diagnostic (ICD-10-PCS; principal; 2023-10-09 08:45)
DX: K59.1 Functional diarrhea (principal); R10.33 Periumbilical pain; K66.0 Peritoneal adhesions (postprocedural) (postinfection); E11.9 Type 2 diabetes mellitus without complications; F32.A Depression, unspecified
CPT/HCPCS: 93005; 82947; 88305; 45380; J7030 ×2

== ENCOUNTER 2024-08-25 15:15 | Emergency (ER) | payer OTHER ==
--- OUTSIDE RECORDS SUMMARY | 2024-08-25 15:20 | XMS REPORT | Continuity of Care Document ---
Author Name Unknown Address [address] [facility] [place] [address] [facility] thconnect Address [address] [facility] [address] [place] [address] Care Team Providers Care High Tension Tester Name Role Phone Sergio Carpio Primary Care Physician [phone] Sergio Carpio Attending Clinician Unavailable RONEN MOLINA Attending Clinician Unavailable [email or web address] Attending Clinician MILY Kinsey Attending Clinician MILY Hyatt Attending Clinician Lena Dorsey Attending Clinician Sonny hinojosa Doctor Unassigned, [place] Attending Clinician JOSE Haney Attending Clinician Unavailable Jose Naranjo MD Attending Clinician RADIOLOGY Attending Clinician Unavailable Radiology Attending Clinician Unavailable 2, [facility] Attending Clinician Unavailable Hadley Matute DO Attending Clinician Princess SUPERVISOR HEAT TREATINGMickey Daniels Attending Clinician Beverly Comer Attending Clinician BEVERLY MORAN Attending Clinician Unavailab le [email or web address]_S Admitting Clinician Unavaila Lena Rodriguez K Admitting Clinician Unavaila JOSE Leyva S Admitting Clinician Unavailable SERGIO CARPIO Admitting Clinician Unavailable MILY JAVIER Admitting Clinician Sandra zavaleta Payers Payer Name Policy Type Policy Number Effective Date Expirati on Date Source [employer] MEDICARE ADVANTAGE O [id number] 2021 00:00:00 MEDICARE PART A \\T\\ B [id number] 2016 00:00:00 MED[place] [id number] 2016 00:00:00 [employer] CLAIMS OFFICE [id number] MEDICAID-[place] (MEDICAID) [id number] [employer] [facility] [id number] 2021 00:00:00 Problems Condition Name Condition Details Condition Category Status Onset Date Resolution Date Last Treatment Date Treating Clinician Comments Source Type 2 diabetes mellitus Type 2 Diabetes Mellitus Problem Active 07-21 00:00: 00 [facility] Nicotine dependence Nicotine Dependence Problem Active 07-21 00:00: 00 [facility] Difficulty initiating bladder emptying Difficulty Initiating Bladder Emptying Problem Active 07-21 00:00: 00 [facility] Excessive menstruati on with irregular cycle Excessive Menstruati on with Irregular Cycle Problem Active 07-21 00:00: 00 [facility] Candidiasi s of skin Candidiasi s of Skin Problem Active 06-20 00:00: 00 [facility] Essential hypertensi on Essential Hypertensi on Problem Active 06-20 00:00: 00 [facility] Intertrigo Intertrigo Problem Active 06-20 00:00: 00 [facility] Deep pain on intercours e Deep Pain on Intercours e Problem Active 11-09 00:00: 00 [facility] Dysmenorrh ea Dysmenorrh ea Problem Active 11-09 00:00: 00 [facility] Pain in pelvis Pain in Pelvis Problem Active 11-09 00:00: 00 [facility] Excessive and frequent menstruati on Excessive and Frequent Menstruati on Problem Active 11-09 00:00: 00 [facility] Elevated blood-pres sure reading without diagnosis of hypertensi on Elevated Blood-pres sure Reading without Diagnosis of Hypertensi on Problem Active 11-09 00:00: 00 [facility] Cyst of right ovary Cyst of Right Ovary Problem Active 11-09 00:00: 00 [facility] Diabetes mellitus Diabetes Mellitus Problem Active 2022-11 0 00:00: 00 [facility] Hyperchole sterolemia Hyperchole sterolemia Problem Active 2022-11 0 00:00: 00 [facility] Mixed anxiety and depressive disorder Mixed Anxiety and Depressive Disorder Problem Active 2022-11 0 00:00: 00 [facility] Rheumatoid arthritis Rheumatoid Arthritis Problem Active 2022-11 0 00:00: 00 [facility] Heartburn Heartburn Problem Active 2022-11 0 00:00: 00 [facility] Type II or unspecifie d type diabetes mellitus with ketoacidos is, uncontroll ed(250.12) Type II or unspecifie d type diabetes mellitus with ketoacidos is, uncontroll ed(250.12) Disease Active 2022-11 0 00:00: 00 [facility] Corpus luteum cyst or hematoma Corpus luteum cyst or hematoma Disease Active 2022-11 0 00:00: 00 [facility] Pain pelvic Pain pelvic Disease Active 2022-11 0 00:00: 00 [facility] Menorrhagi a with irregular cycle Menorrhagi a with irregular cycle Disease Active 07-28 00:00: 00 [facility] Abnormal thyroid function test Abnormal thyroid function test Disease Active 07-28 00:00: 00 [facility] Medial epicondyli tis of left elbow Medial epicondyli tis of left elbow Disease Active 2023-0 5-08 00:00: 00 [facility] Lateral epicondyli tis of right elbow Lateral epicondyli tis of right elbow Disease Active 8-30 00:00: 00 [facility] 39 weeks gestation of 39 weeks gestation of Disease Active 2017-11 205 00:00: 00 [facility] Intrauteri ne growth restrictio n (IUGR) affecting care of mother, third trimester, single gestation Intrauteri ne growth restrictio n (IUGR) affecting care of mother, third trimester, single gestation Disease Active 2017-11 00:00: 00 [facility] Liveborn by Liveborn by Disease Active 2017-11 00:00: 00 [facility] 38 weeks gestation of 38 weeks gestation of Disease Active 2017-11 00:00: 00 [facility] Obesity affecting in third trimester Obesity affecting in third trimester Disease Active 2017-11 00:00: 00 [facility] 33 weeks gestation of 33 weeks gestation of Disease Active 2017-11 0 00:00: 00 [facility] Obesity (BMI 30-39.9) Obesity (BMI 30-39.9) Disease Active 2017-11 0 00:00: 00 [facility] Anemia affecting Anemia affecting Disease Active 03-17 00:00: 00 [facility] Cyst, kidney, acquired Cyst, kidney, acquired Disease Active 03-17 00:00: 00 [facility] Anxiety in , antepartum Anxiety in , antepartum Disease Active 03-16 00:00: 00 [facility] AMA (advanced maternal age) multigravi da 35+ AMA (advanced maternal age) multigravi da 35+ Disease Active 03-16 00:00: 00 [facility] Hypertensi on in , pre-existi ng, antepartum Hypertensi on in , pre-existi ng, antepartum Disease Active 03-16 00:00: 00 [facility] Hypothyroi d in , antepartum Hypothyroi d in , antepartum Disease Active 03-16 00:00: 00 [facility] Diabetes mellitus complicati ng , antepartum Diabetes mellitus complicati ng , antepartum Disease Active 03-16 00:00: 00 Overview: a1c 8.3 [facility] Anxiety in , antepartum Anxiety in , antepartum Disease Active 03-16 00:00: 00 [facility] Depression affecting Depression affecting Disease Active 03-16 00:00: 00 [facility] Tobacco smoking affecting Tobacco smoking affecting Disease Active 03-16 00:00: 00 [facility] Maternal rheumatoid arthritis complicati ng Maternal rheumatoid arthritis complicati ng Disease Active 03-16 00:00: 00 [facility] Psoriasis Psoriasis Disease Active 03-16 00:00: 00 [facility] Obesity affecting Obesity affecting Disease Active 2015-11 00:00: 00 [facility] Smoker Smoker Disease Active 04-02 00:00: 00 [facility] Allergies, Adverse Reactions, Alerts Allergy Name Allergy Type Status Severity Reaction(s) Onset Date Inactive Date Treating Clinician Comments Source metformi n DA Active U STOMACH UPSET, LOSS OF APPETITE 2022-11 0-31 00:00: 00 [facility] metformi ne DA Active U stomac upset, loss of appitite 2022-11 0-27 00:00: 00 [facility] Exenatid e Propensi ty to adverse reaction s Active Unknown - See comments 01-11 00:00: 00 [facility] Metformi n Propensi ty to adverse reaction s Active Unknown - See comments 01-11 00:00: 00 [facility] Golimuma b Propensi ty to adverse reaction s Active Unknown - See comments 01-11 00:00: 00 [facility] GOLIMUMA B DRUG INGREDI Active Unknown-Cmnt 01-11 00:00: 00 [facility] EXENATID E MICROSPH ERES DRUG INGREDI Active Unknown-Cmnt - 00:00: 00 [facility] METFORMI N DRUG INGREDI Active Unknown-Cmnt 01-11 00:00: 00 [facility] EXENATID E DRUG INGREDI Active Unknown-Cmnt 3 00:00: 00 [facility] No Known Allergie s DA Active U 2010-11 0 00:00: 00 [facility] NO KNOWN ALLERGIE S Drug Class Active [facility] Metformi n Allergy to substanc e Active [facility] Social History Social Habit Start Date Stop Date Quantity Comments Source History of tobacco use 1998-03-16 00:00:00 Cigarette Smoker [facility] Alcohol intake 2023-08-14 00:00:00 2023-08-14 00:00:00 Current non-drinker of alcohol (finding) [facility] Cigarettes smoked current (pack per day) - Reported 2023-06-22 00:00:00 2023-06-22 00:00:00 [facility] Cigarette pack-years 2023-06-22 00:00:00 2023-06-22 00:00:00 [facility] Tobacco use and exposure 2023-06-22 00:00:00 2023-06-22 00:00:00 Smokeless tobacco non-user [facility] Tobacco Comment 2023-06-22 00:00:00 2023-06-22 00:00:00 1 pack every 3 days [facility] Exposure to SARS-CoV-2 (event) 2023-02-27 00:00:00 2023-03-09 10:44:00 Not sure [facility] History of Social function 2020-06-20 00:00:00 2020-06-20 00:00:00 [facility] Sex Assigned At 1980 00:00:00 1980 00:00:00 [facility] Smoking Status Start Date Stop Date Source Current Every Day Smoker [facility] Heavy tobacco smoker 2018-10-06 00:00:00 [facility] Medications Ordered Medication Name Filled Medication Name Start Date Stop Date Current Medication? Ordering Clinician Indication Dosage Frequency Signature (SIG) Comments Components Source esomeprazol e 40 mg capsule 2022-11 11:01: 38 Yes 40mg Take 1 capsule by mouth. [facility] OMEPRAZOLE ORAL 2022-11 11:01: 38 08-14 00:00 :00 No 40mg Take 40 mg by mouth 2 (two) times daily. [facility] norethindro ne 0.35 mg tablet 2022-11 00:00: 00 Yes [id number] .35mg Take 1 tablet by mouth in the morning. [facility] iopamidol (ISOVUE 370-500 mL) injection 90 mL 2022-11 11:30: 00 08-08 11:30 :00 No [id number] 90mL 90 mL, Intravenou s, ONCE, 1 dose, On 08/08/23 at 0630, Routine [facility] morpHINE (4 mg/mL) injection 4 mg 2022-11 11:15: 00 08-08 11:28 :00 No 4mg 4 mg, Slow IV Push, ONCE, 1 dose, On 08/08/23 at 0615, STAT [facility] ondansetron (ZOFRAN (PF)) injection 4 mg 2022-11 10:00: 00 08-08 10:04 :00 No 4mg 4 mg, Slow IV Push, ONCE, 1 dose, On 08/08/23 at 0500, [facility] morpHINE (4 mg/mL) injection 4 mg 2022-11 10:00: 00 08-08 10:04 :00 No 4mg 4 mg, Slow IV Push, ONCE, 1 dose, On 08/08/23 at 0500, STAT [facility] ketorolac 10 mg tablet 2022-11 00:00: 00 Yes [id number] 10mg Take 1 tablet by mouth every 6 (six) hours as needed for Pain (scale 7-10). [facility] dicyclomine 20 mg tablet 2022-11 00:00: 00 Yes [id number] 20mg Take 1 tablet by mouth every 6 (six) hours as needed for Abdominal pain. [facility] ondansetron (ZOFRAN) 4 mg tablet 2022-11 00:00: 00 Yes [id number] 4mg Take 1 tablet by mouth every 8 (eight) hours as needed for Nausea and Vomiting (N/V). [facility] MOUNJARO 5 mg/0.5 mL PnIj 07-13 00:00: 00 Yes INJECT 5MG/0.5 ML SUBCUTANEO US ONCE A WEEK 30 DAYS [facility] ACCU-CHEK GUIDE TEST STRIPS strip 07-13 00:00: 00 Yes 2 (two) times daily. [facility] BD GUILLERMINA 2ND GEN PEN NEEDLE 32 gauge x 5/32" Ndle 07-13 00:00: 00 Yes ONE NEEDLE PER INJECTION 100 DAYS [facility] gabapentin 300 mg capsule 07-09 00:00: 00 Yes TAKE 1 CAPSULE BY MOUTH EVERY DAY FOR 90 DAYS [facility] traZODone 50 mg tablet 06-22 15:30: 45 06-22 00:00 :00 No 50mg Take 50 mg by mouth at bedtime. [facility] MELOXICAM ORAL 06-22 15:30: 27 06-22 00:00 :00 No 15mg Take 15 mg by mouth. Indication s: as needed [facility] losartan-hy drochloroth iazide 100-12.5 mg per tablet 06-22 15:30: 24 06-22 00:00 :00 No 1{tbl} Take 1 tablet by mouth daily. [facility] acetaminoph en-codeine (Tylenol w/ Codeine #3) 300-30 MG tablet 2020-11 00:00: 00 08-19 04:59 :00 No [id number] 2{tbl} Q6H Take 2 tablets by mouth every 6 (six) hours if needed for severe pain for up to 5 days. [facility] insulin aspart (NovoLOG) 100 UNIT/ML injection 07-01 14:09: 32 Yes 8U Inject 8 Units under the skin. [facility] sulfaSALAzi ne (Azulfidine ) 500 MG tablet 07-01 14:09: 32 Yes 500mg Take 500 mg by mouth. [facility] allopurinol (Zyloprim) 100 MG tablet 07-01 14:09: 31 Yes 100mg Take 100 mg by mouth. [facility] atorvastati n (Lipitor) 40 MG tablet 07-01 14:09: 31 Yes 40mg Take 40 mg by mouth. [facility] esomeprazol e (NexIUM) [address] capsule 07-01 14:09: 31 Yes 40mg Take 40 mg by mouth. [facility] sulfaSALAzi ne (Azulfidine ) 500 MG tablet 07-01 09:09: 32 Yes 500mg Take 500 mg by mouth. [facility] insulin aspart (NovoLOG) 100 UNIT/ML injection 07-01 09:09: 32 Yes 8U Inject 8 Units under the skin. [facility] insulin aspart (NovoLOG) 100 UNIT/ML injection 07-01 09:09: 32 Yes 8U Inject 8 Units under the skin. [facility] allopurinol (Zyloprim) 100 MG tablet 07-01 09:09: 31 Yes 100mg Take 100 mg by mouth. [facility] atorvastati n (Lipitor) 40 MG tablet 07-01 09:09: 31 Yes 40mg Take 40 mg by mouth. [facility] esomeprazol e (NexIUM) [address] capsule 07-01 09:09: 31 Yes 40mg Take 40 mg by mouth. [facility] acetaminoph en-codeine (Tylenol w/ Codeine #3) 300-30 MG tablet 07-01 00:00: 00 07-07 04:59 :00 No [id number] 2{tbl} Q6H Take 2 tablets by mouth every 6 (six) hours if needed for severe pain for up to 5 days. [facility] Tremfya 100 MG/ML solution pen-injecto r 7-12 00:00: 00 Yes [facility] Soliqua 100-33 UNT-MCG/ML solution pen-injecto r 04-22 00:00: 00 Yes [facility] Vascepa 1 g capsule 01-28 00:00: 00 Yes [facility] Droplet Pen Tensed 32G X 4 MM misc 01-28 00:00: 00 Yes [facility] levothyroxi ne (Synthroid, Levoxyl) 200 MCG tablet 01-28 00:00: 00 Yes [facility] losartan (Cozaar) 100 MG tablet 01-28 00:00: 00 Yes [facility] ibuprofen (IBU) tablet 600 mg 01-11 20:30: 00 01-11 19:29 :00 No 600mg 600 mg, Oral, ONCE, 1 dose, Thu01/11/21 at 1430, [facility] HYDROcodone -acetaminop hen (NORCO 5) 5-325 mg tablet 2 tablet 01-11 20:15: 00 01-11 19:29 :00 No 2{tbl} 2 tablet, Oral, ONCE, 1 dose, Thu01/11/21 at 1415, [facility] ibuprofen (IBU) 600 mg tablet 01-11 00:00: 00 Yes [id number] 600mg Take 1 tablet by mouth every 6 (six) hours as needed for Pain (scale 4-6). [facility] cephALEXin (KEFLEX) 500 mg capsule 01-11 00:00: 00 01-19 04:59 :00 No [id number] 500mg Take 1 capsule by mouth 4 (four) times daily for 7 days. [facility] traMADoL 50 mg tablet 01-11 00:00: 00 01-19 04:59 :00 No [id number] 50mg Take 1 tablet by mouth every 6 (six) hours as needed for Pain (scale 7-10) for up to 7 days. Indication s: acute pain [facility] methocarbam oL (ROBAXIN) 500 mg tablet 2019-11 00:00: 00 06-22 00:00 :00 No [id number] 500mg Take 1 tablet by mouth every 6 (six) hours as needed (MUSCLE SPASM). [facility] naproxen sodium 550 mg tablet 2019-11 00:00: 00 06-22 00:00 :00 No [id number] 550mg Take 1 tablet by mouth 2 (two) times daily with meals. [facility] leflunomide (Arava) 10 MG tablet 2019-11 00:00: 00 Yes 10mg QD Take 10 mg by mouth 1 (one) time each day. [facility] Accu-Chek Guide test strip 2019-11 00:00: 00 Yes [id number] 3D 3 (three) times a day. [facility] montelukast 10 mg tablet 06-20 19:23: 30 06-20 00:00 :00 No 10mg Take 10 mg by mouth. [facility] esomeprazol e (NEXIUM) 40 mg capsule 06-20 19:23: 18 06-20 00:00 :00 No 40mg Take 40 mg by mouth daily with breakfast. [facility] buPROPion (WELLBUTRIN ) 100 mg tablet 06-20 19:23: 15 06-20 00:00 :00 No 300mg Take 300 mg by mouth daily. [facility] traZODone 50 mg tablet 06-20 19:11: 04 Yes 50mg Take 50 mg by mouth at bedtime. [facility] losartan-hy drochloroth iazide 100-12.5 mg per tablet 06-20 19:11: 04 Yes 1{tbl} Take 1 tablet by mouth daily. [facility] insulin degludec (TRESIBA U-100 INSULIN SC) 06-20 19:11: 04 Yes 50U inject 50 Units under the skin. [facility] icosapent ethyL (VASCEPA) 1 gram capsule 06-20 19:11: 04 Yes 1g Take 1 g by mouth daily. [facility] sulfaSALAzi ne 500 mg tablet 2020-0 8-19 19:11: 04 Yes 500mg Take 500 mg by mouth 4 (four) times daily. [facility] allopurinoL 100 mg tablet 06-20 19:11: 04 Yes 100mg Take 100 mg by mouth daily. [facility] atorvastati n 40 mg tablet 06-20 19:11: 04 Yes 40mg Take 40 mg by mouth at bedtime. [facility] insulin aspart RAPID (NOVOLOG U-100 INSULIN ASPART) 100 unit/mL injection 06-20 19:11: 04 Yes 8U inject 8 Units under the skin 3 (three) times daily with meals. [facility] OMEPRAZOLE ORAL 06-20 19:11: 04 Yes 40mg Take 40 mg by mouth 2 (two) times daily. [facility] MELOXICAM ORAL 06-20 19:11: 04 Yes 15mg Take 15 mg by mouth. Indication s: as needed [facility] levothyroxi ne 200 mcg Cap 06-20 19:11: 04 Yes 200ug Take 200 mcg by mouth. [facility] insulin degludec (TRESIBA U-100 INSULIN SC) 06-20 14:11: 04 Yes 50U inject 50 Units under the skin. [facility] icosapent ethyL (VASCEPA) 1 gram capsule 06-20 14:11: 04 Yes 1g Take 1 g by mouth daily. [facility] sulfaSALAzi ne 500 mg tablet 06-20 14:11: 04 Yes 500mg Take 500 mg by mouth 4 (four) times daily. [facility] allopurinoL 100 mg tablet 06-20 14:11: 04 Yes 100mg Take 100 mg by mouth daily. [facility] atorvastati n 40 mg tablet 06-20 14:11: 04 Yes 40mg Take 40 mg by mouth at bedtime. [facility] insulin aspart RAPID (NOVOLOG U-100 INSULIN ASPART) 100 unit/mL injection 06-20 14:11: 04 Yes 8U inject 8 Units under the skin 3 (three) times daily with meals. [facility] OMEPRAZOLE ORAL 06-20 14:11: 04 Yes 40mg Take 40 mg by mouth 2 (two) times daily. [facility] MELOXICAM ORAL 06-20 14:11: 04 Yes 15mg Take 15 mg by mouth. Indication s: as needed [facility] levothyroxi ne 200 mcg Cap 06-20 14:11: 04 Yes 200ug Take 200 mcg by mouth. [facility] traZODone 50 mg tablet 06-20 14:11: 04 Yes 50mg Take 50 mg by mouth at bedtime. [facility] losartan-hy drochloroth iazide 100-12.5 mg per tablet 06-20 14:11: 04 Yes 1{tbl} Take 1 tablet by mouth daily. [facility] buPROPion (WELLBUTRIN ) 100 mg tablet 2017-11 22:35: 30 Yes 300mg Take 300 mg by mouth daily. [facility] esomeprazol e (NEXIUM) 40 mg capsule 2017-11 22:35: 30 Yes 40mg Take 40 mg by mouth daily with breakfast. [facility] montelukast 10 mg tablet 2017-11 22:35: 30 Yes 10mg Take 10 mg by mouth. [facility] amLODIPine 10 mg tablet 2017-11 00:00: 00 06-20 00:00 :00 No 10mg Take 1 tablet by mouth daily. [facility] indapamide 2.5 mg tablet 2017-11 00:00: 00 06-20 00:00 :00 No 2.5mg Take 1 tablet by mouth daily. [facility] HYDROcodone -acetaminop hen (NORCO) 10-325 mg tablet 2017-11 00:00: 00 06-20 00:00 :00 No 1{tbl} Take 1 tablet by mouth every 6 (six) hours as needed for Pain (scale 1-3), Pain (scale 4-6) or Pain (scale 7-10). [facility] promethazin e 6.25 mg/5 mL solution 2017-11 2-07 00:00: 06-20 00:00 :00 No 12.5mg Take 10 mL by mouth every 4 (four) hours as needed for Nausea and Vomiting (N/V). [facility] Syringe, Disposable, Syrg 24 00:00: 00 06-20 00:00 :00 No [id number] Use as directed [facility] ferrous sulfate 325 mg (65 mg iron) tablet 03-17 00:00: 06-20 00:00 :00 No [id number] 325mg Take 1 tablet by mouth 2 (two) times daily. [facility] ascorbic acid, vitamin C, 500 mg tablet 03-17 00:00: 06-20 00:00 :00 No [id number] 500mg Take 1 tablet by mouth 3 (three) times daily. [facility] PNV 67-iron ps-folate no.1-dha (VITAFOL ULTRA) 29 mg iron- 1 mg-200 mg Cap 03-16 00:00: 06-20 00:00 :00 No [id number] 1{each} Take 1 Each by mouth daily. [facility] multivitami n ( VITAMIN) tablet 03-09 00:00: 00 06-20 00:00 :00 No 1{tbl} Take 1 tablet by mouth daily. [facility] hydrocortis one (HYTONE) 2.5 % cream 6-14 00:00: 00 06-20 00:00 :00 No Apply to affected area(s) 2 (two) times daily. [facility] diphenhydrA MINE (BENADRYL) 25 mg capsule 5-10 00:00: 00 06-20 00:00 :00 No 25mg Take 1 capsule by mouth every 6 (six) hours as needed for Allergies. [facility] Mounjaro 12.5 mg/0.5 mL subcutaneou s pen injector INJECT 12.5MG SUBCUTANEOU S ONCE A WEEK FOR 30 DAY DIRECTED Mounjaro 12.5 mg/0.5 mL subcutaneou s pen injector INJECT 12.5MG SUBCUTANEOU S ONCE A WEEK FOR 30 DAY DIRECTED No Mounjaro 12.5 mg/0.5 mL subcutaneo us pen injector INJECT 12.5MG SUBCUTANEO US ONCE A WEEK FOR 30 DAY DIRECTED [facility] gabapentin 600 mg tablet gabapentin 600 mg tablet No gabapentin 600 mg tablet [facility] hydrochloro thiazide 12.5 mg tablet hydrochloro thiazide 12.5 mg tablet No hydrochlor othiazide 12.5 mg tablet [facility] losartan 50 mg tablet losartan 50 mg tablet No losartan 50 mg tablet [facility] Orilissa 200 mg tablet Take by oral route for 28 days. Orilissa 200 mg tablet Take by oral route for 28 days. No Orilissa 200 mg tablet Take by oral route for 28 days. [facility] Accu-Chek Guide test strips USE TWICE DAILY Accu-Chek Guide test strips USE TWICE DAILY No Accu-Chek Guide test strips USE TWICE DAILY [facility] Accu-Chek Softclix Lancets USE TWICE DAILY Accu-Chek Softclix Lancets USE TWICE DAILY No Accu-Chek Softclix Lancets USE TWICE DAILY [facility] allopurinol 300 mg tablet TAKE 1 TABLET BY MOUTH EVERY DAY FOR 30 DAYS allopurinol 300 mg tablet TAKE 1 TABLET BY MOUTH EVERY DAY FOR 30 DAYS No allopurino l 300 mg tablet TAKE 1 TABLET BY MOUTH EVERY DAY FOR 30 DAYS [facility] atorvastati n 20 mg tablet TAKE 1 TABLET BY MOUTH EVERY DAY FOR 90 DAYS atorvastati n 20 mg tablet TAKE 1 TABLET BY MOUTH EVERY DAY FOR 90 DAYS No atorvastat in 20 mg tablet TAKE 1 TABLET BY MOUTH EVERY DAY FOR 90 DAYS [facility] bupropion HCl XL 150 mg 24 hr tablet, extended release TAKE 1 TABLET BY MOUTH EVERY DAY IN THE MORNING FOR 90 DAYS bupropion HCl XL 150 mg 24 hr tablet, extended release TAKE 1 TABLET BY MOUTH EVERY DAY IN THE MORNING FOR 90 DAYS No bupropion HCl XL 150 mg 24 hr tablet, extended release TAKE 1 TABLET BY MOUTH EVERY DAY IN THE MORNING FOR 90 DAYS [facility] Iron (ferrous sulfate) 325 mg (65 mg iron) tablet Take 1 tablet every day by oral route. Iron (ferrous sulfate) 325 mg (65 mg iron) tablet Take 1 tablet every day by oral route. No 1 Q1D Iron (ferrous sulfate) 325 mg (65 mg iron) tablet Take 1 tablet every day by oral route. [facility] Jynarque 15 mg tablet Jynarque 15 mg tablet No Jynarque 15 mg tablet [facility] levothyroxi ne 100 mcg tablet TAKE 1 TABLET BY MOUTH EVERY DAY IN THE MORNING ON EMPTY STOMACH FOR 90 DAYS levothyroxi ne 100 mcg tablet TAKE 1 TABLET BY MOUTH EVERY DAY IN THE MORNING ON EMPTY STOMACH FOR 90 DAYS No levothyrox ine 100 mcg tablet TAKE 1 TABLET BY MOUTH EVERY DAY IN THE MORNING ON EMPTY STOMACH FOR 90 DAYS [facility] omeprazole 40 mg capsule,del ayed release TAKE 1 CAPSULE BY MOUTH EVERY DAY omeprazole 40 mg capsule,del ayed release TAKE 1 CAPSULE BY MOUTH EVERY DAY No omeprazole 40 mg capsule,de layed release TAKE 1 CAPSULE BY MOUTH EVERY DAY [facility] Skyrizi 150 mg/mL subcutaneou s syringe Skyrizi 150 mg/mL subcutaneou s syringe No Skyrizi 150 mg/mL subcutaneo us syringe [facility] Tresiba FlexTouch U-200 insulin 200 unit/mL (3 mL) subcutaneou s pen INJECT 30 UNITS SUBCUTANEOU S ONCE A DAY 90 DAYS Tresiba FlexTouch U-200 insulin 200 unit/mL (3 mL) subcutaneou s pen INJECT 30 UNITS SUBCUTANEOU S ONCE A DAY 90 DAYS No Tresiba FlexTouch U-200 insulin 200 unit/mL (3 mL) subcutaneo us pen INJECT 30 UNITS SUBCUTANEO US ONCE A DAY 90 DAYS [facility] Accu-Chek Guide Me Glucose Meter USE DIRECTED Accu-Chek Guide Me Glucose Meter USE DIRECTED No Accu-Chek Guide Me Glucose Meter USE DIRECTED [facility] BD Guillermina 2nd Gen Pen Needle 32 gauge x 5/32" ONE NEEDLE PER INJECTION 100 DAYS BD Guillermina 2nd Gen Pen Needle 32 gauge x 5/32" ONE NEEDLE PER INJECTION 100 DAYS No BD Guillermina 2nd Gen Pen Needle 32 gauge x 5/32" ONE NEEDLE PER INJECTION 100 DAYS [facility] famotidine 20 mg tablet TAKE 1 TABLET BY MOUTH TWICE A DAY FOR 90 DAYS famotidine 20 mg tablet TAKE 1 TABLET BY MOUTH TWICE A DAY FOR 90 DAYS No famotidine 20 mg tablet TAKE 1 TABLET BY MOUTH TWICE A DAY FOR 90 DAYS [facility] Immunizations Ordered Immunization Name Filled Immunization Name Date Status Comments Source SARS-COV-2 COVID-19 VACCINE - (MODERNA) 2021-02-04 00:00:00 Completed [facility] SARS-COV-2 COVID-19 VACCINE - (MODERNA) 2021-02-04 00:00:00 Completed [facility] SARS-COV-2 COVID-19 VACCINE - (MODERNA) 2021-02-04 00:00:00 Completed [facility] SARS-COV-2 COVID-19 VACCINE - (MODERNA) 2021-01-07 00:00:00 Completed [facility] SARS-COV-2 COVID-19 VACCINE - (MODERNA) 2021-01-07 00:00:00 Completed [facility] SARS-COV-2 COVID-19 VACCINE - (MODERNA) 2021-01-07 00:00:00 Completed [facility] TDAP 2017-07-03 00:00:00 Completed [facility] TDAP 2017-07-03 00:00:00 Completed [facility] TDAP 2017-07-03 00:00:00 Completed [facility] TDAP 2017-07-03 00:00:00 Completed [facility] TDAP 2017-07-03 00:00:00 Completed [facility] TDAP 2017-07-03 00:00:00 Completed [facility] TDAP 2017-07-03 00:00:00 Completed [facility] TDAP 2017-07-03 00:00:00 Completed [facility] TDAP 2017-07-03 00:00:00 Completed [facility] TDAP 2017-07-03 00:00:00 Completed [facility] TDAP 2017-07-03 00:00:00 Completed [facility] TDAP 2017-07-03 00:00:00 Completed [facility] TDAP 2017-07-03 00:00:00 Completed [facility] TDAP 2017-07-03 00:00:00 Completed [facility] TDAP 2017-07-03 00:00:00 Completed [facility] TDAP 2017-07-03 00:00:00 Completed [facility] TDAP Unknown Completed [facility] SARS-COV-2 COVID-19 VACCINE - (MODERNA) Unknown Completed [facility] TDAP Unknown Completed [facility] SARS-COV-2 COVID-19 VACCINE - (MODERNA) Unknown Completed [facility] TDAP Unknown Completed [facility] SARS-COV-2 COVID-19 VACCINE - (MODERNA) Unknown Completed [facility] TDAP Unknown Completed [facility] SARS-COV-2 COVID-19 VACCINE - (MODERNA) Unknown Completed [facility] TDAP Unknown Completed [facility] SARS-COV-2 COVID-19 VACCINE - (MODERNA) Unknown Completed [facility] Vital Signs Vital Name Observation Time Observation Value Comments S ource BP Systolic 2024-07-21 00:00:00 186 mm[Hg] [facility] Body Weight 2024-07-21 00:00:00 207.4 [lb_av] [facility] Height 2024-07-21 00:00:00 63 [in_i] [facility] BP Diastolic 2024-07-21 00:00:00 114 mm[Hg] [facility] BMI (Body Mass Index) 2024-07-21 00:00:00 36.7 kg/m2 [facility] Body Weight 2024-06-20 00:00:00 207.4 [lb_av] [facility] BMI (Body Mass Index) 2024-06-20 00:00:00 36.7 kg/m2 [facility] Height 2024-06-20 00:00:00 63 [in_i] [facility] BP Systolic 2024-06-20 00:00:00 141 mm[Hg] [facility] BP Diastolic 2024-06-20 00:00:00 91 mm[Hg] [facility] Body Weight 2024-03-15 00:00:00 214.6 [lb_av] [facility] BP Systolic 2024-03-15 00:00:00 162 mm[Hg] [facility] BP Diastolic 2024-03-15 00:00:00 80 mm[Hg] [facility] BMI (Body Mass Index) 2024-03-15 00:00:00 38 kg/m2 [facility] Height 2024-03-15 00:00:00 63 [in_i] [facility] Systolic blood pressure 2023-08-14 15:58:00 165 mm[Hg] [facility] Diastolic blood pressure 2023-08-14 15:58:00 70 mm[Hg] [facility] Heart rate 2023-08-14 15:58:00 96 /min [facility] Body temperature 2023-08-14 15:58:00 36.67 Nina [facility] Respiratory rate 2023-08-14 15:58:00 16 /min [facility] Body height 2023-08-14 15:58:00 160 cm [facility] Body weight 2023-08-14 15:58:00 97.07 kg [facility] BMI 2023-08-14 15:58:00 37.91 kg/m2 [facility] Oxygen saturation in Arterial blood by Pulse oximetry 2023-08-14 15:58:00 100 /min [facility] Systolic blood pressure 2023-08-08 11:00:00 161 mm[Hg] [facility] Diastolic blood pressure 2023-08-08 11:00:00 84 mm[Hg] [facility] Heart rate 2023-08-08 11:00:00 75 /min [facility] Body temperature 2023-08-08 11:00:00 36.72 Nina [facility] Respiratory rate 2023-08-08 11:00:00 16 /min [facility] Oxygen saturation in Arterial blood by Pulse oximetry 2023-08-08 11:00:00 100 /min [facility] Body height 2023-08-08 08:45:00 160 cm [facility] Body weight 2023-08-08 08:45:00 91.853 kg [facility] BMI 2023-08-08 08:45:00 35.87 kg/m2 [facility] Systolic blood pressure 2023-07-28 18:19:00 152 mm[Hg] [facility] Diastolic blood pressure 2023-07-28 18:19:00 90 mm[Hg] [facility] Heart rate 2023-07-28 18:19:00 94 /min [facility] Body temperature 2023-07-28 18:19:00 36.78 Nina [facility] Respiratory rate 2023-07-28 18:19:00 18 /min [facility] Body height 2023-07-28 18:19:00 160 cm [facility] Body weight 2023-07-28 18:19:00 96.616 kg [facility] BMI 2023-07-28 18:19:00 37.73 kg/m2 [facility] Systolic blood pressure 2023-06-22 19:15:00 134 mm[Hg] [facility] Diastolic blood pressure 2023-06-22 19:15:00 85 mm[Hg] [facility] Heart rate 2023-06-22 19:15:00 90 /min [facility] Body temperature 2023-06-22 19:15:00 36.67 Nina [facility] Respiratory rate 2023-06-22 19:15:00 18 /min [facility] Body height 2023-06-22 19:15:00 160 cm [facility] Body weight 2023-06-22 19:15:00 94.348 kg [facility] BMI 2023-06-22 19:15:00 36.85 kg/m2 [facility] Body height 2021-07-01 14:00:00 160 cm [facility] Body weight 2021-07-01 14:00:00 99.338 kg [facility] BMI 2021-07-01 14:00:00 38.79 kg/m2 [facility] Systolic blood pressure 2021-01-11 19:00:00 141 mm[Hg] [facility] Diastolic blood pressure 2021-01-11 19:00:00 102 mm[Hg] [facility] Heart rate 2021-01-11 19:00:00 135 /min [facility] Body temperature 2021-01-11 19:00:00 36.83 Nina [facility] Respiratory rate 2021-01-11 19:00:00 18 /min [facility] Body weight 2021-01-11 19:00:00 103.42 kg [facility] BMI 2021-01-11 19:00:00 40.39 kg/m2 [facility] Oxygen saturation in Arterial blood by Pulse oximetry 2021-01-11 19:00:00 97 /min [facility] Systolic blood pressure 2021-01-11 19:00:00 141 mm[Hg] [facility] Diastolic blood pressure 2021-01-11 19:00:00 102 mm[Hg] [facility] Heart rate 2021-01-11 19:00:00 135 /min [facility] Body temperature 2021-01-11 19:00:00 36.83 Nina [facility] Respiratory rate 2021-01-11 19:00:00 18 /min [facility] Body weight 2021-01-11 19:00:00 103.42 kg [facility] BMI 2021-01-11 19:00:00 40.39 kg/m2 [facility] Oxygen saturation in Arterial blood by Pulse oximetry 2021-01-11 19:00:00 97 /min [facility] Systolic blood pressure 2020-06-20 18:51:00 119 mm[Hg] [facility] Diastolic blood pressure 2020-06-20 18:51:00 72 mm[Hg] [facility] Heart rate 2020-06-20 18:51:00 82 /min [facility] Body temperature 2020-06-20 18:51:00 36.56 Nina [facility] Respiratory rate 2020-06-20 18:51:00 16 /min [facility] Body height 2020-06-20 18:51:00 160 cm [facility] Body weight 2020-06-20 18:51:00 103.103 kg [facility] BMI 2020-06-20 18:51:00 40.26 kg/m2 [facility] Procedures Procedure Date / Time Performed Performing Clinician Source MAMMO, screening, digital, bilateral 2024-06-20 00:00:00 [facility] US, transvaginal 2024-03-17 00:00:00 [facility] Transvaginal Us Non-ob 2023-10-01 00:00:00 [facility] [id number] 2023-08-31 00:00:00 [facility] [id number] 2023-08-31 00:00:00 [facility] [id number] 2023-08-31 00:00:00 [facility] [id number] 2023-08-31 00:00:00 [facility] Hysteroscopy 2023-08-31 00:00:00 Bobby edical EXTERNAL PROVIDER RECORDS 2023-08-17 05:01:00 Doctor Unassigned, [place] [facility] CT ABDOMEN PELVIS W CONTRAST 2023-08-08 10:34:50 Jose Naranjo [facility] POCT TEST 2023-08-08 08:50:00 Jose Naranjo [facility] LIPASE 2023-08-08 08:48:00 Jose Naranjo [facility] COMP. METABOLIC PANEL (93202) 2023-08-08 08:48:00 Jose Naranjo [facility] CBC WITH DIFF 2023-08-08 08:48:00 Jose Naranjo [facility] URINALYSIS 2023-08-08 08:48:00 Jose Naranjo [facility] US PELVIS COMPLETE WITH TRANSVAGINAL 2023-07-17 15:25[facility]00 [facility] 2023-06-22 20:18[facility]00 [facility] 2023-06-22 20:18[facility] GLYCOSYLATED HEMOGLOBIN (A1C) 2023-06-22 20:18:00 [facility] REFERRAL- REQUEST/RESPONSE 2023-05-11 05:01:00 Doctor Unassigned, [place] [facility] XR ELBOW 3+ VIEWS RIGHT 2021-07-01 14:22:25 Flakita Molina [facility] XR FOREARM 2 VW RIGHT 2021-01-11 19:30:53 Lucie Sánchez [facility] NOTICE OF PRIVACY PRACTICES 2021-01-11 18:48:50 Doctor Unassigned, [place] [facility] CONSENT/REFUSAL FOR DIAGNOSIS AND TREATMENT 2021-01-11 18:48:41 Doctor Unassigned, [place] [facility] BI AXILLARY ULTRASOUND LEFT 2020-08-07 15:09:04 Beverly Moran [facility] BI DIAGNOSTIC MAMMOGRAM BILATERAL 2020-08-07 14:52:13 Beverly Moran [facility] ASSIGNMENT OF BENEFITS 2020-08-07 13:53:47 Docishaan akers Unassigned, [place] [facility] EXTERNAL PROVIDER RECORDS 2020-07-13 05:01:00 Doctor Unassigned, [place] [facility] ASSIGNMENT OF BENEFITS 2020-06-20 18:34:58 Docto r Unassigned, [place] [facility] Delivery 2017-11-02 00:00:00 [facility] Procedure on Ankle 1995-11-02 00:00:00 [facility] Ligation of Fallopian Tube [facility] Encounters Start Date/Time End Date/Time Encounter Type Admission Type Attending Clinicians Care Facility Care Department Encounter ID Source 2024-06-06 09:03:00 [facility] [id number] [facility] 2023-11-09 09:14:01 [facility] [id number] [facility] 2023-05-11 11:53:38 Outpatient [facility] [id number] [facility] 2023-05-01 09:50:22 Outpatient [facility] [id number] [facility] 2023-03-09 10:45:44 Outpatient [facility] [id number] [facility] 2023-02-27 10:34:00 Outpatient [facility] [id number] [facility] 2021-09-01 05:37:10 Emergency [facility] [id number] [facility] 2021-08-31 10:03:46 Emergency [facility] [id number] [facility] 2021-08-26 11:49:08 Outpatient LUIZ, RONEN [facility] [id number] [facility] 2021-07-19 16:54:19 Outpatient LUIZ RONEN [facility] [id number] [facility] 2021-07-01 09:13:23 Outpatient [facility] [id number] [facility] 2024-07-21 00:00:00 2024-07-21 00:00:00 BONILLA MontagueP: [address], [place] [id number] , Ph. [facility] - GC_GCBZW_Juliette Adam* [id number] [facility] 2024-06-20 00:00:00 2024-06-20 00:00:00 BARAK Cooper: [address], [place] [id number] , Ph. [facility] - GC_GCBZW_Juliette Adam* [id number] [facility] 2024-03-24 00:00:00 2024-03-24 00:00:00 MARIN Hawk: [address], [place] [address] , Ph. [facility] - GC_GCBZW_Juliette Adam* [id number] [facility] 2024-03-17 00:00:00 2024-03-17 00:00:00 Lena Sue MD: [address], [place] [address] , Ph. [facility] - GC_GCBZW_Juliette Adam* [id number] [facility] 2024-03-15 00:00:00 2024-03-15 00:00:00 MARIN Hawk: [address], [address], [place] [address] , Ph. [facility] - GC_GCBZW_La lucie Adam* [id number] [facility] 2023-11-26 00:00:00 2023-11-26 00:00:00 Outpatient GC_GCBZW_Ka diyala_S PRIV PRIV [id number] [facility] 2023-11-23 00:00:00 2023-11-23 00:00:00 Outpatient GC_GCBZW_Ka diyala_S PRIV PRIV [id number] [facility] 2023-11-19 00:00:00 2023-11-19 00:00:00 Outpatient GC_GCBZW_Ka diyala_S PRIV PRIV [id number] [facility] 2023-11-09 00:00:00 2023-11-09 00:00:00 Outpatient GC_GCBZW_Ka diyala_S PRIV PRIV [id number] [facility] 2023-10-29 00:00:00 2023-10-29 00:00:00 Outpatient GC_GCBZW_Ka diyala_S PRIV PRIV [id number] [facility] 2023-10-13 10:30:00 2023-10-13 10:30:00 Outpatient MILY JAUREGUI MARISOL [facility] [id number] [facility] 2023-08-31 13:17:00 2023-09-02 19:19:00 Inpatient Lena Steel [facility]02 [id number] [facility] 2023-08-27 00:00:00 2023-08-27 00:00:00 Outpatient GC_GCBZW_Ka diyala_S PRIV PRIV [id number] [facility] 2023-08-27 00:00:00 2023-08-27 00:00:00 Outpatient GC_GCBZW_Ka diyala_S PRIV PRIV [id number] [facility] 2023-08-27 00:00:00 2023-08-27 00:00:00 Outpatient GC_GCBZW_Ka diyala_S PRIV PRIV [id number] [facility] 2023-08-25 00:00:00 2023-08-25 00:00:00 Outpatient GC_GCBZW_Ka diyala_S PRIV PRIV [id number] [facility] 2023-08-25 00:00:00 2023-08-25 00:00:00 Outpatient GC_GCBZW_Ka diyala_S PRIV PRIV [id number] [facility] 2023-08-24 00:00:00 2023-08-24 00:00:00 Outpatient GC_GCBZW_Ka diyala_S PRIV PRIV [id number] [facility] 2023-08-20 00:00:00 2023-08-20 00:00:00 Outpatient GC_GCBZW_Ka diyala_S PRIV PRIV [id number] [facility] 2023-08-17 11:30:00 2023-08-17 11:30:00 Outpatient RONEN MOLINA [facility] [id number] [facility] 2023-08-17 00:00:00 2023-08-17 00:00:00 Orders Only Doctor Unassigned, [place] [facility] 1.840.114 350.1.13.10 4.2.7.2.686 [id number] [facility] 2023-08-14 10:30:00 2023-08-14 11:12:57 Outpatient R MILY GENAO MARISOL [facility] [id number] [facility] 2023-08-14 10:30:00 2023-08-14 11:12:57 Office Visit Mily Genao [facility] 1.840.114 350.1.13.10 4.2.7.2.686 [id number] [facility] 2023-08-08 03:42:00 2023-08-08 06:43:00 Emergency X JOSE NARANJO [facility] ERT [id number] [facility] 2023-08-08 03:42:00 2023-08-08 06:43:00 Emergency Jose Naranjo [facility] 1..840.114 350.1.13.10 4.2.7.2.686 [id number] [facility] 2023-08-07 10:35:09 2023-08-07 23:59:00 Outpatient R RADIOLOGY [facility] [id number] [facility] 2023-08-07 10:35:09 2023-08-07 23:59:00 Hospital Encounter Radiology [facility] 1..840.114 350.1.13.10 4.2.7.2.686 [id number] [facility] 2023-07-28 13:15:00 2023-07-28 13:45:06 Outpatient R KING-DANISHA S, MILY KING-DANISHA S, MILY [facility] [id number] [facility] 2023-07-28 13:15:00 2023-07-28 13:45:06 Office Visit King-Danisha s, Mily [facility] 1.2.840.114 350.1.13.10 4.2.7.2.686 [id number] [facility] 2023-07-27 13:00:00 2023-07-27 13:00:00 Outpatient R KING-DANISHA S, MILY KING-DANISHA S, MILY [facility] [id number] [facility] 2023-07-17 09:12:11 2023-07-17 23:59:00 Outpatient R KING-DANISHA S, MILY KING-DANISHA S, MILY [facility] [id number] [facility] 2023-07-17 09:12:11 2023-07-17 23:59:00 Hospital Encounter Josse Genaol [facility] 1.2.840.114 350.1.13.10 4.2.7.2.686 [id number] [facility] 2023-06-22 15:15:00 2023-06-22 15:33:34 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, [facility] 1.2840.114 350.1.13.10 4.2.7.2.686 [id number] [facility] 2023-06-22 14:30:00 2023-06-22 14:57:53 Outpatient R MARGARITA-DANISHA S, MILY [id number] 2023-06-22 14:30:00 2023-06-22 14:57:53 Office Visit Mini Genaosol [facility] 1.2840.114 350.1.13.10 4.2.7.2.686 [id number] [facility] 2023-05-11 11:30:00 2023-05-11 11:53:30 Office Visit Ronen Molina [facility] 1.2.840.114 350.1.13.58 9.2.7.2.686 [id number] [facility] 2023-05-11 00:00:00 2023-05-11 00:00:00 Orders Only Doctor Unassigned, [place] [facility] 1.2.840.114 350.1.13.10 4.2.7.2.686 [id number] [facility] 2023-03-09 11:00:00 2023-03-09 14:17:25 Office Visit RONEN MOLINA [facility] 1.2.840.114 350.1.13.58 9.2.7.2.686 [id number] [facility] 2023-03-09 10:50:00 2023-03-09 14:17:25 Outpatient [facility] [id number] [facility] 2021-08-26 10:48:54 2021-08-26 11:49:39 Office Visit Ronen Molina [facility] 1.20.114 350.1.13.58 9.2.7.2.686 [id number] [facility] 2021-08-13 00:00:00 2021-08-13 00:00:00 Orders Only Ronen Molina [address] 1.20.114 350.1.13.58 9.2.7.2.686 [id number] [facility] 2021-07-01 08:53:31 2021-07-01 09:50:49 Office Visit Ronen Molina [facility] 1.2840.114 350.1.13.58 9.2.7.2.686 [id number] [facility] 2021-01-21 00:00:00 2021-01-21 00:00:00 Patient Outreach Hadley Matute [facility] 1.2.114 350.1.13.10 4.2.7.2.686 [id number] [facility] 2021-01-11 13:03:00 2021-01-11 14:33:00 Emergency Mickey Sánchez [facility] 1.2840.114 350.1.13.10 4.2.7.2.686 [id number] [facility] 2021-01-11 13:03:00 2021-01-11 14:33:00 Emergency Mickey Sánchez [facility] 1.2.840.114 350.1.13.10 4.2.7.2.686 [id number] 2021-01-11 00:00:00 2021-01-11 00:00:00 Orders Only Doctor Unassigned, [place] [facility] 1.2.840.114 350.1.13.10 4.2.7.2.686 [id number] 2021-01-11 00:00:00 2021-01-11 00:00:00 Orders Only Doctor Unassigned, [place] [facility] 1.2.840.114 350.1.13.10 4.2.7.2.686 [id number] [facility] 2020-10-02 10:57:08 2020-10-02 23:59:00 Hospital Encounter Beverly Moran [facility] 1.2.840.114 350.1.13.10 4.2.7.2.686 [id number] 2020-10-02 10:57:08 2020-10-02 23:59:00 Hospital Encounter Beverly Moran [facility] 1.2.840.114 350.1.13.10 4.2.7.2.686 [id number] [facility] 2020-10-02 00:00:00 2020-10-02 00:00:00 Outpatient Luanne BEVERLY MORAN [facility] [id number] [facility] 2020-09-18 00:00:00 2020-09-18 00:00:00 Outpatient Luanne BEVERLY MORAN [facility] [id number] [facility] 2020-08-16 00:00:00 2020-08-16 00:00:00 Telephone Beverly Moran [facility] 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 1.2.840.114 350.1.13.10 4.2.7.2.686 [id number] 2020-08-16 00:00:00 2020-08-16 00:00:00 Telephone Beverly Moran [facility] DRILLING ASSISTANT [facility] 1.2.840.114 350.1.13.10 4.2.7.2.686 [id number] [facility] 2020-08-07 09:13:49 2020-08-07 23:59:00 Hospital Encounter Beverly Moran [facility] 1.2.840.114 350.1.13.10 4.2.7.2.686 [id number] [facility] 2020-08-07 08:57:24 2020-08-07 09:12:00 Hospital Encounter Beverly Moran [facility] 1.2.840.114 350.1.13.10 4.2.7.2.686 [id number] [facility] 2020-08-07 00:00:00 2020-08-07 00:00:00 Outpatient R BEVERLY MORAN [facility] [id number] [facility] 2020-08-07 00:00:00 2020-08-07 00:00:00 Orders Only Doctor Unassigned, [place] [facility] 1.2840.114 350.1.13.10 4.2.7.2.686 [id number] [facility] 2020-08-07 00:00:00 2020-08-07 00:00:00 Telephone Beverly Moran [facility] DRILLING ASSISTANT [facility] 1.2.840.114 350.1.13.10 4.2.7.2.686 [id number] [facility] 2020-07-13 00:00:00 2020-07-13 00:00:00 Orders Only Doctor Unassigned, [place] [facility] 1.2.840.114 350.1.13.10 4.2.7.2.686 [id number] [facility] 2020-06-22 00:00:00 2020-06-22 00:00:00 Telephone Beverly Moran [facility] [place] DRILLING ASSISTANT [facility] 1.2.840.114 350.1.13.10 4.2.7.2.686 [id number] [facility] 2020-06-20 13:37:39 2020-06-20 14:55:54 [facility] 1.2840.114 350.1.13.10 4.2.7.2.686 [id number] 107 [id number] [facility] 2020-06-20 13:15:00 2020-06-20 13:15:00 [facility] [id number] [facility] 2020-06-20 00:00:00 2020-06-20 00:00:00 Orders Only Doctor Unassigned, [place] [facility] 1.2840.114 350.1.13.10 [id number] [id number] [facility] 2020-06-18 13:30:00 2020-06-18 13:30:00 [facility]patient [facility] [id number] [facility] Results Test Description Test Time Test Comments Results Result Co mments Source [facility] MedicalUrinalysis macro (dipstick) panel - [id number] 09:48:00* Test Item Value Reference Range Interpretation Comme nts Leukocytes (test code = Leukocytes) Negative Nitrite (test code = Nitrite) negative Urobilinogen (test code = Urobilinogen) Normal Protein (test code = Protein) 1+ pH (test code = pH) 6.0 Blood (test code = Blood) Negative Specific Landing (test code = Specific Landing) 1.015 Ketone (test code = Ketone) Negative Bilirubin (test code = Bilirubin) Negative Glucose (test code = Glucose) Negative Appearance (test code = Appearance) Slightly Cloudy Color (test code = Color) Yellow [facility] [id number] 17:32:00* Test Item Value Reference Range Interpretation Comme [facility] GLUCOSE BEDSIDE TESTING (jaya t code = GLUBED) 228 mg/dL 70-110 H [id number] 14:46:00* Test Item Value Reference Range Interpretation Comme [facility] SURGICAL (test code = SR) RUN DATE: 09/02/23 [facility] PAGE 1 RUN TIME: 1446 Specimen Inquiry RUN USER: INTERFACE PATIENT: MADHAVI ABDI LOC: DENIS #: [id number] AGE/SX: 42/F ROOM: [facility] RE08/31/23REG DR: Lena Sue MD : 84 BED: 1 DIS: STATUS: ADM IN TLOC: SPEC #: :[facility]:[id number] RECD: 08/31/23 STATUS: SONDRA RUIZ #: [id number] MODE: 08/31/[address] [facility] DR: Lena Sue MD ENTERED: 08/31/23 SP TYPE: SURGICAL OT DR: ORDERED: [id number], ANATOMIC SPEC, SPECIMEN TRACK PROCEDURES: 68792 (08/31/23) SPECIMEN TRACK (08/31/23) TISSUES: A. ENDOMETRIUM CURETTINGS / BIOPSY FINAL DIAGNOSIS UTERUS, CURETTING: - Benign early secretory endometrium. - Benign endocervical tissue present. - Negative for atypical hyperplasia or malignancy. GROSS DESCRIPTION Endometrial curettings. Received is of approximately 1 cc of bloody mucus filtered in atea bag and submitted entirely as A1. Technical tissue processing and slide preparation performed at [employer],[id number] , [place] [address] MICROSCOPIC DESCRIPTION Microscopic examination is performed and the findings are incorporated into the finaldiagnosis. Please see diagnosis for findings. - Signed SIGNATURE ON FILE Yehuda Olmedo 09/02/23 1446 END OF REPORT GLUCOSE BEDSIDE [id number] 11:36:00* Test Item Value Reference Range Interpretation Comme [facility] GLUCOSE BEDSIDE TESTING (jaya t code = GLUBED) 154 mg/dL 70-110 H GLUCOSE BEDSIDE [id number] 08:13:00* Test Item Value Reference Range Interpretation Comme nts GLUCOSE BEDSIDE TESTING (jaya t code = GLUBED) 140 mg/dL 70-110 H GLUCOSE BEDSIDE [id number] 20:13:00* Test Item Value Reference Range Interpretation Comme nts GLUCOSE BEDSIDE TESTING (jaya t code = GLUBED) 192 mg/dL 70-110 H GLUCOSE BEDSIDE [id number] 17:05:00* Test Item Value Reference Range Interpretation Comme nts GLUCOSE BEDSIDE TESTING (jaya t code = GLUBED) 172 mg/dL 70-110 H - CT ABD PELVIS [id number] 16:44:00 [facility] 1980 Sex: F Name: MADHAVI ABDI [facility] : 1980 Age/S: 42 / F [address] Unit #: [id number]: [place] [address] Phys: Patricia Olson MD Acct: [id number] Dis Date: Status: ADM IN PHONE #: [phone] Exam Date: 09/01/2023 1620 FAX #: Reason: abdominal pain EXAMS: CPT: [id number] CT ABD PELVIS W/CONT 09452 EXAM: - CT ABD PELVIS W/CONT INDICATION: abdominal pain TECHNIQUE: CT of the abdomen and pelvis was performed with intravenous contrast. All CT scans are performed using radiation dose reduction technique. Location:T18 Maximum intensity projection images were created from the data set. One or more of the following dose-optimizing techniques was utilized for this exam: automated exposure control, adjustment of the mA and/or kV according to patient size, and/or use of iterative reconstruction technique. Unless otherwise specified, incidental findings do not require dedicated imaging follow-up. FINDINGS: Visualized chest: No significant abnormality seen. Hepatobiliary: Live r appears unremarkable. Gallbladder appears unremarkable. No intrahepatic and extrahepatic biliary ductal dilation seen. Pancreas: Appears unremarkable. Spleen: Appears unremarkable. Adrenal glands:Appear unremarkable. Kidneys: Incidental note is made of innumerable round densities in the kidneys, favored to reflect cysts. Few punctate bilateral nonobstructing renal stones. No hydronephrosis seen. Gastrointestinal: Appendix: Is seen and appears unremarkable. Bowel: No bowel obstruction or ileus seen. Vascular: Aorta does not appear aneurysmal. Lymph nodes: No enlarged lymph nodes seen. Peritoneum: Few small scattered foci of pneumoperitoneum identified. Genitourinary: Urinary bladder appears to be mildly distended. Relatively mild enlargement of the right ovary noted compared to the left side. In the left ovary, there appears to be a collapsed cyst or PAGE 1 Signed Report (CONTINUED) Name: MADHAVI ABDI [facility] : 1980 Age/S: 42 / F [address] Unit #: [id number] Loc: [place] [address] Phys: Patricia Olson MD Acct: [id number] Dis Date: Status: ADM IN PHONE #: [phone] Exam Date: 09/01/2023 1620 FAX #: Reason: abdominal pain EXAMS: CPT: [id number] CT ABD PELVIS W/CONT 78911 (Continued) follicle measuring 2.2 cm in size. Soft tissues:No significantabnormality seen. Bones:No acute or destructive osseous process seen. IMPRESSION: Few small scattered foci of pneumoperitoneum, uncertain etiology, potentially postoperative. Correlation with appropriate clinical history suggested. Relatively mild enlargement of the right ovary seen compared to the left, indeterminate. Recommend pelvic ultrasound examination for further evaluation to exclude an acute ovarian pathology or an ovarian mass. There appears to be a small collapsed cyst or follicle in the left ovary. Attention on the ultrasound. No bowel obstruction, ileus or fluid collection seen. Incidental note is made of innumerable round densities in the kidneys, favored to reflect cysts. Follow-up imaging in 3-6 months with MRI suggested to exclude a neoplastic process. Few punctate bilateral nonobstructing renal stones. No hydronephrosis seen. Please refer to the findings section for additional details. Findings are being called to the patient care team. at 1644 Reported and signed by: Chase Danielle M.D. CC: Lena Sue MD; Patricia Olson MD Technologist:Mark Patricia CTDI: DLP: Trnscb Date/Time: 09/01/2023 (5992) TachoR.AH26 Orig Print D/T: S: 09/01/2023 (1577) PAGE 2 Signed ReportGLUCOSE BEDSIDE [id number] 11:53:00* Test Item Value Reference Range Interpretation Comme nts GLUCOSE BEDSIDE TESTING (jaya t code = GLUBED) 125 mg/dL 70-110 H GLUCOSE BEDSIDE [id number] 08:07:00* Test Item Value Reference Range Interpretation Comme nts GLUCOSE BEDSIDE TESTING (jaya t code = GLUBED) 144 mg/dL 70-110 H GLUCOSE BEDSIDE [id number] 20:28:00* Test Item Value Reference Range Interpretation Comme nts GLUCOSE BEDSIDE TESTING (jaya t code = GLUBED) 221 mg/dL 70-110 H GLUCOSE BEDSIDE [id number] 16:42:00* Test Item Value Reference Range Interpretation Comme nts GLUCOSE BEDSIDE TESTING (jaya t code = GLUBED) 177 mg/dL 70-110 H GLUCOSE BEDSIDE [id number] 14:02:00* Test Item Value Reference Range Interpretation Comme nts GLUCOSE BEDSIDE TESTING (jaya t code = GLUBED) 155 mg/dL 70-110 H GLUCOSE BEDSIDE [id number] 09:00:00* Test Item Value Reference Range Interpretation Comme nts GLUCOSE BEDSIDE TESTING (jaya t code = GLUBED) 176 mg/dL 70-110 H RBC [id number] 18:26:00* Test Item Value Reference Range Interpretation Comme nts PLATELET ESTIMATE (test code = PLTEST) SLIGHTLY INCREASED THOUSAND ADEQUATE PLATELET MORPHOLOGY (test code = PLTMORPH) NORMAL CBC W/AUTO [id number] 18:26:00* Test Item Value Reference Range Interpretation Comme nts WHITE BLOOD CELL (test code = WBC) 9.2 K/mm3 3.5-11.0 N RED BLOOD CELL (test code = RBC) 4.00 M/mm3 4.70-6.10 L HEMOGLOBIN (test code = HGB) 10.4 G/DL 10.4-14.9 N HEMATOCRIT (test code = HCT) 33.3 % 31.5-44.1 N MEAN CELL VOLUME (test code = MCV) 83.3 Fl 84.5-98.6 L MEAN CELL HGB (test code = MCH) 26.0 pg 27.0-34.2 L MEAN CELL HGB CONCETRATION (test code = MCHC) 31.2 G/DL 31.5-34.0 L RED CELL DISTRIBUTION WIDTH (test code = RDW) 13.3 SD 11.5-14.5 N PLATELET COUNT (test code = PLT) 432 K/mm3 150-450 N MEAN PLATELET VOLUME (test c ode = MPV) 10.30 fL 7.0-10.5 N NEUTROPHIL % (test code = NT%) 61.5 % 40-76 N IMMATURE GRANULOCYTE % (test code = IG%) 0.9 % 0.0-5.0 N LYMPHOCYTE % (test code = LY%) 26.4 % 20.5-51.1 N MONOCYTE % (test code = MO%) 5.0 % 1.7-9.3 N EOSINOPHIL % (test code = EO%) 5.3 % 0.0-6.0 N BASOPHIL % (test code = BA%) 0.9 % 0.0-2.0 N NUCLEATED RBC % (test code = NRBC%) 0.0 /100WBC% 0.0-1.0 N NEUTROPHIL # (test code = NT#) 5.7 K/mm3 1.8-7.6 N IMMATURE GRANULOCYTE # (test code = IG#) 0.08 x10 3/uL 0.00-0.03 H LYMPHOCYTE # (test code = LY#) 2.4 K/mm3 0.6-3.2 N MONOCYTE # (test code = MO#) 0.5 K/mm3 0.3-1.1 N EOSINOPHIL # (test code = EO#) 0.5 K/mm3 0.0-0.4 H BASOPHIL # (test code = BA#) 0.1 K/mm3 0.0-0.1 N NUCLEATED RBC # (test code = NRBC#) 0.0 K/mm3 0.0-0.1 N MANUAL DIFF REQUIRED (test c ode = MDIFF) NO DIFF/SCN CRITERIA BASIC METABOLIC [id number] 16:49:00* Test Item Value Reference Range Interpretation Comme nts SODIUM (test code = NA) 140 mmol/L 134-147 N POTASSIUM (test code = K) 4.2 mmol/L 3.4-5.0 N CHLORIDE (test code = CL) 107 mmol/L 100-108 N CARBON DIOXIDE (test code = CO2) 25 mmol/L 21-32 N ANION GAP (test code = GAP) 8.0 GAP calc 4.0-15.0 N GLUCOSE (test code = GLU) 219 MG/DL 70-110 H BLOOD UREA NITROGEN (test code = BUN) 14 MG/DL 7-18 N GLOMERULAR FILTRATION RATE (test code = GFR) 53 estGFR >60 L The Glomerular Filtration Rate is a calculated parameterbased on serum Creatinine, patient age and sex. GFR valuesless than 60 mL/min/1.73 square meters are indicative ofChronic Kidney Disease. Values less than 15 mL/min/1.73square meters indicate Kidney failure. The calculation forGFR is based on the CKD-EPI (2020) calculation. This formulais race indifferent and is the recommended formula for GFRby the National Kidney Foundation for Adults.The GFR will not calculate if the sex is unknown or if thepatient's age is <18 years. CREATININE (test code = CREAT) 1.3 MG/DL 0.6-1.0 H CALCIUM (test code = CA) 9.6 MG/DL 8.5-10.1 N URINALYSIS [id number] 16:08:00* Test Item Value Reference Range Interpretation Comme nts UA GLUCOSE DIPSTICK (test code = DGLUU) NEGATIVE mg/dL NEG UA BILIRUBIN DIPSTICK (test code = BILU) NEGATIVE mg/dL NEG UA KETONE DIPSTICK (test code = KETU) NEGATIVE mg/dL NEG UA SPECIFIC GRAVITY (test code = SGU) 1.015 SG 1.005-1.030 UA BLOOD DIPSTICK (test code = MARIBEL) 1+ mg/DL NEG A UA PH DIPSTICK (test code = KASANDRA) 5.5 pH UNITS 5.0-7.0 UA PROTEIN DIPSTICK (test code = PROU) 1+ mg/dL NEG A UA UROBILINIOGEN DIPSTICK (test code = URO) 0.2 mg/dL <2.0 UA NITRITE DIPSTICK (test code = LEANN) NEGATIVE SCREEN NEG UA LEUKOCYTE ESTERASE DIPSTICK (test code = LEUU) NEGATIVE Leuk/mcL NEGATIVE Urine Specimen Type: Clean CatchUR HCG [id number] 16:08:00* Test Item Value Reference Range Interpretation Comme nts UR HCG QUAL (test code = HCGQLU) NEGATIVE NEGATIVE Urine Specimen Type: Clean Catch- XR CHEST 1 [id number] 16:06:00 [facility] : 1980 Sex: F Name: MADHAVI ABDI [facility] : 1980 Age/S: 42 / F [address] Unit #: [id number]: [place] [address] Phys: Lena Sue MD Acct: [id number] Dis Date: Status: PRE [facility] PHONE #: [phone] Exam Date: 08/28/2023 1602 FAX #: Reason: pre op EXAMS: CPT: [id number] XR CHEST1 V 36316 Fluoro Time: DAP (Gy m2): Air Kerma (mGy): EXAM: - XR CHEST 1 V HISTORY: pre op LOCATIONCODE:T18 TECHNIQUE: Frontal radiograph of the chest. COMPARISON: None. FINDINGS: Normal heart size.No focal airspace consolidation. No pulmonary edema, pleural effusion or pneumothorax. Imaged osseous structures are without acute abnormality. IMPRESSION: No radiographic evidence of acute cardiopulmonary disease. at 1606 Reported and signed by: Melida Dominguez M.D. CC: Lena Sue MD PAGE 1 Signed Report Name: [facility]AD[facility]AVI [facility]BDI [facility] : 1980 Age/S: 42 / F [address] [address] Unit #: [id number] Loc: [place] [address] Phys: Lena Sue MD Acct: [id number] Dis Date: Status: PRE SDC PHONE #: [phone] Exam Date: 08/28/2023 1602 FAX #: Reason: pre op EXAMS: CPT: [id number] XR CHEST 1 V 98068 Fluoro Time: DAP (Gy m2): Air Kerma (mGy): (Continued) Technologist: Sonny Patel, RT(R)Trnscb Date/Time: 08/28/2023 (1605) [email or web address] Orig Print D/T: S: 08/28/2023 (6996) PAGE 2 Signed Report THROMBOPLASTIN TIME [id number] 15:57:00* Test Item Value Reference Range Interpretation Comme nts THROMBOPLASTIN TIME PARTIAL (test code = PTT) 24.0 SECONDS 26-35 L Comment: PRE PROCEDUREPROTHROMBIN [id number] 15:57:00* Test Item Value Reference Range Interpretation Comme nts PT PATIENT (test code = PTP) 12.0 SECONDS 9.3-12.9 N INTERNATIONAL NORMAL RATIO (test code = INR) 1.08 INR Unit 0.8-1.2 N TARGET INR BY INDICATION Indication INR1. Prophylaxis of venous thrombosis 2.0 - 3.0 (orthopedic surgery), Prophylaxis of venous thrombosis (other than high-risk surgery), Treatment of Deep Vein Thrombosis/Pulmonary Embolism, Prevention of systemic embolism - Tissue heart valves, Acute Myocardial Infarction (to prevent systemic embolism), Valvular heart disease, Acute Myocardial Infarction (to prevent systemic embolism), Valvular heart disease, Atrial Fibrillation, Bileaflet mechanical valve in aortic position.2. Mechanical prosthetic valves (high risk), 2.5 - 3.5 Presence of Lupus Anticoagulant or Antiphospholipid Antibodies, Prevention of systemic embolism - Acute Myocardial Infarction (to prevent recurrent infarct). Comment: PRE PROCEDUREComplete Metabolic [id number] 10:00:21* Test Item Value Reference Range Interpretation Comme nts NA (test code = 6816654802) 142 mmol/L 135-145 K (test code = 9145593048) 3.5 mmol/L 3.5-5.0 CL (test code = 8242853633) 104 mmol/L 98-108 CO2 TOTAL (test code = 5647357213) 24 mmol/L 23-31 AGAP (test code = 2369223920) 14 2-16 BUN (test code = 6316571057) 13 mg/dL 7-23 GLUCOSE (test code = 2071416773) 188 mg/dL 70-110 H CREATININE (test code = 3329662483) 1.08 mg/dL 0.50-1.04 H TOTAL BILI (test code = 1237662518) 0.2 mg/dL 0.1-1.1 CALCIUM (test code = 7387914623) 9.6 mg/dL 8.6-10.6 T PROTEIN (test code = 6842561402) 8.4 g/dL 6.3-8.2 H ALBUMIN (test code = 2742739953) 4.4 g/dL 3.5-5.0 ALK PHOS (test code = 1368387735) 74 U/L 34-122 ALTv (test code = 1742-6) 18 U/L 5-35 AST(SGOT) (test code = 2010873072) 18 U/L 13-40 eGFR (test code = 2347012778) 56.2 mL/min/1.73m2 SAJI (test code = SAJI) Association of Glomerular Filtration Rate (GFR) and Staging of Kidney Disease* + --+ --+ ------+| GFR (mL/min/1.73 m2) ?| With Kidney Damage ?| ?Without Kidney Damage+ --------+ --------+ +| ?>90 ?| ?Stage one ?| ? Normal ?+ ---+ ---+ -------+| ?60-89 ?| ?Stage two ?| ? Decreased GFR ? + --+ --+ ------+| ?30-59 ?| ?Stage three ?| ? Stage three ? + --+ --+ ------+| ?15-29 ?| ?Stage four ? | ? Stage four ?+ ---+ ---+ -------+| ?<15 (or dialysis) ? ?| ?Stage five ? | ? Stage five ?+ ---+ ---+ -------+ *Each stage assumes the associated GFR [...] imaging tests). Lab Interpretation (test code = 26442-5) [facility]normal [facility], [id number] 09:42:09* Test Item Value Reference Range Interpretation Comme nts LIPASE (test code = 1491847588) 182 U/L 0-220 Lab Interpretation (test cod e = 39597-8) Normal [facility] HospitalCB with Giflnwlolnuw9205-52-25 09:08:03* Test Item Value Reference Range Interpretation Comme nts WBC (test code = 6690-2) 11.92 See_Comment H [Automated [employer]] The system which generated this result transmitted reference range: 4.30 - 11.10 10*3/?L. The reference range was not used to interpret this result as normal/abnormal. RBC (test code = 789-8) 4.77 See_Comment [Automated [employer]] The system which generated this result transmitted reference range: 3.93 - 5.25 10*6/?L. The reference range was not used to interpret this result as normal/abnormal. HGB (test code = 718-7) 12.9 g/dL 11.6-15.0 HCT (test code = 4544-3) 39.6 % 35.7-45.2 MCV (test code = 787-2) 83.0 fL 80.6-95.5 MCH (test code = 785-6) 27.0 pg 25.9-32.8 MCHC (test code = 786-4) 32.6 g/dL 31.6-35.1 RDW-SD (test code = 55198-1) 41.3 fL 39.0-49.9 RDW-CV (test code = 788-0) 13.5 % 12.0-15.5 PLT (test code = 777-3) 319 See_Comment [Automated [employer] ge] The system which generated this result transmitted reference range: 166 - 358 10*3/?L. The reference range was not used to interpret this result as normal/abnormal. MPV (test code = 92841-0) 9.9 fL 9.5-12.9 NRBC/100 WBC (test code = 6493797768) 0.0 See_Comment [Automated [employer] ssage] The system which generated this result transmitted reference range: 0.0 - 10.0 /100 WBCs. The reference range was not used to interpret this result as normal/abnormal. NRBC x10^3 (test code = 6569113710) See_Comment [Automated [employer] ge] The system which generated this result transmitted reference range: 10*3/?L. The reference range was not used to interpret this result as normal/abnormal. GRAN MAT (NEUT) % (test code = 770-8) 63.7 % IMM GRAN % (test code = 7047931606) 0.40 % LYMPH % (test code = 736-9) 25.8 % MONO % (test code = 5905-5) 4.4 % EOS % (test code = 713-8) 5.0 % BASO % (test code = 706-2) 0.7 % GRAN MAT x10^3(ANC) (test code = 7256027824) 7.59 10*3/uL 1.88-7.09 H IMM GRAN x10^3 (test code = 1531015144) 0.05 10*3/uL 0.00-0.06 LYMPH x10^3 (test code = 731-0) 3.07 10*3/uL 1.32-3.29 MONO x10^3 (test code = 742-7) 0.53 10*3/uL 0.33-0.92 EOS x10^3 (test code = 711-2) 0.60 10*3/uL 0.03-0.39 H BASO x10^3 (test code = 704-7) 0.08 10*3/uL 0.01-0.07 H Lab Interpretation (test code = 97478-9) Abnormal [facility] HospitalPOCT [id number] 08:50:00* Test Item Value Reference Range Interpretation Comme nts POCT PREG (test code = 1605) Negative On board controls acceptable with C Line (test code = 3574) Yes Lab Interpretation (test cod e = 18612-2) Normal [facility]XR elbow 3+ views [id number] 14:39:31 Interpretation: Multiple radiographic views are within normal limits for the patients stated age. There are no signs of fracture, dislocation, or articular injury. The alignment and joint spaces are within normal limits. No signs of a bony lesion or soft tissue swelling. ?[facility] elbow 3+ views [id number] 14:39:31Interpretation: Multiple radiographic views are within normal limits for the patients stated age. There are no signs of fracture, dislocation, or articular injury. The alignment and joint spaces are within normal limits. No signs of a bony lesion or soft tissue swelling. ?[facility] FOREARM 2 VW RIGHT 2021-01-11 19:33:31Forearm soft tissue contusion. No acute bony abnormality is present. EXAM: XR FOREARM 2 VW RIGHT HISTORY: eval for fracture COMPARISON: None FINDINGS: Imaging of the forearm demonstrates marked swelling over the mid to distalforearm, most notable along the dorsally and laterally. Alignment of theelbow and wrist is anatomic. No radiopaque foreign body, fracture orerosion is seen. [facility], Radiant Results Inft User - 01/11/2021 1:34 PM CSTEXAM:XR FOREARM 2 VW RIGHTHISTORY:eval for fracture COMPARISON:NoneFINDINGS: Imaging of the forearm demonstrates marked swelling over the mid to distalforearm, most notable along the dorsally and laterally. Alignment of theelbow and wrist is anatomic. No radiopaque foreign body, fracture orerosion is seen.IMPRESSIONForearm soft tissue contusion.No acute bony abnormality is present.[facility] HospitalBI DIAGNOSTIC MAMMOGRAM [id number] 15:54:22Examination:BI DIAGNOSTIC MAMMOGRAM BILATERAL History:Patient is 39 year old and is seen for: ?Leftaxillary mass. Computer-aided detection (CAD) utilized. Comparisons : [...] NegativeOverall: 0 - Incomplete: Needs Additional Imaging EvaluationUnBaptist Medical CenterBI AXILLARY ULTRASOUND [id number] 15:12:17HISTORY: Palpable mass in left axilla. TECHNIQUE: Left axillary region was evaluated inradial/antira dial/sagittal/coronal planes both by the technologist and byme. Female technologist was present in the room during all imagingevaluations. FINDINGS: A discrete hypoechoic oval-shaped mass approximately 5.8 x 1.5 cmsize mass confirmed. Mass is slightly hypoechoic relative to surroundingsubcutaneous t issue but appears to be well encapsulated and showed noappreciable vascularity. CONCLUSIONS: 5.8 cmmass in the left axillary region with features [...] with features ofbenign lipoma.ACR classification: Category II. [facility] Notes Date/Time Note Provider Source 2023-09-06 12:32:00 [facility] ([facility]) Discharge Summary REPORT#:[id number] REPORT STATUS: Signed REPORT INITIALIZATION DATE:09/06/23 TIME:1232 PATIENT: MADHAVI ABDI UNIT #: [id number] ROOM/BED: [place] [address] : [birth year] AGE: 42 SEX: F ATTEND: Lena Sue MD ADM AUTHOR: Oren Villanueva MD REPT SERVICE DT/TIME: 09/06/23 1232 * ALL edits or amendments must be made on the electronic/computer document * General Information Discharge date: 09/02/23 Discharge diagnosis: Abdominal mass Appreciate help from Dr. Sue Surgical consult with Dr. Olson Pain control IV fluids Diabetes Insulin sliding scale Hypothyroidism Continue home medications and titrate as needed GI/DVT prophylaxis Advanced directive full code Discussed with Dr. Sue and Dr. Parra Awaiting further recommendations from Dr. Olson Pain controlled well cleared by surgery - no intervention - out pt follow up Hospital course: Abdominal mass Appreciate help from Dr. Sue Surgical consult with Dr. Olson Pain control IV fluids Diabetes Insulin sliding scale Hypothyroidism Continue home medications and titrate as needed GI/DVT prophylaxis Advanced directive full code Discussed with Dr. Sue and Dr. Parra Awaiting further recommendations from Dr. Olson Pain controlled well cleared by surgery - no intervention - out pt follow up Consultants: surgery Pt. condition on discharge: improved, stable Med Rec Med Rec Discharge meds: Continue taking these medications: OMEPRAZOLE ER (PriLOSEC) 40 MG CAP.DR 40 MILLIGRAM ORAL DAILY. Insulin Degludec (TRESIBA (10mL)) 100 UNIT/ML VIAL 10 UNITS SUBCUTANEOUS DAILY. LEVOTHYROXINE (SYNTHROID) 50 MCG TAB 50 MICROGRAM ORAL DAILY. TIRZEPATIDE (MOUNJARO PEN (2mL)) 7.5 MG/0.5 ML PEN.INJCTR 7.5 MILLIGRAM SUBCUTANEOUS EVERY 7 DAYS. buPROPion HCL XL (WELLBUTRIN XL) 150 MG TAB.SR.24H GABAPENTIN (NEURONTIN) 300 MG CAP [jynarque] 15 DAILY. Start taking the following new medications: HYDROcodone/APAP (HYDROcodone/APAP 5/325) 5 MG-325 MG TAB 1-2 TABLET ORAL EVERY 6 HOURS. as needed for pain not to exceed 6 per day Days = 7 Qty = 15 No Refills Objective VS/I O Last Documented: Result Date Time Pulse Ox 100 09/02 1830 B/P 165/85 11/01 1830 B/P Mean 117 09/02 1830 Pulse 73 09/02 1830 Resp 21 09/02 183 Temp 98.1 09/02 1637 O2 Delivery Room air 08/31 1415 O2 Flow Rate 2 08/31 1320 PATIENT WEIGHT: Weight (lb): 199 Weight (oz): 6.71 Weight (kg): 90.455 General appearance: awake ENT: normal nose Cardiovascular: regular rate rhythm Respiratory: clear to auscultation Extremities: moves all Neuro/EGG GATHERER: alert Discharge Instructions PCP PCP: PCP: Lena Sue MD )( Discharge to: Home/Self Care Discharge Instructions Additional Discharge Routines: Attending Follow-Up )( Diet: Regular )( Activity: As Tolerated Discharge management: greater than 30 mins Follow-up Appointments Attending Physician: Attending Physician: Lena Sue MD Special instructions: see instructions sheet at 1234 RPT #: [id number] END OF REPORT [facility] 2023-09-02 06:46:00 [facility] General Surgery Progress Note REPORT#:[id number] REPORT STATUS: Signed REPORT INITIALIZATION DATE:09/02/23 TIME:645 PATIENT: MADHAVI ABDI UNIT #: [id number] ROOM/BED: [place] [id number] : 82 AGE: 42 SEX: F ATTEND: Lena Sue MD ADM AUTHOR: Patricia Olson MD REPT SERVICE DT/TIME: 09/02/23 0646 * ALL edits or amendments must be made on the electronic/computer document * Subjective Patient reports: Yes: abdominal pain, feeling better, tolerating diet. No: nausea, vomiting. Objective General VS/I O: Last Documented: Result Date Time Temp 97.9 09/02 0336 Pulse Ox 98 09/02 0200 B/P 151/70 09/02 0200 B/P Mean 101 09/02 0200 Pulse 67 09/02 0200 Resp 16 09/02 0200 O2 Delivery Room air 08/31 1415 O2 Flow Rate 2 08/31 1320 Vital Signs Date Temp Pulse Resp B/P B/P Mean Pulse Ox FiO2 09/01-09/02 97.4-97.9 62-81 13-23 126-165/67-95 92-119 93-100 24 hour I O ending at 0700: 09/02 0700 09/01 1900 Intake Total 480 Output Total Balance 480 Intake, Oral 480 Number Voids 3 PATIENT WEIGHT: Weight (lb): 199 Weight (oz): 6.71 Weight (kg): 90.455 Medications: Active Meds + DC'd Last 24 Hrs Patient Own Medication (PATIENT'S OWN MEDICATION) 1 EACH DAILY PO Sodium Chloride (0.9% Sodium Chloride) 50 ML .STK-MED ONE IV (DC) Iopamidol (ISOVUE-300) 100 ML ONCE PRN IV Sodium Chloride (0.9% Sodium Chloride) 50 ML ONCE PRN IV Hydrocodone Bitart/Acetaminophen (NORCO 5/325) 1 TAB Q4HR PRN PO Metronidazole (FLAGYL) 500 MG Q8HR PO Docusate Sodium (COLACE) 100 MG BID PO Pregabalin (LYRICA) 75 MG BID PO Acetaminophen (TYLENOL EXTRA STRENGTH) 1,000 MG PREOP ONCE PO (DC) Celecoxib (CeleBREX) 200 MG PREOP ONCE PO (DC) Gabapentin (NEURONTIN) 200 MG PREOP ONCE PO (DC) Levothyroxine Sodium (SYNTHROID) 50 MCG DAILY@0600 PO Insulin Human Lispro (HUMALOG) ASDIRECTED AC HS SUBQ Bupropion HCl (WELLBUTRIN XL) 150 MG DAILY PO Cefazolin Sodium (KEFZOL) 1 GM Q8HR IV Sterile Water (WATER FOR INJECTION) 10 ML Metronidazole/Sodium Chloride (metroNIDAZOLE 500MG / 100 MLNS) 100 ML Q8HR IV (DC) Pantoprazole (PROTONIX) 40 MG DAILY PO Hydrocodone Bitart/Acetaminophen (NORCO 10/325) 1 TAB Q4H PRN PRN PO Morphine Sulfate (morphine Sulfate) 2 MG Q4H PRN PRN IV Ondansetron HCl (ZOFRAN) 4 MG Q4H PRN PRN IV Dextrose/Water (DEXTROSE 10% IN WATER 250 ML) 125 ML ASDIR PRN IV Dextrose/Water (DEXTROSE 10% IN WATER 250 ML) 250 ML ASDIR PRN IV Glucagon (GLUCAGON) 1 MG ASDIR PRN IM Ondansetron HCl (ZOFRAN) 8 MG Q8H PRN PRN PO Ondansetron HCl (ZOFRAN) 8 MG Q8H PRN PRN IV Physical Exam General appearance: alert, awake, oriented Cardiovascular: normal S1/S2 Respiratory: clear to auscultation Abdomen: tenderness, soft, no guarding, no rebound, tender along incisions as expected Extremities: no edema Results Findings/Data: Laboratory Tests 09/01 09/01 09/01 09/01 1958 1658 1146 0801 Chemistry POC Glucose (70 - 110 mg/dL) 192 H 172 H 125 H 144 H Radiology data: Recent Impressions: CAT SCAN - CT ABD PELVIS W/CONT 09/01 1615 Report Impression - Status: SIGNED Entered: 09/01/2023 1647 IMPRESSION: Few small scattered foci of pneumoperitoneum, uncertain etiology, potentially postoperative. Correlation with appropriate clinical history suggested. Relatively mild enlargement of the right ovary seen compared to the left, indeterminate. Recommend pelvic ultrasound examination for further evaluation to exclude an acute ovarian pathology or an ovarian mass. There appears to be a small collapsed cyst or follicle in the left ovary. Attention on the ultrasound. No bowel obstruction, ileus or fluid collection seen. Incidental note is made of innumerable round densities in the kidneys, favored to reflect cysts. Follow-up imaging in 3-6 months with MRI suggested to exclude a neoplastic process. Few punctate bilateral nonobstructing renal stones. No hydronephrosis seen. Please refer to the findings section for additional details. Findings are being called to the patient care team. Impression By: [email or web address] David Danielle M.D. Diagnosis, Assessment Plan Problem List/A P: 1. S/P laparoscopy with lysis of adhesions 2. Intra-abdominal adhesions 3. OVARY MASS 4. Polycystic kidney disease 5. Diabetes Free Text A P: CT scan abdomen and pelvis showed no acute findings. The patient does not have a mass, diverticulosis, or colitis. Ok from surgical stanpoint to discharge home. She needs to follow up with concrete finishing machine operator as outpatient to reschedule joint general surgical and core winding operator procedure to remove right ovary. at 0649 RPT #: [id number] END OF REPORT [facility] 2023-09-01 15:24:00 [id number] [facility] [address] [place] [address] PATIENT NAME: MADHAVI ABDI ADMIT DATE: 08/31/23 ACCOUNT NO: [id number] ROOM NO: L.302 AGE: 42 REPORT TYPE: CONSULTATION SEX: F ADMITTING PHYSICIAN: Lena Sue MD ATTENDING PHYSICIAN: Lena Sue MD CONSULTATION DATE: 09/01/2023 GENERAL SURGERY CONSULTATION REASON FOR CONSULTATION: Evaluation for intra-abdominal adhesions. HISTORY OF PRESENT ILLNESS: The patient is a 42-year-old female with a history of diabetes mellitus type 2, PCOS, and chronic pelvic pain. She was taken to surgery by Dr. Sue yesterday and underwent laparoscopic lysis of adhesions and diagnostic hysteroscopy with D and C. At the time of surgery, the patient was noted to have adhesions of the colon to the surface of the uterus, which prohibited Dr. Sue from performing a right oophorectomy that was planned for a right adnexal mass. The patient's right adnexal mass per records measures 7.2 x 5.9 x 5.6 cm. Left ovary is normal. Dr. Sue was concerned that the patient may have diverticulitis and the admitted for evaluation. The patient is presently on metronidazole and Kefzol. PAST MEDICAL HISTORY: Significant for: 1. PCOS. 2. Diabetes mellitus type 2. 3. Morbid obesity. 4. Psoriasis. 5. Rheumatoid arthritis. PAST SURGICAL HISTORY: Significant for: 1. Right elbow surgery for tendinitis. 2. ORIF of leg fracture, surgery as above. MEDICATIONS: MAR reviewed. ALLERGIES: METFORMIN. FAMILY HISTORY: Significant for hypertension and PCOS. SOCIAL HISTORY: The patient has a common law relationship. She has one child. She smokes half a pack of cigarettes a day for the past 20 years. She denies illicit drug use or alcohol use. She is presently unemployed. REVIEW OF SYSTEMS: CONSTITUTIONAL: The patient denies fever or chills. SKIN: Denies any rash or skin lesions. EYES: Denies any eye pain or ocular discharge. Wears glasses. PATIENT NAME: MADHAVI ABDI EARS, NOSE, AND THROAT: She has no hearing deficit, nasal discharge or throat pain. RESPIRATORY: Denies cough, wheezing, or sputum production. CARDIOVASCULAR: Denies chest pain, palpitation. GASTROINTESTINAL: Reports abdominal pain, constipation, nausea and vomiting. GENITOURINARY: Denies dysuria, hematuria, or polyuria. MUSCULOSKELETAL: Reports occasional joint pain. NEUROLOGIC: Denies headache, dizziness or syncope. PHYSICAL EXAMINATION: GENERAL: The patient appears in no acute distress. VITAL SIGNS: Show temperature of 97.8, pulse 81, respirations 23, and blood pressure 132/67. HEENT: Normocephalic, atraumatic. Extraocular movements are intact. CARDIOVASCULAR: S1, S2. LUNGS: Clear to auscultation. ABDOMEN: Obese, soft. Incision sites are intact with dressing in place. No bleeding. Mild incisional tenderness. She has no guarding, no rebound. EXTREMITIES: No edema, clubbing, or cyanosis. LABORATORY DATA: White cell count 9.3, hemoglobin 10.4, hematocrit 33.2, and platelet count 432. ASSESSMENT: 1. Right adnexal mass. 2. Intra-abdominal adhesions. 3. Rheumatoid arthritis. 4. Diabetes mellitus type 2. 5. Polycystic ovary syndrome. PLAN: At this time, the patient appears to be tolerating diet, has benign abdominal exam consistent with recent surgery. However, CT scan of the pelvis for further evaluation. Her white cell count is normal. No acute general surgical intervention is required at this time. We will evaluate the CT scan to see if any other acute problems are present. 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 She does not have evidence of diverticulitis. This can be arranged as an outpatient. Dictated By: Patricia Olson MD Date Dictated: 09/01/2023 15:24:06 Date Transcribed: 09/01/2023 16:35:50 BJORN/JAYSHREE/CASSY Receipt ID: [id number] Authenticated and Edited by Patricia Olson MD On 09/22/23 2:22:31 PM PATIENT NAME: MADHAVI ABDI at 0223 PATIENT NAME: MADHAVI ABDI [facility] 2023-09-01 15:07:00 [facility] General Surgery Progress Note REPORT#:[id number] REPORT STATUS: Signed REPORT INITIALIZATION DATE:09/01/23 TIME:150 PATIENT: MADHAVI ABDI UNIT #: [id number] ROOM/BED: [place] [id number] : 82 AGE: 42 SEX: F ATTEND: Lena Sue MD ADM AUTHOR: Patricia Olson MD REPT SERVICE DT/TIME: 09/01/23 150 * ALL edits or amendments must be made on the electronic/computer document * Subjective Comments: General surgery consult to be dictated Objective General VS/I O: Last Documented: Result Date Time Pulse Ox 100 09/01 1155 Pulse 81 09/01 1155 Resp 23 09/01 1155 Temp 97.8 09/01 1151 B/P 132/67 09/01 1100 B/P Mean 92 09/01 1100 O2 Delivery Room air 08/31 1415 O2 Flow Rate 2 08/31 1320 Vital Signs Date Temp Pulse Resp B/P B/P Mean Pulse Ox FiO2 08/31-09/01 97.4-98.2 62-92 0-23 123-161/64-97 92-119 96-100 24 hour I O ending at 0700: 09/01 0700 08/31 1900 Intake Total 297.00 240 Output Total Balance 297.00 240 Intake, IV 147.00 Intake, Oral 150 240 Number Voids 4 1 Patient 90.455 kg Weight Weight Stated/Reported Measurement Method PATIENT WEIGHT: Weight (lb): 199 Weight (oz): 6.71 Weight (kg): 90.455 Medications: Active Meds + DC'd Last 24 Hrs Hydrocodone Bitart/Acetaminophen (NORCO 5/325) 1 TAB Q4HR PRN PO Metronidazole (FLAGYL) 500 MG Q8HR PO Docusate Sodium (COLACE) 100 MG BID PO Pregabalin (LYRICA) 75 MG BID PO Acetaminophen (TYLENOL EXTRA STRENGTH) 1,000 MG PREOP ONCE PO (CKD) Celecoxib (CeleBREX) 200 MG PREOP ONCE PO (CKD) Gabapentin (NEURONTIN) 200 MG PREOP ONCE PO (CKD) Levothyroxine Sodium (SYNTHROID) 50 MCG DAILY@0600 PO Insulin Human Lispro (HUMALOG) ASDIRECTED AC HS SUBQ Bupropion HCl (WELLBUTRIN XL) 150 MG DAILY PO Cefazolin Sodium (KEFZOL) 1 GM Q8HR IV Sterile Water (WATER FOR INJECTION) 10 ML Metronidazole/Sodium Chloride (metroNIDAZOLE 500MG / 100 MLNS) 100 ML Q8HR IV (DC) Pantoprazole (PROTONIX) 40 MG DAILY PO Hydrocodone Bitart/Acetaminophen (NORCO 10/325) 1 TAB Q4H PRN PRN PO Morphine Sulfate (morphine Sulfate) 2 MG Q4H PRN PRN IV Ondansetron HCl (ZOFRAN) 4 MG Q4H PRN PRN IV Dextrose/Water (DEXTROSE 10% IN WATER 250 ML) 125 ML ASDIR PRN IV Dextrose/Water (DEXTROSE 10% IN WATER 250 ML) 250 ML ASDIR PRN IV Glucagon (GLUCAGON) 1 MG ASDIR PRN IM Hydrocodone Bitart/Acetaminophen (NORCO 5/325) 1 TAB PACU ONCE PRN PO ( DC) Hydrocodone Bitart/Acetaminophen (NORCO 10/325) 1 TAB PACU ONCE PRN PO ( DC) Hydromorphone HCl (DILAUDID) 0.5 MG PACU Q10MIN PRN PRN IV (DC) Insulin Human Lispro (HUMALOG) 0 PACU ONCE PRN SUBQ (DC) Labetalol HCl (TRANDATE) 5 MG PACU Q10MIN PRN PRN IV (DC) Lactated Ringer's (LACTATED RINGERS) 1,000 ML ASDIR IV (DC) Meperidine HCl (DEMEROL) 12.5 MG PACU ONCE PRN IV (DC) Ondansetron HCl (ZOFRAN) 4 MG PACU ONCE PRN IV (DC) Ondansetron HCl (ZOFRAN) 8 MG Q8H PRN PRN PO Ondansetron HCl (ZOFRAN) 8 MG Q8H PRN PRN IV Cefazolin Sodium (KEFZOL) 2 GM PREOP ASDIR IV (DC) Scopolamine HBr (TRANSDERM-SCOP) 1.5 MG PREOP ASDIR TRANSDERM (DC) Results Findings/Data: Laboratory Tests 09/01 09/01 08/31 08/31 1146 0801 2006 1602 Chemistry POC Glucose (70 - 110 mg/dL) 125 H 144 H 221 H 177 H Diagnosis, Assessment Plan Problem List/A P: 1. Intra-abdominal adhesions 2. S/P laparoscopy with lysis of adhesions 3. Diabetes 4. Polycystic kidney disease 5. Abdominal pain Free Text A P: The patient;s gynecologicl procedure was aborted due to finding of colonic adhesions to the uterus. To my knowledge the patient does not have a colonic mass. She is tolerating diet and has a benign abdominal exam. I have ordered CT scan of the abdomen and pelvis. The patient states she has been having right sided abdominal pain associatef with constipation, nause, and vomiting for 1 month. Presently she is tolerating diet Will follow. at 1510 RPT #: [id number] END OF REPORT [facility] 2023-09-01 10:56:00 [facility] Hospitalist Progress Note REPORT#:[id number] REPORT STATUS: Signed REPORT INITIALIZATION DATE:09/01/23 TIME:1055 PATIENT: MADHAVI ABDI UNIT #: [id number] ROOM/BED: [place] [id number] : 82 AGE: 42 SEX: F ATTEND: Lena Sue MD ADM AUTHOR: Jamar Falcon MD REPT SERVICE DT/TIME: 09/01/23 1056 * ALL edits or amendments must be made on the electronic/computer document * Subjective Chief complaint: Abdominal mass HPI: 42-year-old female with past medical history of diabetes, dysmenorrhea, Pelvic pain and right adnexal mass, possible right ovarian complex 6cm cyst, menorrhagia who underwent laparoscopy, bilateral salpingectomy, washings, right oophorectomy, Diag hysteroscopy d/c and found to have colonic mass was admitted for further management Patient was admitted for surgical opinion and further care Review of Systems Free Text ROS Notes Free Text ROS Notes: Constitutional: Reports: generalized weakness. Skin: Denies: rash. Allergy/Immun: Denies: rhinorrhea, sneezing. Eyes: Denies: visual loss/blurred. ENT: Denies: earache, nasal congestion. Respiratory: Denies: non productive cough. Cardiovascular: Denies: chest pain, palpitations. GI: Denies: diarrhea, nausea. : Denies: dysuria. Musculoskeletal: Reports: arthritis. Denies: extremity pain. Heme: Denies: bleeding. Endocrine: Denies: polydipsia. Neuro: Reports: dizziness, gait problem, lightheaded, spinning sensation. Psych: Reports: anxiety. All systems rev neg: except as noted Objective General VS/I O: Vital Signs: Date Time Temp Pulse Resp B/P B/P Pulse O2 O2 Flow FiO2 Mean Ox Delivery Rate 09/01 1155 81 23 100 09/01 1151 97.8 09/01 1100 65 132/67 92 100 09/01 1000 65 14 129/73 96 100 09/01 0900 68 18 134/71 95 97 09/01 0800 68 17 128/69 93 100 09/01 0745 97.4 09/01 0700 62 20 126/74 95 98 09/01 0600 63 0 141/71 100 98 09/01 0500 68 15 123/75 94 97 09/01 0400 66 15 132/71 96 97 09/01 0346 97.9 09/01 0300 68 13 133/68 94 97 09/01 0200 70 16 137/69 96 98 09/01 0100 70 16 146/74 104 97 09/01 0000 73 16 146/77 104 97 08/31 2333 97.7 08/31 2300 70 12 142/76 103 98 08/31 2200 71 17 144/78 103 100 08/31 2100 72 16 137/67 96 100 08/31 2001 68 18 131/75 97 100 08/31 1918 98.2 08/31 1901 81 161/92 111 99 08/31 1800 74 14 144/73 101 96 08/31 1745 74 16 141/72 100 98 08/31 1715 76 132/71 94 100 08/31 1700 72 143/69 99 98 08/31 1630 77 15 160/64 104 99 08/31 1603 98.2 08/31 1601 92 154/87 110 99 08/31 1550 73 16 154/97 119 100 08/31 1415 74 16 139/88 100 Room air 08/31 1355 74 18 136/81 95 Room air 24 hour I O ending at 0700: 09/01 0700 08/31 1900 Intake Total 297.00 240 Output Total Balance 297.00 240 Intake, IV 147.00 Intake, Oral 150 240 Number Voids 4 1 Patient 199 lb Weight Weight Stated/Reported Measurement Method PATIENT WEIGHT: Weight (lb): 199 Weight (oz): 6.71 Weight (kg): 90.455 Physical Exam General appearance: alert, awake, oriented HEENT : normocephalic ,Atraumatic Eyes: Eyes normal inspection. ENT: Dry mucous membranes present. Neck: Normal inspection. Neck supple. CVS: Normal heart rate and rhythm. Heart sounds normal. Respiratory: No respiratory distress. Breath sounds normal. Abdomen: Soft and nontender. Genitourinary: no bladder distention Back: Normal inspection. Skin: Skin warm. Normal skin color. No rash. Extremities: No lower extremity edema. Neuro: Oriented X 3. No motor deficit No generalized lymph adenopathy Psych normal affect Medications: Active Meds + DC'd Last 24 Hrs Metronidazole (FLAGYL) 500 MG Q8HR PO Docusate Sodium (COLACE) 100 MG BID PO Pregabalin (LYRICA) 75 MG BID PO Acetaminophen (TYLENOL EXTRA STRENGTH) 1,000 MG PREOP ONCE PO (CKD) Celecoxib (CeleBREX) 200 MG PREOP ONCE PO (CKD) Gabapentin (NEURONTIN) 200 MG PREOP ONCE PO (CKD) Levothyroxine Sodium (SYNTHROID) 50 MCG DAILY@0600 PO Insulin Human Lispro (HUMALOG) ASDIRECTED AC HS SUBQ Bupropion HCl (WELLBUTRIN XL) 150 MG DAILY PO Cefazolin Sodium (KEFZOL) 1 GM Q8HR IV Sterile Water (WATER FOR INJECTION) 10 ML Metronidazole/Sodium Chloride (metroNIDAZOLE 500MG / 100 MLNS) 100 ML Q8HR IV (DC) Pantoprazole (PROTONIX) 40 MG DAILY PO Hydrocodone Bitart/Acetaminophen (NORCO 10/325) 1 TAB Q4H PRN PRN PO Morphine Sulfate (morphine Sulfate) 2 MG Q4H PRN PRN IV Ondansetron HCl (ZOFRAN) 4 MG Q4H PRN PRN IV Dextrose/Water (DEXTROSE 10% IN WATER 250 ML) 125 ML ASDIR PRN IV Dextrose/Water (DEXTROSE 10% IN WATER 250 ML) 250 ML ASDIR PRN IV Glucagon (GLUCAGON) 1 MG ASDIR PRN IM Hydrocodone Bitart/Acetaminophen (NORCO 5/325) 1 TAB PACU ONCE PRN PO ( DC) Hydrocodone Bitart/Acetaminophen (NORCO 10/325) 1 TAB PACU ONCE PRN PO ( DC) Hydromorphone HCl (DILAUDID) 0.5 MG PACU Q10MIN PRN PRN IV (DC) Insulin Human Lispro (HUMALOG) 0 PACU ONCE PRN SUBQ (DC) Labetalol HCl (TRANDATE) 5 MG PACU Q10MIN PRN PRN IV (DC) Lactated Ringer's (LACTATED RINGERS) 1,000 ML ASDIR IV (DC) Meperidine HCl (DEMEROL) 12.5 MG PACU ONCE PRN IV (DC) Ondansetron HCl (ZOFRAN) 4 MG PACU ONCE PRN IV (DC) Ondansetron HCl (ZOFRAN) 8 MG Q8H PRN PRN PO Ondansetron HCl (ZOFRAN) 8 MG Q8H PRN PRN IV Cefazolin Sodium (KEFZOL) 2 GM PREOP ASDIR IV (DC) Scopolamine HBr (TRANSDERM-SCOP) 1.5 MG PREOP ASDIR TRANSDERM (DC) Dietitian nutrition assessment The data set between the solid lines has been imported from the dietitian's assessment. BMI Calculated: 35.3 Nutrition related diagnosis: Nutrition diagnosis details: Nutrition problem: Nutrition etiology: Nutrition signs and symptoms: Nutrition prescription: Dietitian name: Assessment completed: Diagnosis, Assessment Plan Free Text DxA P Notes Free text DxA P notes: Abdominal mass Appreciate help from Dr. Sue Surgical consult with Dr. Mora Pain control IV fluids Started on IV antibiotics Diabetes Insulin sliding scale Hypothyroidism Continue home medications and titrate as needed GI/DVT prophylaxis Advanced directive full code Discussed with Dr. Sue and Dr. Parra Awaiting further recommendations from Dr. Parra Pain controlled well Possible DC once cleared by surgery at 1342 RPT #: [id number] END OF REPORT [facility] 2023-08-31 22:09:00 [phone] [facility] [address] [place] [address] PATIENT NAME: MADHAVI ABDI ADMIT DATE: 08/31/23 ACCOUNT NO: [id number] ROOM NO: L.302 AGE: 42 REPORT TYPE: OPERATIVE REPORT SEX: F ADMITTING PHYSICIAN: Lena Sue MD ATTENDING PHYSICIAN: Lena Sue MD OPERATION DATE: 08/31/2023 PREOPERATIVE DIAGNOSES: Menorrhagia, dysmenorrhea, and pelvic pain with right adnexal mass, possible torsion or ruptured cyst. POSTOPERATIVE DIAGNOSES: Dysmenorrhea, menorrhagia, pelvic pain, bilateral ovarian adhesions and omental adhesions to the anterior abdominal wall and sigmoid adhesions to the uterus. PROCEDURES PERFORMED: 1. Diagnostic hysteroscopy, D and C. 2. Diagnostic laparoscopy, left ovariolysis, lysis of adhesions of the omentum and anterior abdominal wall below the umbilicus to the suprapubic area and lastly ____ in the right lower quadrant. SURGEON: Lena Sue MD [employer] SALESPERSON: Ced Rebolledo. ANESTHESIA: ESTIMATED BLOOD LOSS: 50 mL. URINE OUTPUT: 100. FLUIDS: LR 1000. COMPLICATIONS: No complications. DRAINS: None. CONDITION: Stable. ESTIMATED BLOOD LOSS: Less than 50 mL. COUNTS: Correct. DISPOSITION: To the med/surg floor. INDICATIONS: The patient is a 42-year-old female presented with sudden onset right lower quadrant pain, pelvic pain, has been intermittent over left arm, however, this sudden onset of pain had taken her to the ER. She was seen in PATIENT NAME: MADHAVI ABDI January in the ER and again this month. She had a CT scan and an ultrasound that was performed. There was a complex cystic lesion in the right adnexa measuring 6.1 x 5.9 cm. Clearly bowel was unremarkable on the CT with contrast and then on ultrasound, there was enlargement of the right ovary likely due to underlying sacral deviation, perhaps a hemorrhagic cyst given the course of developments in January. Free fluid was present in the pelvis, which was presumed to be ____ 6-month followup, but pelvic ultrasound was recommended. The right ovary measured 7.2 x 5.9 x 5.6 cm, left ovarian of normal size. Free fluid was present in the cul-de-sac, mild bilateral ovarian flow was noted. The patient was seen in the office, and she is an uncontrolled diabetic with A1c of 8.3. Then, she also is a smoker and has been counseled on smoking. The patient was placed on Flagyl and Levaquin and then once the results of the imaging was available, call the patient and she was in significant amount of pain, which was sudden onset. This total episode in the right lower quadrant, going to the right back, suspicious for a torsion, so discussed about the cessation of smoking, optimization of glycemic control; however, since this is an urgent situation with an unresolved time, the benefits are more than the risks and she was consented for diagnostic hysteroscopy, laparoscopy, possible right salpingo-oophorectomy, left oophorectomy. The patient was requesting for hysterectomy, which was clearly notified that was not an indication directly for hysterectomy. She was consented in the preoperative area one more time and then taken back to the OR. PROCEDURE IN DETAIL: She was placed in supine position on the operating room table. General anesthesia was given, placed in dorsal lithotomy position using Dick stirrups. Abdomen prepped with ChloraPrep. Vulva, vagina, and perineum with Betadine ____. A time-out was done and the procedure was started. Speculum was placed to expose the cervix. Anterior lip was grasped with a single tooth tenaculum. Diagnostic SlimLine hysteroscope was passed through the cervical canal under direct vision into the uterine cavity. Cavity was empty. Tubal ostium visualized and normal. No endometrial masses and lining was thick. Scope pulled out. Endometrial curettings were performed and handed for permanent pathology. Diagnostic VCare was introduced. A Martinez was placed and then they were hung to drainage bags. Laparoscopy was performed with a curvilinear incision in the inferior margin of the umbilicus. Fascia was incised, tagged with 0 Vicryl sutures. Peritoneum entered sharply. I went through an area of the umbilical hernia ____ naturally and opening the fascia. These were extended and they were tagged with 0 Vicryl sutures and hence whether they could be tightened together to close the hernia, which was less than 3 mm. After study of the peritoneal cavity, two 5 ports were placed left and right lower quadrant all the way down to the pelvis. Also, vision was carried and there were significant omental adhesions which were taken down with the help of the LigaSure on the anterior abdominal wall. The pelvic cavity as described. The left ovary with significant adhesions, omentum to the anterior abdominal wall. This was cauterized and cut with LigaSure. Then, once the left ovary was released, there was no further adhesions on the left side. No evidence of any endometriosis or purulent material ____. The adhesions of the colon to the uterus were extremely adherent, and I made sure that this was well visualized, pictures were taken, but it was difficult to PATIENT NAME: MADHAVI ABDI mobilize the bowel from the uterus as well as if there is a perforation here in this area, I did not want to expose the patient's peritoneal cavity to the scarring peritonitis, potential peritonitis. So, plan was to irrigate and suction, take pictures, and then get a postoperative consult with General Surgery for causes of bowel for pain and then follow up with them for this, it is not a gynecological problem at this time. All the trocars were removed. Gas was desufflated. Fascia at the umbilicus was closed with the help of 0 Vicryl suture and simple 4-0 Monocryl in all incisions in an interrupted fashion. The VCare and Martinez were removed. Instrument, needle and sponge counts were correct at the end of the case. The patient tolerated the procedure well. She was recovered from anesthesia and taken to PACU in stable condition. Her mother and her father disclosed of the position. Then, Dr. aFlcon, hospitalist and . ____, General Surgery were consulted. Glycemic control and IV antibiotics for 48 hours. Dictated By: Lena Sue MD Date Dictated: 08/31/2023 22:09:12 Date Transcribed: 09/01/2023 00:08:17 SANDHYA/DIALLO/TAMI/MILADYS/MELITA/MIL Receipt ID: [id number] Authenticated by Lena Sue MD On 10/08/2023 11:42:25 AM at 1142 PATIENT NAME: MADHAVI ABDI [facility] 2023-08-31 13:14:00 [facility] ([facility]) Hospitalist History Physical REPORT#:[id number] REPORT STATUS: Signed REPORT INITIALIZATION DATE:08/31/23 TIME:1314 PATIENT: MADHAVI ABDI UNIT #: [id number] ROOM/BED: [place] [id number] : 82 AGE: 42 SEX: F ATTEND: Lena Sue MD ADM AUTHOR: Jamar Falcon MD REPT SERVICE DT/TIME: 08/31/23 1314 * ALL edits or amendments must be made on the electronic/computer document * History of Present Illness HPI Chief complaint: Abdominal mass HPI: 42-year-old female with past medical history of diabetes, dysmenorrhea, Pelvic pain and right adnexal mass, possible right ovarian complex 6cm cyst, menorrhagia who underwent laparoscopy, bilateral salpingectomy, washings, right oophorectomy, Diag hysteroscopy d/c and found to have colonic mass was admitted for further management Patient was admitted for surgical opinion and further care History Past Medical Surgical Hx Additional medical history: RA PSORIASIS, diabetes, Additional surgical history: Orthopedic surgeries Family History Family history: Reports: Hypertension. Social History Smoking status for patients 13 years old or older: Current every day smoker Date last smoked: 08/28/23 Packs per day: 0.5 Pack years: 0 Medication/Allergy-Vaccine Hx Medications: Home Medications: OMEPRAZOLE ER (PriLOSEC) 40 MG PO DAILY Insulin Degludec (TRESIBA (10mL)) 10 UNITS SUBQ DAILY LEVOTHYROXINE (SYNTHROID) 50 MCG PO DAILY TIRZEPATIDE (MOUNJARO PEN (2mL)) 7.5 MG SUBQ Q7D buPROPion HCL XL (WELLBUTRIN XL) GABAPENTIN (NEURONTIN) [jynarque] 15 DAILY HYDROcodone/APAP (HYDROcodone/APAP 5/325) 1-2 TAB PO Q6H PRN pain MDD 6 Allergies: Uncoded Allergies: metformine (stomac upset, loss of appitite 08/28/23) Review of Systems Free Text ROS Notes Free Text ROS Notes: Constitutional: Reports: generalized weakness. Skin: Denies: rash. Allergy/Immun: Denies: rhinorrhea, sneezing. Eyes: Denies: visual loss/blurred. ENT: Denies: earache, nasal congestion. Respiratory: Denies: non productive cough. Cardiovascular: Denies: chest pain, palpitations. GI: Denies: diarrhea, nausea. : Denies: dysuria. Musculoskeletal: Reports: arthritis. Denies: extremity pain. Heme: Denies: bleeding. Endocrine: Denies: polydipsia. Neuro: Reports: dizziness, gait problem, lightheaded, spinning sensation. Psych: Reports: anxiety. All systems rev neg: except as noted OBJECTIVE VS/I O: Vital Signs Date Temp Pulse Resp B/P B/P Mean Pulse Ox FiO2 08/31 97.0-97.4 72-88 18- 128-164/60-101 92-100 Last Documented: Result Date Time Pulse Ox 93 08/31 1300 B/P 157/90 08/31 1300 O2 Delivery Nasal cannula 08/31 1300 O2 Flow Rate 4 08/31 1300 Pulse 72 08/31 1300 Resp 26 08/31 1300 Temp 97.0 08/31 1236 Patient Weight and BMI Weight (kg): 90.455 BMI: 35.3 Physical Exam General appearance: alert, awake, oriented HEENT : normocephalic ,Atraumatic Eyes: Eyes normal inspection. ENT: Dry mucous membranes present. Neck: Normal inspection. Neck supple. CVS: Normal heart rate and rhythm. Heart sounds normal. Respiratory: No respiratory distress. Breath sounds normal. Abdomen: Soft and nontender. Genitourinary: no bladder distention Back: Normal inspection. Skin: Skin warm. Normal skin color. No rash. Extremities: No lower extremity edema. Neuro: Oriented X 3. No motor deficit No generalized lymph adenopathy Psych anxious Medications: Active Meds + DC'd Last 24 Hrs Docusate Sodium (COLACE) 100 MG BID PO Pregabalin (LYRICA) 75 MG BID PO Acetaminophen (TYLENOL EXTRA STRENGTH) 1,000 MG PREOP ONCE PO (CKD) Celecoxib (CeleBREX) 200 MG PREOP ONCE PO (CKD) Gabapentin (NEURONTIN) 200 MG PREOP ONCE PO (CKD) Glycopyrrolate (RobinuL) 0 .STK-MED ONE .ROUTE (DC) Neostigmine Methylsulfate (PROSTIGMIN 3MG/3ML) 0 .STK-MED ONE .ROUTE (DC ) Dexamethasone Sodium Phosphate (DECADRON) 0 .STK-MED ONE .ROUTE (DC) Ondansetron HCl (ZOFRAN) 0 .STK-MED ONE .ROUTE (DC) Acetaminophen (TYLENOL EXTRA STRENGTH) 1,000 MG Q6H PO (DC) Hydrocodone Bitart/Acetaminophen (NORCO 5/325) 1 TAB PACU ONCE PRN PO Hydrocodone Bitart/Acetaminophen (NORCO 10/325) 1 TAB PACU ONCE PRN PO Hydromorphone HCl (DILAUDID) 0.5 MG PACU Q10MIN PRN PRN IV Insulin Human Lispro (HUMALOG) 0 PACU ONCE PRN SUBQ Labetalol HCl (TRANDATE) 5 MG PACU Q10MIN PRN PRN IV Lactated Ringer's (LACTATED RINGERS) 1,000 ML ASDIR IV Meperidine HCl (DEMEROL) 12.5 MG PACU ONCE PRN IV Ondansetron HCl (ZOFRAN) 4 MG PACU ONCE PRN IV Ondansetron HCl (ZOFRAN) 8 MG Q8H PRN PRN PO Ondansetron HCl (ZOFRAN) 8 MG Q8H PRN PRN IV Fentanyl Citrate (SUBLIMAZE) 0 .STK-MED ONE .ROUTE (DC) Fentanyl Citrate (SUBLIMAZE) 0 .STK-MED ONE .ROUTE (DC) Midazolam HCl (VERSED) 0 .STK-MED ONE .ROUTE (DC) Propofol (DIPRIVAN) 20 ML .STK-MED ONE IV (DC) Bupivacaine HCl (MARCAINE 0.5%) 0 .STK-MED ONE .ROUTE (DC) Lidocaine/Epinephrine (Xylocaine 1%-Epi 1:100,000) 0 .STK-MED ONE .ROUTE (DC) Cefazolin Sodium (KEFZOL) 2 GM PREOP ASDIR IV (CKD) Scopolamine HBr (TRANSDERM-SCOP) 1.5 MG PREOP ASDIR TRANSDERM (CKD) Results Findings/Data: Laboratory Tests: 08/31 0853 Chemistry POC Glucose (70 - 110 mg/dL) 176 H Diagnosis, Assessment Plan Free Text A P: Abdominal mass Appreciate help from Dr. Sue Surgical consult with Dr. Mora Pain control N.p.o. postmidnight IV fluids Started on IV antibiotics Diabetes Insulin sliding scale We will get an A1c in a.m. Hypothyroidism Continue home medications and titrate as needed GI/DVT prophylaxis Advanced directive full code at 1510 RPT #: [id number] END OF REPORT [facility] 2023-08-31 10:52:00 [facility] ([facility]) Brief Op Note REPORT#:[id number] REPORT STATUS: Signed REPORT INITIALIZATION DATE:08/31/23 TIME:105 PATIENT: MADHAVI ABDI UNIT #: [id number] ROOM/BED: [place] [address] : 82 AGE: 42 SEX: F ATTEND: Lena Sue MD ADM AUTHOR: Lena Sue MD REPT SERVICE DT/TIME: 08/31/23 1052 * ALL edits or amendments must be made on the electronic/computer document * Op/Inv Proc Note - Brief Pre-procedure diagnosis: dysmenorrhea, Pelvic pain and right adnexal mass, possible right ovarian complex 6cm cyst, menorrhagia Post-procedure diagnosis: dymenorrhea, menorrhagia, pelvic mass and bowel adhesions to the uterus on the right, left ovarian adhesions very dense, tubes interrupted Procedures performed: laparoscopy, lysis of omental adhesions, left ovariolysis and Diag hysteroscopy d/c Primary Surgeon: linette Hepatology Physician(s): naomi rebolledo Anesthesia: general anesthesia Findings: omental adhesions to anterior abdominal wall from infraumbilical area to the bladder, left ovary with dense adhesions, right adnexa concealed with hyperemic sigmoid adhesions to the uterus, preventing access to the left adnexa, no purulent material noted c/w abscess Complications: none Estimated blood loss in ml's: 50 Specimens removed/altered: EMC, washings, right ovary and cyst, bilateral tubes Fluids: 1000 Urine output: 100 Approach: laparoscopic, hysteroscopy Wound class: clean Disposition: MEDSURG, admit inpateint to hospitalist service for 48h iv abx, and consult gen surgeon Dr Parra, both Drs. Falcon and Aida were notified by nd, office fu per appointment in 1 week Counts: Sponge count: correct Instrument count: correct at 1700 RPT #: [id number] END OF REPORT [facility] 2023-07-17 09:45:00 Formatting of this n ote might be different from the original. Normal pelvic US. [facility]STETRICS & GYNECOLOGY STAFF [facility] 2023-06-22 15:15:00 Formatting of this n ote is different from the original. Images from the original note were not included. Venipuncture collection performed by clean technique on the left anticubitus. Total of 1 attempts were made. Slight pressure and a bandage/dressing were applied to the site(s). The patient experienced no complications. The following specimens were processed according to instructions and sent to [facility] laboratories per lab order on 06/22/2023 : LT BLUE SST 1 RED LAV 2 PPT DK GREEN (LiHep) DK GREEN (SodH) GARRISON DK BLUE (K2) DK BLUE (S) ACD Blood Culture NIPT/NTD Adelita Maurer [facility] 2023-06-22 15:15:00 Formatting of this n ote might be different from the original. Patient TSH is elevated, please add Free t4. Needs to see PCP for further mgmt. Hba1c is 8.7, needs to get under 8. Blood counts show no anemia. [facility]-OBSTETRICS & GYNECOLOGY STAFF [facility] 2023-06-22 15:15:00 Addended by: FRANCIA FISCHER RN, DEBBIE Gallego on: 06/23/2023 10:08 AM Modules accepted: Orders [facility] 2023-06-22 14:30:00 Addended by: MILY HALL on: 06/22/2023 03:30 PM Modules accepted: Orders [facility]
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
[2024-08-25] MEDS ORDERED: DIAZEPAM 10 MG/2 ML INJ SYRINGE ONE (18:39)
[2024-08-25] MEDS ORDERED: KETOROLAC 30 MG/ML INJ ONE (18:39)
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
[2024-08-26 02:28] VITALS: BP 141/96; TEMP 98.6; O2SAT 100
== END 2024-08-25 19:20 | disposition home or self-care (01) ==
LOC: ER 15:15
DX: M54.2 Cervicalgia (principal); M54.9 Dorsalgia, unspecified; F17.210 Nicotine dependence, cigarettes, uncomplicated
CPT/HCPCS: 72125; 73000; 96372; 99284; J3360

== ENCOUNTER 2025-01-03 17:51 | Emergency (ER) | payer OTHER ==
--- OUTSIDE RECORDS SUMMARY | 2025-01-03 17:56 | XMS REPORT | Continuity of Care Document ---
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 2024-07-21 00:00:00 186 mm[Hg] [facility] Height 2024-03-15 00:00:00 63 [in_i] [facility] Systolic blood pressure 2023-08-14 15:58:00 165 mm[Hg] [facility] Diastolic blood pressure 2023-08-14 15:58:00 70 mm[Hg] [facility] Heart rate 2023-08-14 15:58:00 96 /min [facility] Body temperature 2023-08-14 15:58:00 36.67 Nina [facility] Respiratory rate 2023-08-14 15:58:00 16 /min [facility] Body height 2023-08-14 15:58:00 160 cm [facility] Body weight 2023-08-14 15:58:00 97.07 kg [facility] BMI 2023-08-14 15:58:00 37.91 kg/m2 [facility] Oxygen saturation in Arterial blood by Pulse oximetry 2023-08-14 15:58:00 100 /min [facility] Systolic blood pressure 2023-08-08 11:00:00 161 mm[Hg] [facility] Diastolic blood pressure 2023-08-08 11:00:00 84 mm[Hg] [facility] Heart rate 2023-08-08 11:00:00 75 /min [facility] Body temperature 2023-08-08 11:00:00 36.72 Nina [facility] Respiratory rate 2023-08-08 11:00:00 16 /min [facility] Oxygen saturation in Arterial blood by Pulse oximetry 2023-08-08 11:00:00 100 /min [facility] Body height 2023-08-08 08:45:00 160 cm [facility] Body weight 2023-08-08 08:45:00 91.853 kg [facility] BMI 2023-08-08 08:45:00 35.87 kg/m2 [facility] Systolic blood pressure 2023-07-28 18:19:00 152 mm[Hg] [facility] Diastolic blood pressure 2023-07-28 18:19:00 90 mm[Hg] [facility] Heart rate 2023-07-28 18:19:00 94 /min [facility] Body temperature 2023-07-28 18:19:00 36.78 Nina [facility] Respiratory rate 2023-07-28 18:19:00 18 /min [facility] Body height 2023-07-28 18:19:00 160 cm [facility] Body weight 2023-07-28 18:19:00 96.616 kg [facility] BMI 2023-07-28 18:19:00 37.73 kg/m2 [facility] Systolic blood pressure 2023-06-22 19:15:00 134 mm[Hg] [facility] Diastolic blood pressure 2023-06-22 19:15:00 85 mm[Hg] [facility] Heart rate 2023-06-22 19:15:00 90 /min [facility] Body temperature 2023-06-22 19:15:00 36.67 Nina [facility] Respiratory rate 2023-06-22 19:15:00 18 /min [facility] Body height 2023-06-22 19:15:00 160 cm [facility] Body weight 2023-06-22 19:15:00 94.348 kg [facility] BMI 2023-06-22 19:15:00 36.85 kg/m2 [facility] Body height 2021-07-01 14:00:00 160 cm [facility] Body weight 2021-07-01 14:00:00 99.338 kg [facility] BMI 2021-07-01 14:00:00 38.79 kg/m2 [facility] Systolic blood pressure 2021-01-11 19:00:00 141 mm[Hg] [facility] Diastolic blood pressure 2021-01-11 19:00:00 102 mm[Hg] [facility] Heart rate 2021-01-11 19:00:00 135 /min [facility] Body temperature 2021-01-11 19:00:00 36.83 Nina [facility] Respiratory rate 2021-01-11 19:00:00 18 /min [facility] Body weight 2021-01-11 19:00:00 103.42 kg [facility] BMI 2021-01-11 19:00:00 40.39 kg/m2 [facility] Oxygen saturation in Arterial blood by Pulse oximetry 2021-01-11 19:00:00 97 /min [facility] Systolic blood pressure 2021-01-11 19:00:00 141 mm[Hg] [facility] Diastolic blood pressure 2021-01-11 19:00:00 102 mm[Hg] [facility] Heart rate 2021-01-11 19:00:00 135 /min [facility] Body temperature 2021-01-11 19:00:00 36.83 Nina [facility] Respiratory rate 2021-01-11 19:00:00 18 /min [facility] Body weight 2021-01-11 19:00:00 103.42 kg [facility] BMI 2021-01-11 19:00:00 40.39 kg/m2 [facility] Oxygen saturation in Arterial blood by Pulse oximetry 2021-01-11 19:00:00 97 /min [facility] Systolic blood pressure 2020-06-20 18:51:00 119 mm[Hg] [facility] Diastolic blood pressure 2020-06-20 18:51:00 72 mm[Hg] [facility] Heart rate 2020-06-20 18:51:00 82 /min [facility] Body temperature 2020-06-20 18:51:00 36.56 Nina [facility] Respiratory rate 2020-06-20 18:51:00 16 /min [facility] Body height 2020-06-20 18:51:00 160 cm [facility] Body weight 2020-06-20 18:51:00 103.103 kg [facility] BMI 2020-06-20 18:51:00 40.26 kg/m2 [facility] Procedures Procedure Date / Time Performed Performing Clinician Source CT, abdomen + pelvis, w/wo contrast 2024-08-16 00:00[facility]00 [facility]AM[facility], screening, digital, bilateral 2024-06-20 00:00:00 [facility] US, transvaginal 2024-03-17 00:00:00 [facility] Transvaginal Us Non-ob 2023-10-01 00:00:00 [facility] Hysteroscopy 2023-08-31 00:00:00 Bobby Ramsay edical [id number] 2023-08-31 00:00:00 [facility] [id number] 2023-08-31 00:00:00 MIYADS[facility]ette [facility] [id number] 2023-08-31 00:00:00 MIYADSJeanette [facility] [id number] 2023-08-31 00:00:00 [facility] EXTERNAL PROVIDER RECORDS 2023-08-17 05:01:00 Doctor Unassigned, Piqua [facility] CT ABDOMEN PELVIS W CONTRAST 2023-08-08 10:34:50 Jose Naranjo [facility] POCT TEST 2023-08-08 08:50:00 Jose Naarnjo [facility] LIPASE 2023-08-08 08:48:[facility]ABOLIC PANEL ([id number]) 2023-08-08 08:48:00 Jose Naranjo [facility] CBC WITH DIFF 2023-08-08 08:48:00 Jose Naranjo [facility] URINALYSIS 2023-08-08 08:48:00 Jose Naranjo [facility] US PELVIS COMPLETE WITH TRANSVAGINAL 2023-07-17 15:25[facility]00 [facility] 2023-06-22 20:18[facility]00 [facility]FF 2023-06-22 20:18:00 [facility] GLYCOS[facility]OGLOBIN (A1C) 2023-06-22 20:18:00 [facility]- [facility]/RESPONSE 2023-05-11 05:01:00 Doctor Unassigned, Piqua [facility] XR ELBOW 3+ VIEWS RIGHT 2021-07-01 14:22:25 Flakita Molina [facility] XR FOREARM 2 VW RIGHT 2021-01-11 19:30:53 Sánchez, Ke brandon [facility] NOTICE OF PRIVACY PRACTICES 2021-01-11 18:48:50 Doctor Unassigned, Piqua [facility] CONSENT/REFUSAL FOR DIAGNOSIS AND TREATMENT 2021-01-11 18:48:41 Doctor Unassigned, Piqua [facility] BI AXILLARY ULTRASOUND LEFT 2020-08-07 15:09:04 Beverly Moran [facility] BI DIAGNOSTIC MAMMOGRAM BILATERAL 2020-08-07 14:52:13 Beverly Moran [facility] ASSIGNMENT OF BENEFITS 2020-08-07 13:53:47 Docto r Unassigned, Piqua [facility] EXTERNAL PROVIDER RECORDS 2020-07-13 05:01:00 Doctor Unassigned, Piqua [facility] ASSIGNMENT OF BENEFITS 2020-06-20 18:34:58 Docto r Unassigned, Piqua [facility] Delivery 2017-11-02 00:00:00 [facility] Procedure on Ankle 1995-11-02 00:00:00 [facility] Ligation of Fallopian Tube [facility] Encounters Start Date/Time End Date/Time Encounter Type Admission Type Attending [facility] Care Facility Care Department Encounter ID Source 2024-09-28 09:20:00 [id number] [facility] 2024-06-06 09:03:00 [facility] [id number] [facility] 2023-11-09 09:14:01 [facility] [id number] [facility] 2023-05-11 11:53:38 Outpatient [facility] [id number] [facility] 2023-05-01 09:50:22 Outpatient [facility] [id number] [facility] 2023-03-09 10:45:44 Outpatient [facility] [id number] [facility] 2023-02-27 10:34:00 Outpatient [facility] [id number] [facility] 2021-09-01 05:37:10 Emergency [facility] [id number] [facility] 2021-08-31 10:03:46 Emergency [facility] [id number] [facility] 2021-08-26 11:49:08 Outpatient MOLINA, ORNEN [facility] [id number] [facility] 2021-07-19 16:54:19 Outpatient LUIZ [facility]ONEN [facility] [id number] [facility] 2021-07-01 09:13:23 Outpatient [facility] [id number] [facility] 2024-10-17 00:00:00 2024-10-17 00:00:00 MARIN Hawk: [address], [place] [address] , Ph. Critical access hospital - GC_GCBZW_Juliette Adam* [id number] [facility] 2024-08-31 00:00:00 2024-08-31 00:00:00 Lena Sue MD: [address], [address], [place] [id number] , Ph. Critical access hospital - GC_GCBZW_Juliette Adam* [id number] [facility] 2024-07-21 00:00:00 2024-07-21 00:00:00 BONILLA MontagueP: [address], [place] [phone] , Ph. Critical access hospital - GC_GCBZW_Juliette Adam* [id number] [facility] 2024-06-20 00:00:00 2024-06-20 00:00:00 BARAK Copoer: [address], [place] [id number] , Ph. Critical access hospital - GC_GCBZW_Juliette Adam* [id number] [facility] 2024-03-24 00:00:00 2024-03-24 00:00:00 MARIN Hawk: [address], [place] [address] , Ph. Critical access hospital - GC_GCBZW_Juliette faulkner Jair* [id number] [facility] 2024-03-17 00:00:00 2024-03-17 00:00:00 Lena Sue MD: [address], [place] [address] , Ph. Critical access hospital - GC_GCBZW_Juliette [facility]* [id number] [facility] 2024-03-15 00:00:00 2024-03-15 00:00:00 MARIN Hawk: [address], [place] [address] , Ph. Critical access hospital - GC_GCBZW_Juliette [place]* [id number] [facility] 2023-11-26 00:00:00 2023-11-26 00:00:00 Outpatient GC_GCBZW_Ka diyala_S PRIV PRIV [id number] [facility] 2023-11-23 00:00:00 2023-11-23 00:00:00 Outpatient GC_GCBZW_Ka diyala_S PRIV PRIV [id number] [facility] 2023-11-19 00:00:00 2023-11-19 00:00:00 Outpatient GC_GCBZW_Ka diyala_S PRIV PRIV [id number] [facility] 2023-11-09 00:00:00 2023-11-09 00:00:00 Outpatient GC_GCBZW_Ka diyala_S PRIV PRIV [id number] [facility] 2023-10-29 00:00:00 2023-10-29 00:00:00 Outpatient GC_GCBZW_Ka diyala_S PRIV PRIV [id number] [facility] 2023-10-13 10:30:00 2023-10-13 10:30:00 Outpatient R KING-DANISHA S, MILY KING-DANISHA S, MILY [facility] [id number] [facility] 2023-08-31 13:17:00 2023-09-02 19:19:00 Inpatient Lena Steel [facility]02 [id number] [facility] 2023-08-27 00:00:00 2023-08-27 00:00:00 Outpatient GC_GCBZW_Ka diyala_S PRIV PRIV [id number] [facility] 2023-08-27 00:00:00 2023-08-27 00:00:00 Outpatient GC_GCBZW_Ka diyala_S PRIV PRIV [id number] [facility] 2023-08-27 00:00:00 2023-08-27 00:00:00 Outpatient GC_GCBZW_Ka diyala_S PRIV PRIV [id number] [facility] 2023-08-25 00:00:00 2023-08-25 00:00:00 Outpatient GC_GCBZW_Ka diyala_S PRIV PRIV [id number] [facility] 2023-08-25 00:00:00 2023-08-25 00:00:00 Outpatient GC_GCBZW_Ka diyala_S PRIV PRIV [id number] [facility] 2023-08-24 00:00:00 2023-08-24 00:00:00 Outpatient GC_GCBZW_Ka diyala_S PRIV PRIV [id number] [facility] 2023-08-20 00:00:00 2023-08-20 00:00:00 Outpatient GC_GCBZW_Ka diyala_S PRIV PRIV [id number] [facility] 2023-08-17 11:30:00 2023-08-17 11:30:00 Outpatient RONEN MOLINA [facility] [id number] [facility] 2023-08-17 00:00:00 2023-08-17 00:00:00 Orders Only Doctor Unassigned, Piqua [facility] 1.2840.114 350.1.13.10 4.2.7.2.686 [id number] [facility] 2023-08-14 10:30:00 2023-08-14 11:12:57 Outpatient R KING-DANISHA S, MILY KING-DANISHA S, MILY [facility] [id number] [facility] 2023-08-14 10:30:00 2023-08-14 11:12:57 Office Visit King-Danisha s Mily [facility] 1.2840.114 350.1.13.10 4.2.7.2.686 [id number] [facility] 2023-08-08 03:42:00 2023-08-08 06:43:00 Emergency X JOSE NARANJO [facility] ERT [id number] [facility] 2023-08-08 03:42:00 2023-08-08 06:43:00 Emergency Jose Naranjo S [facility] 1.2840.114 350.1.13.10 4.2.7.2.686 [id number] [facility] 2023-08-07 10:35:09 2023-08-07 23:59:00 Outpatient R RADIOLOGY [facility] [id number] [facility] 2023-08-07 10:35:09 2023-08-07 23:59:00 Hospital Encounter Radiology [facility] 1.2840.114 350.1.13.10 4.2.7.2.686 [id number] [facility] 2023-07-28 13:15:00 2023-07-28 13:45:06 Outpatient R KING-DANISHA S, MILY KING-DANISHA S, MILY [facility] [id number] [facility] 2023-07-28 13:15:00 2023-07-28 13:45:06 Office Visit King-Danisha sMiniMily [facility] 1.2.840.114 350.1.13.10 4.2.7.2.686 [id number] [facility] 2023-07-27 13:00:00 2023-07-27 13:00:00 Outpatient R KING-DANISHA S, MILY KING-DANISHA S, MILY [facility] [id number] [facility] 2023-07-17 09:12:11 2023-07-17 23:59:00 Outpatient R KING-DANISHA S, MILY KING-DANISHA S, MILY [facility] [id number] [facility] 2023-07-17 09:12:11 2023-07-17 23:59:00 Hospital Encounter King-Danisha s, Mily [facility] 1.2.840.114 350.1.13.10 4.2.7.2.686 [id number] [facility] 2023-06-22 15:15:00 2023-06-22 15:33:34 Distribution Designer Visit 2, Adc Lab King-Danisha s, Mily [facility] 1.2.840.114 350.1.13.10 4.2.7.2.686 [id number] [facility] 2023-06-22 14:30:00 2023-06-22 14:57:53 Outpatient R KING-DANISHA S, MILY KING-DANISHA S, MILY [facility] [id number] [facility] 2023-06-22 14:30:00 2023-06-22 14:57:53 Office Visit King-Danisha s, Mily [facility] 1.2.840.114 350.1.13.10 4.2.7.2.686 [id number] [facility] 2023-05-11 11:30:00 2023-05-11 11:53:30 Office Visit Ronen Molina [facility] 1.2840.114 350.1.13.58 9.2.7.2.686 [id number] [facility] 2023-05-11 00:00:00 2023-05-11 00:00:00 Orders Only Doctor Unassigned, Piqua [facility] 1.2840.114 350.1.13.10 4.2.7.2.686 [id number] [facility] 2023-03-09 11:00:00 2023-03-09 14:17:25 Office Visit RONEN MOLINA [facility] 1.20.114 350.1.13.58 9.2.7.2.686 [id number] [facility] 2023-03-09 10:50:00 2023-03-09 14:17:25 Outpatient [facility] [id number] [facility] 2021-08-26 10:48:54 2021-08-26 11:49:39 Office Visit Ronen Molina [facility] 1.20.114 350.1.13.58 9.2.7.2.686 [id number] [facility] 2021-08-13 00:00:00 2021-08-13 00:00:00 Orders Only Ronen Molina [address] 1.2840.114 350.1.13.58 9.2.7.2.686 [id number] [facility] 2021-07-01 08:53:31 2021-07-01 09:50:49 Office Visit Ronen Molina [facility] 1.2840.114 350.1.13.58 9.2.7.2.686 [id number] [facility] 2021-01-21 00:00:00 2021-01-21 00:00:00 Patient Outreach Gopal Matutes Tj [facility] 1.2.840.114 350.1.13.10 4.2.7.2.686 [id number] [facility] 2021-01-11 13:03:00 2021-01-11 14:33:00 Emergency Mickey Sánchez [facility] 1.2.840.114 350.1.13.10 4.2.7.2.686 [id number] 2021-01-11 13:03:00 2021-01-11 14:33:00 Emergency Mickey Sánchez [facility] 1.2.840.114 350.1.13.10 4.2.7.2.686 [id number] [facility] 2021-01-11 00:00:00 2021-01-11 00:00:00 Orders Only Doctor Unassigned, Piqua [facility] 1.2.840.114 350.1.13.10 4.2.7.2.686 [id number] 2021-01-11 00:00:00 2021-01-11 00:00:00 Orders Only Doctor Unassigned, Piqua [facility] 1.2.840.114 350.1.13.10 4.2.7.2.686 [id number] [facility] 2020-10-02 10:57:08 2020-10-02 23:59:00 Hospital Encounter MoranBeverly [facility] 1.2.840.114 350.1.13.10 4.2.7.2.686 [id number] 2020-10-02 10:57:08 2020-10-02 23:59:00 Hospital Encounter MoranBeverly [facility] 1.2.840.114 350.1.13.10 4.2.7.2.686 [id number] [facility] 2020-10-02 00:00:00 2020-10-02 00:00:00 Outpatient BEVERLY CHRISTIAN [facility] [id number] [facility] 2020-09-18 00:00:00 2020-09-18 00:00:00 [facility] [id number] [facility] 2020-08-16 00:00:00 2020-08-16 00:00:00 [facility] PRODUCT DESIGN ENGINEER [facility] 1.2.840.114 350.1.13.10 4.2.7.2.686 [id number] 2020-08-16 00:00:00 2020-08-16 00:00:00 Telephone Beverly Moran [facility] PRODUCT DESIGN ENGINEER [facility] 1.2.840.114 350.1.13.10 4.2.7.2.686 [id number] [facility] 2020-08-07 09:13:49 2020-08-07 23:59:00 Hospital Encounter Beverly Moran [facility] 1.2.840.114 350.1.13.10 4.2.7.2.686 [id number] [facility] 2020-08-07 08:57:24 2020-08-07 09:12:00 Hospital Encounter Beverly Moran [facility] 1.2.840.114 350.1.13.10 4.2.7.2.686 [id number] [facility] 2020-08-07 00:00:00 2020-08-07 00:00:00 Outpatient BEVERLY CHRISTIAN [facility] [id number] [facility] 2020-08-07 00:00:00 2020-08-07 00:00:00 Orders Only Doctor Unassigned, Piqua [facility] 1.2.840.114 350.1.13.10 4.2.7.2.686 [id number] [facility] 2020-08-07 00:00:00 2020-08-07 00:00:00 Telephone [facility] PRODUCT DESIGN ENGINEER [facility] 1.2.840.114 350.1.13.10 4.2.7.2.686 [id number] [facility] 2020-07-13 00:00:00 2020-07-13 00:00:00 Orders Only Doctor Unassigned, Piqua [facility] 1.2.840.114 350.1.13.10 4.2.7.2.686 [id number] [facility] 2020-06-22 00:00:00 2020-06-22 00:00:00 [facility] [employer] 1.2.840.114 350.1.13.10 4.2.7.2.686 [id number] [facility] 2020-06-20 13:37:39 2020-06-20 14:55:54 [facility] PRODUCT DESIGN ENGINEER [facility] 1.2.840.114 350.1.13.10 4.2.7.2.686 [id number] [facility] 2020-06-20 13:15:00 2020-06-20 13:15:00 Outpatient R BEVERLY MORAN [facility] [id number] [facility] 2020-06-20 00:00:00 2020-06-20 00:00:00 Orders Only Doctor Unassigned, [place] [facility] 1.2.840.114 350.1.13.10 4.2.7.2.686 [id number] [facility] 2020-06-18 13:30:00 2020-06-18 13:30:00 Outpatient [facility] [id number] [facility] Results Test Description Test Time Test Comments Results Result Co mments Source [facility] MedicalUrinalysis macro (dipstick) panel - [id number] 09:48:00* Test Item Value Reference Range Interpretation Comme [facility] Leukocytes (test code = Leukocytes) Negative Nitrite (test code = Nitrite) negative Urobilinogen (test code = Urobilinogen) Normal Protein (test code = Protein) 1+ pH (test code = pH) 6.0 Blood (test code = Blood) Negative Specific [place] (test code = Specific [place]) 1.015 Ketone (test code = Ketone) Negative Bilirubin (test code = Bilirubin) Negative Glucose (test code = Glucose) Negative Appearance (test code = Appearance) Slightly Cloudy Color (test code = Color) Yellow [facility] MedicalGLUCOSE BEDSIDE [id number] 17:32:00* Test Item Value Reference Range Interpretation Comme [facility] GLUCOSE BEDSIDE TESTING (jaya t code = GLUBED) 228 mg/dL 70-110 H [id number] 14:46:00* Test Item Value Reference Range Interpretation Comme [facility] SURGICAL (test code = SR) RUN DATE: 09/02/23 [facility] - LAB PAGE 1 RUN TIME: 1446 Specimen Inquiry RUN USER: INTERFACE PATIENT: MADHAVI ABDI LOC: DENIS U #: [id number] AGE/SX: 42/F ROOM: [facility] RE08/31/23[facility] DR: Lena Sue MD : 84 BED: 1 DIS: STATUS: ADM IN TLOC: SPEC #: [id number] RECD: 08/31/23 STATUS: SONDRA RE #: [id number] MODE: 08/31/[address]: Lena Sue MD ENTERED: 08/31/23 SP TYPE: SURGICAL OTHR DR: ORDERED: [id number], ANATOMIC SPEC, SPECIMEN TRACK PROCEDURES: 32710 (08/31/23) SPECIMEN TRACK (08/31/23) TISSUES: A. ENDOMETRIUM CURETTINGS / BIOPSY FINAL DIAGNOSIS UTERUS, CURETTING: - Benign early secretory endometrium. - Benign endocervical tissue present. - Negative for atypical hyperplasia or malignancy. GROSS DESCRIPTION Endometrial curettings. Received is of approximately 1 cc of bloody mucus filtered in atea bag and submitted entirely as A1. Technical tissue processing and slide preparation performed at [facility],[place] [address] [place] [address] MICROSCOPIC DESCRIPTION Microscopic examination is performed and the findings are incorporated into the finaldiagnosis. Please see diagnosis for findings. - Signed SIGNATURE ON FILE Yehuda Olmedo 09/02/23 1446 END OF REPORT GLUCOSE BEDSIDE [id number] 11:36:00* Test Item Value Reference Range Interpretation Comme nts GLUCOSE BEDSIDE TESTING (jaya t code = GLUBED) 154 mg/dL 70-110 H GLUCOSE BEDSIDE [id number] 08:13:00* Test Item Value Reference Range Interpretation Comme nts GLUCOSE BEDSIDE TESTING (jaya t code = GLUBED) 140 mg/dL 70-110 H GLUCOSE BEDSIDE [id number] 20:13:00* Test Item Value Reference Range Interpretation Comme nts GLUCOSE BEDSIDE TESTING (jaya t code = GLUBED) 192 mg/dL 70-110 H GLUCOSE BEDSIDE [id number] 17:05:00* Test Item Value Reference Range Interpretation Comme nts GLUCOSE BEDSIDE TESTING (jaya t code = GLUBED) 172 mg/dL 70-110 H - CT ABD PELVIS W/[id number] 16:44:00 [facility] 1980 Sex: F Name: MADHAVI ABDI [facility] : 1980 Age/S: 42 / F [address] Unit #: [id number] Loc: [place] [address] Phys: Patricia Olson MD Acct: [id number] Dis Date: Status: ADM IN PHONE#: [phone] Exam Date: 09/01/20231619 FAX #: Reason: abdominal pain EXAMS: CPT: [id number] CT ABD PELVIS W/CONT 59898 EXAM: - CT ABD PELVIS W/CONT INDICATION: [...] Visualized chest: No significant abnormality seen. Hepatobiliary: L iver appears unremarkable. Gallbladder appears unremarkable. No intrahepatic and extrahepatic biliary ductal dilation seen. Pancreas: Appears unremarkable. Spleen: Appears unremarkable. Adrenal glands: Appear unremarkable. Kidneys: Incidental note is made of [...] 1 Signed Report (CONTINUED) Name: MADHAVI ABDI [facility] : 1980 Age/S: 42 / F [address] [facility] [address] Unit #: [id number] Loc: [place] [address] Phys: Patricia Olson MD Acct: [id number] Dis Date: Status: ADM IN PHONE #: [phone] Exam Date: 09/01/2023 1620 FAX #: Reason: abdominal pain EXAMS: CPT: [id number] CT ABD PELVIS W/CONT 13447 (Continued) follicle measuring 2.2 cm in size. Soft tissues:No significant abnormality seen. Bones:No acute or destructive osseous process seen. IMPRESSION: Few small scattered foci of pneumoperitoneum, uncertain etiology, potentially postoperative. Correlation with appropriate clinical history suggested. Relatively mild enlargement of the right ovary seen compared tothe left, indeterminate. Recommend pelvic ultrasound examination for further evaluation to exclude an acute ovarian pathology or an ovarian mass. There appears to be a small collapsed cyst or follicle in the left ovary. Attention on the ultrasound. No bowel obstruction, ileus or fluid collection seen. Incidental note is made of innumerable round densities in the kidneys, favored to reflect cysts.Follow- up imaging in 3-6 months with MRI suggested to exclude a neoplastic process. Few punctate bilateral nonobstructing renal stones. No hydronephrosis seen. Please refer to the findings section for additional details. Findings are being called to the patient care team. at 3504 Reported and signed by: Chase Danielle M.D. CC: Lena brandon MD; Patricia Olson MD Technologist:Mark Patricia CTDI: DLP: Trnscb Date/Time: 09/01/2023 (1643) t.SDR.AH26 Orig Print D/T: S: 09/01/2023 (8014) PAGE 2 Signed ReportGLUCOSE BEDSIDE [id number] 11:53:00* Test Item Value Reference Range Interpretation Comme nts GLUCOSE BEDSIDE TESTING (jaya t code = GLUBED) 125 mg/dL 70-110 H GLUCOSE BEDSIDE [id number] 08:07:00* Test Item Value Reference Range Interpretation Comme nts GLUCOSE BEDSIDE TESTING (jaya t code = GLUBED) 144 mg/dL 70-110 H GLUCOSE BEDSIDE [id number] 20:28:00* Test Item Value Reference Range Interpretation Comme nts GLUCOSE BEDSIDE TESTING (jaya t code = GLUBED) 221 mg/dL 70-110 H GLUCOSE BEDSIDE [id number] 16:42:00* Test Item Value Reference Range Interpretation Comme nts GLUCOSE BEDSIDE TESTING (jaya t code = GLUBED) 177 mg/dL 70-110 H GLUCOSE BEDSIDE [id number] 14:02:00* Test Item Value Reference Range Interpretation Comme nts GLUCOSE BEDSIDE TESTING (jaya t code = GLUBED) 155 mg/dL 70-110 H GLUCOSE BEDSIDE [id number] 09:00:00* Test Item Value Reference Range Interpretation Comme nts GLUCOSE BEDSIDE TESTING (jaya t code = GLUBED) 176 mg/dL 70-110 H RBC [id number] 18:26:00* Test Item Value Reference Range Interpretation Comme nts PLATELET ESTIMATE (test code = PLTEST) SLIGHTLY INCREASED THOUSAND ADEQUATE PLATELET MORPHOLOGY (test code = PLTMORPH) NORMAL CBC W/AUTO [id number] 18:26:00* Test Item Value Reference Range Interpretation [...] = MDIFF) NO DIFF/SCN CRITERIA BASIC METABOLIC [id number] 16:49:00* Test Item Value Reference Range Interpretation [...] = CA) 9.6 MG/DL 8.5-10.1 N URINALYSIS [id number] 16:08:00* Test Item Value Reference Range Interpretation [...] NEGATIVE Urine Specimen Type: Clean CatchUR HCG [id number] 16:08:00* Test Item Value Reference Range Interpretation Comme nts UR HCG QUAL (test code = HCGQLU) NEGATIVE NEGATIVE Urine Specimen Type: Clean Catch- XR CHEST 1 [id number] 16:06:00 [facility] : 1980 Sex: F Name: MADHAVI ABDI [facility] : 1980 Age/S: 42 / F [address] Unit #: [id number] Loc: [place] [address] Phys: Lena Sue MD Acct: [id number] Dis Date: Status: PRE SDC PHONE #: [phone] Exam Date: 08/28/2023 1602 FAX #: Reason: pre op EXAMS: CPT: [id number] XR CHEST 1 V 87794 Fluoro Time: DAP (Gy m2): Air Kerma (mGy): EXAM: - XR CHEST 1 V HISTORY: pre op LOCATIONCODE:T18 TECHNIQUE: Frontal radiograph of the chest. COMPARISON: None. FINDINGS: Normal heart size. No focal airspace consolidation. No pulmonary edema, pleural effusion or pneumothorax. Imaged osseous structures are without acute abnormality. IMPRESSION: No radiographic evidence of acute cardiopu lmonary disease. at 1606 Reported and signed by: Melida Dominguez M.D. CC: Lena Sue MD PAGE 1 Signed Report Name: MADHAVI ABDI [facility] [place] : 1980 Age/S: 42 / F [address] Unit #: [id number] Loc: [place] [address] Phys: Lena Sue MD Acct: [id number] Dis Date: Status: PRE [facility] PHONE #:[phone] Exam Date: 08/28/2023 1602 FAX #: Reason: pre op EXAMS: CPT: [id number] XR CHEST 1 V 52340 Fluoro Time: DAP (Gy m2): Air Kerma (mGy): (Continued) Technologist: Sonny Patel RT(R) Trnscb Date/Time: 08/28/2023 (1606) [id number] Orig Print D/T: S: 08/28/2023 (1610) PAGE 2 Signed ReportTHROMBOPLASTIN TIME [id number] 15:57:00* Test Item Value Reference Range Interpretation Comme nts THROMBOPLASTIN TIME PARTIAL (test code = PTT) 24.0 SECONDS 26-35 L Comment: PRE PROCEDUREPROTHROMBIN [id number] 15:57:00* Test Item Value Reference Range Interpretation [...] prevent recurrent infarct). Comment: PRE PROCEDUREComplete Metabolic [id number] 10:00:21* Test Item Value Reference Range Interpretation Comme nts NA (test code = 9220233542) 142 mmol/L 135-145 K (test code = 7344448733) 3.5 mmol/L 3.5-5.0 CL (test code = 5615627574) 104 mmol/L 98-108 CO2 TOTAL (test code = 9106517254) 24 mmol/L 23-31 AGAP (test code = 0601753354) 14 2-16 BUN (test code = 5294244045) 13 mg/dL 7-23 GLUCOSE (test code = 9545406338) 188 mg/dL 70-110 H CREATININE (test code = 3311198361) 1.08 mg/dL 0.50-1.04 H TOTAL BILI (test code = 6873920977) 0.2 mg/dL 0.1-1.1 CALCIUM (test code = 4066262199) 9.6 mg/dL 8.6-10.6 T PROTEIN (test code = 3580732145) 8.4 g/dL 6.3-8.2 H ALBUMIN (test code = 4160499098) 4.4 g/dL 3.5-5.0 ALK PHOS (test code = 6132958064) 74 U/L 34-122 ALTv (test code = 1742-6) 18 U/L 5-35 AST(SGOT) (test code = 5778447925) 18 U/L 13-40 eGFR (test code = 9263813169) 56.2 mL/min/1.73m2 SAJI (test code = SAJI) [...] imaging tests). Lab Interpretation (test code = 17301-4) Abnormal [facility] CenterLipase, Hwgwa3708-18-04 09:42:09* Test Item Value Reference Range Interpretation Comme nts LIPASE (test code = 0042935147) 182 U/L 0-220 Lab Interpretation (test cod e = 58431-4) Normal [facility] CenterCB with Mrvkvuofuzua4769-92-65 09:08:03* Test Item Value Reference Range Interpretation Comme nts WBC (test code = 6690-2) 11.92 See_Comment H [Automated Moe Del[employer]] The system which generated this result transmitted reference range: 4.30 - 11.10 10*3/?L. The reference range was not used to interpret this result as normal/abnormal. RBC (test code = 789-8) 4.77 See_Comment [Automated [employer]] The system which generated this result [...] 32.6 g/dL 31.6-35.1 RDW-SD (test code = 27512-8) 41.3 fL 39.0-49.9 RDW-CV (test code = 788-0) 13.5 % 12.0-15.5 PLT (test code = 777-3) 319 See_Comment [Automated messa ge] The system which generated this result transmitted reference range: 166 - 358 10*3/?L. The reference range was not used to interpret this result as normal/abnormal. MPV (test code = 39451-8) 9.9 fL 9.5-12.9 NRBC/100 WBC (test code = 9288819388) 0.0 See_Comment [Automated [employer] ssage] The system which generated this result transmitted reference range: 0.0 - 10.0 /100 WBCs. The reference range was not used to interpret this result as normal/abnormal. NRBC x10^3 (test code = 2872506557) See_Comment [Automated [employer]] The system which generated this result transmitted reference range: 10*3/?L. The reference range was not used to interpret this result as normal/abnormal. GRAN MAT (NEUT) % (test code = 770-8) 63.7 % IMM GRAN % (test code = 7295474831) 0.40 % LYMPH % (test code = 736-9) 25.8 % MONO % (test code = 5905-5) 4.4 % EOS % (test code = 713-8) 5.0 % BASO % (test code = 706-2) 0.7 % GRAN MAT x10^3(ANC) (test code = 0239568018) 7.59 10*3/uL 1.88-7.09 H IMM GRAN x10^3 (test code = 9672779241) 0.05 10*3/uL 0.00-0.06 LYMPH x10^3 (test code = 731-0) 3.07 10*3/uL 1.32-3.29 MONO x10^3 (test code = 742-7) 0.53 10*3/uL 0.33-0.92 EOS x10^3 (test code = 711-2) 0.60 10*3/uL 0.03-0.39 H BASO x10^3 (test code = 704-7) 0.08 10*3/uL 0.01-0.07 H Lab Interpretation (test code = 27854-4) Abnormal [facility] CenterPOCT [id number] 08:50:00* Test Item Value Reference Range Interpretation Comme nts POCT PREG (test code = 1605) Negative On board controls acceptable with C Line (test code = 3574) Yes Lab Interpretation (test cod e = 63729-5) Normal [facility] CenterXR elbow 3+ views qemgz8174-39-79 14:39:31 Interpretation: Multiple radiographic views are within normal limits for the patients stated age. There are no signs of fracture, dislocation, or articular injury. The alignment and joint spaces are within normal limits. No signs of a bony lesion or soft tissue swelling. [facility]+ views qznvf7173-86-19 14:39:31Interpretation: Multiple radiographic views are within normal limits for the patients stated age. There are no signs of fracture, dislocation, or articular injury. The alignment and joint spaces are within normal limits. No signs of a bony lesion or soft tissue swelling. ?[facility] FOREARM 2 VW RIGHT 2021-01-11 19:33:31Forearm soft [...] soft tissue contusion.No acute bony abnormality is present.[facility] DIAGNOSTIC MAMMOGRAM [id number] 15:54:22Examination:BI DIAGNOSTIC MAMMOGRAM BILATERAL History:Patient is 39 [...] NegativeOverall: 0 - Incomplete: Needs Additional [facility] AXILLARY ULTRASOUND KVRL5109-89-58 15:12:17HISTORY: Palpable mass in left axilla. TECHNIQUE: [...] with features ofbenign lipoma.ACR classification: Category II. [facility] Notes Date/Time Note Provider Source 2023-09-06 12:32:00 [facility] ([facility]) Discharge Summary REPORT#:[id number] REPORT STATUS: Signed REPORT INITIALIZATION DATE:09/06/23 TIME:1232 PATIENT: MADHAVI ABDI UNIT #: [id number] ROOM/BED: [place] [address] : [birth year] AGE: 42 SEX: F ATTEND: [...] Pulse Ox 100 09/02 1830 B/P 165/85 09/02 1830 B/P Mean 117 09/02 1830 Pulse 73 09/02 1830 Resp 21 09/02 1830 Temp 98.1 09/02 1637 O2 Delivery Room air 08/31 1415 O2 Flow Rate 2 08/31 1320 PATIENT WEIGHT: Weight (lb): 199 Weight (oz): 6.71 Weight (kg): 90.455 General appearance: awake ENT: normal nose Cardiovascular: regular rate rhythm Respiratory: clear to auscultation Extremities: moves all Neuro/ROLL TENDER: alert Discharge Instructions PCP PCP: PCP: Lena Sue MD )( Discharge to: Home/Self Care Discharge Instructions Additional Discharge Routines: Attending Follow-Up )( Diet: Regular )( Activity: As Tolerated Discharge management: greater than 30 mins Follow-up Appointments Attending Physician: Attending Physician: Lena Sue MD Special instructions: see instructions sheet at 1234 RPT #: [id number] END OF REPORT [facility] 2023-09-02 06:46:00 [facility] General Surgery Progress Note REPORT#:[id number] REPORT STATUS: Signed REPORT INITIALIZATION DATE:09/02/23 TIME:0646 PATIENT: MADHAVI ABDI UNIT #: [id number] ROOM/BED: [place] [address] : [birth year] AGE: 42 SEX: F ATTEND: [...] to the patient care team. Impression By: MagdyAHDonny Danielle M.D. Diagnosis, Assessment Plan Problem List/A P: 1. S/P laparoscopy with lysis of adhesions 2. Intra-abdominal adhesions 3. OVARY MASS 4. Polycystic kidney disease 5. Diabetes Free Text A P: CT scan abdomen and pelvis showed no acute findings. The patient does not have a mass, diverticulosis, or colitis. Ok from surgical stanpoint to discharge home. She needs to follow up with art model as outpatient to reschedule joint general surgical and home health care social worker procedure to remove right ovary. at 0649 RPT #: [id number] END OF REPORT [facility] 2023-09-01 15:24:00 [phone] [facility] [address] [place] [address] PATIENT NAME: MADHAVI ABDI ADMIT DATE: 08/31/23 ACCOUNT NO: [id number] ROOM NO: [facility] AGE: 42 REPORT TYPE: CONSULTATION SEX: F [...] during surgery for lysis of adhesions for art model to proceed with needed surgery. She does not have evidence of diverticulitis. This can be arranged as an outpatient. Dictated By: Patricia Olson MD Date Dictated: 09/01/2023 15:24:06 Date Transcribed: 09/01/2023 16:35:50 BJORN/JAYSHREE/CASSY Receipt ID: [id number] Authenticated and Edited by Patricia Olson MD On 09/22/23 2:22:31 PM PATIENT NAME: MADHAVI ABDI at 0223 PATIENT NAME: MADHAVI ABDI [facility] 2023-09-01 15:07:00 [facility] General Surgery Progress Note REPORT#:[id number] REPORT STATUS: Signed REPORT INITIALIZATION DATE:09/01/23 TIME:150 PATIENT: MADHAVI ABDI UNIT #: [id number] ROOM/BED: [place] [address] : [birth year] AGE: 42 SEX: F ATTEND: Lena Sue MD ADM AUTHOR: Patricia Olson MD REPT SERVICE DT/TIME: 09/01/23 1507 * ALL edits or amendments must be [...] diet Will follow. at 1510 RPT #: [id number] END OF REPORT [facility] 2023-09-01 10:56:00 [facility] ([facility]) Hospitalist Progress Note REPORT#:[id number] REPORT STATUS: Signed REPORT INITIALIZATION DATE:09/01/23 TIME:1056 PATIENT: MADHAVI ABDI UNIT #: [id number] ROOM/BED: [place] [address] : [birth year] AGE: 42 SEX: F ATTEND: [...] cleared by surgery at 1342 RPT #: [id number] END OF REPORT [facility] 2023-08-31 22:09:00 [phone] [address] PATIENT NAME: MADHAVI ABDI ADMIT DATE: 08/31/23 ACCOUNT NO: [id number] ROOM NO: [address].302 AGE: 42 REPORT TYPE: [...] right lower quadrant. SURGEON: Lena Sue MD HIDE COOKING OPERATOR: Ced Rebolledo. ANESTHESIA: ESTIMATED BLOOD LOSS: 50 [...] father disclosed of the position. Then, Dr. Falcon, hospitalist and ____, General Surgery were consulted. Glycemic control and IV antibiotics for 48 hours. Dictated By: Lena Sue MD Date Dictated: 08/31/2023 22:09:12 Date Transcribed: 09/01/2023 00:08:17 SANDHYA/DIALLO/TAMI/MILADYS/MELITA/MIL Receipt ID: [id number] Authenticated by Lena Sue MD On 10/08/2023 11:42:25 AM at 1142 PATIENT NAME: MADHAVI ABDI [facility] 2023-08-31 13:14:00 [facility]) Hospitalist History Physical REPORT#:[id number] REPORT STATUS: Signed REPORT INITIALIZATION DATE:08/31/23 TIME:1313 PATIENT: MADHAVI ABDI UNIT #: [id number] ROOM/BED: [place] [address] : [birth year] AGE: 42 SEX: F ATTEND: [...] Mean Pulse Ox FiO2 08/31 97.0-97.4 72-88 18-26 128-164/60-101 92-100 Last Documented: Result Date Time Pulse Ox 93 08/31 1300 B/P 157/90 10/30 1300 O2 Delivery Nasal cannula 08/31 1300 [...] directive full code at 1510 RPT #: [id number] END OF REPORT [facility] 2023-08-31 10:52:00 [facility] ([facility]) Brief Op Note REPORT#:[id number] REPORT STATUS: Signed REPORT INITIALIZATION DATE:08/31/23 TIME:105 PATIENT: MADHAVI ABDI UNIT #: [id number] ROOM/BED: [place] [address] : [birth year] AGE: 42 SEX: F ATTEND: [...] and Diag hysteroscopy d/c Primary Surgeon: linette Dock Builder(s): naomi rebolledo Anesthesia: general anesthesia Findings: omental [...] Drs. Falcon and Aida were notified by nv, office fu per appointment in 1 week Counts: Sponge count: correct Instrument count: correct at 1700 RPT #: [id number] END OF REPORT [facility] 2023-07-17 09:45:00 Formatting of this n ote might be different from the original. Normal pelvic US. OG-OBSTETRICS & GYNECOLOGY STAFF [facility] 2023-06-22 15:15:00 Formatting of this n ote is different from the original. Images from the original note were not included. Venipuncture collection performed by clean technique on the left anticubitus. Total of 1 attempts were made. Slight pressure and a bandage/dressing were applied to the site(s). The patient experienced no complications. The following specimens were processed according to instructions and sent to [facility] laboratories per lab order on 06/22/2023 : LT BLUE SST 1 RED LAV 2 PPT DK GREEN (LiHep) DK GREEN (SodH) GARRISON DK BLUE (K2) DK BLUE (S) ACD Blood Culture NIPT/NTD Adelita Maurer [facility] 2023-06-22 15:15:00 Formatting of this n ote might be different from the original. Patient TSH is elevated, please add Free t4. Needs to see PCP for further mgmt. Hba1c is 8.7, needs to get under 8. Blood counts show no anemia. OG-OBSTETRICS & GYNECOLOGY STAFF [facility] 2023-06-22 15:15:00 Addended by: DEBBIE BENNETT RN on: 06/23/2023 10:08 AM Modules accepted: Orders [facility] 2023-06-22 14:30:00 Addended by: MILY HALL on: 06/22/2023 03:30 PM Modules accepted: Orders [facility]
[2025-01-03] MEDS ORDERED: MORPHINE 4 MG/ML SYR ONE (19:43)
[2025-01-03] MEDS ORDERED: FAMOTIDINE 20 MG/2 ML VIAL IV ONE (19:43)
[2025-01-03] MEDS ORDERED: ONDANSETRON 4 MG/2 ML VIAL ONE (19:43)
[2025-01-03 19:55] LABS: Absolute Basophils 0.1 K/uL (0-0.5); Absolute Eosinophils 0.2 K/uL (0-0.5); Absolute Lymphocytes (CBC) 3.3 K/uL (0.7-4.9); Absolute Monocytes 0.5 K/uL (0.1-1.3); Absolute Neutrophil 4.7 K/uL (1.8-8.0); Basophils % 0.6 % (0-1.3); Hematocrit 37.7 % (36.0-45.0); Hemoglobin 12.4 g/dL (12.0-15.0); Lymphocytes % 37.4 % (15.3-44.8); MCH 28.6 pg (27.0-35.0); MCHC 32.8 g/dL (32.0-36.0); MCV 87.2 fL (80-100); MPV 7.8 fL (7.6-11.3); Monocytes % 6.3 % (3.3-12.3); Neutrophils % 53.7 % (41.7-73.7); Nucleated Red Blood Cells % 0.1 % (0-0); Platelets 300 thou/uL (152-406); RBC Red Blood Cell Count 4.33 M/uL (3.86-4.86)
[2025-01-03 20:09] LABS: ALT/SGPT 22 U/L (13-56); Albumin 3.2 g/dL (3.4-5.0); Albumin/Globulin Ratio 0.7 (1.1-1.8); Alkaline Phosphatase 84 U/L (45-117); Anion Gap 7.9 mEq/L (5.0-15.0); BUN Blood Urea Nitrogen 10 mg/dL (7-18); Bicarbonate 26 mEq/L (21-32); Bilirubin Total 0.2 mg/dL (0.2-1.0); Globulin 4.4 g/dL (2.3-3.5); Glomerular Filtration Rate 55 ml/min (=/>90); Glucose Level 179 mg/dL (74-106); Lipase 35 U/L (13-75); Potassium 3.9 mEq/L (3.5-5.1); Protein, Total 7.6 g/dL (6.4-8.2); Sodium Level 138 mEq/L (136-145)
[2025-01-03 20:11] LABS: AST/SGOT < 10 U/L (15-37)
--- NOTE | 2025-01-03 20:47 | RAD REPORT ---
EXAMINATION: CT ABDOMEN AND PELVIS WITH CONTRAST CLINICAL INDICATION: Abdominal pain TECHNIQUE: CT abdomen and pelvis was performed, after the administration of 100 cc Isovue-300.. Sagit rae and coronal reconstructions were obtained. One or more of the following dose reduction techniques were used: Automated exposure control, adjustment of the mA and kV according to patient si ze, and iterative reconstruction. Unless otherwise specified, incidental findings do not require dedicated imaging follow-up. YK1000. Oral contrast was not given which limits evaluation of bowel and appendix. COMPARISON: .December 2024 FINDINGS: Calcified granuloma right lower lobe. Liver, spleen, pancreas and adrenals unremarkable. Bilateral polycystic kidneys. No hemorrhage within a cyst. No hydronephrosis. Tiny calculi. Normal appendix. No evidence of diverticulitis. Small umbilical hernia. No adnexal mass Mild gastric distention : IMPRESSION: Polycystic kidneys Mild gastric distention
--- NOTE | 2025-01-03 20:48 | RAD REPORT ---
EXAM: Right upper quadrant ultrasound. CLINICAL HISTORY: Abdominal pain COMPARISON: None FINDINGS: A gallstone is not seen.. 2 mm gallbladder polyp Gallbladder wall not thickened. Biliary tree normal caliber IMPRESSION: No significant abnormalities displayed
--- NOTE | 2025-01-03 21:05 | ER ---
Nurse's Notes [facility] Name: Lana Solo Age: 44 yrs Sex: Female : 1980 Arrival Date: 01/03/2025 Time: 17:51 Bed 17 Private MD: Diagnosis: Upper abdominal pain, unspecified Presentation: 01/03 18:17 Chief complaint: Patient states: Abdominal swelling/pain since Thursday night. Pt reports ld1 nausea. Coronavirus screen: At this time, the client does not indicate any symptoms associated with coronavirus-19. Ebola Screen: No symptoms or risks identified at this time. Initial Sepsis Screen: Does the patient meet any 2 criteria? No. Patient's initial sepsis screen is negative. Does the patient have a suspected source of infection? No. Patient's initial sepsis screen is negative. Risk Assessment: Do you want to hurt yourself or someone else? Patient reports no desire to harm self or others. Onset of symptoms was January 03, 2025. 18:17 Method Of Arrival: Ambulatory ld1 18:17 Acuity: BRODY 3 ld1 Triage Assessment: 18:18 General: Appears in no apparent distress. uncomfortable, Behavior is calm, cooperative, ld1 appropriate for age. Pain: Complains of pain in epigastric area, right upper quadrant and left upper quadrant Pain does not radiate. Pain currently is 8 out of 10 on a pain scale. Quality of pain is described as throbbing, Pain began suddenly, Is continuous. EENT: No signs and/or symptoms were reported regarding the EENT system. Neuro: Level of Consciousness is awake, alert, obeys commands, Oriented to person, place, time, situation. Cardiovascular: Capillary refill < 3 seconds Patient's skin is warm and dry. Respiratory: Airway is patent Respiratory effort is even, unlabored. GI: Abdomen is round non-distended, Reports upper abdominal pain, nausea. : No signs and/or symptoms were reported regarding the genitourinary system. Derm: No signs and/or symptoms reported regarding the dermatologic system. Musculoskeletal: No signs and/or symptoms reported regarding the musculoskeletal system. PICTURE ENLARGER: 21:30 LMP N/A - , Not aa10 Historical: - Allergies: 18:18 Bydureon; ld1 18:18 Simponi; ld1 - PMHx: 18:18 Hypertension; Diabetes - NIDDM; polycystic kidney; Psoriatric arthritis; Rheumatoid ld1 Arthritis; Thyroid problem; - PSHx: 18:18 section; ld1 - Immunization history:: Adult Immunizations up to date. - Infectious Disease History:: Denies. - Social history:: Smoking status: Patient denies any tobacco usage or history of. - Family history:: not pertinent. - Hospitalizations: : No recent hospitalization is reported. Screenin:29 [facility] ED Fall Risk Assessment (Adult) History of falling in the last 3 months, aa10 including since admission No falls in past 3 months (0 pts) Confusion or Disorientation No (0 pts) Intoxicated or Sedated No (0 pts) Impaired Gait No (0 pts) Mobility Assist Device Used No (0 pt) Altered Elimination No (0 pt) Score/Fall Risk Level 0 - 2 = Low Risk Oriented to surroundings, Maintained a safe environment, Educated pt \T\ family on fall prevention, incl call for assistance when getting out of bed, Assessed \T\ reinforced patient's understanding of fall precautions, Provided non-skid footwear. Abuse screen: Denies threats or abuse. Denies injuries from another. Nutritional screening: No deficits noted. Tuberculosis screening: No symptoms or risk factors identified. Assessment: 21:28 General: Appears in no apparent distress. Behavior is calm, cooperative, appropriate aa10 for age, Smells of Reports. Pain: Complains of pain in abdomen Pain does not radiate. Pain currently is 4 out of 10 on a pain scale. Quality of pain is described as. Neuro: No deficits noted. Level of Consciousness is awake, alert, obeys commands, confused, Oriented to person, place, time, situation, Appropriate for age Dye Feeder are equal bilaterally Moves all extremities. Gait is steady, Speech is normal. Cardiovascular: No deficits noted. Capillary refill < 3 seconds. Respiratory: No deficits noted. Airway is patent. 21:30 GI: Bowel sounds present X 4 quads. aa10 Vital Signs: 18:17 Pulse 99; Resp 18; Temp 98.2(TE); Pulse Ox 100% on R/A; Weight 87.09 kg; Height 5 ft. 3 ld1 in. ; Pain 9/10; 18:18 BP 133 / 89; ld1 21:27 BP 130 / 84; Pulse 90; Resp 20; Temp 99; Pulse Ox 100% ; aa10 18:17 Body Mass Index 34.01 (87.09 kg, 160.02 cm) ld1 18:17 Pain Scale: Adult ld1 ED Course: 17:56 Patient arrived in ED. cj3 17:57 Tejas Becker MD is Attending Physician. rn 18:18 Triage completed. ld1 18:18 Arm band placed on right wrist. ld1 18:43 US Abdomen Limited In Process Unspecified. EDMS 19:41 Radiology exam delayed due to lab results not completed at this time. IV insertion jc4 attempt and/or patient not having appropriate IV at this time. 19:48 Initial lab(s) drawn, by me, sent to lab. Inserted saline lock: 20 gauge in right bm8 forearm, using aseptic technique. Blood collected. Flushed with 10 mL NS. 20:35 CT Abd/Pelvis - IV Contrast Only In Process Unspecified. EDMS 21:04 Oziel Hickman MD is Referral Physician. rn 21:30 Patient has correct armband on for positive identification. Allergy band placed. Fall aa10 risk band placed. Placed in gown. Bed in low position. Call light in reach. Side rails up X2. Provided Education on: about plan of care. 21:30 No provider procedures requiring assistance completed. IV discontinued. aa10 Administered Medications: 19:47 Drug: Famotidine IVP 20 mg IVP once; dilute with 10 mL 0.9% NaCl; give over 2 minutes bm8 Route: IVP; Site: right forearm; 21:42 Follow up: Response: No adverse reaction; Marked relief of symptoms aa10 19:47 Drug: Ondansetron IVP 4 mg IVP once; over 2 minutes Route: IVP; Site: right forearm; bm8 21:43 Follow up: Response: No adverse reaction; Marked relief of symptoms aa10 19:47 Drug: morphine IVP or IV 4 mg IVP once over 4 mins Route: IVP; Infused Over: 4 mins; bm8 Site: right forearm; 21:43 Follow up: Response: No adverse reaction; Marked relief of symptoms aa10 21:41 Drug: GI Cocktail without - (Maalox PO 30 ml, Lidocaine Mucous Membrane 2 % 15 aa10 ml) PO once Route: PO; 21:41 Follow up: Response: No adverse reaction; Marked relief of symptoms; Medication aa10 administered at discharge. 21:42 Drug: NS 0.9% IV 1000 ml IV at 1 bolus Per protocol; to be given as a bolus over 60 aa10 minutes Route: IV; Rate: 1 bolus; Site: left forearm; 21:42 Follow up: IV Status: Completed infusion; IV Intake: 1000ml aa10 21:43 Follow up: Response: No adverse reaction; Marked relief of symptoms aa10 Medication: 21:29 VIS not applicable for this client. aa10 Intake: 21:42 IV: 1000ml; Total: 1000ml. aa10 Outcome: 21:04 Discharge ordered by . rn 21:30 Discharged to home ambulatory, aa10 21:30 Condition: good 21:30 Discharge instructions given to patient, Demonstrated understanding of instructions, Prescriptions given X 2, 21:44 Patient left the ED. aa10 Signatures: Dispatcher [employer] EDMS Tejas Becker MD MD rn Sims, Lauren RN RN ld1 Samir Sánchez RN RN bm8 Michael Dang jc4 Ashly Guzmán RN RN aa10 Julia Cadena cj3
--- NOTE | 2025-01-03 21:05 | EDPHYS ---
Physician Documentation [facility] Name: Lana Solo Age: 44 yrs Sex: Female : 1980 Arrival Date: 01/03/2025 Time: 17:51 Bed 17 Private MD: ED Physician Tejas Becker HPI: 01/03 18:35 This 44 yrs old Female presents to ER via Ambulatory with complaints of Abdominal Pain, rn Abdominal Swelling, Nausea. 18:35 The patient presents to the emergency department with nausea, abdominal pain. Onset: rn The symptoms/episode began/occurred 2 day(s) ago. Possible causes: unknown. The symptoms are aggravated by movement, The symptoms are alleviated by nothing. Severity of symptoms: At their worst the symptoms were moderate in the emergency department the symptoms are unchanged. The patient has not experienced similar symptoms in the past. 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 - Infectious Disease History:: Denies. - Social history:: Smoking status: Patient denies any tobacco usage or history of. - Family history:: not pertinent. - Hospitalizations: : No recent hospitalization is reported. ROS: 18:35 Constitutional: Negative for fever, chills, and weight loss, Neck: Negative for injury, rn pain, and swelling, Cardiovascular: Negative for chest pain, palpitations, and edema, Respiratory: Negative for shortness of breath, cough, wheezing, and pleuritic chest pain, Abdomen/GI: Positive for upper abdominal pain with nausea and decreased appetite MS/Extremity: Negative for injury and deformity, Neuro: Negative for headache, weakness, numbness, tingling, and seizure, Exam: 18:35 Constitutional: This is a well developed, well nourished patient who is awake, alert, rn and in no acute distress. Cardiovascular: Regular rate and rhythm. No pulse deficits. Respiratory: No increased work of breathing, no retractions or nasal flaring. Abdomen/GI: Soft, mild right upper quadrant and right mid abdominal tenderness. Vital Signs: 18:17 Pulse 99; Resp 18; Temp 98.2(TE); Pulse Ox 100% on R/A; Weight 87.09 kg; Height 5 ft. 3 ld1 in. ; Pain 9/10; 18:18 BP 133 / 89; ld1 21:27 BP 130 / 84; Pulse 90; Resp 20; Temp 99; Pulse Ox 100% ; aa10 18:17 Body Mass Index 34.01 (87.09 kg, 160.02 cm) ld1 18:17 Pain Scale: Adult ld1 MDM: 17:57 Medical Screening Exam initiated rn 21:03 Differential diagnosis: Nonspecific abd pain, gastritis, cholecystitis, pancreatitis, rn appendicitis, diverticulitis, viral gastroenteritis, gastroenteritis. Data reviewed: vital signs, nurses notes, lab test result(s), radiologic studies, CT scan, ultrasound, and as a result, I will discharge patient. Counseling: I had a detailed discussion with the patient and/or guardian regarding the historical points, exam findings, and any diagnostic results supporting the discharge/admit diagnosis, lab results, radiology results, the need for outpatient follow up, to return to the emergency department if symptoms worsen or persist or if there are any questions or concerns that arise at home. Response to treatment: the patient's symptoms have mildly improved after treatment, and as a result, I will discharge patient. Special discussion: Based on the patient's Hx, exam, and Dx evaluation, there is no indication for emergent surgery or inpatient Tx. It is understood by the patient/guardian that if the Sx's persist or worsen they need to return immediately for re-evaluation. I discussed with the patient/guardian in detail that at this point there is no indication for admission to the hospital. It is understood, however, that if the symptoms persist or worsen the patient needs to return immediately for re-evaluation. Based on the history and exam findings, there is no indication for further emergent testing or inpatient evaluation. 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 ED course: No acute findings and workup. Normal WBC and H\T\H. Normal LFTs. Normal lipase. CT abdomen pelvis shows gastric distention but no other acute findings. Ultrasound gallbladder does not show any gallstones or evidence of cholecystitis. Will discharge home on antacids and asked to follow-up with GI.. 01/03 18:22 Order name: CBC with Diff; Complete Time: 20:11 rn 01/03 18:22 Order name: CMP; Complete Time: 20: rn 01/03 18:22 Order name: Lipase; Complete Time: 20: rn 01/03 18:22 Order name: CT Abd/Pelvis - IV Contrast Only; Complete Time: 21: rn 01/03 18:22 Order name: US Abdomen Limited; Complete Time: 21: rn 01/03 18:22 Order name: IV Saline Lock; Complete Time: 19:47 rn 01/03 18:22 Order name: Labs collected and sent; Complete Time: 19:47 rn Administered Medications: 19:47 Drug: Famotidine IVP 20 mg IVP once; dilute with 10 mL 0.9% NaCl; give over 2 minutes bm8 Route: IVP; Site: right forearm; 21:42 Follow up: Response: No adverse reaction; Marked relief of symptoms aa10 19:47 Drug: Ondansetron IVP 4 mg IVP once; over 2 minutes Route: IVP; Site: right forearm; bm8 21:43 Follow up: Response: No adverse reaction; Marked relief of symptoms aa10 19:47 Drug: morphine IVP or IV 4 mg IVP once over 4 mins Route: IVP; Infused Over: 4 mins; bm8 Site: right forearm; 21:43 Follow up: Response: No adverse reaction; Marked relief of symptoms aa10 21:41 Drug: GI Cocktail without - (Maalox PO 30 ml, Lidocaine Mucous Membrane 2 % 15 aa10 ml) PO once Route: PO; 21:41 Follow up: Response: No adverse reaction; Marked relief of symptoms; Medication aa10 administered at discharge. 21:42 Drug: NS 0.9% IV 1000 ml IV at 1 bolus Per protocol; to be given as a bolus over 60 aa10 minutes Route: IV; Rate: 1 bolus; Site: left forearm; 21:42 Follow up: IV Status: Completed infusion; IV Intake: 1000ml aa10 21:43 Follow up: Response: No adverse reaction; Marked relief of symptoms aa10 Disposition Summary: 01/03/25 21:04 Discharge Ordered Notes: Location: Home rn Problem: new rn Symptoms: have improved rn Condition: Stable rn Diagnosis - Upper abdominal pain, unspecified rn Followup: rn - With: Oziel Hickman MD - When: As needed - Reason: Recheck today's complaints, Re-evaluation by your physician Discharge Instructions: - Discharge Summary Sheet rn - Abdominal Pain, Adult rn - Pain Without a Known Cause rn Forms: - Medication Reconciliation Form rn - Antibiotic clinical rn liaison - Prescription Opioid Use rn - Patient Portal Instructions rn - Leadership Thank You Letter rn Prescriptions: - Protonix 40 mg Oral Tablet - take 1 tablet ORAL route once daily; 30 tablet; Refills: 0, Product Selection rn Permitted - Tramadol 50 mg Oral Tablet - take 1 tablet ORAL route every 8 hours as needed; 12 tablet; Refills: 0, rn Product Selection Permitted Signatures: 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 EDMS EDMS 18:23 18:23 COMPREHENSIVE METABOLIC PANEL+C.LAB.BRZ ordered. EDMS EDMS 18:23 18:23 LIPASE+C.LAB.BRZ ordered. EDMS EDMS 18:23 18:23 Abdomen Pelvis W Con+CT.RAD.BRZ ordered. EDMS EDMS 18:23 18:23 Abdomen Limited+US.RAD.BRZ ordered. EDMS EDMS
[2025-01-03] MEDS ORDERED: MAGNES/ALUMIN/SIMET 30ML UCUP ONE (21:35)
[2025-01-03 22:27] VITALS: O2SAT 100
[2025-01-03 22:29] VITALS: BP 130/84; TEMP 99
== END 2025-01-03 21:44 | disposition home or self-care (01) ==
LOC: ER 17:51
DX: R10.11 Right upper quadrant pain (principal); R11.0 Nausea
CPT/HCPCS: 85025; 36415; 83690; 80053; 74177; 76705; Q9967; J2405

== ENCOUNTER 2025-08-01 18:57 | Emergency (ER) | payer OTHER ==
--- OUTSIDE RECORDS SUMMARY | 2025-08-01 19:03 | XMS REPORT | Continuity of Care Document ---
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 00:00:00 Completed [facility] TDAP 2017-07-03 00:00:00 Completed [facility] TDAP 2017-07-03 00:00:00 Completed [facility] TDAP 2017-07-03 00:00:00 Completed [facility] TDAP 2017-07-03 00:00:00 Completed [facility] TDAP 2017-07-03 00:00:00 Completed [facility] TDAP 2017-07-03 00:00:00 Completed [facility] TDAP 2017-07-03 00:00:00 Completed [facility] TDAP 2017-07-03 00:00:00 Completed [facility] TDAP 2017-07-03 00:00:00 Completed [facility] TDAP 2017-07-03 00:00:00 Completed [facility] TDAP 2017-07-03 00:00:00 Completed [facility] TDAP 2017-07-03 00:00:00 Completed [facility] TDAP 2017-07-03 00:00:00 Completed [facility] TDAP 2017-07-03 00:00:00 Completed [facility] TDAP 2017-07-03 00:00:00 Completed [facility] Vital Signs Vital Name Observation Time Observation Value Comments S ource height 2025-01-16 10:45:00 63 [in_i] [facility] weight-kg 2025-01-16 10:45:00 86.36 kg [facility] bmi 2025-01-16 10:45:00 33.72 kg/m2 [facility] temperature 2025-01-16 10:45:00 97.6 [degF] [facility] respiratory rate 2025-01-16 10:45:00 16 /min [facility] heart rate 2025-01-16 10:45:00 80 /min [facility] blood pressure systolic 2025-01-16 10:45:00 137 mm[Hg] [facility] blood pressure diastolic 2025-01-16 10:45:00 83 mm[Hg] [facility] Body Weight 2024-08-31 00:00:00 206 [lb_av] Miladys [...] Systolic blood pressure 2023-08-14 15:58:00 165 mm[Hg] [facility] Diastolic blood pressure 2023-08-14 15:58:00 70 mm[Hg] [facility] Heart rate 2023-08-14 15:58:00 96 /min Un[facility] Body temperature 2023-08-14 15:58:00 36.67 Nina [facility] Respiratory rate 2023-08-14 15:58:00 16 /min [facility] Body height 2023-08-14 15:58:00 160 cm [facility] Body weight 2023-08-14 15:58:00 97.07 kg [facility] BMI 2023-08-14 15:58:00 37.91 kg/m2 [facility] Oxygen saturation in Arterial blood by Pulse oximetry 2023-08-14 15:58:00 100 /min [facility] Systolic blood pressure 2023-08-08 11:00:00 161 mm[Hg] [facility] Diastolic blood pressure 2023-08-08 11:00:00 84 mm[Hg] [facility] Heart rate 2023-08-08 11:00:00 75 /min [facility] Body temperature 2023-08-08 11:00:00 36.72 Nina [facility] Respiratory rate 2023-08-08 11:00:00 16 /min [facility] Oxygen saturation in Arterial blood by Pulse oximetry 2023-08-08 11:00:00 100 /min [facility] Body height 2023-08-08 08:45:00 160 cm [facility] Body weight 2023-08-08 08:45:00 91.853 kg [facility] BMI 2023-08-08 08:45:00 35.87 kg/m2 [facility] Systolic blood pressure 2023-07-28 18:19:00 152 mm[Hg] [facility] Diastolic blood pressure 2023-07-28 18:19:00 90 mm[Hg] [facility] Heart rate 2023-07-28 18:19:00 94 /min [facility] Body temperature 2023-07-28 18:19:00 36.78 Nina [facility] Respiratory rate 2023-07-28 18:19:00 18 /min [facility] Body height 2023-07-28 18:19:00 160 cm [facility] Body weight 2023-07-28 18:19:00 96.616 kg [facility] BMI 2023-07-28 18:19:00 37.73 kg/m2 [facility] Systolic blood pressure 2023-06-22 19:15:00 134 mm[Hg] [facility] Diastolic blood pressure 2023-06-22 19:15:00 85 mm[Hg] [facility] Heart rate 2023-06-22 19:15:00 90 /min [facility] Body temperature 2023-06-22 19:15:00 36.67 Nina [facility] Respiratory rate 2023-06-22 19:15:00 18 /min [facility] Body height 2023-06-22 19:15:00 160 cm [facility] Body weight 2023-06-22 19:15:00 94.348 kg [facility] BMI 2023-06-22 19:15:00 36.85 kg/m2 [facility] Body height 2021-07-01 14:00:00 160 [facility] Body weight 2021-07-01 14:00:00 99.338 [facility] BMI 2021-07-01 14:00:00 38.79 kg/m2 [facility] Systolic blood pressure 2021-01-11 19:00:00 141 mm[Hg] [facility] Diastolic blood pressure 2021-01-11 19:00:00 102 mm[Hg] [facility] Heart rate 2021-01-11 19:00:00 135 /min [facility] Body temperature 2021-01-11 19:00:00 36.83 Nina [facility] Respiratory rate 2021-01-11 19:00:00 18 /min [facility] Body weight 2021-01-11 19:00:00 103.42 kg [facility] BMI 2021-01-11 19:00:00 40.39 kg/m2 [facility] Oxygen saturation in Arterial blood by Pulse oximetry 2021-01-11 19:00:00 97 /min [facility] Systolic blood pressure 2021-01-11 19:00:00 141 mm[Hg] [facility] Diastolic blood pressure 2021-01-11 19:00:00 102 mm[Hg] [facility] Heart rate 2021-01-11 19:00:00 135 /min [facility] Body temperature 2021-01-11 19:00:00 36.83 Nina [facility] Respiratory rate 2021-01-11 19:00:00 18 /min [facility] Body weight 2021-01-11 19:00:00 103.42 kg [facility] BMI 2021-01-11 19:00:00 40.39 kg/m2 [facility] Oxygen saturation in Arterial blood by Pulse oximetry 2021-01-11 19:00:00 97 /min [facility] Systolic blood pressure 2020-06-20 18:51:00 119 mm[Hg] [facility] Diastolic blood pressure 2020-06-20 18:51:00 72 mm[Hg] [facility] Heart rate 2020-06-20 18:51:00 82 /min [facility] Body temperature 2020-06-20 18:51:00 36.56 Nina [facility] Respiratory rate 2020-06-20 18:51:00 16 /min [facility] Body height 2020-06-20 18:51:00 160 cm [facility] Body weight 2020-06-20 18:51:00 103.103 kg [facility] BMI 2020-06-20 18:51:00 40.26 kg/m2 [facility] Procedures Procedure Date / Time Performed Performing Clinician Source CT, abdomen + pelvis, w/wo contrast 2024-08-16 00:00:00 [facility] MAMMO, screening, digital, bilateral 2024-06-20 00:00:00 [facility] US, transvaginal 2024-03-17 00:00:00 [facility] Transvaginal Us Non-ob 2023-10-01 00:00:00 [facility] [id number] 2023-08-31 00:00:00 PRAFUL [facility] [id number] 2023-08-31 00:00:00 PRAFUL [facility] [id number] 2023-08-31 [facility] [id number] 2023-08-31 00:00:00 [facility] Hysteroscopy 2023-08-31 00:00:00 Bobby Ramsay edical EXTERNAL PROVIDER RECORDS 2023-08-17 05:01:00 Doctor Unassigned, [place] [facility] CT ABDOMEN PELVIS W CONTRAST 2023-08-08 10:34:50 oJse Naranjo [facility] POCT TEST 2023-08-08 08:50:00 Jose Naranjo [facility] LIPASE 2023-08-08 08:48:00 Jose Naranjo [facility] COMP. METABOLIC PANEL ([id number]) 2023-08-08 08:48:00 Jose Naranjo [facility] CBC WITH DIFF 2023-08-08 08:48:00 Jose Naranjo [facility] URINALYSIS 2023-08-08 08:48:00 Jose Naranjo [facility] US PELVIS COMPLETE WITH TRANSVAGINAL 2023-07-17 15:25:00 Concepcion Mily [facility] THYROID STIMULATING HORMONE 2023-06-22 20:18:00 Concepcion Mily [facility] CBC WITH DIFF 2023-06-22 20:18:00 Josse Javier [facility] GLYCOSYLATED HEMOGLOBIN (A1C) 2023-06-22 20:18:00 ChristineUche Mily [facility] REFERRAL- REQUEST/RESPONSE 2023-05-11 05:01:00 Doctor Unassigned, [place] [facility] XR ELBOW 3+ VIEWS RIGHT 2021-07-01 14:22:25 Flakita Molina [facility] XR FOREARM 2 VW RIGHT 2021-01-11 19:30:53 Lucie Sánchez [facility] NOTICE OF PRIVACY PRACTICES 2021-01-11 18:48:50 Doctor Unassigned, [place] [facility] CONSENT/REFUSAL FOR DIAGNOSIS AND TREATMENT 2021-01-11 18:48:41 Doctor Unassigned, [place] [facility] BI AXILLARY ULTRASOUND LEFT 2020-08-07 15:09:04 Beverly Moran [facility] BI DIAGNOSTIC MAMMOGRAM BILATERAL 2020-08-07 14:52:13 Beverly Moran [facility] ASSIGNMENT OF BENEFITS 2020-08-07 13:53:47 Vitor stroud Unassigned, [place] [facility] EXTERNAL PROVIDER RECORDS 2020-07-13 05:01:00 Doctor Unassigned, [place] [facility] ASSIGNMENT OF BENEFITS 2020-06-20 18:34:58 Docishaan r Unassigned, [place] [facility] Delivery 2017-11-02 00:00:00 Miladys [facility] Procedure on Ankle 1995-11-02 00:00:00 [facility] Ligation of Fallopian Tube [facility] Encounters Start Date/Time End Date/Time Encounter Type Admission Type Attending Clinicians Care Facility Care Department Encounter ID Source 2025-01-16 10:48:01 Outpatient Sergio Carpio [facility] [id number] [facility] 2024-09-28 09:20:00 Outpatient Sergio Carpio [facility] [id number] [facility] 2024-06-06 09:03:00 [facility] [id number] [facility] 2023-11-09 09:14:01 [facility] [id number] [facility] 2023-05-11 11:53:38 Outpatient [facility] [id number] [facility] 2023-05-01 09:50:22 Outpatient [facility] [id number] [facility] 2023-03-09 10:45:44 Outpatient [facility] [id number] [facility] 2023-02-27 10:34:00 Outpatient [facility] [id number] [facility] 2021-09-01 05:37:10 Emergency [facility] [id number] [facility] 2021-08-31 10:03:46 Emergency [facility] [id number] [facility] 2021-08-26 11:49:08 Outpatient RONEN MOLINA [facility] [id number] [facility] 2021-07-19 16:54:19 Outpatient RONEN MOLINA [facility] [id number] [facility] 2021-07-01 09:13:23 Outpatient [facility] [id number] [facility] 2025-01-16 00:00:00 2025-01-16 00:00:00 Office Visit- Est Pt.- Level 5 CLS CLS [id number] [facility] 2024-10-17 00:00:00 2024-10-17 00:00:00 MARIN Hawk: [address], [address], [place] [address] , [address] [facility] - GC_GCBZW_Juliette lucie Adam* [id number] [facility] 2024-08-31 00:00:00 2024-08-31 00:00:00 Lena Sue MD: [address], [address], [place] [address] , [address] [facility] - GC_GCBZW_Ca lucie Jair* [id number] [facility] 2024-07-21 00:00:00 2024-07-21 00:00:00 Doretha Degroot SHIRT PRESSER: [address], [address], [place] [address] , [address] [facility] - GC_GCBZW_Ca lucie Jair* [id number] [facility] 2024-06-20 00:00:00 2024-06-20 00:00:00 BONILLA CooperP: [address], [address], [place] [id number] , [address] [facility] - GC_GCBZW_Ca lucie Jair* [id number] [facility] 2024-03-24 00:00:00 2024-03-24 00:00:00 MARIN Hawk: [address], [address], [place] [address] , [address] [facility] - GC_GCBZW_Ca lucie Jair* [id number] [facility] 2024-03-17 00:00:00 2024-03-17 00:00:00 Lena Sue MD: [address], [address], [place] [address] , [address] [facility] - GC_GCBZW_Ca lucie Jair* [id number] [facility] 2024-03-15 00:00:00 2024-03-15 00:00:00 MARIN Hawk: [address], [address], [place] [address] , [address] [facility] - GC_GCBZW_Ca lucie Adam* [id number] [facility] 2023-10-13 10:30:00 2023-10-13 10:30:00 Outpatient R KING-DANISHA S, MILY KING-DANISHA S, MILY [facility] [id number] [facility] 2023-08-31 13:17:00 2023-09-02 19:19:00 Inpatient Lena Steel [facility] INTE.02 [id number] [facility] 2023-08-17 11:30:00 2023-08-17 11:30:00 Outpatient RONEN MOLINA [facility] [id number] [facility] 2023-08-17 00:00:00 2023-08-17 00:00:00 Orders Only Doctor Unassigned, Larwill [facility] 1.2840.114 350.1.13.10 4.2.7.2.686 [id number] [facility] 2023-08-14 10:30:00 2023-08-14 11:12:57 Outpatient R KING-DANISHA S, MILY KING-DANISHA S, MILY [facility] [id number] [facility] 2023-08-14 10:30:00 2023-08-14 11:12:57 Office Visit Christine-Danisha sMiniMily [facility] 1.20.114 350.1.13.10 4.2.7.2.686 [id number] [facility] 2023-08-08 03:42:00 2023-08-08 06:43:00 Emergency X ALVINA NARANJOALAN [facility] ERT [id number] [facility] 2023-08-08 03:42:00 2023-08-08 06:43:00 Emergency Renee Naranjokristen Krishnan [facility] 1.2840.114 350.1.13.10 4.2.7.2.686 [id number] [facility] 2023-08-07 10:35:09 2023-08-07 23:59:00 Outpatient R RADIOLOGY [facility] [id number] [facility] 2023-08-07 10:35:09 2023-08-07 23:59:00 Hospital Encounter Radiology [facility] 1.2.840.114 350.1.13.10 4.2.7.2.686 [id number] [facility] 2023-07-28 13:15:00 2023-07-28 13:45:06 Outpatient R KING-DANISHA S, MILY KING-DANISHA S, MILY [facility] [id number] [facility] 2023-07-28 13:15:00 2023-07-28 13:45:06 Office Visit King[facility]Danisha s, [facility] 1.2.840.114 350.1.13.10 4.2.7.2.686 [id number] [facility] 2023-07-27 13:00:00 2023-07-27 13:00:00 Outpatient R KING-DANISHA S, MILY KING-DANISHA S, MILY [facility] [id number] [facility] 2023-07-17 09:12:11 2023-07-17 23:59:00 Outpatient R KING-DANISHA S, MILY KING-DANISHA S, MILY [facility] [id number] [facility] 2023-07-17 09:12:11 2023-07-17 23:59:00 Hospital Encounter King-Danisha s, Mily [facility] 1.2.840.114 350.1.13.10 4.2.7.2.686 [id number] [facility] 2023-06-22 15:15:00 2023-06-22 15:33:34 Technical Manager Visit 2, Adc Lab King-Danisha s, [facility] 1..840.114 350.1.13.10 4.2.7.2.686 [id number] [facility] 2023-06-22 14:30:00 2023-06-22 14:57:53 Outpatient R KAREEMDANISHA S, MILY KAREEMDANISHA S, MILY [facility] [id number] [facility] 2023-06-22 14:30:00 2023-06-22 14:57:53 Office Visit Mily Paredes [facility] 1.2.840.114 350.1.13.10 4.2.7.2.686 [id number] [facility] 2023-05-11 11:30:00 2023-05-11 11:53:30 Office Visit Ronen Molina [facility] 1.840.114 350.1.13.58 9.2.7.2.686 [id number] [facility] 2023-05-11 00:00:00 2023-05-11 00:00:00 Orders Only Doctor Unassigned, Larwill [facility] 1.840.114 350.1.13.10 4.2.7.2.686 [id number] [facility] 2023-03-09 11:00:00 2023-03-09 14:17:25 Office Visit RONEN MOLINA [facility] 1.840.114 350.1.13.58 9.2.7.2.686 [id number] [facility] 2023-03-09 10:50:00 2023-03-09 14:17:25 Outpatient [facility] [id number] [facility] 2021-08-26 10:48:54 2021-08-26 11:49:39 Office Visit Ronen Molina [facility] 1.2.840.114 350.1.13.58 9.2.7.2.686 [id number] [facility] 2021-08-13 00:00:00 2021-08-13 00:00:00 Orders Only Ronen Molina [facility] [address] 1.2.840.114 350.1.13.58 9.2.7.2.686 [id number] [facility] 2021-07-01 08:53:31 2021-07-01 09:50:49 Office Visit Ronen Molina [facility]TP [facility] 1.2.840.114 350.1.13.58 9.2.7.2.686 [id number] [facility] 2021-01-21 00:00:00 2021-01-21 00:00:00 Patient Outreach Hadley Matute [facility] 1.2.840.114 350.1.13.10 4.2.7.2.686 [id number] [facility] 2021-01-11 13:03:00 2021-01-11 14:33:00 [facility] 1.2.840.114 350.1.13.10 4.2.7.2.686 [id number] [facility] 2021-01-11 13:03:00 2021-01-11 14:33:00 Emergency Mickey Sánchez [facility] 1.2.840.114 350.1.13.10 4.2.7.2.686 [id number] 2021-01-11 00:00:00 2021-01-11 00:00:00 Orders Only Doctor Unassigned, [place] [facility] 1.2.840.114 350.1.13.10 4.2.7.2.686 [id number] [facility] 2021-01-11 00:00:00 2021-01-11 00:00:00 Orders Only Doctor Unassigned, [place]will [facility] 1.2.840.114 350.1.13.10 4.2.7.2.686 [id number] 2020-10-02 10:57:08 2020-10-02 23:59:00 Hospital Encounter Beverly Moran [facility] 1.2.840.114 350.1.13.10 4.2.7.2.686 [id number] [facility] 2020-10-02 10:57:08 2020-10-02 23:59:00 Hospital Encounter Beverly Moran [facility] 1.2840.114 350.1.13.10 4.2.7.2.686 [id number] 2020-10-02 00:00:00 2020-10-02 00:00:00 Outpatient BEVERLY CHRISTIAN [facility] [id number] [facility] 2020-09-18 00:00:00 2020-09-18 00:00:00 Outpatient BEVERLY CHRISTIAN [facility] [id number] [facility] 2020-08-16 00:00:00 2020-08-16 00:00:00 Telephone Beverly Moran [facility] & [facility]ILD [facility] 1.2840.114 350.1.13.10 4.2.7.2.686 [id number] [facility] 2020-08-16 00:00:00 2020-08-16 00:00:00 Telephone Beverly Moran [facility] 1.2.840.114 350.1.13.10 4.2.7.2.686 [id number] 2020-08-07 09:13:49 2020-08-07 23:59:00 Hospital Encounter Beverly Moran [facility] 1.2.840.114 350.1.13.10 4.2.7.2.686 [id number] [facility] 2020-08-07 08:57:24 2020-08-07 09:12:00 Hospital Encounter Margarita Moransloane Stroud [facility] 1.2.840.114 350.1.13.10 4.2.7.2.686 [id number] [facility] 2020-08-07 00:00:00 2020-08-07 00:00:00 Outpatient R MARGARITA MORANSLOANE [facility] [id number] [facility] 2020-08-07 00:00:00 2020-08-07 00:00:00 Orders Only Doctor Unassigned, [place] [facility] 1.2.840.114 350.1.13.10 4.2.7.2.686 [id number] [facility] 2020-08-07 00:00:00 2020-08-07 00:00:00 Telephone Moran, [facility]ane [facility]ILD [facility] 1.2.840.114 350.1.13.10 4.2.7.2.686 [id number] [facility] 2020-07-13 00:00:00 2020-07-13 00:00:00 Orders Only Doctor Unassigned, Larwill [facility] 1.2.840.114 350.1.13.10 4.2.7.2.686 [id number] [facility] 2020-06-22 00:00:00 2020-06-22 00:00:[facility] 1.2.840.114 350.1.13.10 4.2.7.2.686 [id number] [facility] 2020-06-20 13:37:39 2020-06-20 14:55:54 Office Visit Beverly Moran [facility] 1..840.114 350.1.13.10 4.2.7.2.686 [id number] [facility] 2020-06-20 13:15:00 2020-06-20 13:15:00 Outpatient [facility] [id number] [facility] 2020-06-20 00:00:00 2020-06-20 00:00:00 Orders Only Doctor Unassigned, [place] [facility] 1..840.114 350.1.13.10 4.2.7.2.686 [id number] [facility] 2020-06-18 13:30:00 2020-06-18 13:30:00 Outpatient [facility] [id number] [facility] Results Test Description Test Time Test Comments Results Result Co mments Source test, [id number] 12:32:50* Test Item Value Reference Range Interpretation Comme [facility] HCG (test code = HCG) negative [facility] macro (dipstick) panel - [id number] 09:48:00* Test Item Value Reference Range Interpretation Comme [facility] Leukocytes (test code = Leukocytes) Negative Nitrite (test code = Nitrite) negative Urobilinogen (test code = Urobilinogen) Normal Protein (test code = Protein) 1+ pH (test code = pH) 6.0 Blood (test code = Blood) Negative Specific [place] (test code = Specific [place]) 1.015 Ketone (test code = Ketone) Negative Bilirubin (test code = Bilirubin) Negative Glucose (test code = Glucose) Negative Appearance (test code = Appearance) Slightly Cloudy Color (test code = Color) Yellow [facility] [id number] 17:32:00* Test Item Value Reference Range Interpretation Comme [facility] GLUCOSE BEDSIDE TESTING (jaya t code = GLUBED) 228 mg/dL 70-110 H [id number] 14:46:00* Test Item Value Reference Range Interpretation Comme nts SURGICAL (test code = SR) RUN DATE: 09/02/23 [facility] PAGE 1 RUN TIME: 1446 Specimen Inquiry RUN USER: INTERFACE PATIENT: MADHAVI ABDI LOC: DENIS U #: [id number] AGE/SX: 42/F ROOM: [facility] RE08/31/23REG DR: Lena Sue MD : [birth year] BED: 1 DIS: STATUS: ADM IN TLOC: SPEC #: [id number] RECD: 08/31/23 STATUS: SONDRA REQ #: [id number] MODE: 08/31/[address]: Lena Sue MD ENTERED: 08/31/23 SP TYPE: SURGICAL OTHR DR: ORDERED: [id number], ANATOMIC SPEC, SPECIMEN TRACK PROCEDURES: 33306 (08/31/23) SPECIMEN TRACK (08/31/23) TISSUES: A. ENDOMETRIUM CURETTINGS / BIOPSY FINAL DIAGNOSIS UTERUS, CURETTING: - Benign early secretory endometrium. - Benign endocervical tissue present. - Negative for atypical hyperplasia or malignancy. GROSS DESCRIPTION Endometrial curettings. Received is of approximately 1 cc of bloody mucus filtered in atea bag and submitted entirely as A1. Technical tissue processing and slide preparation performed at [id number] , [place] [address] MICROSCOPIC DESCRIPTION Microscopic examination is performed and the findings are incorporated into the finaldiagnosis. Please see diagnosis for findings. - Signed SIGNATURE ON FILE Yehuda Olmedo 09/02/23 1446 END OF REPORT GLUCOSE BEDSIDE [id number] 11:36:00* Test Item Value Reference Range Interpretation Comme [facility] GLUCOSE BEDSIDE TESTING (jaya t code = GLUBED) 154 mg/dL 70-110 H GLUCOSE BEDSIDE [id number] 08:13:00* Test Item Value Reference Range Interpretation Comme nts GLUCOSE BEDSIDE TESTING (jaya t code = GLUBED) 140 mg/dL 70-110 H GLUCOSE BEDSIDE [id number] 20:13:00* Test Item Value Reference Range Interpretation Comme nts GLUCOSE BEDSIDE TESTING (jaya t code = GLUBED) 192 mg/dL 70-110 H GLUCOSE BEDSIDE [id number] 17:05:00* Test Item Value Reference Range Interpretation Comme nts GLUCOSE BEDSIDE TESTING (jaya t code = GLUBED) 172 mg/dL 70-110 H - CT ABD PELVIS [id number] 16:44:00 [facility] 1980 Sex: F Name: MADHAVI ABDI [facility] : 1980 Age/S: 42 / F [address] Unit #: [id number] Loc: [place] [address] Phys: Patricia Olson MD Acct: [id number] Dis Date: Status: ADM IN PHONE #: [phone] Exam Date: 09/01/2023 1620 FAX #: Reason: abdominal pain EXAMS: CPT: [id number] CT ABD PELVIS W/CONT 59002 EXAM: - CT ABD PELVIS W/CONT INDICATION: [...] Visualized chest: No significant abnormality seen. Hepatobiliary: Li dannie appears unremarkable. Gallbladder appears unremarkable. No intrahepatic [...] 1 Signed Report (CONTINUED) Name: MADHAVI ABDI : 1980 Age/S: 42 / F [address] Unit #: [id number] Loc: [place] [address] Phys: Patricia Olson MD Acct: [id number] Dis Date: Status: ADM IN PHONE #: [phone] Exam Date: 09/01/2023 1620 FAX #: Reason: abdominal pain EXAMS: CPT: [id number] CT ABD PELVIS W/CONT 81976 (Continued) follicle measuring 2.2 cm in size. [...] No bowel obstruction, ileus or fluid collection seen.Incidental note is made of innumerable round densities [...] Technologist:Mark Patricia CTDI: DLP: Trnscb Date/Time: 09/01/2023 (164) Stephanie.AH26 Orig Print D/T: S: 09/01/2023 (6407) PAGE 2 Signed ReportGLUCOSE BEDSIDE [id number] 11:53:00* Test Item Value Reference Range Interpretation Comme nts GLUCOSE BEDSIDE TESTING (jaya t code = GLUBED) 125 mg/dL 70-110 H GLUCOSE BEDSIDE [id number] 08:07:00* Test Item Value Reference Range Interpretation Comme nts GLUCOSE BEDSIDE TESTING (jaya t code = GLUBED) 144 mg/dL 70-110 H GLUCOSE BEDSIDE [id number] 20:28:00* Test Item Value Reference Range Interpretation Comme nts GLUCOSE BEDSIDE TESTING (jaya t code = GLUBED) 221 mg/dL 70-110 H GLUCOSE BEDSIDE [id number] 16:42:00* Test Item Value Reference Range Interpretation Comme nts GLUCOSE BEDSIDE TESTING (jaya t code = GLUBED) 177 mg/dL 70-110 H GLUCOSE BEDSIDE [id number] 14:02:00* Test Item Value Reference Range Interpretation Comme nts GLUCOSE BEDSIDE TESTING (jaya t code = GLUBED) 155 mg/dL 70-110 H GLUCOSE BEDSIDE [id number] 09:00:00* Test Item Value Reference Range Interpretation Comme nts GLUCOSE BEDSIDE TESTING (jaya t code = GLUBED) 176 mg/dL 70-110 H RBC [id number] 18:26:00* Test Item Value Reference Range Interpretation Comme nts PLATELET ESTIMATE (test code = PLTEST) SLIGHTLY INCREASED THOUSAND ADEQUATE PLATELET MORPHOLOGY (test code = PLTMORPH) NORMAL CBC W/AUTO [id number] 18:26:00* Test Item Value Reference Range Interpretation [...] = MDIFF) NO DIFF/SCN CRITERIA BASIC METABOLIC [id number] 16:49:00* Test Item Value Reference Range Interpretation [...] = CA) 9.6 MG/DL 8.5-10.1 N URINALYSIS [id number] 16:08:00* Test Item Value Reference Range Interpretation [...] NEGATIVE Urine Specimen Type: Clean CatchUR HCG [id number] 16:08:00* Test Item Value Reference Range Interpretation Comme nts UR HCG QUAL (test code = HCGQLU) NEGATIVE NEGATIVE Urine Specimen Type: Clean Catch- XR CHEST 1 [id number] 16:06:00 [facility] : 1980 Sex: F Name: MADHAVI ABDI [facility] : 1980 Age/S: 42 / F [address] Unit #: [id number] Loc: [place] [address] Phys: Lena Sue MD Acct: [id number] Dis Date: Status: PRE SDC PHONE #: [phone] Exam Date: 08/28/2023 160 FAX #: Reason: pre op EXAMS: CPT: [id number] XR CHEST 1 V 29962 Fluoro Time: DAP (Gy m2): Air Kerma (mGy): EXAM: - XR CHEST 1 V HISTORY: pre op LOCATION CODE:T18 TECHNIQUE: Frontal radiograph of the chest. COMPARISON: None. FINDINGS: Normal heart size. No focal airspace consolidation. No pulmonary edema, pleural effusion or pneumothorax. Imaged osseous structures are without acute abnormality. IMPRESSION: No radiographic evidence of acute cardiopulm onary disease. at 1606 Reported and signed by: Melida Dominguez M.D. CC: Lena Sue MD PAGE 1 Signed Report Name: MADHAVI ABDI [facility] : 1980 Age/S: 42 / F [address] Unit #: [id number] Loc: [place] [address] Phys: Lena Sue MD Acct: [id number] Dis Date: Status: PRE SDC PHONE #: [phone] Exam Date: 08/28/2023 1602 FAX #: Reason: pre op EXAMS: CPT: [id number] XR CHEST 1 F80957 Fluoro Time: DAP (Gy m2): Air Kerma (mGy): (Continued) Technologist: Sonny Patel, RT(R) Trnscb Date/Time: 08/28/2023 (0553) MagdyVR11 Orig Print D/T: S: 08/28/2023 (3173) PAGE 2 SignedReport THROMBOPLASTIN TIME [id number] 15:57:00* Test Item Value Reference Range Interpretation Comme nts THROMBOPLASTIN TIME PARTIAL (test code = PTT) 24.0 SECONDS 26-35 L Comment: PRE PROCEDUREPROTHROMBIN [id number] 15:57:00* Test Item Value Reference Range Interpretation [...] prevent recurrent infarct). Comment: PRE PROCEDUREComplete Metabolic [id number] 10:00:21* Test Item Value Reference Range Interpretation Comme nts NA (test code = 7141250581) 142 mmol/L 135-145 K (test code = 4192462638) 3.5 mmol/L 3.5-5.0 CL (test code = 0046487260) 104 mmol/L 98-108 CO2 TOTAL (test code = 7952847605) 24 mmol/L 23-31 AGAP (test code = 4525498228) 14 2-16 BUN (test code = 2265518335) 13 mg/dL 7-23 GLUCOSE (test code = 4285830309) 188 mg/dL 70-110 H CREATININE (test code = 5959746187) 1.08 mg/dL 0.50-1.04 H TOTAL BILI (test code = 3487149814) 0.2 mg/dL 0.1-1.1 CALCIUM (test code = 9778318222) 9.6 mg/dL 8.6-10.6 T PROTEIN (test code = 8620196714) 8.4 g/dL 6.3-8.2 H ALBUMIN (test code = 4692907290) 4.4 g/dL 3.5-5.0 ALK PHOS (test code = 4201236374) 74 U/L 34-122 ALTv (test code = 1742-6) 18 U/L 5-35 AST(SGOT) (test code = 7649922996) 18 U/L 13-40 eGFR (test code = 0286715574) 56.2 mL/min/1.73m2 SAJI (test code = SAJI) [...] imaging tests). Lab Interpretation (test code = 57393-1) [facility]normal [facility], [id number] 09:42:09* Test Item Value Reference Range Interpretation Comme nts LIPASE (test code = 9919834261) 182 U/L 0-220 Lab Interpretation (test cod e = 85525-7) Normal [facility] HospitalCB with Tpolncfspbcf9103-10-12 09:08:03* Test Item Value Reference Range Interpretation Comme nts WBC (test code = 6690-2) 11.92 See_Comment H [Automated [employer]] The system which generated this result transmitted reference range: 4.30 - 11.10 10*3/?L. The reference range was not used to interpret this result as normal/abnormal. RBC (test code = 789-8) 4.77 See_Comment [Automated [employer]] The system which generated this result transmitted [...] 32.6 g/dL 31.6-35.1 RDW-SD (test code = 16602-3) 41.3 fL 39.0-49.9 RDW-CV (test code = 788-0) 13.5 % 12.0-15.5 PLT (test code = 777-3) 319 See_Comment [Automated [employer]] The system which generated this result transmitted reference range: 166 - 358 10*3/?L. The reference range was not used to interpret this result as normal/abnormal. MPV (test code = 69562-0) 9.9 fL 9.5-12.9 NRBC/100 WBC (test code = 1509181888) 0.0 See_Comment [Automated me ssage] The system which generated this result transmitted reference range: 0.0 - 10.0 /100 WBCs. The reference range was not used to interpret this result as normal/abnormal. NRBC x10^3 (test code = 8634068405) See_Comment [Automated messa ge] The system which generated this result transmitted reference range: 10*3/?L. The reference range was not used to interpret this result as normal/abnormal. GRAN MAT (NEUT) % (test code = 770-8) 63.7 % IMM GRAN % (test code = 2259238935) 0.40 % LYMPH % (test code = 736-9) 25.8 % MONO % (test code = 5905-5) 4.4 % EOS % (test code = 713-8) 5.0 % BASO % (test code = 706-2) 0.7 % GRAN MAT x10^3(ANC) (test code = 6067594057) 7.59 10*3/uL 1.88-7.09 H IMM GRAN x10^3 (test code = 9136911852) 0.05 10*3/uL 0.00-0.06 LYMPH x10^3 (test code = 731-0) 3.07 10*3/uL 1.32-3.29 MONO x10^3 (test code = 742-7) 0.53 10*3/uL 0.33-0.92 EOS x10^3 (test code = 711-2) 0.60 10*3/uL 0.03-0.39 H BASO x10^3 (test code = 704-7) 0.08 10*3/uL 0.01-0.07 H Lab Interpretation (test code = 81986-0) Abnormal [facility] HospitalPOCT [id number] 08:50:00* Test Item Value Reference Range Interpretation Comme nts POCT PREG (test code = 1605) Negative On board controls acceptable with C Line (test code = 3574) Yes Lab Interpretation (test cod e = 07038-0) Normal [facility]XR elbow 3+ views [id number] 14:39:31 Interpretation: Multiple radiographic views are within normal limits for the patients stated age. There are no signs of fracture, dislocation, or articular injury. The alignment and joint spaces are within normal limits. No signs of a bony lesion or soft tissue swelling. ?[facility] elbow 3+ views [id number] 14:39:31Interpretation: Multiple radiographic views are within normal limits for the patients stated age. There are no signs of fracture, dislocation, or articular injury. The alignment and joint spaces are within normal limits. No signs of a bony lesion or soft tissue swelling. ?[facility] FOREARM 2 VW RIGHT 2021-01-11 19:33:31Forearm soft tissue contusion. No acute bony abnormality is present. EXAM: XR FOREARM 2 VW RIGHT HISTORY: eval for fracture COMPARISON: None FINDINGS: Imaging of the forearm demonstrates marked swelling over the mid to distalforearm, most notable along the dorsally and laterally. Alignment of theelbow and wrist is anatomic. No radiopaque foreign body, fracture orerosion is seen. [facility], Radiant Results Inft User - 01/11/2021 1:34 PM CSTEXAM:XR FOREARM 2 VW RIGHTHISTORY:eval for fracture COMPARISON:NoneFINDINGS: Imaging of the forearm demonstrates marked swelling over the mid to distalforearm, most notable along the dorsally and laterally. Alignment of theelbow and wrist is anatomic. No radiopaque foreign body, fracture orerosion is seen.IMPRESSIONForearm soft tissue contusion.No acute bony abnormality is present.[facility] DIAGNOSTIC MAMMOGRAM [id number] 15:54:22Examination:BI DIAGNOSTIC MAMMOGRAM BILATERAL History:Patient is 39 [...] NegativeOverall: 0 - Incomplete: Needs Additional [facility] AXILLARY ULTRASOUND [id number] 15:12:17HISTORY: Palpable mass in left axilla. TECHNIQUE: [...] with features ofbenign lipoma.ACR classification: Category II. [facility] Notes Date/Time Note Provider Source 2023-09-06 12:32:00 [facility] ([facility] Discharge Summary REPORT#:[id number] REPORT STATUS: Signed REPORT INITIALIZATION DATE:09/06/23 TIME:1232 PATIENT: MADHAVI ABDI UNIT #: [id number] ROOM/BED: [place] [address] : [birth year] AGE: 42 SEX: F ATTEND: [...] Respiratory: clear to auscultation Extremities: moves all Neuro/PLANNING ADVISOR: alert Discharge Instructions PCP PCP: PCP: Lena Sue MD )( Discharge to: Home/Self Care Discharge Instructions Additional Discharge Routines: Attending Follow-Up )( Diet: Regular )( Activity: As Tolerated Discharge management: greater than 30 mins Follow-up Appointments Attending Physician: Attending Physician: Lena Sue MD Special instructions: see instructions sheet at 1234 RPT #: [id number] END OF REPORT [facility] 2023-09-02 06:46:00 [facility] General Surgery Progress Note REPORT#:[id number] REPORT STATUS: Signed REPORT INITIALIZATION DATE:09/02/23 TIME:645 PATIENT: MADHAVI ABDI UNIT #: [id number] ROOM/BED: [place] [address] : [birth year] AGE: 42 SEX: F ATTEND: [...] Findings/Data: Laboratory Tests 09/01 09/01 09/01 09/01 195 1658 1146 0801 Chemistry POC Glucose (70 [...] to the patient care team. Impression By: Renita Danielle M.D. Diagnosis, Assessment Plan Problem List/A P: 1. S/P laparoscopy with lysis of adhesions 2. Intra-abdominal adhesions 3. OVARY MASS 4. Polycystic kidney disease 5. Diabetes Free Text A P: CT scan abdomen and pelvis showed no acute findings. The patient does not have a mass, diverticulosis, or colitis. Ok from surgical stanpoint to discharge home. She needs to follow up with machine package sealer as outpatient to reschedule joint general surgical and pressure steamer tender procedure to remove right ovary. at 0649 RPT #: [id number] END OF REPORT [facility] 2023-09-01 15:24:00 0705-6433 [facility] [id number] [place] [address] PATIENT NAME: MADHAVI ABDI ADMIT DATE: 08/31/23 ACCOUNT NO: [id number] ROOM NO: L.302 AGE: 42 REPORT TYPE: [...] during surgery for lysis of adhesions for machine package sealer to proceed with needed surgery. She does not have evidence of diverticulitis. This can be arranged as an outpatient. Dictated By: Patricia Olson MD Date Dictated: 09/01/2023 15:24:06 Date Transcribed: 09/01/2023 16:35:50 BJORN/JAYSHREE/CASSY Receipt ID: [id number] Authenticated and Edited by Patricia Olson MD On 09/22/23 2:22:31 PM PATIENT NAME: SARAHI ABDIS at 0223 PATIENT NAME: MADHAVI ABDI [facility] 2023-09-01 15:07:00 [facility] General Surgery Progress Note REPORT#:[id number] REPORT STATUS: Signed REPORT INITIALIZATION DATE:09/01/23 TIME:1507 PATIENT: MADHAVI ABDI UNIT #: [id number] ROOM/BED: [place] [address] : 82 AGE: 42 SEX: F ATTEND: [...] diet Will follow. at 1510 RPT #: [id number] END OF REPORT [facility] 2023-09-01 10:56:00 [facility]) Hospitalist Progress Note REPORT#:[id number] REPORT STATUS: Signed REPORT INITIALIZATION DATE:09/01/23 TIME:1055 PATIENT: MADHAVI ABDI UNIT #: [id number] ROOM/BED: [place] [address] : [birth year] AGE: 42 SEX: F ATTEND: [...] hour I O ending at 0700: 09/01 0708/31 1900 Intake Total 297.00 240 Output Total [...] cleared by surgery at 1342 RPT #: [id number] END OF REPORT [facility] 2023-08-31 22:09:00 [id number] [facility] [address] [place] [address] PATIENT NAME: MADHAVI ABDI ADMIT DATE: 08/31/23 ACCOUNT NO: [id number] ROOM NO: L.302 AGE: 42 REPORT TYPE: [...] right lower quadrant. SURGEON: Lena Sue MD ELECTRIC DETECTOR OPERATOR: Ced Rebolledo. ANESTHESIA: ESTIMATED BLOOD LOSS: [...] the position. Then, Dr. Falcon, hospitalist and DrRoge ____, General Surgery were consulted. Glycemic control and IV antibiotics for 48 hours. Dictated By: Lena Sue MD Date Dictated: 08/31/2023 22:09:12 Date Transcribed: 09/01/2023 00:08:17 SANDHYA/DIALLO/TAMI/MILADYS/MELITA/MIL Receipt ID: [id number] Authenticated by Lena Sue MD On 10/08/2023 11:42:25 AM at 1142 PATIENT NAME: MADHAVI ABDI [facility] 2023-08-31 13:14:00 [facility] ([facility]) Hospitalist History Physical REPORT#:[id number] REPORT STATUS: Signed REPORT INITIALIZATION DATE:08/31/23 TIME:1314 PATIENT: MADHAVI ABDI UNIT #: [id number] ROOM/BED: [place] [address] : 82 AGE: 42 SEX: F ATTEND: [...] directive full code at 1510 RPT #: [id number] END OF REPORT [facility] 2023-08-31 10:52:00 [facility] ([facility]) Brief Op Note REPORT#:[id number] REPORT STATUS: Signed REPORT INITIALIZATION DATE:08/31/23 TIME:105 PATIENT: MADHAVI ABDI UNIT #: [id number] ROOM/BED: [place] [address] : 82 AGE: 42 SEX: F ATTEND: [...] and Diag hysteroscopy d/c Primary Surgeon: linette Family Resource Management Professor(s): naomi rebolledo Anesthesia: general anesthesia Findings: omental [...] Drs. Falcon and Aida were notified by nm, office fu per appointment in 1 week Counts: Sponge count: correct Instrument count: correct at 1700 RPT #: [id number] END OF REPORT [facility] 2023-07-17 09:45:00 Formatting of this n ote might be different from the original. Normal pelvic US. OG-OBSTETRICS & GYNECOLOGY STAFF [facility] 2023-06-22 15:15:00 Formatting of this n ote is different from the original. Images from the original note were not included. Venipuncture collection performed by clean technique on the left anticubitus. Total of 1 attempts were made. Slight pressure and a bandage/dressing were applied to the site(s). The patient experienced no complications. The following specimens were processed according to instructions and sent to [facility] laboratories per lab order on 06/22/2023 : LT BLUE SST 1 RED LAV 2 PPT DK GREEN (LiHep) DK GREEN (SodH) GARRSION DK BLUE (K2) DK BLUE (S) ACD Blood Culture NIPT/NTD Adelita Maurer [facility] 2023-06-22 15:15:00 Formatting of this n ote might be different from the original. Patient TSH is elevated, please add Free t4. Needs to see PCP for further mgmt. Hba1c is 8.7, needs to get under 8. Blood counts show no anemia. OG-OBSTETRICS & GYNECOLOGY STAFF [facility] 2023-06-22 15:15:00 Addended by: FRANCIA FISCHER RN, DEBBIE Gallego on: 06/23/2023 10:08 AM Modules accepted: Orders [facility] 2023-06-22 14:30:00 Addended by: MILY HALL on: 06/22/2023 03:30 PM Modules accepted: Orders [facility]
[2025-08-01] MEDS ORDERED: KETOROLAC 30 MG/ML INJ ONE (19:24)
[2025-08-01] MEDS ORDERED: predniSONE 20 MG TAB ONE (19:25)
--- NOTE | 2025-08-01 20:30 | RAD REPORT ---
EXAMINATION: ONE VIEW CHEST XR CLINICAL INDICATION: Female, 44 years old.,back pain TECHNIQUE: Frontal chest projection is submitted. Examination is limited by patient positioning and t echnique. COMPARISON: 09/30/2022 FINDINGS: The lungs are well inflated and clear. No pneumothorax or sizable effusion. The heart is normal in s ize. Mediastinal contours are unremarkable. IMPRESSION: No acute intrathoracic abnormalities.
--- NOTE | 2025-08-01 20:38 | EDPHYS ---
Physician Documentation [facility] Name: Lana Solo Age: 44 yrs Sex: Female : 1980 Arrival Date: 08/01/2025 Time: 18:57 Bed 16 Private MD: ED Physician Uli Carpio HPI: 08/01 21:42 This 44 yrs old Female presents to ER via Ambulatory with complaints of Back Pain. kb 21:42 Pt is a 44 year old female who presents for right upper back pain that started one kb month ago and has gotten worse. States the pain is worse with movement. Denies shortness of breath. States she called her dr today and they told her to come to the ER. Denies injury or trauma . 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 - Infectious Disease History:: Denies. - Social history:: Smoking status: Patient reports the use of cigarette tobacco products, smokes one pack cigarettes per day. ROS: 21:41 Constitutional: As per HPI kb Exam: 21:41 Constitutional: This is a well developed, well nourished patient who is awake, alert, kb and in no acute distress. Head/Face: Normocephalic, atraumatic. ENT: Moist Mucous membranes Cardiovascular: Regular rate Respiratory: Respirations even and unlabored. No increased work of breathing. Talking in full sentences Skin: Warm, dry with normal turgor. Normal color. MS/ Extremity: Pulses equal, no cyanosis. Neurovascular intact. Full, normal range of motion. Neuro: Awake and alert, GCS 15, oriented to person, place, time, and situation. 21:41 Back: pain, that is moderate, of the right subscapular area, ROM is painful, normal spinal alignment noted, CVA tenderness, is absent, vertebral tenderness, is not appreciated, Vital Signs: 19:08 BP 136 / 93; Pulse 94; Resp 18; Temp 97; Pulse Ox 100% ; Weight 86.64 kg; Height 5 ft. bm8 3 in. ; Pain 5/10; 20:34 BP 123 / 82; Pulse 82; Resp 17; Pulse Ox 99% ; Pain 2/10; rg5 19:08 Body Mass Index 33.83 (86.64 kg, 160.02 cm) bm8 19:08 Pain Scale: Adult bm8 20:34 Pain Scale: Adult rg5 [place] Coma Score: 19:21 Eye Response: spontaneous(4). Motor Response: obeys commands(6). Verbal Response: bm8 oriented(5). Total: 15. MDM: 19:03 Medical Screening Exam initiated kb 21:43 Differential Diagnosis strain, fracture, pneumothorax. Data reviewed: vital signs, kb nurses notes. Independent interpretation of the following test(s) in the Emergency Department X-Ray: My interpretation is no pneumothorax. Counseling: I had a detailed discussion with the patient and/or guardian regarding the historical points, exam findings, and any diagnostic results supporting the discharge/admit diagnosis, radiology results, the need for outpatient follow up, a family practitioner, to return to the emergency department if symptoms worsen or persist or if there are any questions or concerns that arise at home. 08/01 19:11 Order name: Chest Single View XRAY; Complete Time: 20:33 kb Administered Medications: 19:32 Drug: Ketorolac IM 30 mg IM once Route: IM; Site: right deltoid; rg5 20:30 Follow up: Response: No adverse reaction; Pain is decreased rg5 19:32 Drug: predniSONE PO 20 mg PO once Route: PO; rg5 20:30 Follow up: Response: No adverse reaction; Pain is decreased rg5 Disposition Summary: 08/01/25 20:38 Discharge Ordered Notes: Location: Home kb Condition: Stable kb Diagnosis - Right upper back pain kb Followup: kb - With: Emergency Department - When: As needed - Reason: Worsening of condition Followup: kb - With: Private Physician - When: 2 - 3 days - Reason: Recheck today's complaints, Continuance of care, Re-evaluation by your physician Discharge Instructions: - Discharge Summary Sheet kb - Acute Back Pain, Adult kb - Muscle Strain, [id number] kb Forms: - Medication Reconciliation Form kb - Antibiotic Education kb - Prescription Opioid Use kb - Patient Portal Instructions kb - Leadership Thank You Letter kb Prescriptions: - Prednisone 20 mg Oral Tablet - take 1 tablet ORAL route once daily for 5 days; 5 tablet; Refills: 0, Product kb Selection Permitted - Diclofenac Sodium 75 mg Oral tablet, delayed release (enteric coated) - take 1 tablet ORAL route 2 times per day As needed; 30 tablet; Refills: 0, kb Product Selection Permitted Signatures: Dispatcher [employer] EDLA Karla Adam, NURSE EDUCATOR-C NURSE EDUCATOR-Samir Barron, RN RN bm8 Oscar Velasco, RN RN rg5 Corrections: (The following items were deleted from the chart) 19:11 19:11 Chest Single View+[email or web address].[email or web address] ordered. [facility] 21:44 21:42 Pt is a 44 year old female who presents for right upper back pain that started kb one month ago and has gotten worse. States the pain is worse with movement. Denies shortness of breath. States she called her dr today and they told her to come to the ER. kb
--- NOTE | 2025-08-01 20:38 | ER ---
Nurse's Notes [facility] Name: Lana Solo Age: 44 yrs Sex: Female : 1980 Arrival Date: 08/01/2025 Time: 18:57 Bed 16 Private MD: Diagnosis: Right upper back pain Presentation: 08/01 19:08 Chief complaint: Patient states: I have had a bad sharp back pain for like two weeks, bm8 at worst its a ten right now a 5/10. Coronavirus screen: At this time, the client does not indicate any symptoms associated with coronavirus-19. Ebola Screen: Patient negative for fever greater than or equal to 101.5 degrees Fahrenheit, and additional compatible Ebola Virus Disease symptoms Patient denies exposure to infectious person. Patient denies travel to an Ebola-affected area in the 21 days before illness onset. No symptoms or risks identified at this time. Initial Sepsis Screen: Does the patient meet any 2 criteria? No. Patient's initial sepsis screen is negative. Does the patient have a suspected source of infection? No. Patient's initial sepsis screen is negative. Risk Assessment: Do you want to hurt yourself or someone else? Patient reports no desire to harm self or others. Onset of symptoms was July 18, 2025. 19:08 Method Of Arrival: Ambulatory bm8 19:08 Acuity: BRODY 3 bm8 Triage Assessment: 19:09 General: Appears in no apparent distress. comfortable, Behavior is calm, cooperative, bm8 appropriate for age. Pain: Pain currently is 5 out of 10 on a pain scale. Quality of pain is described as aching, sharp. EENT: No deficits noted. No signs and/or symptoms were reported regarding the EENT system. Neuro: No deficits noted. Level of Consciousness is awake, alert, obeys commands, Oriented to person, place, time, situation, Appropriate for age. Cardiovascular: Denies chest pain, shortness of breath, Capillary refill < 3 seconds in bilateral fingers Patient's skin is warm and dry. Respiratory: Airway is patent Respiratory effort is even, unlabored, Respiratory pattern is regular, symmetrical, Breath sounds are clear bilaterally. GI: No deficits noted. No signs and/or symptoms were reported involving the gastrointestinal system. : No deficits noted. No signs and/or symptoms were reported regarding the genitourinary system. Derm: No deficits noted. No signs and/or symptoms reported regarding the dermatologic system. Musculoskeletal: Circulation, motion, and sensation intact. Capillary refill < 3 seconds, in bilateral fingers. Range of motion: intact in all extremities, Reports pain in right subscapular area and right mid back Pain is 5 out of 10 on a pain scale. 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 - Infectious Disease History:: Denies. - Social history:: Smoking status: Patient reports the use of cigarette tobacco products, smokes one pack cigarettes per day. Screenin:21 [facility] ED Fall Risk Assessment (Adult) History of falling in the last 3 months, bm8 including since admission No falls in past 3 months (0 pts) Confusion or Disorientation No (0 pts) Intoxicated or Sedated No (0 pts) Impaired Gait No (0 pts) Mobility Assist Device Used No (0 pt) Altered Elimination No (0 pt) Score/Fall Risk Level 0 - 2 = Low Risk Oriented to surroundings, Maintained a safe environment, Educated pt \T\ family on fall prevention, incl call for assistance when getting out of bed, Assessed \T\ reinforced patient's understanding of fall precautions, Hourly rounding (assess needs \T\ fall precautionary measures) done, Used ambulatory aids as needed (educated on \T\ assisted with), Used gait belt as appropriate. Abuse screen: Denies threats or abuse. Nutritional screening: No deficits noted. Tuberculosis screening: No symptoms or risk factors identified. Assessment: :21 Reassessment: see triage assessment. bm8 19:33 General: Appears in no apparent distress. Behavior is calm, cooperative, appropriate rg5 for age. Pain: Complains of pain in right subscapular area. Neuro: Level of Consciousness is awake, alert, obeys commands, Oriented to person, place, time, situation. Cardiovascular: Patient's skin is warm and dry. Respiratory: Airway is patent Respiratory effort is even, unlabored. GI: Abdomen is round non-distended. : No signs and/or symptoms were reported regarding the genitourinary system. EENT: No signs and/or symptoms were reported regarding the EENT system. Derm: Skin is intact, Skin is dry, Skin is normal. Musculoskeletal: Circulation, motion, and sensation intact. Range of motion: intact in all extremities. 20:36 Reassessment: Patient and/or family updated on plan of care and expected duration. Pain rg5 level reassessed. Patient is alert, oriented x 3, equal unlabored respirations, skin warm/dry/pink. Patient states symptoms have improved. Vital Signs: 19:08 BP 136 / 93; Pulse 94; Resp 18; Temp 97; Pulse Ox 100% ; Weight 86.64 kg; Height 5 ft. bm8 3 in. ; Pain 5/10; 20:34 BP 123 / 82; Pulse 82; Resp 17; Pulse Ox 99% ; Pain 2/10; rg5 19:08 Body Mass Index 33.83 (86.64 kg, 160.02 cm) bm8 19:08 Pain Scale: Adult bm8 20:34 Pain Scale: Adult rg5 [place] Coma Score: 19:21 Eye Response: spontaneous(4). Motor Response: obeys commands(6). Verbal Response: bm8 oriented(5). Total: 15. ED Course: 18:59 Patient arrived in ED. im 19:02 Karla Adam FNP-C is [facility]. kb 19:03 Uli Carpio MD is Attending Physician. kb 19:08 Oscar Velasco, TANIA is Primary Nurse. rg5 19:09 Triage completed. bm8 19:09 Arm band placed on right wrist. bm8 19:21 Patient has correct armband on for positive identification. Call light in reach. Side bm8 rails up X 1. Client placed on continuous cardiac and pulse oximetry monitoring. NIBP monitoring applied. Pulse ox on. NIBP on. Door closed. Noise minimized. 19:21 No provider procedures requiring assistance completed. Patient maintains SpO2 bm8 saturation greater than 95% on room air. 19:44 Chest Single View XRAY In Process Unspecified. EDMS 20:35 Patient did not have IV access during this emergency room visit. rg5 20:47 Provided Education on: post er care. rg5 Administered Medications: 19:32 Drug: Ketorolac IM 30 mg IM once Route: IM; Site: right deltoid; rg5 20:30 Follow up: Response: No adverse reaction; Pain is decreased rg5 19:32 Drug: predniSONE PO 20 mg PO once Route: PO; rg5 20:30 Follow up: Response: No adverse reaction; Pain is decreased rg5 Medication: 19:21 VIS not applicable for this client. bm8 Outcome: 20:38 Discharge ordered by MD. caldwell 20:46 Discharged to home ambulatory, rg5 20:46 Condition: stable 20:46 Discharge instructions given to patient, Instructed on discharge instructions, follow up and referral plans. Demonstrated understanding of instructions, Prescriptions given X 2, 20:47 Patient left the ED. rg5 Signatures: Dispatcher [employer] EDKarla Napier, REHABILITATION MANAGER-C REHABILITATION MANAGER-Tita Regalado Brad, RN RN bm8 Oscar Velasco RN RN rg5
[2025-08-01 21:09] VITALS: TEMP 97
[2025-08-01 21:11] VITALS: BP 123/82; O2SAT 99
== END 2025-08-01 20:47 | disposition home or self-care (01) ==
LOC: ER 18:57
DX: M54.89 Other dorsalgia (principal); E11.9 Type 2 diabetes mellitus without complications; I10 Essential (primary) hypertension; M06.9 Rheumatoid arthritis, unspecified; L40.50 Arthropathic psoriasis, unspecified; F17.210 Nicotine dependence, cigarettes, uncomplicated
CPT/HCPCS: 71045; 96372; 99284; J7512; J1885